=== PATIENT | female | born 1940 | race Caucasian/White ===

== ENCOUNTER 2016-09-05 16:26 | Outpatient (CLI) | payer OTHER ==
[2015-09-02 16:42] VITALS: BMI 33.4
[2016-09-05 16:57] LABS: BASOPHILS # (AUTO) 0.1 K/uL (0-0.2); EOSINOPHILS # (AUTO) 0.2 K/ul (0.0-0.7); EOSINOPHILS % (AUTO) 2.9 % (0.0-7.0); IMMATURE GRANULOCYTE % (AUTO) 0.7 % (0.0-5.0); LYMPHOCYTES # (AUTO) 1.8 K/uL (0.60-3.4); LYMPHOCYTES % (AUTO) 24.4 (10.0-50.0); MEAN CORPUSCULAR HEMOGLOBIN 32.8 pg (27.0-31.0); MEAN CORPUSCULAR HGB CONC 29.8 (31.8-35.4); MONOCYTES # (AUTO) 0.6 K/uL (0.4-2.0); MONOCYTES % (AUTO) 8.1 (0-10); NEUTROPHILS # (AUTO) 4.6 K/ul (2.0-6.9); NEUTROPHILS % (AUTO) 62.9; PLATELET COUNT 196 10^3/uL (140-440); WHITE BLOOD COUNT 7.24 K/ul (4.6-10.2)
[2016-09-05 16:59] LABS: HEMATOCRIT 19.8 % (37.0-47.0); HEMOGLOBIN 5.9 g/dl (12.0-16.0)
[2016-09-05 17:01] LABS: ANISOCYTOSIS 1+ (NOT PRESENT)
[2016-09-05 17:02] LABS: POLYCHROMASIA 1+ (NOT PRESENT)
[2016-09-05 17:28] LABS: ALBUMIN 3.2 g/dL (3.4-5.0); ALBUMIN/GLOBULIN RATIO 1.23; ANION GAP 11.9; BILIRUBIN,TOTAL 0.28 mg/dL (0.00-1.20); BUN/CREATININE RATIO 16.25; CALCIUM 9.2 mg/dL (8.2-10.2); CREATININE 0.8 mg/dL (0.60-1.30); POTASSIUM 3.9 mmol/L (3.5-5.10); TOTAL PROTEIN 5.8 g/dL (5.8-8.1)
[2016-09-05 20:38] VITALS: BMI 32.2
== END 2016-09-05 16:27 | disposition home or self-care (01) ==
LOC: LAB 16:26
PROVIDERS: ATTEND Emergency Medicine
DX: E11.9 Type 2 diabetes mellitus without complications (principal); E78.5 Hyperlipidemia, unspecified; I10 Essential (primary) hypertension
CPT/HCPCS: 36415; 80053; 80061; 83036; 84443; 85008; 85025

== ENCOUNTER 2016-09-05 18:12 | Inpatient (IN) ==
[2016-09-05 19:58] LABS: BILIRUBIN,URINE Negative (NEGATIVE); KETONES,URINE Negative (NEGATIVE); LEUKOCYTE ESTERASE ,URINE Negative (NEGATIVE); NITRITE,URINE Negative (NEGATIVE); PROTEIN,URINE Negative (NEGATIVE); URINE, BLOOD Negative (NEGATIVE)
[2016-09-05 20:03] LABS: ADD URINE MICROSCOPIC NO
[2016-09-05 20:38] VITALS: BMI 32.2
[2016-09-05] MEDS ORDERED: NON-FORMULARY MEDICATION (Gabapentin [Gabapentin] 600 MG) PO SCH (21:15)
[2016-09-05] MEDS ORDERED: VENLAFAXINE HCL 100 MG PO SCH (21:15)
[2016-09-05] MEDS ORDERED: NITROSTAT SL PRN (21:20)
[2016-09-05] MEDS ORDERED: EFFEXOR XR PO SCH (21:30)
[2016-09-05] MEDS: NEURONTIN PO SCH (21:59)
[2016-09-05] MEDS: ATIVAN PO SCH (22:00)
[2016-09-05 22:03] LABS: OCCULT BLOOD INTERNAL QC 1 INTERNAL QC VALID; OCCULT BLOOD SAMPLE 1 POSITIVE (NEGATIVE)
[2016-09-05 22:10] LABS: TROPONIN I 0.277 ng/ml (0.0000-0.4000)
[2016-09-05] MEDS ORDERED: TYLENOL PO STA (23:44)
[2016-09-06 00:05] LABS: OCCULT BLOOD INTERNAL QC 2 INTERNAL QC VALID; OCCULT BLOOD INTERNAL QC 3 INTERNAL QC VALID; OCCULT BLOOD SAMPLE 2 NO SPECIMEN RECEIVED (NEGATIVE); OCCULT BLOOD SAMPLE 3 NO SPECIMEN RECEIVED (NEGATIVE)
[2016-09-06] MEDS ORDERED: LASIX ONE ×2 (00:35→03:26)
[2016-09-06] MEDS: LASIX IVP PRN ×2 (00:36→03:45)
[2016-09-06] MEDS ORDERED: LASIX IVP PRN (04:53)
[2016-09-06] MEDS: LASIX TAB PO SCH (05:37)
[2016-09-06] MEDS: SYNTHROID PO SCH (06:37)
[2016-09-06] MEDS: CALCIUM 500 + VIT D 200 MG TABLET PO SCH (08:32)
[2016-09-06] MEDS: VENLAFAXINE HCL 100 MG PO SCH ×2 (08:32→20:07)
[2016-09-06] MEDS: CYMBALTA PO SCH ×2 (08:33→20:07)
[2016-09-06] MEDS: HYDROCHLOROTHIAZIDE PO SCH (08:33)
[2016-09-06] MEDS: OMEGA-3 FISH OIL PO SCH (08:33)
[2016-09-06] MEDS: DIOVAN PO SCH (08:33)
[2016-09-06] MEDS: PROTONIX IV IVP SCH ×2 (08:44→20:02)
[2016-09-06] MEDS ORDERED: NON-FORMULARY MEDICATION (Omega-3 Fatty Acids/Fish Oil [Fish Oil 1,000 Mg Capsule] 1 EACH) PO SCH ×22 (09:00)
[2016-09-06] MEDS ORDERED: [UNRECOGNIZED DRUG - OTHER] PO SCH (09:00)
[2016-09-06] MEDS ORDERED: HYDROCHLOROTHIAZIDE PO SCH (09:00)
[2016-09-06] MEDS ORDERED: VALSARTAN PO SCH (09:00)
[2016-09-06 09:17] LABS: HEMOGLOBIN 10.2 g/dl (12.0-16.0)
[2016-09-06 09:45] LABS: ALBUMIN 3.5 g/dL (3.4-5.0); ALBUMIN/GLOBULIN RATIO 1.3; ANION GAP 12.4; BILIRUBIN,TOTAL 0.84 mg/dL (0.00-1.20); BUN/CREATININE RATIO 12.04; CALCIUM 9.1 mg/dL (8.2-10.2); CREATININE 0.83 mg/dL (0.60-1.30); POTASSIUM 3.4 mmol/L (3.5-5.10); TOTAL PROTEIN 6.2 g/dL (5.8-8.1)
[2016-09-06 09:46] LABS: TROPONIN I 0.294 ng/ml (0.0000-0.4000)
--- NOTE | 2016-09-06 12:22 | CT ---
EXAM: CT ABDOMEN AND PELVIS HISTORY: Anemia, positive occult blood in stool TECHNIQUE: CT abdomen and pelvis without intravenous contrast. Images were reconstructed using 5 m m section thickness. Reformations were prepared. COMPARISON: 09/02/2015 FINDINGS: Diagnostic limitations exist without including contrast enhanced images. No focal hepatic or spleni c lesions identified. Gallbladder is grossly unremarkable. Significant fatty replacement of the pa ncreas. No definite adrenal mass. Subtle nonspecific bilateral perinephric fat stranding. No hydr onephrosis or renal calculus. There is a stable high attenuation 1 cm nodule of the lateral left re nal cortex possibly representing a cyst with internal proteinaceous fluid. This can be correlated w ith ultrasound if not previously performed. Moderately severe atherosclerotic disease with early fu siform architecture of the infrarenal aorta remaining sub aneurysmal at 2.8 cm. No well-defined gastric pathology. Normal appendix. There is moderate distal colon diverticulosis. Normal bowel gas pattern. No well-defined colonic mass, further workup may be needed. Uterus and ur inary bladder are within normal limits. There is no ascites. No abdominal wall hernia. Moderate facet arthropathy lumbosacral junction. Tiny bilateral pleural effusions with minimal adjacent atelectasis. No pneumoperitoneum. IMPRESSION: 1. Moderate distal colon diverticulosis. 2. Moderately severe atherosclerotic disease. 3. Stable 1 cm high attenuation left renal cortical mass possibly a cyst. 4. Tiny bilateral pleural effusions.
[2016-09-06] MEDS: NEURONTIN PO SCH (20:06)
[2016-09-06 21:01] LABS: HEMATOCRIT 30.1 % (37.0-47.0); HEMOGLOBIN 10.1 g/dl (12.0-16.0)
[2016-09-06] MEDS: ATIVAN PO SCH (21:01)
[2016-09-07 04:45] LABS: HEMATOCRIT 32.3 % (37.0-47.0); HEMOGLOBIN 10.7 g/dl (12.0-16.0)
[2016-09-07 05:06] LABS: ALBUMIN 3.5 g/dL (3.4-5.0); ALBUMIN/GLOBULIN RATIO 1.17; ANION GAP 11.7; BUN/CREATININE RATIO 16.66; CALCIUM 9.8 mg/dL (8.2-10.2); CREATININE 0.78 mg/dL (0.60-1.30); POTASSIUM 3.7 mmol/L (3.5-5.10); TOTAL PROTEIN 6.5 g/dL (5.8-8.1)
[2016-09-07] MEDS: SYNTHROID PO SCH (05:43)
[2016-09-07] MEDS: LASIX TAB PO SCH (05:43)
[2016-09-07] MEDS: VENLAFAXINE HCL 100 MG PO SCH ×2 (08:27→20:33)
[2016-09-07] MEDS: CALCIUM 500 + VIT D 200 MG TABLET PO SCH (08:27)
[2016-09-07] MEDS: OMEGA-3 FISH OIL PO SCH (08:27)
[2016-09-07] MEDS: CYMBALTA PO SCH ×2 (08:28→20:34)
[2016-09-07] MEDS: DIOVAN PO SCH (08:28)
[2016-09-07] MEDS: HYDROCHLOROTHIAZIDE PO SCH (08:28)
[2016-09-07] MEDS ORDERED: PROTONIX PO STA (08:44)
--- NOTE | 2016-09-07 11:12 | PCM.PROG ---
Attending Provider: ATTENDING PROVIDER: Dr. JERSEY MACKEY-[facility] DATE OF SERVICE: 09/07/16 SUBJECTIVE: This 75 year old WHITE/ F was hospitalized 09/05/16. The patient states she doesn't feel good this morning, feels weak and "drained". The patient hasn't been sleeping well due to the Lasix. She states her daughter left yesterday to go home and she was upset about that. Hemoglobin is stable. REVIEW OF SYSTEMS: CONSTITUTIONAL: Fatigue. No fever, no chills. ENDOCRINE: No weight loss or weight gain. HEENT: No sinus drainage, no sore throat. CVS: No angina symptoms. No CHF symptoms. No palpitations. No atypical chest pain for CAD. No shortness of breath. RESPIRATORY: No cough, no hemoptysis. GI: No melena. No abdominal pain. No nausea, no vomiting. : No hematuria. No polyuria. SKIN: No rash. No wounds. MUSCULOSKELETAL: No pain. MOBILE APPLICATION DEVELOPMENT LEAD: No blackout, no dizziness. No headache. No double vision. PSYCHIATRIC: Sad as daughter has left. Not anxious; no depression. No suicidal thoughts. No homicidal thoughts. PHYSICAL EXAMINATION: GENERAL: Lying in bed in no distress. VITAL SIGNS: Temperature 98.1 F, Pulse 62, Respiratory Rate 18, BP 130/62, Pulse Ox 95% HEENT: Normocephalic, atraumatic. Mucosa is dry, pallor positive. NECK: No JVP, no carotid bruit. No lymphadenopathy. CARDIAC: S1, S2, no S3. Systolic murmur. LUNGS: Basilar crackles. Clear to auscultation. ABDOMEN: Soft, non-tender. Bowel sounds active. No rigidity, guarding or CVA tenderness. EXTREMITIES: No clubbing, cyanosis or edema. NEUROLOGIC: Awake, alert and oriented x3. LYMPHATIC: No palpable lymph nodes SKIN: Not dry. Intact. MUSCULOSKELETAL: No joint swelling. LAB REVIEW: 09/07/16 04:41 09/07/16 04:41 09/07/16 04:41: Hgb 10.7 L, Hct 32.3 L, Sodium 141, Potassium 3.7, Chloride 101 , Carbon Dioxide 32 H, Anion Gap 11.7, BUN 13, Creatinine 0.78, Estimated GFR ( MDRD) 72.00, BUN/Creatinine Ratio 16.66, Glucose 92 D, Calcium 9.8, Total Bilirubin 1.00, AST 24, ALT 12, Alkaline Phosphatase 89, Total Protein 6.5, Albumin 3.5, Globulin 3.0, Albumin/Globulin Ratio 1.17 09/06/16 21:01: Hgb 10.1 L, Hct 30.1 L 09/06/16 09:05: Hgb 10.2 L D, Hct 31.0 L D, Sodium 142, Potassium 3.4 L, Chloride 104, Carbon Dioxide 29, Anion Gap 12.4, BUN 10, Creatinine 0.83, Estimated GFR (MDRD) 67.00, BUN/Creatinine Ratio 12.04, Glucose 147 H D, Calcium 9.1, Total Bilirubin 0.84, AST 26, ALT 13, Alkaline Phosphatase 87, Total Creatine Kinase 49, Myoglobin 44, Troponin I 0.2940, Total Protein 6.2, Albumin 3.5, Globulin 2.7, Albumin/Globulin Ratio 1.30 ASSESSMENT: 1. Severe anemia from lower GI bleed status post 3 units blood transfusion 2. Diverticulosis 3. Aortic stenosis 4. Hypertension 5. Dyslipidemia 6. Peripheral neuropathy 7. Diabetes mellitus, diet controlled 8. Coronary artery disease 9. CHF PLAN: 1. Protonix 40 mg p.o. b.i.d. change to p.o. 2. Case management will get the patient an appointment as outpatient with Gastroenterology. 3. Out of bed to chair with activity as tolerated. 4. Check Hemoglobin and Hematocrit. Plan and coordination of the patient's care discussed in the presence of Mixing Roll Operator and nurse. CONDITION: Stable SCRIBED BY: SOHAN ZAMAN Distribution Agent scribed while in presence of service performed by Dr. JERSEY MACKEY-[facility] on 09/07/16 ([id number])
--- NOTE | 2016-09-07 14:38 | PN ---
DATE OF SERVICE: 09/06/16 SUBJECTIVE: The patient was admitted from the office yesterday for hgb of 5.3. The patient received 3 units. Today tomorrow hgb is 10.2. She feels better. REVIEW OF SYSTEMS: CONSTITUTIONAL: No fever, no chills. HEENT: Normal. ENDOCRINE: No weight gain, no weight loss. CVS: No angina symptoms. No CHF symptoms. No palpitations. No atypical chest pain for CAD. No shortness of breath. No PND, no orthopnea. RESPIRATORY: No cough, no hemoptysis. GI: No nausea, no vomiting. No abdominal pain. : No hematuria. No polyuria. MUSCULOSKELETAL:. No joint swelling. PSYCHIATRIC: Not anxious. No depression. No suicidal thoughts. No homicidal thoughts. SKIN: Intact. No rash. PHYSICAL EXAMINATION: V/S: Blood pressure 101/53, respiratory rate 20, heart rate 69, temperature 98.1. HEENT: Normocephalic, atraumatic. Mucosa dry. Pallor positive. No icterus. NECK: Supple. No JVD, no carotid bruit. No lymphadenopathy. LUNGS: Clear to auscultation. No rales or rhonchi. HEART: S1, S2 normal. No S3. Systolic murmur, gallop or regurgitation. ABDOMEN: Soft, nontender. Bowel sounds active. No rigidity. No rebound or guarding. No CVA tenderness. EXTREMITIES: No clubbing, cyanosis or 1+ edema lower extremity. MUSCULOSKELETAL: No joint swelling. NEUROLOGIC: Awake, alert, oriented times three. No focal deficit. LYMPHATIC: No lymph nodes palpable. SKIN: Intact. LABS: hgb 10.2, hct 31.0, sodium 142, potassium 3.4, chloride 104, bicarb 25, BUN 10, creatinine 0.83 and glucose 147. ASSESSMENT: 1. Anemia, mostly from the lower GI bleed will get CAT scan today 2. Status post 3 units blood transfusion 3. Hypertension 4. Dyslipidemia 5. Chronic heart failure 6. Aortic stenosis 7. Arteriosclerotic vascular disease 8. Depression PLAN: 1. Protonix 40mg IV push twice a day 2. CT scan of abdomen and pelvis 3. Hgb and Hct Q 12 hours Will follow the patient in daily rounds. TIME SPENT: More than 30 minutes MTDD
[2016-09-07] MEDS: PROTONIX PO SCH (16:20)
[2016-09-07 19:07] LABS: HEMATOCRIT 33.4 % (37.0-47.0); HEMOGLOBIN 10.9 g/dl (12.0-16.0)
[2016-09-07] MEDS: NEURONTIN PO SCH (20:33)
[2016-09-07] MEDS: ATIVAN PO SCH (20:34)
[2016-09-08 04:24] LABS: HEMATOCRIT 35.5 % (37.0-47.0); HEMOGLOBIN 11.4 g/dl (12.0-16.0)
[2016-09-08 04:48] LABS: ALBUMIN 3.6 g/dL (3.4-5.0); ALBUMIN/GLOBULIN RATIO 1.16; ANION GAP 13.8; BILIRUBIN,TOTAL 0.51 mg/dL (0.00-1.20); BUN/CREATININE RATIO 19.76; CALCIUM 10.5 mg/dL (8.2-10.2); CREATININE 0.86 mg/dL (0.60-1.30); POTASSIUM 3.8 mmol/L (3.5-5.10); TOTAL PROTEIN 6.7 g/dL (5.8-8.1)
[2016-09-08] MEDS: PROTONIX PO SCH ×2 (05:30→16:54)
[2016-09-08] MEDS: SYNTHROID PO SCH (05:30)
[2016-09-08] MEDS: LASIX TAB PO SCH (05:30)
[2016-09-08] MEDS: CALCIUM 500 + VIT D 200 MG TABLET PO SCH (08:23)
[2016-09-08] MEDS: DIOVAN PO SCH (08:24)
[2016-09-08] MEDS: CYMBALTA PO SCH ×2 (08:24→20:37)
[2016-09-08] MEDS: HYDROCHLOROTHIAZIDE PO SCH (08:24)
[2016-09-08] MEDS: OMEGA-3 FISH OIL PO SCH (08:24)
[2016-09-08] MEDS: VENLAFAXINE HCL 100 MG PO SCH ×2 (08:25→20:37)
[2016-09-08] MEDS ORDERED: CITRATE OF MAGNESIA PO STA (08:40)
[2016-09-08 18:33] LABS: HEMATOCRIT 37.3 % (37.0-47.0); HEMOGLOBIN 11.9 g/dl (12.0-16.0)
[2016-09-08] MEDS: NEURONTIN PO SCH (20:36)
[2016-09-08] MEDS: ATIVAN PO SCH (20:37)
[2016-09-09 04:54] LABS: BASOPHILS # (AUTO) 0.1 K/uL (0-0.2); BASOPHILS % (AUTO) 1.5 % (0.0-3.0); EOSINOPHILS # (AUTO) 0.3 K/ul (0.0-0.7); EOSINOPHILS % (AUTO) 3.6 % (0.0-7.0); HEMATOCRIT 33.7 % (37.0-47.0); HEMOGLOBIN 10.8 g/dl (12.0-16.0); IMMATURE GRANULOCYTE % (AUTO) 0.4 % (0.0-5.0); LYMPHOCYTES # (AUTO) 1.7 K/uL (0.60-3.4); LYMPHOCYTES % (AUTO) 20.6 (10.0-50.0); MEAN CORPUSCULAR HEMOGLOBIN 31.9 pg (27.0-31.0); MEAN CORPUSCULAR VOLUME 99.4 fl (81.0-99.0); MONOCYTES # (AUTO) 0.9 K/uL (0.4-2.0); NEUTROPHILS # (AUTO) 5.3 K/ul (2.0-6.9); NEUTROPHILS % (AUTO) 62.9; PLATELET COUNT 242 10^3/uL (140-440); RED BLOOD COUNT 3.39 10^6/ul (4.20-5.40)
[2016-09-09 05:22] LABS: ALBUMIN 3.5 g/dL (3.4-5.0); ALBUMIN/GLOBULIN RATIO 1.25; BILIRUBIN,TOTAL 0.47 mg/dL (0.00-1.20); BUN/CREATININE RATIO 25.55; CALCIUM 10.2 mg/dL (8.2-10.2); CREATININE 0.9 mg/dL (0.60-1.30); TOTAL PROTEIN 6.3 g/dL (5.8-8.1)
[2016-09-09] MEDS: LASIX TAB PO SCH (05:40)
[2016-09-09] MEDS: PROTONIX PO SCH ×2 (05:41→17:03)
[2016-09-09] MEDS: SYNTHROID PO SCH (05:41)
[2016-09-09] MEDS: CALCIUM 500 + VIT D 200 MG TABLET PO SCH (09:02)
[2016-09-09] MEDS: VENLAFAXINE HCL 100 MG PO SCH ×2 (09:02→20:38)
[2016-09-09] MEDS: CYMBALTA PO SCH ×2 (09:03→20:38)
[2016-09-09] MEDS: HYDROCHLOROTHIAZIDE PO SCH (09:03)
[2016-09-09] MEDS: DIOVAN PO SCH (09:03)
[2016-09-09] MEDS: OMEGA-3 FISH OIL PO SCH (09:03)
[2016-09-09 14:08] LABS: HEMATOCRIT 33.5 % (37.0-47.0); HEMOGLOBIN 10.9 g/dl (12.0-16.0)
[2016-09-09] MEDS: NEURONTIN PO SCH (20:38)
[2016-09-09] MEDS: ATIVAN PO SCH (20:38)
[2016-09-10 04:37] LABS: BASOPHILS # (AUTO) 0.1 K/uL (0-0.2); BASOPHILS % (AUTO) 1.8 % (0.0-3.0); EOSINOPHILS # (AUTO) 0.3 K/ul (0.0-0.7); EOSINOPHILS % (AUTO) 3.8 % (0.0-7.0); HEMATOCRIT 33.7 % (37.0-47.0); HEMOGLOBIN 10.8 g/dl (12.0-16.0); IMMATURE GRANULOCYTE % (AUTO) 0.6 % (0.0-5.0); LYMPHOCYTES # (AUTO) 1.9 K/uL (0.60-3.4); LYMPHOCYTES % (AUTO) 28.8 (10.0-50.0); MEAN CORPUSCULAR HEMOGLOBIN 31.9 pg (27.0-31.0); MEAN CORPUSCULAR VOLUME 99.4 fl (81.0-99.0); MONOCYTES # (AUTO) 0.8 K/uL (0.4-2.0); MONOCYTES % (AUTO) 11.9 (0-10); NEUTROPHILS # (AUTO) 3.5 K/ul (2.0-6.9); NEUTROPHILS % (AUTO) 53.1; PLATELET COUNT 231 10^3/uL (140-440); RED BLOOD COUNT 3.39 10^6/ul (4.20-5.40); WHITE BLOOD COUNT 6.64 K/ul (4.6-10.2)
[2016-09-10 04:56] LABS: ALBUMIN 3.5 g/dL (3.4-5.0); ALBUMIN/GLOBULIN RATIO 1.21; BILIRUBIN,TOTAL 0.4 mg/dL (0.00-1.20); CALCIUM 10.5 mg/dL (8.2-10.2); CREATININE 0.88 mg/dL (0.60-1.30); TOTAL PROTEIN 6.4 g/dL (5.8-8.1)
[2016-09-10] MEDS: PROTONIX PO SCH (05:52)
[2016-09-10] MEDS: LASIX TAB PO SCH (05:53)
[2016-09-10] MEDS: SYNTHROID PO SCH (05:53)
[2016-09-10] MEDS: OMEGA-3 FISH OIL PO SCH (08:27)
[2016-09-10] MEDS: VENLAFAXINE HCL 100 MG PO SCH (08:27)
[2016-09-10] MEDS: CALCIUM 500 + VIT D 200 MG TABLET PO SCH (08:27)
[2016-09-10] MEDS: CYMBALTA PO SCH (08:28)
[2016-09-10] MEDS: DIOVAN PO SCH (08:28)
[2016-09-10] MEDS: HYDROCHLOROTHIAZIDE PO SCH (08:28)
[2016-09-10 10:17] VITALS: TEMP 98
[2016-09-10 13:55] VITALS: BP 91/44
--- NOTE | 2016-09-12 12:45 | DS ---
DATE OF SERVICE: 09/10/16 FINAL DIAGNOSIS: 1. ANEMIA WITH LOWER GI BLEED MOST LIKELY FROM THE DIVERTICULOSIS NEEDING 3 UNITS OF PACKED RED BLOOD CELLS 2. CORONARY ARTERY DISEASE 3. CONGESTIVE HEART FAILURE 4. HYPERTENSION 5. DYSLIPIDEMIA 6. MODERATE AORTIC STENOSIS 7. DEPRESSION 8. ANXIETY 9. DIABETES MELLITUS DIET CONTROLLED 10. OSTEOARTHRITIS 11. HYPOTHYROIDISM PLAN: 1. Discharge the patient home. 2. Follow up with the GI doctor as scheduled September [address] Junior. 3. Follow up with Dr. Salter September 12 at [facility]. 4. Activity as tolerated. 5. Continue home medications as listed. 6. MiraLAX over the counter one cap full daily. 7. New medications: Protonix 40 mg p.o. daily. HOME MEDICATIONS: Calcium, Benadryl, Duloxetine, Ferrous sulfate, Lasix, Neurontin, Synthroid, Lorazepam, Multivitamin, Corona 3, Protonix, Valsartan Hydrochlorothiazide, Senna, Venlafaxine, Gabapentin, Crestor. DISEASE SPECIFIC EDUCATION: Anemia and the risk of CHF exacerbation and coronary artery disease discussed and she verbalized understanding. HOSPITAL COURSE: Abbie Adams who came to the [facility] to establish care complaining of feeling weak, tired, shortness of breath. The patient's labs were done which showed the hemoglobin of 5.3. At that time, I personally called the daughter, Ellie Adams, and directed admisson to the hospital and ordered 3 units of PRB transfusion. At that time, the patient's hemoglobin came up to 10.[address] of the abdomen and pelvis showed the multiple extensive diverticulosis. At that time, the patient verbalized understanding the importance of having a colonoscopy evaluation and finally agreed for that. The patient is scheduled with Dr. Junior for that. Hemoglobin remained stable. The patient was having a lot of problems with depression. Consult was made with [facility] and she is willing to go and have a follow up with them. Hospital stay is uneventful. Time spent on the patient is more than 55 minutes today. MTDD
--- NOTE | 2016-09-15 14:38 | PN ---
DATE OF SERVICE: 09/09/16 SUBJECTIVE: The patient was feeling weak and tired, did not want to go home. She was a little bit short of breath. Today, just woke up and says she feels some better , no pain. No abdominal discomfort. No nausea or vomiting. She had a couple of bowel movements. The patient got the laxative yesterday. REVIEW OF SYSTEMS: CONSTITUTIONAL: Weakness and tiredness. No fever, no chills. HEENT: Normal. ENDOCRINE: No weight gain, no weight loss. CVS: No angina symptoms. No CHF symptoms. No palpitations. No atypical chest pain for CAD. No shortness of breath. No PND, no orthopnea. RESPIRATORY: No cough, no hemoptysis. GI: No nausea, no vomiting. No abdominal pain. : No hematuria. No polyuria. MUSCULOSKELETAL:. No joint swelling. PSYCHIATRIC: Not anxious. No depression. No suicidal thoughts. No homicidal thoughts. SKIN: Intact. No rash. PHYSICAL EXAMINATION: V/S: BP 101/62, respiratory rate 18, heart rate 73, temperature 97.2. HEENT: Normocephalic, atraumatic. Mucosa dry. Pallor positive. No icterus. NECK: Supple. No JVD, no carotid bruit. No lymphadenopathy. LUNGS: Decreased breath sounds. Clear to auscultation. No rales or rhonchi. HEART: S1, S2 normal. Systolic murmur positive. ABDOMEN: Soft, nontender. Bowel sounds active. No discomfort. No rigidity. No rebound or guarding. No CVA tenderness. EXTREMITIES: No clubbing, cyanosis or pedal edema. MUSCULOSKELETAL: No joint swelling. NEUROLOGIC: Awake, alert, oriented times three. No focal deficit. LYMPHATIC: No lymph nodes palpable. SKIN: Intact. LABS: White count 8.40, hemoglobin 10.8, hematocrit 33.7, platelet count 242. Sodium 138, potassium 4.0, chloride 96, bicarb 33, BUN 23, creatinine 0.90. ASSESSMENT: 1. LOWER GI BLEED MOSTLY DIVERTICULOSIS, STATUS POST THREE UNITS PRBC TRANSFUSION 2. CHF STABLE 3. CAD 4. HYPERTENSION 5. DIABETES, DIET CONTROLLED 6. DEPRESSION/ANXIETY 7. OSTEOARTHRITIS 8. DJD SPINE PLAN: 1. Will get one more H & H before the patient leaves by noontime. 2. The patient has GI consultation and followup as outpatient. Please watch for black tarry stools or bright red blood. 3. Iron pills [id number], three pills a day. 4. High fiber diet. 5. Activity as much as tolerated. 6. Will followup with the patient in the office within four to five days. TIME SPENT: More than 30 minutes MTDD
== END 2016-09-10 15:52 | disposition home or self-care (01) | DRG 811 ==
LOC: MEDSURG B 18:12
PROVIDERS: ADMIT Emergency Medicine; ATTEND Emergency Medicine
PROC: 30233N1 Transfusion of Nonautologous Red Blood Cells into Peripheral Vein, Percutaneous Approach (ICD-10-PCS; principal; 2016-09-05)
PROC: 30233N1 Transfusion of Nonautologous Red Blood Cells into Peripheral Vein, Percutaneous Approach (ICD-10-PCS; 2016-09-06)
PROC: 30233N1 Transfusion of Nonautologous Red Blood Cells into Peripheral Vein, Percutaneous Approach (ICD-10-PCS; 2016-09-06)
DX: D50.0 Iron deficiency anemia secondary to blood loss (chronic) (principal); K57.31 Diverticulosis of large intestine without perforation or abscess with bleeding; I25.10 Atherosclerotic heart disease of native coronary artery without angina pectoris; I50.9 Heart failure, unspecified; I10 Essential (primary) hypertension; I35.0 Nonrheumatic aortic (valve) stenosis; F41.8 Other specified anxiety disorders; E11.9 Type 2 diabetes mellitus without complications; E78.5 Hyperlipidemia, unspecified; M19.90 Unspecified osteoarthritis, unspecified site; E03.9 Hypothyroidism, unspecified; G62.9 Polyneuropathy, unspecified; Z79.899 Other long term (current) drug therapy
CPT/HCPCS: 36415; 36430; 80053; 80061; 81001; 82272; 82550; 83036; 83874; 84443; 84484; 85008; 85014; 85018; 85025; 86850; 86900; 86922; 93005; 93010

== ENCOUNTER 2016-09-15 12:01 | Outpatient (CLI) ==
[2016-09-15 13:06] LABS: BASOPHILS # (AUTO) 0.1 K/uL (0-0.2); BASOPHILS % (AUTO) 1.8 % (0.0-3.0); EOSINOPHILS # (AUTO) 0.2 K/ul (0.0-0.7); EOSINOPHILS % (AUTO) 2.6 % (0.0-7.0); HEMATOCRIT 26.7 % (37.0-47.0); HEMOGLOBIN 8.4 g/dl (12.0-16.0); IMMATURE GRANULOCYTE % (AUTO) 0.4 % (0.0-5.0); LYMPHOCYTES # (AUTO) 1.3 K/uL (0.60-3.4); LYMPHOCYTES % (AUTO) 22.8 (10.0-50.0); MEAN CORPUSCULAR HEMOGLOBIN 31.5 pg (27.0-31.0); MEAN CORPUSCULAR HGB CONC 31.5 (31.8-35.4); MONOCYTES # (AUTO) 0.5 K/uL (0.4-2.0); MONOCYTES % (AUTO) 8.8 (0-10); NEUTROPHILS # (AUTO) 3.6 K/ul (2.0-6.9); NEUTROPHILS % (AUTO) 63.6; PLATELET COUNT 203 10^3/uL (140-440); RED BLOOD COUNT 2.67 10^6/ul (4.20-5.40)
== END 2016-09-15 12:02 | disposition home or self-care (01) ==
LOC: LAB 12:01
PROVIDERS: ATTEND Emergency Medicine
DX: D50.0 Iron deficiency anemia secondary to blood loss (chronic) (principal)
CPT/HCPCS: 36415; 85025

== ENCOUNTER 2016-09-19 20:38 | Emergency (ER) ==
[2016-09-19 20:46] VITALS: BP 117/46; TEMP 98.1; BMI 32.1
--- NOTE | 2016-09-19 20:53 | ED.PDOC ---
General ED Provider: Dr. JERSEY MACKEY Chief Complaint: Weakness Stated Complaint: Patient was recently in the hospital for the lower GI bleed, had 3 units of BT. family brought her today as she is feeling weak tired, Time Seen by Physician: 20:51 Mode of Arrival: Wheelchair Information Source: Patient Primary Care Provider: JERSEY MACKEY-[facility] Nursing and Triage Documentation Reviewed and Agree: Yes Neurological Complaint Exam - Weakness Complaint/Exam Onset: Gradual Symptoms Are: Still present Timing: Constant Episodes Lasting: Hours Initial Severity: Moderate Current Severity: Moderate Character: Reports: Unable to describe Aggravating: Reports: Exertion Alleviating: Reports: None Associated Signs and Symptoms: Denies: Nausea, Vomiting, Diaphoresis, Tinnitus, Chest pain, Short of air, Palpitations, Unsteady gait, GI blood loss, Visual changes, Decreased oral intake, Change in medication, Change in diet, OTC meds, Loss of balance Related History: Similar episode Cardiac Risk Factors: Reports: None CVA Risk Factors: Reports: None Related Surgical History: Reports: None JVD Present: No Carotid Bruit Present: No Rectal Heme Positive: Yes Nystagmus Present: No Gag Reflex Present: No Meningeal Signs Positive: No Focal Weakness: Present: None Focal Sensory Loss: Present: None Gait: Abnormal [id number]: Normal Findings Romberg Test Positive: No Babinski Sign: Negative Right, Negative Left Heel to Toe Normal: No Differential Diagnoses: Hypovolemia, GI Bleed, Metabolic abnormalities Review of Systems - Review Of Systems Constitutional: Reports: Malaise, Weakness Eyes: Reports: No symptoms Ears, Nose, Mouth, Throat: Reports: No symptoms Respiratory: Reports: No symptoms Cardiac: Reports: No symptoms GI: Reports: Rectal bleeding : Reports: No symptoms Musculoskeletal: Reports: No symptoms Skin: Reports: No symptoms Neurological: Reports: No symptoms Endocrine: Reports: No symptoms Hematologic/Lymphatic: Reports: No symptoms All Other Systems: Reviewed and Negative Past Medical History - Past Medical History Previously Healthy: Yes Endocrine: Reports: Hypothyroid, Dyslipidemia Cardiovascular: Reports: CAD, Hypertension Respiratory: Reports: None Hematological: Reports: Anemia Gastrointestinal: Reports: None Genitourinary: Reports: None Neuro/Psych: Reports: None Musculoskeletal: Reports: Arthritis Cancer: Reports: None Last Menstrual Period: unknown Other Pertinent Past Medical History: htn thy ane chol depr arth cad - Surgical History General Surgical History: Reports: Orthopedic (LT SHOULDER REPLACED), Other (- ORAL SURG-). Denies: Hysterectomy (D & C-) - Family History Family History: Reports: Unknown - Social History Smoking Status: Current every day smoker, Heavy tobacco smoker Smoking Cessation Counseling Time: > 3 min - 10 min Hx Substance Use: No Alcohol Screening: None - Immunizations Tetanus Shot up to Date: No Physical Exam - Physical Exam Appearance: Ill-appearing Ill-appearing: Mild Eyes: ENRIKE, EOMI, Conjunctiva clear ENT: Ears normal, Nose normal, Oropharynx normal Respiratory: Airway patent, Breath sounds clear, Breath sounds equal, Respirations nonlabored Cardiovascular: Murmur GI/: Soft, Nontender, No masses, Bowel sounds normal, No Organomegaly Musculoskeletal: Normal strength, ROM intact, No calf tenderness, Edema Skin: Warm, Dry, Normal color Neurological: Sensation intact, Motor intact, Reflexes intact, Cranial nerves intact, Alert, Oriented Psychiatric: Affect appropriate, Mood appropriate Interpretation - Radiology Interpretation Radiology Interpretation By: Radiologist Radiology Results: Negative Exam Interpreted: CT Scan Physician Notification - Case Discussed Time of Notification: 21:56 (wound nurse ) Critical Care Note - Critical Care Note Total Time (mins): 0 Course - Course Hematology/Chemistry: 09/19/16 20:55 09/19/16 20:55 Orders, Labs, Meds: Lab Review 09/19/16 20:55 WBC 12.18 H RBC 1.87 L Hgb 6.1 L Hct 18.9 L* MCV 101.1 H MCH 32.6 H MCHC 32.3 RDW Coeff of Angelo 13.9 Plt Count 222 Immature Gran % (Auto) 1.1 Neut % (Auto) 73.6 Lymph % (Auto) 16.1 [place] % (Auto) 7.7 Eos % (Auto) 1.1 Baso % (Auto) 0.4 Immature Gran # (Auto) 0.1 Neut # 9.0 H Lymph # 2.0 [place] # 0.9 Eos # 0.1 Baso # 0.1 Sodium 138 Potassium 3.8 Chloride 106 Carbon Dioxide 25 Anion Gap 10.8 BUN 20 H Creatinine 0.79 Estimated GFR (MDRD) 71.00 BUN/Creatinine Ratio 25.31 Glucose 106 Calcium 8.6 Total Bilirubin 0.21 AST 17 ALT 7 L Alkaline Phosphatase 69 Total Creatine Kinase 29 Troponin I 0.0240 B-Natriuretic Peptide 205 H Total Protein 5.6 L Albumin 3.1 L Globulin 2.5 Albumin/Globulin Ratio 1.24 Orders Category Date Time Status EKG-(ED ONLY) Stat CARDIO 09/19/16 20:49 Completed ED IV/MEDIPORT/POWERPORT .ONCE EMERGENCY 09/19/16 21:34 Active B-TYPE NATRIURETIC PEPTIDE Stat LAB 09/19/16 20:55 Completed CBC W/ AUTO DIFF Stat LAB 09/19/16 20:55 Completed COMPREHENSIVE METABOLIC PANEL Stat LAB 09/19/16 20:55 Completed CREATINE KINASE Stat LAB 09/19/16 20:55 Completed Packed Cells [PACKED CELLS] Stat LAB 09/19/16 21:45 Received TROPONIN I Stat LAB 09/19/16 20:55 Completed TYPE AND SCREEN Stat LAB 09/19/16 21:45 Received 0.9 % Sodium Chloride [Saline Flush] MEDS 09/19/16 21:34 Ordered 1 syr IVF PRN PRN Sodium Chloride 0.9% [Sodium Chloride] 1,000 ml MEDS 09/19/16 22:00 Ordered IV 50 mls/hr CT HEAD W/O CONTRAST Stat RADS 09/19/16 20:51 Completed CXR [CHEST, 1V AP ONLY] Stat RADS 09/19/16 20:49 Completed Medications Generic Name Dose Route Start Last Admin Trade Name Freq PRN Reason Stop Dose Admin Sodium Chloride 1,000 mls @ 50 mls/hr 09/19/16 22:00 Sodium Chloride IV .Q20H MAY Sodium Chloride 1 syr 09/19/16 21:34 Saline Flush IVF PRN PRN To flush IV Vital Signs: Temp Pulse Resp BP Pulse Ox 09/19/16 20:40 98.1 F 71 20 117/46 L 96 Departure - Departure Time of Disposition: 21:56 Disposition: TSF OTHER Discharge Problem: Lower gastrointestinal bleed Anemia Qualifiers: Anemia type: iron deficiency 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) Instructions: Anemia (ED) Condition: Stable Pt referred to PMD for follow-up: Yes Allergies/Adverse Reactions: Allergies Latex, Natural Rubber Adverse Reaction (Verified 09/19/16 21:27) Home Medications: Ambulatory Orders Calcium Carbonate/Vitamin D3 [Calcium 600 + Vit D 400 Tablet] 1 each PO DAILY Furosemide [Lasix Tab] 40 mg PO QDAC 08/08/13 Levothyroxine Sodium [Synthroid] 75 mcg PO QDAC 08/08/13 Lorazepam 1 mg PO BEDTIME 08/08/13 Valsartan/Hydrochlorothiazide [Diovan Hct 160-25 mg Tablet] 1 tab PO DAILY 08/08 Duloxetine HCl 30 mg PO BID 09/02/15 Gabapentin 300 mg PO BID 09/02/15 Rosuvastatin Calcium [Crestor] 20 mg PO BEDTIME 09/02/15 Ferrous Sulfate 324 mg PO DAILY #30 tablet. 09/03/15 Pantoprazole Sodium [Protonix] 40 mg PO DAILY #30 tablet. 09/03/15 Diphenhydramine HCl [Benadryl] 25 mg PO BEDTIME 09/05/16 Gabapentin 600 mg PO BEDTIME 09/05/16 Multivitamin [Daily Value] 1 each PO DAILY 09/05/16 Elmer-3 Fatty Acids/Fish Oil [Fish Oil 1,000 mg Capsule] 1 each PO DAILY Sennosides/Docusate Sodium [Deisy-Colace Tablet] 1 each PO DAILY 09/05/16 Venlafaxine HCl 100 mg PO BID 09/06/16 Transfer Form Completed: Yes Disposition Discussed With: Patient, Family
[2016-09-19 21:00] LABS: BASOPHILS # (AUTO) 0.1 K/uL (0-0.2); BASOPHILS % (AUTO) 0.4 % (0.0-3.0); EOSINOPHILS # (AUTO) 0.1 K/ul (0.0-0.7); EOSINOPHILS % (AUTO) 1.1 % (0.0-7.0); HEMOGLOBIN 6.1 g/dl (12.0-16.0); IMMATURE GRANULOCYTE % (AUTO) 1.1 % (0.0-5.0); LYMPHOCYTES % (AUTO) 16.1 (10.0-50.0); MEAN CORPUSCULAR HEMOGLOBIN 32.6 pg (27.0-31.0); MEAN CORPUSCULAR HGB CONC 32.3 (31.8-35.4); MEAN CORPUSCULAR VOLUME 101.1 fl (81.0-99.0); MONOCYTES # (AUTO) 0.9 K/uL (0.4-2.0); MONOCYTES % (AUTO) 7.7 (0-10); NEUTROPHILS % (AUTO) 73.6; PLATELET COUNT 222 10^3/uL (140-440); RED BLOOD COUNT 1.87 10^6/ul (4.20-5.40); WHITE BLOOD COUNT 12.18 K/ul (4.6-10.2)
[2016-09-19 21:02] LABS: HEMATOCRIT 18.9 % (37.0-47.0)
[2016-09-19 21:24] LABS: ALBUMIN 3.1 g/dL (3.4-5.0); ALBUMIN/GLOBULIN RATIO 1.24; ANION GAP 10.8; BILIRUBIN,TOTAL 0.21 mg/dL (0.00-1.20); CALCIUM 8.6 mg/dL (8.2-10.2); POTASSIUM 3.8 mmol/L (3.5-5.10); TOTAL PROTEIN 5.6 g/dL (5.8-8.1)
[2016-09-19 21:25] LABS: BUN/CREATININE RATIO 25.31; CREATININE 0.79 mg/dL (0.60-1.30); TROPONIN I 0.024 ng/ml (0.0000-0.4000)
--- NOTE | 2016-09-19 21:31 | DI ---
Exam: Single x-ray of the chest. Comparison: 09/02/2015. Reason for exam: Cough. FINDINGS: No pneumothorax, pleural effusion, or focal consolidation. The cardiac silhouette is unc hanged. Atherosclerotic disease is seen within the aorta. Operative changes are seen in the left s houlder. Impression: No acute cardiopulmonary process.
--- NOTE | 2016-09-19 21:52 | CT ---
EXAM: CT head without contrast HISTORY: Weakness COMPARISON: None. TECHNIQUE: Helical axial CT of the head was performed without contrast. Coronal and sagittal reconst ructions were performed. FINDINGS: There is no acute intracranial abnormality. There is no hemorrhage, mass, midline shift, abnormal e xtra-axial fluid collection, hydrocephalus or evolving ischemia. The cuenca-white matter junction is w ell maintained. There is some minimal atrophy. Brain parenchyma, ventricles and sulci are otherwise normal. There are no acute calvarial lesions. Visualized orbits and globes are unremarkable. The mastoid a ir cells demonstrate no significant soft tissue opacification. The visualized paranasal sinuses show no air-fluid levels. IMPRESSION: 1. No acute intracranial abnormality. Specifically there is no evolving ischemia or hemorrhage. 2. Minimal atrophy.
[2016-09-19] MEDS ORDERED: SODIUM CHLORIDE 1,000 ML IV SCH (22:00)
== END 2016-09-19 22:53 | disposition short-term general hospital (02) ==
LOC: ED 20:38
DX: K92.2 Gastrointestinal hemorrhage, unspecified (principal); D50.0 Iron deficiency anemia secondary to blood loss (chronic); R53.1 Weakness; E03.9 Hypothyroidism, unspecified; E78.5 Hyperlipidemia, unspecified; I10 Essential (primary) hypertension; I25.10 Atherosclerotic heart disease of native coronary artery without angina pectoris; F17.210 Nicotine dependence, cigarettes, uncomplicated; Z79.899 Other long term (current) drug therapy
CPT/HCPCS: 36415; 80053; 82550; 83880; 84484; 85025; 86850; 86900; 86922; 93005; 93010; 96360; 99285

== ENCOUNTER 2016-09-19 22:48 | Outpatient (CLI) ==
[2016-09-19 20:46] VITALS: BMI 32.1
== END 2016-09-19 22:49 | disposition short-term general hospital (02) ==
LOC: AMBL 22:48
PROVIDERS: ATTEND Emergency Medicine
DX: R53.1 Weakness (principal); R42 Dizziness and giddiness; R03.1 Nonspecific low blood-pressure reading; D58.2 Other hemoglobinopathies; R06.9 Unspecified abnormalities of breathing; R88.8 Abnormal findings in other body fluids and substances

== ENCOUNTER 2016-09-26 11:15 | Outpatient (CLI) ==
[2016-09-26 11:42] LABS: HEMATOCRIT 23.4 % (37.0-47.0); HEMOGLOBIN 7.7 g/dl (12.0-16.0)
== END 2016-09-26 11:16 | disposition home or self-care (01) ==
LOC: NONPT 11:15
PROVIDERS: ATTEND Emergency Medicine
DX: D64.9 Anemia, unspecified (principal); K92.2 Gastrointestinal hemorrhage, unspecified
CPT/HCPCS: 85014; 85018

== ENCOUNTER 2016-09-30 09:29 | Outpatient (CLI) ==
[2016-09-30 12:52] VITALS: BMI 33.8
== END 2016-09-30 09:30 | disposition home or self-care (01) ==
LOC: AMBL 09:29
PROVIDERS: ATTEND Internal Medicine
DX: R06.9 Unspecified abnormalities of breathing (principal); R53.1 Weakness

== ENCOUNTER 2016-09-30 09:39 | Inpatient (IN) ==
[2016-09-30 10:32] LABS: BASOPHILS % (AUTO) 0.1 % (0.0-3.0); EOSINOPHILS % (AUTO) 0.3 % (0.0-7.0); IMMATURE GRANULOCYTE % (AUTO) 0.9 % (0.0-5.0); LYMPHOCYTES # (AUTO) 1.1 K/uL (0.60-3.4); LYMPHOCYTES % (AUTO) 10.2 (10.0-50.0); MEAN CORPUSCULAR HEMOGLOBIN 31.2 pg (27.0-31.0); MEAN CORPUSCULAR HGB CONC 31.6 (31.8-35.4); MEAN CORPUSCULAR VOLUME 98.6 fl (81.0-99.0); MONOCYTES # (AUTO) 0.8 K/uL (0.4-2.0); MONOCYTES % (AUTO) 7.8 (0-10); NEUTROPHILS # (AUTO) 8.6 K/ul (2.0-6.9); NEUTROPHILS % (AUTO) 80.7; PLATELET COUNT 168 10^3/uL (140-440); RED BLOOD COUNT 1.38 10^6/ul (4.20-5.40)
[2016-09-30 10:36] LABS: HEMATOCRIT 13.6 % (37.0-47.0); HEMOGLOBIN 4.3 g/dl (12.0-16.0)
[2016-09-30 10:44] LABS: OCCULT BLOOD INTERNAL QC 1 INTERNAL QC VALID; OCCULT BLOOD SAMPLE 1 POSITIVE (NEGATIVE)
--- NOTE | 2016-09-30 10:53 | CT ---
EXAM: CT chest without contrast. HISTORY: Shortness of breath. Chest pain. Cough. Fluid retention. COMPARISON: Radiograph 09/19/2016. TECHNIQUE: Multiple axial images of the chest were obtained without intravenous contrast. Images w ere reformatted in the sagittal and coronal planes. FINDINGS: Evaluation for lymphadenopathy is limited by lack of intravenous contrast. Heart is mild ly enlarged. Small amount pericardial fluid noted. Atherosclerotic calcifications are present. Mi tral and aortic valvular calcification is noted. The lungs are clear without pleural effusion or pneumothorax. There has been previous left shoulder arthroplasty. No acute osseous abnormality detected. Degener ative changes present in the spine. No acute abnormality identified in the upper abdomen. Refer to abdominal CT report for details. IMPRESSION: 1. No acute pulmonary process. 2. Cardiomegaly, atherosclerosis and small pericardial effusion.
--- NOTE | 2016-09-30 10:53 | CT ---
EXAM: CT of the abdomen pelvis without contrast History: Abdominal pain. Comparison: Chest CT 09/30 2016, CT abdomen pelvis 09/06/2016 Technique: Multiplanar CT images through the abdomen pelvis were obtained without the administratio n of IV contrast Findings: Prominent heart size. Lung bases are free of consolidation. No acute osseous abnormaliti es. No discrete gallstones identified by CT. Atherosclerotic vascular calcifications. No focal liver o r splenic lesions. Stable small hyperdense cyst within the left kidney. No renal stones and no hyd ronephrosis. Stable mild focal dilatation of the infrarenal abdominal aorta. There is pancreatic at rophy but no peripancreatic inflammation. Adrenal glands are unremarkable. No bowel obstruction. Colonic diverticulosis. Scattered colonic stool. No bladder wall thickening. Adnexal structures a ppear appropriate for patient's age. No perirectal inflammation. No free air and no ascites. Stable cystic area in the soft tissues superior to the left greater trochanter measuring 4.7 cm x 2. 7 cm. Impression: 1. No acute intra-abdominal or pelvic process. 2. Colonic diverticulosis. 3. Stable hyperdense left renal cortical cyst. 4. Stable cystic area in the soft tissues superior to the left greater trochanter could indicate bur sitis. Correlate with area of pain.
[2016-09-30 10:58] LABS: ALBUMIN 2.6 g/dL (3.4-5.0); ALBUMIN/GLOBULIN RATIO 1.24; ANION GAP 13.7; BILIRUBIN,TOTAL 0.18 mg/dL (0.00-1.20); BUN/CREATININE RATIO 29.41; CALCIUM 8.3 mg/dL (8.2-10.2); CREATININE 0.85 mg/dL (0.60-1.30); POTASSIUM 3.7 mmol/L (3.5-5.10); TOTAL PROTEIN 4.7 g/dL (5.8-8.1); TROPONIN I 0.049 ng/ml (0.0000-0.4000)
[2016-09-30 11:19] LABS: OCCULT BLOOD INTERNAL QC 2 INTERNAL QC VALID; OCCULT BLOOD INTERNAL QC 3 INTERNAL QC VALID; OCCULT BLOOD SAMPLE 2 NO SPECIMEN RECEIVED (NEGATIVE); OCCULT BLOOD SAMPLE 3 NO SPECIMEN RECEIVED (NEGATIVE)
--- NOTE | 2016-09-30 11:41 | ED.PDOC ---
General ED Provider: Dr. LAKSHMI FERRELL Chief Complaint: Weakness Stated Complaint: weakness Time Seen by Physician: 10:00 Mode of Arrival: Ambulance Information Source: Patient Exam Limitations: No limitations Primary Care Provider: JERSEY DAMONKim Nursing and Triage Documentation Reviewed and Agree: Yes Neurological Complaint Exam - Weakness Complaint/Exam Onset: Gradual Duration: chronic with dark bloody stools Symptoms Are: Still present Timing: Constant Episodes Lasting: Hours Initial Severity: Moderate Current Severity: Moderate Character: Reports: Lightheaded, Weak Aggravating: Reports: None Alleviating: Reports: None Associated Signs and Symptoms: Denies: Nausea, Vomiting, Diaphoresis, Tinnitus, Chest pain, Short of air, Palpitations, Unsteady gait, GI blood loss, Visual changes, Decreased oral intake, Change in medication, Change in diet, OTC meds, Loss of balance Related History: Similar episode Cardiac Risk Factors: Reports: Hypertension (anemia), CAD CVA Risk Factors: Reports: Hypertension Related Surgical History: Reports: None JVD Present: No Carotid Bruit Present: No Rectal Heme Positive: Yes Glascow Coma Scale (see protocol): 15 Nystagmus Present: No Gag Reflex Present: Yes Meningeal Signs Positive: No Focal Weakness: Present: None Focal Sensory Loss: Present: None Gait: Unable [id number]-Opua: Normal Findings Romberg Test Positive: No (unable to weakness ) Babinski Sign: Negative Right, Negative Left Heel to Toe Normal: No (can not test unable ) Differential Diagnoses: CAD, AL, Dysrhythmia, Hypovolemia, GI Bleed, Metabolic abnormalities Quality Indicators for Cardiac Chest Pain: EKG in 10min. Quality Indicators for AMI: EKG in 10min. Quality Indicator For Non-Traumatic Chest Pain/Syncope: EKG Performed Review of Systems - Review Of Systems Constitutional: Reports: Malaise, Weakness Eyes: Reports: No symptoms Ears, Nose, Mouth, Throat: Reports: No symptoms Respiratory: Reports: No symptoms Cardiac: Reports: No symptoms GI: Reports: Abdominal pain (black stools no blood noted ) : Reports: No symptoms Musculoskeletal: Reports: No symptoms Skin: Reports: No symptoms Neurological: Reports: No symptoms Endocrine: Reports: No symptoms Hematologic/Lymphatic: Reports: No symptoms All Other Systems: Reviewed and Negative Past Medical History - Past Medical History Previously Healthy: Yes Endocrine: Reports: Hypothyroid, Dyslipidemia Cardiovascular: Reports: CAD, Hypertension Respiratory: Reports: None Hematological: Reports: Anemia Gastrointestinal: Reports: None Genitourinary: Reports: None Neuro/Psych: Reports: None Musculoskeletal: Reports: Arthritis Cancer: Reports: None Last Menstrual Period: n/a Other Pertinent Past Medical History: htn thy ane chol depr arth cad - Surgical History General Surgical History: Reports: Orthopedic (LT SHOULDER REPLACED), Other (- ORAL SURG-). Denies: Hysterectomy (D & C-) - Family History Family History: Reports: Unknown - Social History Smoking Status: Current every day smoker, Heavy tobacco smoker Hx Substance Use: No Alcohol Screening: None Physical Exam - Physical Exam Appearance: Ill-appearing, Well-nourished Ill-appearing: Moderate Pain Distress: Moderate Eyes: ENRIKE, EOMI, Conjunctiva clear ENT: Ears normal, Nose normal, Oropharynx normal Respiratory: Airway patent, Breath sounds clear, Breath sounds equal, Respirations nonlabored Cardiovascular: RRR, Pulses normal, No rub, No murmur GI/: Soft, Nontender (rectal with mike at bedside at all times postive for tarry stools) Musculoskeletal: Normal strength, ROM intact, No edema, No calf tenderness Skin: Warm, Dry, Normal color Neurological: Sensation intact, Motor intact, Reflexes intact, Cranial nerves intact, Alert, Oriented Psychiatric: Affect appropriate, Mood appropriate Interpretation - Branch Coordinator Rate: Normal Rhythm: Sinus Ectopy: None - EKG Interpretation Rate: Normal Rhythm: Sinus Ectopy: None [place]: NL ST Segment: Normal Physician Notification - Case Discussed Physician Notified: pmd Time of Notification: 11:44 Admit To: Inpatient Critical Care Note - Critical Care Note Total Time (mins): 0 Course - Course Hematology/Chemistry: 09/30/16 10:10 09/30/16 10:10 Orders, Labs, Meds: Lab Review 09/30/16 09/30/16 10:05 10:10 WBC 10.60 H RBC 1.38 L Hgb 4.3 L* Hct 13.6 L* MCV 98.6 MCH 31.2 H MCHC 31.6 L RDW Coeff of Angelo 17.1 H Plt Count 168 Immature Gran % (Auto) 0.9 Neut % (Auto) 80.7 Lymph % (Auto) 10.2 [place] % (Auto) 7.8 Eos % (Auto) 0.3 Baso % (Auto) 0.1 Immature Gran # (Auto) 0.1 Neut # 8.6 H Lymph # 1.1 [place] # 0.8 Eos # 0.0 Baso # 0.0 PT 11.0 INR 1.07 APTT 21.0 L Sodium 139 Potassium 3.7 Chloride 103 Carbon Dioxide 26 Anion Gap 13.7 BUN 25 H Creatinine 0.85 Estimated GFR (MDRD) 65.00 BUN/Creatinine Ratio 29.41 Glucose 136 H Lactic Acid 19.2 Calcium 8.3 Total Bilirubin 0.18 AST 17 ALT 11 L Alkaline Phosphatase 75 Total Creatine Kinase 40 Troponin I 0.0490 Total Protein 4.7 L Albumin 2.6 L Globulin 2.1 Albumin/Globulin Ratio 1.24 Amylase 22 L Lipase 15 Stl Occult Blood (IFOB) Positive Stool Occult Blood #2 No specimen received Stool Occult Blood #3 No specimen received Orders Category Date Time Status EKG-(ED ONLY) Stat CARDIO 09/30/16 10:08 Completed ORDER H&H 1HR POST TRANSFUSION ONCE CARE 09/30/16 10:45 Active PRBC LEUKOREDUCED ONCE CARE 09/30/16 10:45 Active ED IV/MEDIPORT/POWERPORT .ONCE EMERGENCY 09/30/16 09:45 Active AMYLASE Stat LAB 09/30/16 10:10 Completed BLOOD CULTURE Stat LAB 09/30/16 10:10 Received CBC W/ AUTO DIFF Stat LAB 09/30/16 10:10 Completed COMPREHENSIVE METABOLIC PANEL Stat LAB 09/30/16 10:10 Completed CREATINE KINASE Stat LAB 09/30/16 10:10 Completed LACTIC ACID Stat LAB 09/30/16 10:10 Completed LIPASE Stat LAB 09/30/16 10:10 Completed OCCULT BLOOD, STOOL Stat LAB 09/30/16 10:05 Completed PACKED CELLS Routine LAB 09/30/16 11:23 Received PARTIAL THROMBOPLASTIN TIME Stat LAB 09/30/16 10:10 Completed PROCALCITONIN Stat LAB 09/30/16 10:10 Received PT WITH INR Stat LAB 09/30/16 10:10 Completed TROPONIN I Stat LAB 09/30/16 10:10 Completed TYPE AND SCREEN Routine LAB 09/30/16 11:23 Received 0.9 % Sodium Chloride [Saline Flush] MEDS 09/30/16 09:44 Active 1 syr IVF PRN PRN CT ABDOMEN/PELVIS WO CONTRAST Stat RADS 09/30/16 09:[address] CHEST W/O CONTRAST Stat RADS 09/30/16 09:45 Completed Medications Generic Name Dose Route Start Last Admin Trade Name Amandeep PRN Reason Stop Dose Admin Sodium Chloride 1 syr 09/30/16 09:44 Saline Flush IVF PRN PRN To flush IV Vital Signs: Temp Pulse Resp BP Pulse Ox 09/30/16 09:41 98.9 F 90 20 102/46 L 100 Departure - Departure Time of Disposition: 11:44 Disposition: ADMITTED INPATIENT Discharge Problem: Anemia Qualifiers: Anemia type: unspecified type Qualifier Code: (D64.9) Anemia, unspecified Instructions: Anemia (ED) Condition: Fair Pt referred to PMD for follow-up: Yes Allergies/Adverse Reactions: Allergies Latex, Natural Rubber Adverse Reaction (Verified 09/30/16 09:49) Home Medications: Ambulatory Orders Calcium Carbonate/Vitamin D3 [Calcium 600 + Vit D 400 Tablet] 1 each PO DAILY Furosemide [Lasix Tab] 20 mg PO BID 08/08/13 Levothyroxine Sodium [Synthroid] 75 mcg PO QDAC 08/08/13 Lorazepam 1 mg PO BEDTIME PRN 08/08/13 Valsartan/Hydrochlorothiazide [Diovan Hct 160-25 mg Tablet] 1 tab PO DAILY 08/08 Gabapentin 300 mg PO BID 09/02/15 Rosuvastatin Calcium [Crestor] 20 mg PO BEDTIME 09/02/15 Ferrous Sulfate 324 mg PO DAILY #30 tablet. 09/03/15 Pantoprazole Sodium [Protonix] 40 mg PO DAILY #30 tablet. 09/03/15 Gabapentin 600 mg PO BEDTIME 09/05/16 Multivitamin [Daily Value] 1 each PO DAILY 09/05/16 [place]-3 Fatty Acids/Fish Oil [Fish Oil 1,000 mg Capsule] 1 each PO DAILY Polyethylene Glycol 3350 [Miralax] 17 gm PO DAILY 09/30/16
[2016-09-30 12:02] LABS: IMMATURE RETIC FRACTION 42.2; RETICULOCYTE % 9.54 %
[2016-09-30 12:50] LABS: FERRITIN 39.13 ng/mL (4.63-204.00); FOLATE > 20.0 ng/mL (3.1-20.5); IRON 265 ug/dL (50-170); TOTAL IRON BINDING CAPACITY 290 ug/dL (240-450)
[2016-09-30 12:52] VITALS: BMI 33.8
[2016-09-30] MEDS ORDERED: TYLENOL PO STA (14:53)
[2016-09-30 15:57] LABS: BILIRUBIN,URINE Negative (NEGATIVE); KETONES,URINE Negative (NEGATIVE); LEUKOCYTE ESTERASE ,URINE Negative (NEGATIVE); NITRITE,URINE Negative (NEGATIVE); PH,URINE 6.5 (5-9); PROTEIN,URINE Negative (NEGATIVE); URINE, BLOOD Negative (NEGATIVE)
[2016-09-30] MEDS ORDERED: NEURONTIN PO ONE (17:29)
[2016-09-30] MEDS: LASIX TAB PO SCH (17:37)
[2016-09-30] MEDS: DUONEB NEB SCH (17:56)
[2016-09-30] MEDS ORDERED: LASIX TAB PO SCH (21:00)
[2016-09-30] MEDS ORDERED: NON-FORMULARY MEDICATION (Gabapentin [Gabapentin] 600 MG) PO SCH (21:00)
[2016-10-01] MEDS: DUONEB NEB SCH ×4 (00:04→18:22)
[2016-10-01] MEDS ORDERED: LASIX IVP STA (01:37)
[2016-10-01] MEDS: PROTONIX PO SCH (05:38)
[2016-10-01] MEDS: LASIX TAB PO SCH ×2 (05:38→17:56)
[2016-10-01] MEDS: SYNTHROID PO SCH (05:38)
[2016-10-01] MEDS: FERROUS SULFATE PO SCH (08:49)
[2016-10-01] MEDS ORDERED: [UNRECOGNIZED DRUG - OTHER] PO SCH (09:00)
[2016-10-01] MEDS ORDERED: DIOVAN PO SCH (09:00)
[2016-10-01] MEDS ORDERED: VALSARTAN PO SCH (09:00)
[2016-10-01] MEDS ORDERED: HYDROCHLOROTHIAZIDE PO SCH ×2 (09:00)
[2016-10-01 09:36] LABS: BASOPHILS # (AUTO) 0.1 K/uL (0-0.2); BASOPHILS % (AUTO) 0.9 % (0.0-3.0); EOSINOPHILS # (AUTO) 0.1 K/ul (0.0-0.7); EOSINOPHILS % (AUTO) 1.1 % (0.0-7.0); HEMATOCRIT 26.6 % (37.0-47.0); HEMOGLOBIN 9.2 g/dl (12.0-16.0); IMMATURE GRANULOCYTE % (AUTO) 1.3 % (0.0-5.0); LYMPHOCYTES # (AUTO) 1.7 K/uL (0.60-3.4); MEAN CORPUSCULAR HGB CONC 34.6 (31.8-35.4); MEAN CORPUSCULAR VOLUME 89.6 fl (81.0-99.0); MONOCYTES # (AUTO) 1.2 K/uL (0.4-2.0); NEUTROPHILS # (AUTO) 9.9 K/ul (2.0-6.9); NEUTROPHILS % (AUTO) 74.7; PLATELET COUNT 137 10^3/uL (140-440); RED BLOOD COUNT 2.97 10^6/ul (4.20-5.40); WHITE BLOOD COUNT 13.29 K/ul (4.6-10.2)
[2016-10-01 09:55] LABS: ALBUMIN 2.6 g/dL (3.4-5.0); ALBUMIN/GLOBULIN RATIO 1.08; BILIRUBIN,TOTAL 0.68 mg/dL (0.00-1.20); BUN/CREATININE RATIO 28.75; CALCIUM 7.4 mg/dL (8.2-10.2); CREATININE 0.8 mg/dL (0.60-1.30)
[2016-10-01] MEDS ORDERED: NEURONTIN PO ONE (17:21)
[2016-10-01] MEDS ORDERED: K-DUR PO STA (19:53)
[2016-10-01] MEDS ORDERED: POTASSIUM CHLORIDE PREMIX RUN 40 MEQ in PREMIX 100 ML WATER 2 BAG IV STA (19:53)
[2016-10-01] MEDS ORDERED: POTASSIUM CHLORIDE IV ONE (20:10)
[2016-10-01 20:20] LABS: HEMATOCRIT 28.9 % (37.0-47.0); HEMOGLOBIN 9.5 g/dl (12.0-16.0)
[2016-10-01] MEDS: NEURONTIN PO SCH (21:13)
[2016-10-02] MEDS: DUONEB NEB SCH ×5 (00:08→23:03)
[2016-10-02] MEDS: NORCO 5-325 PO PRN ×2 (02:44→10:57)
[2016-10-02 04:57] LABS: ALBUMIN 2.5 g/dL (3.4-5.0); ALBUMIN/GLOBULIN RATIO 1.04; ANION GAP 16.3; BILIRUBIN,TOTAL 0.48 mg/dL (0.00-1.20); BUN/CREATININE RATIO 26.31; CREATININE 0.76 mg/dL (0.60-1.30); POTASSIUM 3.3 mmol/L (3.5-5.10); TOTAL PROTEIN 4.9 g/dL (5.8-8.1)
[2016-10-02] MEDS: LASIX TAB PO SCH ×2 (06:02→16:49)
[2016-10-02] MEDS: SYNTHROID PO SCH (06:02)
[2016-10-02] MEDS: PROTONIX PO SCH (06:02)
[2016-10-02] MEDS ORDERED: K-DUR PO STA (06:20)
[2016-10-02] MEDS ORDERED: LASIX TAB PO STA (08:14)
[2016-10-02] MEDS: FERROUS SULFATE PO SCH (09:49)
[2016-10-02 12:18] LABS: HEMATOCRIT 27.7 % (37.0-47.0); HEMOGLOBIN 9.3 g/dl (12.0-16.0)
[2016-10-02] MEDS: NEURONTIN PO SCH (20:29)
[2016-10-02 20:58] LABS: HEMATOCRIT 28.7 % (37.0-47.0); HEMOGLOBIN 9.4 g/dl (12.0-16.0)
[2016-10-03 04:05] LABS: HEMATOCRIT 26.2 % (37.0-47.0); HEMOGLOBIN 8.7 g/dl (12.0-16.0)
[2016-10-03] MEDS: NORCO 5-325 PO PRN ×2 (04:28→21:51)
[2016-10-03] MEDS: DUONEB NEB SCH ×4 (05:07→23:21)
[2016-10-03 05:49] LABS: ALBUMIN 2.7 g/dL (3.4-5.0); ALBUMIN/GLOBULIN RATIO 1.13; ANION GAP 14.5; BILIRUBIN,TOTAL 0.7 mg/dL (0.00-1.20); BUN/CREATININE RATIO 20.77; CALCIUM 8.3 mg/dL (8.2-10.2); CREATININE 0.77 mg/dL (0.60-1.30); POTASSIUM 3.5 mmol/L (3.5-5.10); TOTAL PROTEIN 5.1 g/dL (5.8-8.1)
[2016-10-03] MEDS: LASIX TAB PO SCH ×2 (06:09→16:56)
[2016-10-03] MEDS: SYNTHROID PO SCH (06:09)
[2016-10-03] MEDS: PROTONIX PO SCH (06:09)
[2016-10-03] MEDS: FERROUS SULFATE PO SCH (08:57)
[2016-10-03 12:25] LABS: HEMATOCRIT 27.6 % (37.0-47.0); HEMOGLOBIN 9.1 g/dl (12.0-16.0)
--- NOTE | 2016-10-03 13:38 | HP ---
DATE OF SERVICE: 09/30/16 CHIEF COMPLAINT: Shortness of breath, weakness and decreased responsiveness. HISTORY OF PRESENT ILLNESS: This is a 75-year-old female who was recently admitted to [facility] with severe anemia. After that the patient was transferred to [facility] for colonoscopy and endoscopy but the patient opted not to have colonoscopy and endoscopy. The patient has been discharged home. She went home, started feeling weak and tired, worsening shortness of breath, swelling all over the body and when the daughter went and checked on her today, the patient was more lethargic. At that time, the patient was brought to the emergency room, seen by Dr. Chong in the emergency room. Hemoglobin was 4.3. PT/INR was normal. BUN 25 , creatinine 1.36. Stool for occult blood was positive. The patient was admitted to the hospital with acute blood loss anemia needing blood transfusion ; three units given with acute on chronic heart failure, weakness, tiredness. REVIEW OF SYSTEMS: CONSTITUTIONAL: Weakness, tiredness. No fever, no chills. HEENT: Normal. ENDOCRINE: No weight gain; no weight loss. CVS: No chest pain. No PND, no orthopnea. Shortness of breath. No PND, no orthopnea. RESPIRATORY: No cough, no congestion. No hemoptysis. GI: Black tarry stools. No nausea, no vomiting. No abdominal pain. : No hematuria. No polyuria. MUSCULOSKELETAL: Swollen all over. NEUROLOGIC: Dizziness. PSYCHIATRIC: Not anxious. No depression. No suicidal thoughts. No homicidal thoughts. SKIN: Intact, no open lesions. PAST MEDICAL HISTORY: 1. Coronary artery disease 2. Aortic stenosis, moderate to severe 3. Peripheral vascular disease 4. Dyslipidemia 5. Hypertension 6. Dependent edema 7. Alzheimer's dementia 8. Osteoarthritis 9. DJD spine 10. Hypothyroidism 11. Diabetes mellitus 12. Depression/anxiety PAST SURGICAL HISTORY: 1. Left shoulder replacement, 2011 2. Dilatation and curettage 3. Cataract surgery PERSONAL HISTORY: The patient does smoke. No alcohol use. No drug use. and lives with . FAMILY HISTORY: Significant for thyroid problems, diabetes and cancer MEDICATIONS: (HOME) 1. Lorazepam 2. Diovan 3. Synthroid 4. Lasix 5. Calcium 6. Crestor 7. Gabapentin 8. Ferrous Sulfate 9. Protonix 10. Fish Oil 11. Multivitamin 12. Miralax ALLERGIES: LATEX AND NATURAL RUBBER PHYSICAL EXAMINATION: V/S: BP 92/58, respiratory rate 20, heart rate 90, temperature 97.0. Sick looking lady lying in bed, pallor positive. Mucosa dry. HEENT: Atraumatic, normocephalic. No scleral icterus. NECK: Supple. No JVD, no bruit. No lymphadenopathy. No thyromegaly. HEART: S1, S2 normal. Systolic murmur. No cyanosis or clubbing. No ascites. LUNGS: Decreased with basilar crackles. No rales or rhonchi. ABDOMEN: Soft, nontender. Bowel sounds are active. No CVA tenderness. No rigidity or guarding. EXTREMITIES: 2+ edema. No cyanosis, clubbing or pedal edema. MUSCULOSKELETAL: Normal joints, no swelling. NEUROLOGIC: Normal. SKIN: Intact; no open lesions. LYMPHATIC: No lymph nodes palpable. LABS: White count 10.60, hemoglobin 4.3, hematocrit 36.6, platelet count 168. Sodium 139, potassium 3.7, chloride 103, bicarb 27, BUN 25, creatinine 0.85, glucose 136, calcium 8.3. ASSESSMENT: 1. SEVERE BLOOD LOSS ANEMIA 2. LOWER GI BLEED FROM DIVERTICULOSIS NEEDING BLOOD TRANSFUSION 3. ACUTE SHORTNESS OF BREATH SECONDARY TO BLOOD LOSS ANEMIA 4. ACUTE ON CHRONIC HEART FAILURE 5. HYPERTENSION 6. DYSLIPIDEMIA 7. DIABETES 8. DEPRESSION/ANXIETY 9. AORTIC STENOSIS 10. CHF STABLE PLAN: 1. Admit patient to the regular floor 2. CBC, CMP today and daily 3. Cardiac enzymes and troponin 4. Type and crossmatch 3 units and transfuse 3; Lasix 20 in between if the systolic blood pressure more than 110. 5. Continue home medication. 6. Accu-Cheks with coverage. 7. Protonix 40 mg. 8. Daily I & O's. 9. Will follow the patient in daily rounds. TIME SPENT: More than 17 minutes which is critical care time. MARLENA
--- NOTE | 2016-10-03 13:47 | PN ---
DATE OF SERVICE: 10/01/16 SUBJECTIVE: The patient was admitted with anemia, had a total of four blood transfusions. No more fever. The patient did have some febrile illness after initial blood transfusion but she did not have any after that. Hemoglobin is steady right now. She did have again stools with red color in the stool per nurse Leah. REVIEW OF SYSTEMS: CONSTITUTIONAL: Weakness, tiredness. No fever, no chills. HEENT: Normal. ENDOCRINE: No weight gain, no weight loss. CVS: No angina symptoms. No CHF symptoms. No palpitations. No atypical chest pain for CAD. No shortness of breath. No PND, no orthopnea. RESPIRATORY: No cough, no hemoptysis. GI: No nausea, no vomiting. No abdominal pain. : No hematuria. No polyuria. MUSCULOSKELETAL:. No joint swelling. PSYCHIATRIC: Not anxious. No depression. No suicidal thoughts. No homicidal thoughts. SKIN: Intact. No rash. PHYSICAL EXAMINATION: V/S: BP 92/58, respiratory rate 16, heart rate 90, temperature 97. HEENT: Normocephalic, atraumatic. Mucosa dry. Pallor positive. NECK: Supple. No JVD, no carotid bruit. No lymphadenopathy. LUNGS: Decreased with basilar crackles. HEART: S1, S2 normal. No S3. Systolic murmur positive. ABDOMEN: Soft, nontender. Bowel sounds active. No rigidity. No rebound or guarding. No CVA tenderness. EXTREMITIES: No clubbing or cyanosis 2+ edema. MUSCULOSKELETAL: No joint swelling. NEUROLOGIC: Awake, alert, oriented times three. No focal deficit. LYMPHATIC: No lymph nodes palpable. SKIN: Intact. LABS: White count 13.1, hemoglobin 9.2, hematocrit 26.6, platelet count 137. Sodium 139, potassium 3.0, chloride 104, bicarb 24, BUN 23, creatinine 0.80. ASSESSMENT: 1. Hypokalemia 2. Acute blood loss anemia with transfusion of 4 units 3. Acute on chronic heart failure 4. Aortic stenosis 5. Diabetes 6. Depression 7. Anxiety 8. Hypothyroidism PLAN: 1. Give 40 p.o. and 40 IV potassium 2. Will recheck H & H 3. Daily I & O 4. [place] for leg cramps 5. Will follow with the patient in daily rounds TIME SPENT: More than 30 minutes MTDD
[2016-10-03] MEDS: NEURONTIN PO SCH (20:01)
[2016-10-03 20:02] LABS: HEMATOCRIT 28.1 % (37.0-47.0); HEMOGLOBIN 9.3 g/dl (12.0-16.0)
[2016-10-04 05:20] LABS: HEMATOCRIT 26.5 % (37.0-47.0); HEMOGLOBIN 8.5 g/dl (12.0-16.0)
[2016-10-04] MEDS: DUONEB NEB SCH ×2 (05:24→11:11)
[2016-10-04 05:40] LABS: ALBUMIN 2.8 g/dL (3.4-5.0); ALBUMIN/GLOBULIN RATIO 1.17; ANION GAP 14.6; BILIRUBIN,TOTAL 0.52 mg/dL (0.00-1.20); BUN/CREATININE RATIO 23.8; CALCIUM 8.8 mg/dL (8.2-10.2); CREATININE 0.84 mg/dL (0.60-1.30); POTASSIUM 3.6 mmol/L (3.5-5.10); TOTAL PROTEIN 5.2 g/dL (5.8-8.1)
[2016-10-04] MEDS: LASIX TAB PO SCH (06:02)
[2016-10-04] MEDS: SYNTHROID PO SCH (06:02)
[2016-10-04] MEDS: PROTONIX PO SCH (06:02)
[2016-10-04] MEDS: FERROUS SULFATE PO SCH (09:00)
[2016-10-04 10:38] VITALS: BP 107/56; TEMP 98.5
[2016-10-04 12:40] LABS: HEMATOCRIT 28.8 % (37.0-47.0); HEMOGLOBIN 9.4 g/dl (12.0-16.0)
--- NOTE | 2016-10-04 13:36 | DS ---
DATE OF SERVICE: 10/04/16 FINAL DIAGNOSIS: 1. PERSISTENT WEAKNESS FROM RECENT GI BLEED 2. LOWER GI BLEED FOR DIVERTICULOSIS STATUS POST FOUR UNITS BLOOD TRANSFUSION , HEMOGLOBIN IS 8.5; TO FOLLOW WITH DR. JUNIOR 3. ACUTE ON CHRONIC HEART FAILURE 4. MODERATE TO SEVERE AORTIC STENOSIS 5. HYPERTENSION 6. DYSLIPIDEMIA 7. CORONARY ARTERY DISEASE 8. DIABETES MELLITUS 9. DEPRESSION 10. DJD SPINE 11. OSTEOARTHRITIS 12. HYPOKALEMIA IN THE HOSPITAL WHICH WAS CORRECTED 13. HISTORY OF LEFT SHOULDER REPLACEMENT 2011 DISCHARGE INSTRUCTIONS: 1. Discharge patient to the shelter, [facility]. 2. Followup appointment: Followup at Dr. Junior's office on 10/20/16 at 11 a.m. 3. PT/OT evaluate and treat. 4. Keep legs elevated when resting. 5. USP followup with myself, Dr. Salter-[facility] within 4 to 5 days. 6. Please repeat H & H every third day and report to . 7. Weekly weight - if more than 5 lbs, please inform Dr. Salter. MEDICATIONS AT DISCHARGE: 1. Calcium with Vitamin D 2. Ferrous Sulfate 324 p.o. t.i.d. 3. Lasix 20 mg p.o. b.i.d. 4. Neurontin 300 mg p.o. b.i.d. 5. Neurontin 600 mg at bedtime 6. Synthroid 75 mcg p.o. daily 7. Lorazepam 1 mg at bedtime 8. Daily Vitamins 9. Fish Oil one tablet p.o. daily 10. Protonix 40 mg p.o. daily 11. Miralax 17 gm p.o. daily 12. Crestor 20 mg p.o. bedtime 13. Valsartan/Hydrochlorothiazide one tablet p.o. daily NEW PRESCRIPTIONS: N/A DIET INSTRUCTIONS: Healthy Heart diet ACTIVITY: As much as tolerated. Can participate in shelter activities. SMOKING: N/A DISEASE SPECIFIC EDUCATION: Lower GI bleed with need for colonoscopy is discussed with the patient almost every day, verbalized understanding. She finally agreed to do this. HOSPITAL COURSE: This patient was recently admitted to [facility] for severe lower GI bleed. The patient was reluctant to have a colonoscopy and endoscopy while there and was discharged home. The patient went home, started having black tarry stools again, weakness, tiredness and lethargic. The daughter brought the patient to the emergency room and hemoglobin was 4.3. At that time, the patient is admitted to the hospital, typed and screened, crossmatched 4 units and 4 units were given. The patient did have a mild reaction from the transfusion with a temperature of 99.7 for which Tylenol was given and the patient did not have any problem. H & H was stable after the blood transfusion , 8.5, 9.3, 9.4 and today is 8.5. BUN and creatinine have been steady, did not increase. Leg edema is just 1+ and minimal. The patient is still having weakness and tiredness from the blood loss and shortness of breath and aortic stenosis. Will be needing some physical therapy and occupational therapy at the shelter. TIME SPENT: More than 60 minutes. MARLENA
== END 2016-10-04 15:20 | DRG 379 ==
LOC: ED 09:39 → MEDSURG A 11:53
PROVIDERS: ADMIT Emergency Medicine; ATTEND Emergency Medicine
PROC: 30233N1 Transfusion of Nonautologous Red Blood Cells into Peripheral Vein, Percutaneous Approach (ICD-10-PCS; principal; 2016-09-30)
PROC: 30233N1 Transfusion of Nonautologous Red Blood Cells into Peripheral Vein, Percutaneous Approach (ICD-10-PCS; 2016-09-30)
PROC: 30233N1 Transfusion of Nonautologous Red Blood Cells into Peripheral Vein, Percutaneous Approach (ICD-10-PCS; 2016-09-30)
PROC: 30233N1 Transfusion of Nonautologous Red Blood Cells into Peripheral Vein, Percutaneous Approach (ICD-10-PCS; 2016-10-01)
DX: K57.31 Diverticulosis of large intestine without perforation or abscess with bleeding (principal); D50.0 Iron deficiency anemia secondary to blood loss (chronic); R53.1 Weakness; R10.9 Unspecified abdominal pain; R60.0 Localized edema; R06.02 Shortness of breath; I50.9 Heart failure, unspecified; I35.0 Nonrheumatic aortic (valve) stenosis; I10 Essential (primary) hypertension; E78.5 Hyperlipidemia, unspecified; I25.10 Atherosclerotic heart disease of native coronary artery without angina pectoris; E11.9 Type 2 diabetes mellitus without complications; M47.9 Spondylosis, unspecified; M19.90 Unspecified osteoarthritis, unspecified site; F41.8 Other specified anxiety disorders; E87.6 Hypokalemia; R19.5 Other fecal abnormalities; T80.89XA Other complications following infusion, transfusion and therapeutic injection, initial encounter; R50.81 Fever presenting with conditions classified elsewhere; F17.200 Nicotine dependence, unspecified, uncomplicated; Z79.899 Other long term (current) drug therapy
CPT/HCPCS: 36415; 36430; 80053; 82150; 82272; 82550; 82607; 82728; 82746; 83540; 83550; 83605; 83690; 84145; 84466; 84484; 85014; 85018; 85025; 85045; 85610; 85730; 86850; 86900; 86922; 87040; 87081; 93005; 93010; 94640; 99284

== ENCOUNTER 2016-10-14 14:49 | Outpatient (CLI) ==
[2016-10-14 15:01] LABS: BASOPHILS # (AUTO) 0.1 K/uL (0-0.2); BASOPHILS % (AUTO) 1.4 % (0.0-3.0); EOSINOPHILS # (AUTO) 0.2 K/ul (0.0-0.7); EOSINOPHILS % (AUTO) 3.2 % (0.0-7.0); HEMOGLOBIN 8.9 g/dl (12.0-16.0); IMMATURE GRANULOCYTE % (AUTO) 0.3 % (0.0-5.0); LYMPHOCYTES # (AUTO) 1.2 K/uL (0.60-3.4); LYMPHOCYTES % (AUTO) 19.5 (10.0-50.0); MEAN CORPUSCULAR HEMOGLOBIN 31.1 pg (27.0-31.0); MEAN CORPUSCULAR VOLUME 94.4 fl (81.0-99.0); MONOCYTES # (AUTO) 0.5 K/uL (0.4-2.0); MONOCYTES % (AUTO) 8.3 (0-10); NEUTROPHILS % (AUTO) 67.3; PLATELET COUNT 280 10^3/uL (140-440); RED BLOOD COUNT 2.86 10^6/ul (4.20-5.40)
== END 2016-10-14 14:50 | disposition home or self-care (01) ==
LOC: NONPT 14:49
PROVIDERS: ATTEND Emergency Medicine
DX: D64.9 Anemia, unspecified (principal); I35.0 Nonrheumatic aortic (valve) stenosis; K92.2 Gastrointestinal hemorrhage, unspecified
CPT/HCPCS: 85025

== ENCOUNTER 2016-10-17 14:19 | Outpatient (CLI) ==
[2016-10-17 14:28] LABS: BASOPHILS # (AUTO) 0.1 K/uL (0-0.2); BASOPHILS % (AUTO) 0.7 % (0.0-3.0); EOSINOPHILS # (AUTO) 0.2 K/ul (0.0-0.7); EOSINOPHILS % (AUTO) 1.5 % (0.0-7.0); IMMATURE GRANULOCYTE % (AUTO) 0.7 % (0.0-5.0); LYMPHOCYTES # (AUTO) 1.2 K/uL (0.60-3.4); LYMPHOCYTES % (AUTO) 12.1 (10.0-50.0); MEAN CORPUSCULAR HEMOGLOBIN 31.9 pg (27.0-31.0); MEAN CORPUSCULAR HGB CONC 33.3 (31.8-35.4); MEAN CORPUSCULAR VOLUME 95.7 fl (81.0-99.0); MONOCYTES # (AUTO) 0.7 K/uL (0.4-2.0); MONOCYTES % (AUTO) 7.2 (0-10); NEUTROPHILS # (AUTO) 7.9 K/ul (2.0-6.9); NEUTROPHILS % (AUTO) 77.8; PLATELET COUNT 264 10^3/uL (140-440); RED BLOOD COUNT 2.82 10^6/ul (4.20-5.40); WHITE BLOOD COUNT 10.21 K/ul (4.6-10.2)
== END 2016-10-17 14:20 | disposition home or self-care (01) ==
LOC: NONPT 14:19
PROVIDERS: ATTEND Emergency Medicine
DX: K92.2 Gastrointestinal hemorrhage, unspecified (principal); D64.9 Anemia, unspecified
CPT/HCPCS: 85025

== ENCOUNTER 2016-10-20 12:16 | Outpatient (CLI) ==
[2016-10-20 12:35] LABS: BASOPHILS # (AUTO) 0.1 K/uL (0-0.2); BASOPHILS % (AUTO) 0.9 % (0.0-3.0); EOSINOPHILS # (AUTO) 0.2 K/ul (0.0-0.7); EOSINOPHILS % (AUTO) 1.9 % (0.0-7.0); HEMATOCRIT 26.5 % (37.0-47.0); HEMOGLOBIN 8.7 g/dl (12.0-16.0); IMMATURE GRANULOCYTE % (AUTO) 0.6 % (0.0-5.0); LYMPHOCYTES # (AUTO) 1.5 K/uL (0.60-3.4); LYMPHOCYTES % (AUTO) 14.8 (10.0-50.0); MEAN CORPUSCULAR HEMOGLOBIN 32.3 pg (27.0-31.0); MEAN CORPUSCULAR HGB CONC 32.8 (31.8-35.4); MEAN CORPUSCULAR VOLUME 98.5 fl (81.0-99.0); MONOCYTES % (AUTO) 9.3 (0-10); NEUTROPHILS # (AUTO) 7.4 K/ul (2.0-6.9); NEUTROPHILS % (AUTO) 72.5; PLATELET COUNT 264 10^3/uL (140-440); RED BLOOD COUNT 2.69 10^6/ul (4.20-5.40); WHITE BLOOD COUNT 10.24 K/ul (4.6-10.2)
== END 2016-10-20 12:17 | disposition home or self-care (01) ==
LOC: LAB 12:16
PROVIDERS: ATTEND Emergency Medicine
DX: D50.0 Iron deficiency anemia secondary to blood loss (chronic) (principal)
CPT/HCPCS: 36415; 85025

== ENCOUNTER 2016-10-21 11:33 | Inpatient (IN) ==
[2016-10-21] MEDS ORDERED: TYLENOL PO PRN (11:45)
[2016-10-21] MEDS ORDERED: SYNTHROID PO SCH (12:00)
[2016-10-21] MEDS ORDERED: MIRALAX PO SCH (12:00)
[2016-10-21] MEDS ORDERED: LASIX TAB PO SCH ×3 (12:00→18:00)
[2016-10-21] MEDS ORDERED: PROTONIX PO SCH (12:00)
[2016-10-21 12:47] VITALS: BMI 29.5
[2016-10-21] MEDS ORDERED: CYMBALTA PO SCH (13:00)
[2016-10-21] MEDS ORDERED: CALCIUM 500 + VIT D 200 MG TABLET PO SCH (13:00)
--- NOTE | 2016-10-21 13:57 | DI ---
EXAM: Single view of the chest. History: Short of breath Comparison: Chest radiograph 09/19/2016 Findings: Heart is mildly enlarged. Atherosclerotic vascular calcifications. No focal consolidati on. No appreciable pleural fluid and no pneumothorax. No acute osseous abnormalities. Left should er arthroplasty hardware. Impression: Mild cardiomegaly without acute disease in the chest. No change compared to prior stud y.
[2016-10-21 14:01] LABS: BILIRUBIN,URINE Negative (NEGATIVE); KETONES,URINE Negative (NEGATIVE); LEUKOCYTE ESTERASE ,URINE Trace (NEGATIVE); NITRITE,URINE Negative (NEGATIVE); PROTEIN,URINE Negative (NEGATIVE); URINE, BLOOD Negative (NEGATIVE)
[2016-10-21 14:07] LABS: ADD URINE MICROSCOPIC YES
[2016-10-21] MEDS: SODIUM CHLORIDE 1,000 ML IV SCH (15:00)
[2016-10-21] MEDS ORDERED: NEURONTIN PO SCH (15:00)
[2016-10-21 15:20] LABS: BASOPHILS # (AUTO) 0.1 K/uL (0-0.2); BASOPHILS % (AUTO) 0.9 % (0.0-3.0); EOSINOPHILS # (AUTO) 0.2 K/ul (0.0-0.7); EOSINOPHILS % (AUTO) 2.2 % (0.0-7.0); HEMATOCRIT 23.2 % (37.0-47.0); HEMOGLOBIN 7.7 g/dl (12.0-16.0); IMMATURE GRANULOCYTE % (AUTO) 0.5 % (0.0-5.0); LYMPHOCYTES # (AUTO) 1.4 K/uL (0.60-3.4); MEAN CORPUSCULAR HEMOGLOBIN 32.6 pg (27.0-31.0); MEAN CORPUSCULAR HGB CONC 33.2 (31.8-35.4); MEAN CORPUSCULAR VOLUME 98.3 fl (81.0-99.0); MONOCYTES # (AUTO) 0.7 K/uL (0.4-2.0); MONOCYTES % (AUTO) 9.1 (0-10); NEUTROPHILS # (AUTO) 5.3 K/ul (2.0-6.9); NEUTROPHILS % (AUTO) 69.3; PLATELET COUNT 206 10^3/uL (140-440); RED BLOOD COUNT 2.36 10^6/ul (4.20-5.40); WHITE BLOOD COUNT 7.71 K/ul (4.6-10.2)
[2016-10-21 15:39] LABS: ALBUMIN 3.2 g/dL (3.4-5.0); ALBUMIN/GLOBULIN RATIO 1.19; ANION GAP 12.8; BILIRUBIN,TOTAL 0.2 mg/dL (0.00-1.20); BUN/CREATININE RATIO 23.28; CALCIUM 9.3 mg/dL (8.2-10.2); CREATININE 0.73 mg/dL (0.60-1.30); POTASSIUM 3.8 mmol/L (3.5-5.10); TOTAL PROTEIN 5.9 g/dL (5.8-8.1)
[2016-10-21] MEDS: NON-FORMULARY MEDICATION (Duloxetine Hcl [Cymbalta] 60 MG) PO SCH ×22 (17:08)
[2016-10-21 18:12] LABS: TROPONIN I 0.034 ng/ml (0.0000-0.4000)
[2016-10-21] MEDS ORDERED: NON-FORMULARY MEDICATION (Gabapentin [Gabapentin] 600 MG) PO SCH (21:00)
[2016-10-21] MEDS ORDERED: CRESTOR PO SCH (21:00)
[2016-10-21] MEDS: FERROUS SULFATE PO SCH (21:45)
[2016-10-21] MEDS: NEURONTIN PO SCH (21:45)
[2016-10-21] MEDS: ATIVAN PO SCH (21:45)
[2016-10-21] MEDS: NON-FORMULARY MEDICATION (Rosuvastatin Calcium [Crestor] 20 MG) PO SCH ×22 (21:45)
[2016-10-22 02:01] LABS: BASOPHILS # (AUTO) 0.1 K/uL (0-0.2); BASOPHILS % (AUTO) 0.7 % (0.0-3.0); EOSINOPHILS # (AUTO) 0.2 K/ul (0.0-0.7); EOSINOPHILS % (AUTO) 2.5 % (0.0-7.0); HEMATOCRIT 22.6 % (37.0-47.0); HEMOGLOBIN 7.5 g/dl (12.0-16.0); IMMATURE GRANULOCYTE % (AUTO) 0.7 % (0.0-5.0); LYMPHOCYTES # (AUTO) 1.7 K/uL (0.60-3.4); LYMPHOCYTES % (AUTO) 22.8 (10.0-50.0); MEAN CORPUSCULAR HEMOGLOBIN 32.1 pg (27.0-31.0); MEAN CORPUSCULAR HGB CONC 33.2 (31.8-35.4); MEAN CORPUSCULAR VOLUME 96.6 fl (81.0-99.0); MONOCYTES # (AUTO) 0.7 K/uL (0.4-2.0); MONOCYTES % (AUTO) 8.7 (0-10); NEUTROPHILS # (AUTO) 4.9 K/ul (2.0-6.9); NEUTROPHILS % (AUTO) 64.6; PLATELET COUNT 201 10^3/uL (140-440); RED BLOOD COUNT 2.34 10^6/ul (4.20-5.40); WHITE BLOOD COUNT 7.62 K/ul (4.6-10.2)
[2016-10-22 02:23] LABS: ALBUMIN 3.2 g/dL (3.4-5.0); ALBUMIN/GLOBULIN RATIO 1.33; ANION GAP 10.8; BILIRUBIN,TOTAL 0.25 mg/dL (0.00-1.20); CALCIUM 9.2 mg/dL (8.2-10.2); CREATININE 0.68 mg/dL (0.60-1.30); POTASSIUM 3.8 mmol/L (3.5-5.10); TOTAL PROTEIN 5.6 g/dL (5.8-8.1)
[2016-10-22 02:29] LABS: TROPONIN I 0.046 ng/ml (0.0000-0.4000)
[2016-10-22] MEDS: SYNTHROID PO SCH (05:59)
[2016-10-22] MEDS: MIRALAX PO SCH (08:56)
[2016-10-22] MEDS: NEURONTIN PO SCH ×3 (08:57→20:59)
[2016-10-22] MEDS: PROTONIX PO SCH (08:58)
[2016-10-22] MEDS: MULTIVITAMIN PO SCH (08:58)
[2016-10-22] MEDS: NON-FORMULARY MEDICATION (Omega-3 Fatty Acids/Fish Oil [Fish Oil 1,000 Mg Capsule] 1 EACH) PO SCH ×22 (08:58)
[2016-10-22] MEDS ORDERED: OMEGA-3 FISH OIL PO SCH (09:00)
[2016-10-22] MEDS ORDERED: MULTIVITAMIN PO SCH (09:00)
[2016-10-22] MEDS: CALCIUM 500 + VIT D 200 MG TABLET PO SCH (09:00)
[2016-10-22] MEDS: NON-FORMULARY MEDICATION (Duloxetine Hcl [Cymbalta] 60 MG) PO SCH ×22 (09:03)
[2016-10-22] MEDS: FERROUS SULFATE PO SCH ×2 (09:03→20:59)
[2016-10-22] MEDS: ATIVAN PO SCH (20:59)
[2016-10-22] MEDS: NON-FORMULARY MEDICATION (Rosuvastatin Calcium [Crestor] 20 MG) PO SCH ×22 (21:00)
[2016-10-23] MEDS ORDERED: LASIX IVP PRN (00:28)
[2016-10-23] MEDS ORDERED: LASIX IVP ONE (03:53)
[2016-10-23] MEDS: SYNTHROID PO SCH (05:38)
[2016-10-23] MEDS ORDERED: LASIX TAB PO SCH ×2 (06:30)
[2016-10-23 08:15] LABS: BASOPHILS # (AUTO) 0.1 K/uL (0-0.2); BASOPHILS % (AUTO) 0.9 % (0.0-3.0); EOSINOPHILS # (AUTO) 0.2 K/ul (0.0-0.7); EOSINOPHILS % (AUTO) 1.6 % (0.0-7.0); HEMATOCRIT 25.5 % (37.0-47.0); HEMOGLOBIN 8.9 g/dl (12.0-16.0); IMMATURE GRANULOCYTE % (AUTO) 1.6 % (0.0-5.0); LYMPHOCYTES # (AUTO) 1.7 K/uL (0.60-3.4); LYMPHOCYTES % (AUTO) 17.9 (10.0-50.0); MEAN CORPUSCULAR HEMOGLOBIN 31.8 pg (27.0-31.0); MEAN CORPUSCULAR HGB CONC 34.9 (31.8-35.4); MEAN CORPUSCULAR VOLUME 91.1 fl (81.0-99.0); MONOCYTES # (AUTO) 0.8 K/uL (0.4-2.0); MONOCYTES % (AUTO) 8.2 (0-10); NEUTROPHILS # (AUTO) 6.7 K/ul (2.0-6.9); NEUTROPHILS % (AUTO) 69.8; PLATELET COUNT 165 10^3/uL (140-440); WHITE BLOOD COUNT 9.61 K/ul (4.6-10.2)
[2016-10-23 08:35] LABS: ALBUMIN/GLOBULIN RATIO 1.43; ANION GAP 11.4; BILIRUBIN,TOTAL 0.95 mg/dL (0.00-1.20); BUN/CREATININE RATIO 27.63; CALCIUM 8.6 mg/dL (8.2-10.2); CREATININE 0.76 mg/dL (0.60-1.30); POTASSIUM 3.4 mmol/L (3.5-5.10); TOTAL PROTEIN 5.1 g/dL (5.8-8.1)
[2016-10-23] MEDS: MIRALAX PO SCH (10:17)
[2016-10-23] MEDS: FERROUS SULFATE PO SCH ×2 (10:17→20:33)
[2016-10-23] MEDS: CALCIUM 500 + VIT D 200 MG TABLET PO SCH (10:18)
[2016-10-23] MEDS: NEURONTIN PO SCH ×3 (10:19→20:33)
[2016-10-23] MEDS: MULTIVITAMIN PO SCH ×2 (10:22→10:59)
[2016-10-23] MEDS ORDERED: ATIVAN PO PRN (10:34)
[2016-10-23] MEDS: OMEGA-3 FISH OIL PO SCH (10:56)
[2016-10-23] MEDS ORDERED: OMEGA-3 FISH OIL ONE (10:56)
[2016-10-23] MEDS: CYMBALTA PO SCH (10:57)
[2016-10-23] MEDS ORDERED: CYMBALTA ONE (10:57)
[2016-10-23] MEDS ORDERED: MULTIVITAMIN PO ONE (10:59)
[2016-10-23] MEDS ORDERED: LASIX IVP STA (13:10)
[2016-10-23 13:35] LABS: HEMATOCRIT 30.6 % (37.0-47.0); HEMOGLOBIN 10.6 g/dl (12.0-16.0)
[2016-10-23] MEDS: NON-FORMULARY MEDICATION (Duloxetine Hcl [Cymbalta] 60 MG) PO SCH ×22 (14:09)
[2016-10-23] MEDS: NON-FORMULARY MEDICATION (Omega-3 Fatty Acids/Fish Oil [Fish Oil 1,000 Mg Capsule] 1 EACH) PO SCH ×22 (14:10)
[2016-10-23] MEDS: PROTONIX PO SCH ×2 (15:47)
[2016-10-23] MEDS: SODIUM CHLORIDE 1,000 ML IV SCH (15:48)
[2016-10-23 18:12] LABS: HEMATOCRIT 29.6 % (37.0-47.0); HEMOGLOBIN 10.2 g/dl (12.0-16.0)
[2016-10-23] MEDS: CRESTOR PO SCH (20:33)
[2016-10-23] MEDS ORDERED: CRESTOR ONE (20:33)
[2016-10-23] MEDS ORDERED: NON-FORMULARY MEDICATION (Gabapentin [Neurontin] 600 MG) PO SCH ×22 (21:00)
[2016-10-24 06:10] LABS: BASOPHILS # (AUTO) 0.1 K/uL (0-0.2); BASOPHILS % (AUTO) 1.1 % (0.0-3.0); EOSINOPHILS # (AUTO) 0.2 K/ul (0.0-0.7); EOSINOPHILS % (AUTO) 2.5 % (0.0-7.0); HEMATOCRIT 27.6 % (37.0-47.0); HEMOGLOBIN 9.6 g/dl (12.0-16.0); IMMATURE GRANULOCYTE % (AUTO) 0.9 % (0.0-5.0); LYMPHOCYTES # (AUTO) 1.6 K/uL (0.60-3.4); LYMPHOCYTES % (AUTO) 20.2 (10.0-50.0); MEAN CORPUSCULAR HEMOGLOBIN 31.3 pg (27.0-31.0); MEAN CORPUSCULAR HGB CONC 34.8 (31.8-35.4); MEAN CORPUSCULAR VOLUME 89.9 fl (81.0-99.0); MONOCYTES # (AUTO) 0.7 K/uL (0.4-2.0); MONOCYTES % (AUTO) 8.9 (0-10); NEUTROPHILS # (AUTO) 5.3 K/ul (2.0-6.9); NEUTROPHILS % (AUTO) 66.4; PLATELET COUNT 180 10^3/uL (140-440); RED BLOOD COUNT 3.07 10^6/ul (4.20-5.40); WHITE BLOOD COUNT 7.94 K/ul (4.6-10.2)
[2016-10-24] MEDS: SYNTHROID PO SCH (06:15)
[2016-10-24] MEDS: PROTONIX PO SCH (06:15)
[2016-10-24] MEDS ORDERED: PROTONIX PO SCH (06:30)
[2016-10-24 06:31] LABS: ALBUMIN/GLOBULIN RATIO 1.3; ANION GAP 13.5; BILIRUBIN,TOTAL 0.57 mg/dL (0.00-1.20); CALCIUM 8.9 mg/dL (8.2-10.2); CREATININE 0.76 mg/dL (0.60-1.30); POTASSIUM 3.5 mmol/L (3.5-5.10); TOTAL PROTEIN 5.3 g/dL (5.8-8.1)
[2016-10-24] MEDS ORDERED: NON-FORMULARY MEDICATION (Multivitamin [Multi-Vitamin Daily] 1 EACH) PO SCH ×22 (09:00)
[2016-10-24] MEDS: MIRALAX PO SCH (09:09)
[2016-10-24] MEDS: CALCIUM 500 + VIT D 200 MG TABLET PO SCH (09:10)
[2016-10-24] MEDS: CYMBALTA PO SCH (09:10)
[2016-10-24] MEDS: MULTIVITAMIN PO SCH (09:11)
[2016-10-24] MEDS: FERROUS SULFATE PO SCH ×2 (09:11→20:46)
[2016-10-24] MEDS: NEURONTIN PO SCH ×3 (09:12→20:47)
[2016-10-24] MEDS: OMEGA-3 FISH OIL PO SCH (09:12)
--- NOTE | 2016-10-24 11:29 | HP ---
DATE OF SERVICE: 10/21/16 HISTORY OF PRESENT ILLNESS: This is a 76-year-old female who was seen in the clinic yesterday and the patient went home and started having bloody diarrhea. This morning when the home health care nurses went there the patient was complaining that she has been weak, tired and did not want to do any physical therapy. The daughter called me and at that time we did direct admission to hospital/observation. H & H was done which showed 7.7. It was 8.3 yesterday. REVIEW OF SYSTEMS: CONSTITUTIONAL: Weakness, tiredness. No fever, no chills. HEENT: Normal. ENDOCRINE: No weight gain; no weight loss. CVS: No chest pain. No PND, no orthopnea. Shortness of breath. No PND, no orthopnea. RESPIRATORY: No cough, no congestion. No hemoptysis. GI: No nausea, no vomiting. No abdominal pain. No melena. : No hematuria. No polyuria. MUSCULOSKELETAL: No joint swelling. PSYCHIATRIC: Not anxious. No depression. No suicidal thoughts. No homicidal thoughts. SKIN: Intact, no open lesions. PAST MEDICAL HISTORY: Coronary artery disease Aortic stenosis, moderate to severe Peripheral vascular disease Dyslipidemia Hypertension Dependent edema Alzheimer's dementia Osteoarthritis DJD spine Hypothyroidism Diabetes mellitus Depression/anxiety PAST SURGICAL HISTORY: Left shoulder replacement, 2012 Dilatation and curretage Cataract surgery PERSONAL HISTORY: The patient does smoke. No alcohol use. No drug use. and lives with . FAMILY HISTORY: Significant for thyroid problems, diabetes and cancer. MEDICATIONS: Rosuvastatin (Crestor) 20 mg p.o. bedtime [place]-3 Fatty Acids/Fish Oil one each p.o. daily Duloxetine (Cymbalta) 60 mg p.o. daily Furosemide 20 mg p.o. daily p.r.n. Gabapentin 600 mg p.o. bedtime Synthroid 75 mg p.o. q.d a.c. Lorazepam 1 mg p.o. bedtime p.r.n. Neurontin 300 mg p.o. 0900, 1500 Polyethylene Glycol 17 gm p.o. daily Multivitamin one each p.o. daily Ferrous Sulfate 324 mg p.o. b.i.d. Calcium Carbonate/Vitamin D3 one each p.o. daily Pantoprazole 40 mg p.o. q.d a.c. ALLERGIES: LATEX, NATURAL RUBBER PHYSICAL EXAMINATION: V/S: Temperature 98.1, pulse 72, BP 93/56, respiratory rate 16. Sats 97% on room air. Height 5'2"; weight 164 lbs. BMI 29.5. HEENT: Atraumatic, normocephalic. No scleral icterus. Pallor positive Mucosa dry. NECK: Supple. No JVD, no bruit. No lymphadenopathy. No thyromegaly. HEART: S1, S2 normal. Systolic murmur positive. No cyanosis or clubbing. No ascites. LUNGS: Clear to auscultation. No rales or rhonchi. ABDOMEN: Soft, nontender. Bowel sounds are active. No CVA tenderness. No rigidity or guarding. EXTREMITIES: 1+ edema. No cyanosis, clubbing. MUSCULOSKELETAL: Normal joints, no swelling. NEUROLOGIC: The patient is SKIN: Intact; no open lesions. LYMPHATIC: No lymph nodes palpable. LABS: 10/21/16 WBC 7.71, RBC 2.36, Hgb 7.7, Hct 23.2, MCV 98.3, MCH 32.6, MCHC 33.2, RDW 15.9, platelet count 206. Chemistries: Sodium 138, potassium 3.8, chloride 100, carbon dioxide 29, BUN 17, creatinine 0.73, glucose 121, calcium 9.3, AST 28, ALT 18, alkaline phosphatase 89, albumin 3.2. Chest x-ray: Mild cardiomegaly without acute disease in the chest. No change compared to prior study. ASSESSMENT: 1. ACUTE LOWER GI BLEED 2. HISTORY OF DIVERTICULOSIS 3. HISTORY OF SEVERE CRITICAL AORTIC STENOSIS 4. CHF 5. HYPERTENSION 6. DYSLIPIDEMIA 7. DEPRESSION PLAN: 1. Admit the patient for observation. 2. H & H - will continue checking hemoglobin. 3. Continue home medication Protonix and Cymbalta. 4. IV fluids at 30 mL/hr. 5. Keep legs elevated. 6. Will follow with the patient in daily rounds. [facility]
--- NOTE | 2016-10-24 12:33 | PN ---
DATE OF SERVICE: 10/22/16 SUBJECTIVE: The patient was admitted with the lower GI bleed, hgb has dropped almost one gram. No more bloody bowel movements. Still feels weak and tired. REVIEW OF SYSTEMS: CONSTITUTIONAL: No fever, no chills. HEENT: Normal. ENDOCRINE: No weight gain, no weight loss. CVS: No angina symptoms. No CHF symptoms. No palpitations. No atypical chest pain for CAD. No shortness of breath. No PND, no orthopnea. RESPIRATORY: No cough, no hemoptysis. GI: No nausea, no vomiting. No abdominal pain. : No hematuria. No polyuria. MUSCULOSKELETAL:. No joint swelling. PSYCHIATRIC: Not anxious. No depression. No suicidal thoughts. No homicidal thoughts. SKIN: Intact. No rash. PHYSICAL EXAMINATION: V/S: Blood pressure 112/48, respiratory rate 20, heart rate 82 and temperature 99. HEENT: Normocephalic, atraumatic. Mucosa dry. Pallor positive, No icterus. NECK: Supple. No JVD, no carotid bruit. No lymphadenopathy. LUNGS: Decreased and clear to auscultation. No rales or rhonchi. HEART: S1, S2 normal. No S3. Systolic murmur positive, gallop or regurgitation. ABDOMEN: Soft, nontender. Bowel sounds active. No rigidity. No rebound or guarding. No CVA tenderness. EXTREMITIES: No clubbing, cyanosis. +1 edema. MUSCULOSKELETAL: No joint swelling. NEUROLOGIC: Awake, alert, oriented times three. No focal deficit. LYMPHATIC: No lymph nodes palpable. SKIN: Intact. Dry. LABS: WBC 7.62, hgb 7.5, hct 22.5, plt count 201, sodium 139, potassium 3.8, chloride 103, bicarb 29, BUN 17, creatinine 0.68 ASSESSMENT: 1. Acute and chronic lower GI bleed, drop in hgb 2. Shortness of breath secondary to the CHF 3. Critical aortic stenosis 4. Coronary artery disease 5. Depression 6. Diabetes, diet controlled. PLAN: 1. Continue the Protonix 2. Lasix 40mg twice a day ever other day 3. Keep the legs elevated 4. Will recheck with H&H and the urine again. TIME SPENT: More than 30 minutes MTDD
--- NOTE | 2016-10-24 12:44 | PN ---
DATE OF SERVICE: 10/22/16 SUBJECTIVE: ADDENDUM: The nurse called me and informed me that repeated hgb was 6 and at that time I came back and examined the patient. The patient was complaining of more shortness of breath. She did have one episode of the bloody bowel movement otherwise no nausea or vomiting. REVIEW OF SYSTEMS: CONSTITUTIONAL: No fever, no chills. HEENT: Normal. ENDOCRINE: No weight gain, no weight loss. CVS: No angina symptoms. No CHF symptoms. No palpitations. No atypical chest pain for CAD. No shortness of breath. No PND, no orthopnea. RESPIRATORY: No cough, no hemoptysis. GI: No nausea, no vomiting. No abdominal pain. : No hematuria. No polyuria. MUSCULOSKELETAL:. No joint swelling. PSYCHIATRIC: Not anxious. No depression. No suicidal thoughts. No homicidal thoughts. SKIN: Intact. No rash. PHYSICAL EXAMINATION: VITAL SIGNS: Blood pressure 91/57, respiratory rate 16, heart rate 71 and temperature 98.1 HEENT: Normocephalic, atraumatic. Mucosa dry. Pallor positive, No icterus. NECK: Supple. No JVD, no carotid bruit. No lymphadenopathy. LUNGS: Decreased and clear to auscultation. No rales or rhonchi. HEART: S1, S2 normal. No S3. Systolic murmur positive, gallop or regurgitation. ABDOMEN: Soft, nontender. Bowel sounds active. No rigidity. No rebound or guarding. No CVA tenderness. EXTREMITIES: No clubbing, cyanosis. +1 edema. MUSCULOSKELETAL: No joint swelling. NEUROLOGIC: Awake, alert, oriented times three. No focal deficit. LYMPHATIC: No lymph nodes palpable. SKIN: Intact. Dry. LABS: Latest H&H is 6.0 ASSESSMENT: 1.Acute lower GI bleed with blood loss 2.Anemia, need blood transfusion 3.CHF, chronic and stable 4.Severe aortic stenosis 5.Coronary artery disease 6.Depression PLAN: 1.Change observation to admission 2.Will type and cross match 4 units and transfuse three units 3.20mg of Lasix in between the units blood transfusion TIME SPENT: More than 55 minutes MTDD
--- NOTE | 2016-10-24 13:38 | PN ---
DATE OF SERVICE: 10/23/16 SUBJECTIVE: After 3 units of blood transfusion, hemoglobin is 10.6. She did have one more bloody diarrhea today morning per the patient. The patient's is in the room. All questions were answered. REVIEW OF SYSTEMS: CONSTITUTIONAL: No fever, no chills. HEENT: Normal. ENDOCRINE: No weight gain, no weight loss. CVS: No angina symptoms. No CHF symptoms. No palpitations. No atypical chest pain for CAD. No shortness of breath. No PND, no orthopnea. RESPIRATORY: No cough, no hemoptysis. GI: No nausea, no vomiting. No abdominal pain. : No hematuria. No polyuria. MUSCULOSKELETAL:. No joint swelling. PSYCHIATRIC: Not anxious. No depression. No suicidal thoughts. No homicidal thoughts. SKIN: Intact. No rash. PHYSICAL EXAMINATION: V/S: BP 121/62, respiratory rate 20, heart rate 73, temperature 99.0. HEENT: Normocephalic, atraumatic. No icterus. Pallor positive. Mucosa dry. NECK: Supple. No JVD, no carotid bruit. No lymphadenopathy. LUNGS: Decreased breath sounds; clear to auscultation. No rales or rhonchi. HEART: S1, S2 normal. No S3. Systolic murmur positive. gallop or regurgitation. ABDOMEN: Soft, nontender. Bowel sounds active. No rigidity. No rebound or guarding. No CVA tenderness. EXTREMITIES: 1+ edema. No clubbing or cyanosis. MUSCULOSKELETAL: No joint swelling. NEUROLOGIC: [Awake, alert, oriented times three. No focal deficit. LYMPHATIC: No lymph nodes palpable. SKIN: Intact. LABS: Hemoglobin 10.6, hematocrit 30.6, platelet count 165, white count 9.61. Sodium 139, potassium 3.4, chloride 103, bicarb 28, BUN 21, creatinine 0.76. ASSESSMENT: 1. ACUTE BLOOD LOSS ANEMIA SECONDARY TO LOWER GI BLEED, GIVEN 3 UNITS OF PRBC TRANSFUSION. 2. SEVERE AORTIC STENOSIS. 3. CHRONIC HEART FAILURE. 4. CORONARY ARTERY DISEASE. 5. DEPRESSION. PLAN: 1. Continue H & H q.12hr. 2. Activity restricted at this time. No DVT prophylaxis in view of active GI bleed. 3. Continue the rest of the medications. 4. Will followup the patient in daily rounds. TIME SPENT: More than 30 minutes MTDD
[2016-10-24 19:50] LABS: HEMATOCRIT 29.1 % (37.0-47.0); HEMOGLOBIN 9.9 g/dl (12.0-16.0)
[2016-10-24] MEDS: CRESTOR PO SCH (20:47)
[2016-10-25] MEDS: PROTONIX PO SCH (05:43)
[2016-10-25] MEDS: SYNTHROID PO SCH (05:44)
[2016-10-25 06:09] LABS: BASOPHILS # (AUTO) 0.1 K/uL (0-0.2); BASOPHILS % (AUTO) 1.2 % (0.0-3.0); EOSINOPHILS # (AUTO) 0.2 K/ul (0.0-0.7); EOSINOPHILS % (AUTO) 2.9 % (0.0-7.0); HEMATOCRIT 27.6 % (37.0-47.0); HEMOGLOBIN 9.5 g/dl (12.0-16.0); IMMATURE GRANULOCYTE % (AUTO) 0.7 % (0.0-5.0); LYMPHOCYTES # (AUTO) 1.5 K/uL (0.60-3.4); LYMPHOCYTES % (AUTO) 19.7 (10.0-50.0); MEAN CORPUSCULAR HEMOGLOBIN 31.6 pg (27.0-31.0); MEAN CORPUSCULAR HGB CONC 34.4 (31.8-35.4); MEAN CORPUSCULAR VOLUME 91.7 fl (81.0-99.0); MONOCYTES # (AUTO) 0.8 K/uL (0.4-2.0); MONOCYTES % (AUTO) 10.8 (0-10); NEUTROPHILS # (AUTO) 4.9 K/ul (2.0-6.9); NEUTROPHILS % (AUTO) 64.7; PLATELET COUNT 158 10^3/uL (140-440); RED BLOOD COUNT 3.01 10^6/ul (4.20-5.40); WHITE BLOOD COUNT 7.58 K/ul (4.6-10.2)
[2016-10-25 06:28] LABS: ALBUMIN 2.9 g/dL (3.4-5.0); ALBUMIN/GLOBULIN RATIO 1.26; ANION GAP 10.5; BILIRUBIN,TOTAL 0.53 mg/dL (0.00-1.20); BUN/CREATININE RATIO 21.73; CALCIUM 9.1 mg/dL (8.2-10.2); CREATININE 0.69 mg/dL (0.60-1.30); POTASSIUM 3.5 mmol/L (3.5-5.10); TOTAL PROTEIN 5.2 g/dL (5.8-8.1)
[2016-10-25] MEDS ORDERED: LASIX TAB PO SCH (06:30)
[2016-10-25] MEDS ORDERED: CITRATE OF MAGNESIA PO STA (08:09)
--- NOTE | 2016-10-25 09:03 | PCM.PROG ---
Attending Provider: ATTENDING PROVIDER: [facility] DATE OF SERVICE: 10/25/16 SUBJECTIVE: This 76 year old WHITE/ F was hospitalized 10/22/16. The patient is sitting in the chair. She hasn't had a bowel movement in two days. Hemoglobin is 9.3 today. She states she is feeling better. No chest pain or shortness of breath today. REVIEW OF SYSTEMS: CONSTITUTIONAL: No fever, no chills. ENDOCRINE: No weight loss or weight gain. HEENT: No sinus drainage, no sore throat. CVS: No angina symptoms. No CHF symptoms. No palpitations. No atypical chest pain for CAD. No shortness of breath. RESPIRATORY: No cough, no hemoptysis. GI: No melena. No abdominal pain. No nausea, no vomiting. : No hematuria. No polyuria. SKIN: No rash. No wounds. MUSCULOSKELETAL: No pain. TECHNICIAN SUPPORT ASSOCIATION: No blackout, no dizziness. No headache. No double vision. PSYCHIATRIC: Not anxious; no depression. No suicidal thoughts. No homicidal thoughts. PHYSICAL EXAMINATION: GENERAL: Sitting in chair in no distress. VITAL SIGNS: Temperature 97.6 F, Pulse 60, Respiratory Rate 20, BP 96/59, Pulse Ox 95% HEENT: Normocephalic, atraumatic. Mucosa is dry, pallor positive. NECK: No JVP, no carotid bruit. No lymphadenopathy. CARDIAC: S1, S2, no S3. Systolic murmur is present. LUNGS: Decreased breath sounds. Clear to auscultation. ABDOMEN: Soft, non-tender. Bowel sounds active. No rigidity, guarding or CVA tenderness. EXTREMITIES: No clubbing, cyanosis or edema. NEUROLOGIC: Awake, alert and oriented x3. LYMPHATIC: No palpable lymph nodes SKIN: Not dry. Intact. MUSCULOSKELETAL: No joint swelling. LAB REVIEW: 10/25/16 06:07 10/25/16 06:07 10/25/16 06:07: WBC 7.58, RBC 3.01 L, Hgb 9.5 L, Hct 27.6 L, MCV 91.7, MCH 31.6 H, MCHC 34.4, RDW Coeff of Angelo 17.8 H, Plt Count 158, Immature Gran % (Auto) 0.7 , Neut % (Auto) 64.7, Lymph % (Auto) 19.7, [place] % (Auto) 10.8 H, Eos % (Auto) 2.9, Baso % (Auto) 1.2, Immature Gran # (Auto) 0.1, Neut # 4.9, Lymph # 1.5, [place] # 0.8, Eos # 0.2, Baso # 0.1, Sodium 139, Potassium 3.5, Chloride 103, Carbon Dioxide 29, Anion Gap 10.5, BUN 15, Creatinine 0.69, Estimated GFR (MDRD ) 83.00, BUN/Creatinine Ratio 21.73, Glucose 89, Calcium 9.1, Total Bilirubin 0.53, AST 20, ALT 12, Alkaline Phosphatase 64, Total Protein 5.2 L, Albumin 2.9 L, Globulin 2.3, Albumin/Globulin Ratio 1.26 10/24/16 19:48: Hgb 9.9 L, Hct 29.1 L 10/22/16 19:45: Blood Type O POSITIVE, Antibody Screen Negative, Crossmatch (AHG ) See Detail ASSESSMENT: 1. ACUTE BLOOD LOSS ANEMIA SECONDARY TO LOWER GI BLEED, GIVEN 3 UNITS OF PRBC TRANSFUSION. 2. SEVERE AORTIC STENOSIS. 3. CHRONIC HEART FAILURE. 4. CORONARY ARTERY DISEASE. 5. DEPRESSION. PLAN: 1. Magnesium Citrate 2. Continue to check H & H q.12hr 3. Out of bed to chair 4. The patient is upset about her condition because of frequent lower GI bleeds and transfusions. The patient has seen Dr. Junior, Milk And Cream Grader and was unable to do a colonoscopy due to severe aortic stenosis and coronary artery disease. Plan and coordination of the patient's care discussed in the presence of Apparatus Lineman and nurse. CONDITION: Stable SCRIBED BY: SOHAN ZAMAN, Assistant Clinical Nurse Manager scribed while in presence of service performed by [facility] on 10/25/16 ([id number])
--- NOTE | 2016-10-25 10:21 | PN ---
DATE OF SERVICE: 10/24/16 SUBJECTIVE: The patient was admitted with the lower GI bleed. Hgb dropped to 6 yesterday and the patient got the three units of blood transfusion and now hgb is 9.6 and it was 10.2 after the transfusion yesterday and dropped to 9.6. She had two bloody bowel movements yesterday. REVIEW OF SYSTEMS: CONSTITUTIONAL: No fever, no chills. HEENT: Normal. ENDOCRINE: No weight gain, no weight loss. CVS: No angina symptoms. No CHF symptoms. No palpitations. No atypical chest pain for CAD. No shortness of breath. No PND, no orthopnea. RESPIRATORY: No cough, no hemoptysis. GI: No nausea, no vomiting. No abdominal pain. : No hematuria. No polyuria. MUSCULOSKELETAL:. No joint swelling. PSYCHIATRIC: Not anxious. No depression. No suicidal thoughts. No homicidal thoughts. SKIN: Intact. No rash. PHYSICAL EXAMINATION: V/S: Blood pressure 108/64, respiratory rate 18, heart rate 64 and temperature 98.4. HEENT: Normocephalic, atraumatic. Mucosa dry. Pallor positive. No icterus. NECK: Supple. No JVD, no carotid bruit. No lymphadenopathy. LUNGS: Clear to auscultation. No rales or rhonchi. HEART: S1, S2 normal. No S3. Systolic murmur positive, gallop or regurgitation. ABDOMEN: Soft, nontender. Bowel sounds active. No rigidity. No rebound or guarding. No CVA tenderness. EXTREMITIES: No clubbing, cyanosis.1+ edema. MUSCULOSKELETAL: No joint swelling. NEUROLOGIC: Awake, alert, oriented times three. No focal deficit. LYMPHATIC: No lymph nodes palpable. SKIN: Intact and dry. LABS: WBC 7.94, hgb 9.6, hct 27.6, plt count 180, sodium 140, potassium 3.5, chloride 102, bicarb 28, BUN 19 and creatinine 0.76. ASSESSMENT: 1. Lower GI bleed mostly from the diverticulosis, status post three units blood transfusion 2. Severe anemia, hgb 6 3. Critical aortic stenosis 4. Coronary artery disease 5. Depression PLAN: 1. H&H Q 12 hours 2. Protonix 3. Out of bed to chair activity as tolerated Will follow the patient in daily rounds. TIME SPENT: More than 30 minutes MTDD
[2016-10-25] MEDS: CALCIUM 500 + VIT D 200 MG TABLET PO SCH (10:39)
[2016-10-25] MEDS: FERROUS SULFATE PO SCH ×2 (10:40→20:33)
[2016-10-25] MEDS: MIRALAX PO SCH (10:40)
[2016-10-25] MEDS: MULTIVITAMIN PO SCH (10:40)
[2016-10-25] MEDS: NEURONTIN PO SCH ×3 (10:40→20:33)
[2016-10-25] MEDS: CYMBALTA PO SCH (10:50)
[2016-10-25] MEDS: OMEGA-3 FISH OIL PO SCH (10:50)
[2016-10-25 17:59] LABS: HEMATOCRIT 30.6 % (37.0-47.0); HEMOGLOBIN 10.2 g/dl (12.0-16.0)
[2016-10-25] MEDS: CRESTOR PO SCH (20:33)
[2016-10-26] MEDS: SYNTHROID PO SCH (05:39)
[2016-10-26] MEDS: PROTONIX PO SCH (05:39)
[2016-10-26 06:20] LABS: BASOPHILS # (AUTO) 0.1 K/uL (0-0.2); BASOPHILS % (AUTO) 1.2 % (0.0-3.0); EOSINOPHILS # (AUTO) 0.2 K/ul (0.0-0.7); EOSINOPHILS % (AUTO) 3.1 % (0.0-7.0); HEMATOCRIT 27.8 % (37.0-47.0); HEMOGLOBIN 9.2 g/dl (12.0-16.0); IMMATURE GRANULOCYTE % (AUTO) 0.6 % (0.0-5.0); LYMPHOCYTES # (AUTO) 1.4 K/uL (0.60-3.4); LYMPHOCYTES % (AUTO) 20.5 (10.0-50.0); MEAN CORPUSCULAR HGB CONC 33.1 (31.8-35.4); MEAN CORPUSCULAR VOLUME 93.6 fl (81.0-99.0); MONOCYTES # (AUTO) 0.6 K/uL (0.4-2.0); MONOCYTES % (AUTO) 9.2 (0-10); NEUTROPHILS # (AUTO) 4.5 K/ul (2.0-6.9); NEUTROPHILS % (AUTO) 65.4; PLATELET COUNT 174 10^3/uL (140-440); RED BLOOD COUNT 2.97 10^6/ul (4.20-5.40); WHITE BLOOD COUNT 6.88 K/ul (4.6-10.2)
[2016-10-26 06:44] LABS: ALBUMIN/GLOBULIN RATIO 1.43; ANION GAP 11.9; BILIRUBIN,TOTAL 0.44 mg/dL (0.00-1.20); BUN/CREATININE RATIO 23.68; CREATININE 0.76 mg/dL (0.60-1.30); POTASSIUM 3.9 mmol/L (3.5-5.10); TOTAL PROTEIN 5.1 g/dL (5.8-8.1)
[2016-10-26] MEDS: NEURONTIN PO SCH ×2 (09:40→15:37)
[2016-10-26] MEDS: FERROUS SULFATE PO SCH (09:40)
[2016-10-26] MEDS: MULTIVITAMIN PO SCH (09:40)
[2016-10-26] MEDS: MIRALAX PO SCH (09:40)
[2016-10-26] MEDS: CALCIUM 500 + VIT D 200 MG TABLET PO SCH (09:40)
[2016-10-26] MEDS: OMEGA-3 FISH OIL PO SCH (09:43)
[2016-10-26] MEDS: CYMBALTA PO SCH (09:44)
[2016-10-26 17:45] VITALS: BP 109/58; TEMP 97.7
[2016-10-26 18:08] LABS: HEMATOCRIT 29.9 % (37.0-47.0)
--- NOTE | 2016-12-29 09:52 | DS ---
DATE OF SERVICE: 10/26/16 FINAL DIAGNOSIS: 1. ACUTE BLOOD LOSS ANEMIA SECONDARY TO LOWER GI BLEED, GIVEN 3 UNITS OF PRBC 2. SEVERE AORTIC STENOSIS 3. CHRONIC HEART FAILURE, STABLE 4. CAD 5. DEPRESSION 6. PERIPHERAL NEUROPATHY 7. OSTEOARTHRITIS DISCHARGE INSTRUCTIONS: 1. Discharge the patient home. 2. Continue the iron pill. 3. Outpatient labs on 10/28. 4. Resume home medication. 5. No new medications given. MEDICATIONS AT DISCHARGE: 1. Continue Protonix twice a day NEW PRESCRIPTIONS: None DIET INSTRUCTIONS: Heart Healthy ACTIVITY: Get plenty of rest. Activity as tolerated. SMOKING: N/A DISEASE SPECIFIC EDUCATION: Anemia Lower GI bleed Need for iron pills HOSPITAL COURSE: This patient came to the office. We did do outpatient blood work and she was having acute lower GI bleed. Hemoglobin was 7.7. At that time, the patient was brought to the hospital, started blood transfusion. We gave one unit. Hemoglobin was steady at 8.7, 7.7, 7.5 then dropped to 6.0 then after blood transfusion 8.9. With the given blood transfusion, the patient started feeling better went up to 10.6, 10.2, 9.6 then stayed steady. The patient is aware that she cannot have a GI evaluation. The patient was recently at [facility] and had a lengthy stay, seen by Dr. Junior and cardiothoracic surgeon. Given her risk for severe aortic stenosis and surgical risk, the patient could not have colonoscopy or endoscopy done at that time. The patient, after transfusion , was feeling better. At that time she was discharged. TIME SPENT: MORE THAN 45 MINUTES TODAY MARLENA
== END 2016-10-26 19:20 | disposition home or self-care (01) | DRG 378 ==
LOC: INTOOBSV 11:33 → MEDSURG B 11:33 → OBSVTOIN 10-22 19:39
PROVIDERS: ADMIT Emergency Medicine; ATTEND Emergency Medicine
PROC: 30233N1 Transfusion of Nonautologous Red Blood Cells into Peripheral Vein, Percutaneous Approach (ICD-10-PCS; principal; 2016-10-22)
PROC: 30233N1 Transfusion of Nonautologous Red Blood Cells into Peripheral Vein, Percutaneous Approach (ICD-10-PCS; 2016-10-23)
PROC: 30233N1 Transfusion of Nonautologous Red Blood Cells into Peripheral Vein, Percutaneous Approach (ICD-10-PCS; 2016-10-23)
DX: K57.91 Diverticulosis of intestine, part unspecified, without perforation or abscess with bleeding (principal); D62 Acute posthemorrhagic anemia; I35.0 Nonrheumatic aortic (valve) stenosis; I50.9 Heart failure, unspecified; I25.10 Atherosclerotic heart disease of native coronary artery without angina pectoris; F32.9 Major depressive disorder, single episode, unspecified; G62.9 Polyneuropathy, unspecified; M19.90 Unspecified osteoarthritis, unspecified site; E11.9 Type 2 diabetes mellitus without complications; Z79.899 Other long term (current) drug therapy
CPT/HCPCS: 36415; 36430; 80053; 81001; 82550; 84484; 85014; 85018; 85025; 86850; 86900; 86922; 87081; 93005; 93010; 99223; 99233; 99239

== ENCOUNTER 2016-10-28 13:40 | Outpatient (CLI) ==
[2016-10-28 14:03] LABS: HEMATOCRIT 28.8 % (37.0-47.0); HEMOGLOBIN 9.4 g/dl (12.0-16.0)
== END 2016-10-28 13:41 | disposition home or self-care (01) ==
LOC: LAB 13:40
PROVIDERS: ATTEND Emergency Medicine
DX: D64.9 Anemia, unspecified (principal)
CPT/HCPCS: 36415; 85014; 85018

== ENCOUNTER 2016-11-01 17:27 | Outpatient (CLI) ==
[2016-11-01 17:33] LABS: BASOPHILS # (AUTO) 0.1 K/uL (0-0.2); EOSINOPHILS # (AUTO) 0.1 K/ul (0.0-0.7); EOSINOPHILS % (AUTO) 1.9 % (0.0-7.0); HEMATOCRIT 29.4 % (37.0-47.0); HEMOGLOBIN 9.7 g/dl (12.0-16.0); IMMATURE GRANULOCYTE % (AUTO) 0.5 % (0.0-5.0); LYMPHOCYTES % (AUTO) 16.5 (10.0-50.0); MEAN CORPUSCULAR HEMOGLOBIN 32.1 pg (27.0-31.0); MEAN CORPUSCULAR VOLUME 97.4 fl (81.0-99.0); MONOCYTES # (AUTO) 0.4 K/uL (0.4-2.0); MONOCYTES % (AUTO) 6.4 (0-10); NEUTROPHILS # (AUTO) 4.6 K/ul (2.0-6.9); NEUTROPHILS % (AUTO) 73.7; PLATELET COUNT 196 10^3/uL (140-440); RED BLOOD COUNT 3.02 10^6/ul (4.20-5.40); WHITE BLOOD COUNT 6.26 K/ul (4.6-10.2)
== END 2016-11-01 17:28 | disposition home or self-care (01) ==
LOC: LAB 17:27
PROVIDERS: ATTEND Emergency Medicine
DX: D50.0 Iron deficiency anemia secondary to blood loss (chronic) (principal)
CPT/HCPCS: 36415; 85025

== ENCOUNTER 2016-11-07 22:44 | Inpatient (IN) ==
[2016-11-07 23:09] LABS: BASOPHILS % (AUTO) 0.5 % (0.0-3.0); EOSINOPHILS # (AUTO) 0.1 K/ul (0.0-0.7); EOSINOPHILS % (AUTO) 0.6 % (0.0-7.0); IMMATURE GRANULOCYTE % (AUTO) 0.5 % (0.0-5.0); LYMPHOCYTES # (AUTO) 0.7 K/uL (0.60-3.4); LYMPHOCYTES % (AUTO) 8.7 (10.0-50.0); MEAN CORPUSCULAR HEMOGLOBIN 32.8 pg (27.0-31.0); MEAN CORPUSCULAR HGB CONC 33.1 (31.8-35.4); MEAN CORPUSCULAR VOLUME 98.9 fl (81.0-99.0); MONOCYTES # (AUTO) 0.4 K/uL (0.4-2.0); MONOCYTES % (AUTO) 4.8 (0-10); NEUTROPHILS # (AUTO) 6.7 K/ul (2.0-6.9); NEUTROPHILS % (AUTO) 84.9; PLATELET COUNT 176 10^3/uL (140-440); WHITE BLOOD COUNT 7.85 K/ul (4.6-10.2)
[2016-11-07 23:10] LABS: HEMATOCRIT 17.8 % (37.0-47.0); HEMOGLOBIN 5.9 g/dl (12.0-16.0)
--- NOTE | 2016-11-07 23:12 | ED.PDOC ---
General ED Provider: Dr. ALLAN FLORES Chief Complaint: Weakness Stated Complaint: Patient is a 76 year old female who comes to the ER with complains of bright red blood per rectum. Has been going on for a while but got worse today. Family states they had to flush the toilet 3 x and now feels dizzy. Time Seen by Physician: 23:04 Mode of Arrival: Walk-In Information Source: Patient Exam Limitations: No limitations [facility] and Triage Documentation Reviewed and Agree: Yes GI Complaint Exam - GI Bleed Complaint/Exam Patient Complains of: Reports: Rectal bleeding Onset/Duration: 1 day Symptoms Are: Still present Episodes Lasting: Minutes Frequency: twice tonight Severity: Reports: Bright red blood-rectum Location of Pain: Reports: None Aggravating: Reports: Bowel movement Associated Signs and Symptoms: Denies: Back Pain, Pallor, Dizziness, Weakness, Syncope, Constipation, Nausea, Rectal pain, Bruising, Weight loss, Recent abnormal coags Recent Colonoscopy: No Recent EGD: No Abdominal Findings: Present: None Differential Diagnoses: Diverticulitis, Enterocolitis, Gastritis, Crohn's Disease Review of Systems - Review Of Systems Constitutional: Reports: Weakness, Loss of appetite Eyes: Reports: No symptoms Ears, Nose, Mouth, Throat: Reports: No symptoms Respiratory: Reports: No symptoms Cardiac: Reports: Lightheadedness GI: Reports: No symptoms : Reports: No symptoms Musculoskeletal: Reports: No symptoms Skin: Reports: No symptoms Neurological: Reports: Anxiety Endocrine: Reports: No symptoms Hematologic/Lymphatic: Reports: No symptoms All Other Systems: Reviewed and Negative Past Medical History - Past Medical History Previously Healthy: Yes Endocrine: Reports: Hypothyroid, Dyslipidemia Cardiovascular: Reports: CAD, Hypertension Respiratory: Reports: None Hematological: Reports: Anemia Gastrointestinal: Reports: None Genitourinary: Reports: None Neuro/Psych: Reports: None Musculoskeletal: Reports: Arthritis Cancer: Reports: None Last Menstrual Period: N/A Other Pertinent Past Medical History: htn thy ane chol depr arth cad - Surgical History General Surgical History: Reports: Orthopedic (LT SHOULDER REPLACED), Other (- ORAL SURG-). Denies: Hysterectomy (D & C-) - Family History Family History: Reports: Unknown - Social History Smoking Status: Former smoker, Heavy tobacco smoker Hx Substance Use: No Alcohol Screening: None Physical Exam - Physical Exam Appearance: Ill-appearing Ill-appearing: Moderate Eyes: ENRIKE, EOMI, Conjunctiva clear Neck: Supple Respiratory: Airway patent, Breath sounds clear, Breath sounds equal, Respirations nonlabored Cardiovascular: RRR, Pulses normal, No rub, No murmur GI/: Soft, Nontender, No masses, Bowel sounds normal, No Organomegaly Musculoskeletal: Normal strength, ROM intact, No edema, No calf tenderness Skin: Pale Neurological: Sensation intact, Motor intact, Alert, Oriented Psychiatric: Anxious Interpretation - EKG Interpretation Time of EKG #1: 22:57 Rate: Normal Rhythm: Sinus Ectopy: None Peel: NL ST Segment: Normal Interpretation: Normal sinus Rhythm, inferolateral ischemia Critical Care Note - Critical Care Note Total Time (mins): 45 Course - Course Hematology/Chemistry: 11/07/16 22:55 11/07/16 22:55 Orders, Labs, Meds: Lab Review 11/07/16 11/07/16 22:50 22:55 WBC 7.85 RBC 1.80 L Hgb 5.9 L* Hct 17.8 L* MCV 98.9 MCH 32.8 H MCHC 33.1 RDW Coeff of Angelo 17.1 H Plt Count 176 Immature Gran % (Auto) 0.5 Neut % (Auto) 84.9 Lymph % (Auto) 8.7 L Boyle % (Auto) 4.8 Eos % (Auto) 0.6 Baso % (Auto) 0.5 Immature Gran # (Auto) 0.0 Neut # 6.7 Lymph # 0.7 Boyle # 0.4 Eos # 0.1 Baso # 0.0 Sodium 141 Potassium 3.9 Chloride 106 Carbon Dioxide 27 Anion Gap 11.9 BUN 22 H Creatinine 0.79 Estimated GFR (MDRD) 71.00 BUN/Creatinine Ratio 27.84 Glucose 189 H Calcium 8.8 Total Bilirubin 0.34 AST 19 ALT 7 L Alkaline Phosphatase 59 Troponin I 0.0450 Total Protein 4.9 L Albumin 2.8 L Globulin 2.1 Albumin/Globulin Ratio 1.33 Blood Type O POSITIVE Antibody Screen Negative Crossmatch (AHG) See Detail Orders Category Date Time Status EKG-(ED ONLY) Stat CARDIO 11/07/16 23:03 Completed CBC W/ AUTO DIFF Stat LAB 11/07/16 22:55 Completed COMPREHENSIVE METABOLIC PANEL Stat LAB 11/07/16 22:55 Completed Packed Cells [PACKED CELLS] Stat LAB 11/07/16 22:50 Results TROPONIN I Stat LAB 11/07/16 22:55 Completed TYPE AND SCREEN Stat LAB 11/07/16 22:50 Results Medications Generic Name Dose Route Start Last Admin Trade Name Freq PRN Reason Stop Dose Admin Acetaminophen 650 mg 11/08/16 00:11 Tylenol PO Q4H PRN Fever Ferrous Sulfate 324 mg 11/08/16 09:00 Ferrous Sulfate PO BID MAY Furosemide 20 mg 11/08/16 06:30 Lasix IVP QDAC [facility] Gabapentin 300 mg 11/08/16 09:00 Neurontin PO 0900,1500 MAY Levothyroxine Sodium 75 mcg 11/08/16 06:30 Synthroid PO QDAC MAY Lorazepam 1 mg 11/08/16 00:19 Ativan PO BEDTIME PRN Anxiety Non-Formulary Medication 1 each 11/08/16 09:00 Calcium Carbonate/Vitamin D3 [Calcium 600 + Vit D 400 Tablet] PO DAILY MAY Non-Formulary Medication 60 mg 11/08/16 09:00 Duloxetine Hcl [Cymbalta] PO DAILY MAY Non-Formulary Medication 1 each 11/08/16 09:00 [place]-3 Fatty Acids/Fish Oil [Fish Oil 1,000 Mg Capsule] PO DAILY MAY Non-Formulary Medication 1 each 11/08/16 09:00 Multivitamin [Multi-Vitamin Daily] PO DAILY MAY Non-Formulary Medication 600 mg 11/08/16 21:00 Gabapentin [Neurontin] PO BEDTIME MAY Non-Formulary Medication 20 mg 11/08/16 21:00 Rosuvastatin Calcium [Crestor] PO BEDTIME [facility] Ondansetron HCl 4 mg 11/08/16 00:11 Zofran 4 Mg/2 Ml IVP Q6H PRN Nausea / Vomiting Pantoprazole Sodium 40 mg 11/08/16 06:30 Protonix PO QDAC [facility] Polyethylene Glycol 17 gm 11/08/16 09:00 Miralax PO DAILY [facility] Vital Signs: Temp Pulse Resp BP Pulse Ox 11/07/16 22:45 98 F 79 16 88/63 L 99 Departure - Departure Time of Disposition: 00:35 Disposition: ADMITTED INPATIENT Discharge Problem: Lower GI bleed Anemia Qualifiers: Anemia type: iron deficiency 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) Condition: Fair Pt referred to PMD for follow-up: Yes Allergies/Adverse Reactions: Allergies Latex, Natural Rubber Adverse Reaction (Verified 11/07/16 22:49) Home Medications: Ambulatory Orders Rosuvastatin Calcium [Crestor] 20 mg PO BEDTIME 09/02/15 [place]-3 Fatty Acids/Fish Oil [Fish Oil 1,000 mg Capsule] 1 each PO DAILY Furosemide [Lasix Tab] 1 tab EVERY OTHER DAY 10/21/16 Calcium Carbonate/Vitamin D3 [Calcium 600 + Vit D 400 Tablet] 1 each PO DAILY Ferrous Sulfate 324 mg PO BID 10/23/16 Gabapentin [Neurontin] 300 mg PO 0900,1500 10/23/16 Gabapentin [Neurontin] 600 mg PO BEDTIME 10/23/16 Levothyroxine Sodium [Synthroid] 75 mcg PO QDAC 10/23/16 Lorazepam [Ativan] 1 mg PO BEDTIME PRN 10/23/16 Multivitamin [Multi-Vitamin Daily] 1 each PO DAILY 10/23/16 Pantoprazole Sodium [Protonix] 40 mg PO QDAC 10/23/16 Polyethylene Glycol 3350 [Miralax] 17 gm PO DAILY 10/23/16 Disposition Discussed With: Patient, Family
[2016-11-07 23:35] LABS: ALBUMIN 2.8 g/dL (3.4-5.0); ALBUMIN/GLOBULIN RATIO 1.33; ANION GAP 11.9; BILIRUBIN,TOTAL 0.34 mg/dL (0.00-1.20); BUN/CREATININE RATIO 27.84; CALCIUM 8.8 mg/dL (8.2-10.2); CREATININE 0.79 mg/dL (0.60-1.30); POTASSIUM 3.9 mmol/L (3.5-5.10); TOTAL PROTEIN 4.9 g/dL (5.8-8.1); TROPONIN I 0.045 ng/ml (0.0000-0.4000)
[2016-11-08] MEDS ORDERED: TYLENOL PO PRN (00:11)
[2016-11-08] MEDS ORDERED: ZOFRAN 4 MG/2 ML IVP PRN (00:11)
[2016-11-08] MEDS ORDERED: ATIVAN PO PRN (00:19)
[2016-11-08 00:52] VITALS: BMI 29.7
[2016-11-08] MEDS: LASIX IVP PRN ×3 (03:49→10:34)
[2016-11-08] MEDS: SYNTHROID PO SCH (05:37)
[2016-11-08] MEDS: PROTONIX PO SCH (05:37)
[2016-11-08] MEDS ORDERED: LASIX IVP SCH (06:30)
[2016-11-08] MEDS ORDERED: NON-FORMULARY MEDICATION (Omega-3 Fatty Acids/Fish Oil [Fish Oil 1,000 Mg Capsule] 1 EACH) PO SCH ×22 (09:00)
[2016-11-08] MEDS ORDERED: NON-FORMULARY MEDICATION (Multivitamin [Multi-Vitamin Daily] 1 EACH) PO SCH ×22 (09:00)
[2016-11-08] MEDS ORDERED: NON-FORMULARY MEDICATION (Duloxetine Hcl [Cymbalta] 60 MG) PO SCH ×22 (09:00)
[2016-11-08] MEDS: MIRALAX PO SCH (09:56)
[2016-11-08] MEDS: MULTIVITAMIN PO SCH (09:58)
[2016-11-08] MEDS: OMEGA-3 FISH OIL PO SCH (09:58)
[2016-11-08] MEDS: CALCIUM 500 + VIT D 200 MG TABLET PO SCH (09:58)
[2016-11-08] MEDS: NEURONTIN PO SCH ×3 (09:58→21:12)
[2016-11-08] MEDS: CYMBALTA PO SCH (09:58)
[2016-11-08] MEDS: FERROUS SULFATE PO SCH ×2 (09:59→21:13)
[2016-11-08 11:47] LABS: BASOPHILS # (AUTO) 0.1 K/uL (0-0.2); BASOPHILS % (AUTO) 0.6 % (0.0-3.0); EOSINOPHILS # (AUTO) 0.1 K/ul (0.0-0.7); EOSINOPHILS % (AUTO) 1.4 % (0.0-7.0); HEMATOCRIT 28.3 % (37.0-47.0); HEMOGLOBIN 10.1 g/dl (12.0-16.0); IMMATURE GRANULOCYTE % (AUTO) 0.4 % (0.0-5.0); LYMPHOCYTES % (AUTO) 19.9 (10.0-50.0); MEAN CORPUSCULAR HEMOGLOBIN 31.5 pg (27.0-31.0); MEAN CORPUSCULAR HGB CONC 35.7 (31.8-35.4); MEAN CORPUSCULAR VOLUME 88.2 fl (81.0-99.0); MONOCYTES # (AUTO) 0.8 K/uL (0.4-2.0); MONOCYTES % (AUTO) 8.5 (0-10); NEUTROPHILS # (AUTO) 6.8 K/ul (2.0-6.9); NEUTROPHILS % (AUTO) 69.2; PLATELET COUNT 146 10^3/uL (140-440); RED BLOOD COUNT 3.21 10^6/ul (4.20-5.40); WHITE BLOOD COUNT 9.78 K/ul (4.6-10.2)
[2016-11-08 12:06] LABS: ANION GAP 14.1; BUN/CREATININE RATIO 23.8; CALCIUM 8.9 mg/dL (8.2-10.2); CREATININE 0.84 mg/dL (0.60-1.30); POTASSIUM 3.1 mmol/L (3.5-5.10)
--- NOTE | 2016-11-08 13:06 | PCM.PROG ---
Attending Provider: ATTENDING PROVIDER: [facility] DATE OF SERVICE: 11/08/16 SUBJECTIVE: This 76 year old WHITE/ F was hospitalized 11/08/16. The patient is admitted with chronic lower GI bleed from diverticulosis; not a candidate for endoscopy or colonoscopy as per Dr. Junior, Business Banking Manager, secondary to severe aortic stenosis with diffuse CAD. REVIEW OF SYSTEMS: CONSTITUTIONAL: Weakness. No fever, no chills. ENDOCRINE: No weight loss or weight gain. HEENT: No sinus drainage, no sore throat. CVS: No angina symptoms. No CHF symptoms. No palpitations. No atypical chest pain for CAD. No shortness of breath. RESPIRATORY: No cough, no hemoptysis. GI: No melena. No abdominal pain. No nausea, no vomiting. : No hematuria. No polyuria. SKIN: No rash. No wounds. MUSCULOSKELETAL: No pain. MATTRESS STRIPPER: No blackout, no dizziness. No headache. No double vision. PSYCHIATRIC: Not anxious; no depression. No suicidal thoughts. No homicidal thoughts. PHYSICAL EXAMINATION: GENERAL: Lying in bed in no distress. VITAL SIGNS: Temperature 98.6 F, Pulse 66, Respiratory Rate 20, BP 124/35, Pulse Ox 95% HEENT: Normocephalic, atraumatic. Mucosa is dry, pallor positive. NECK: No JVP, no carotid bruit. No lymphadenopathy. CARDIAC: S1, S2, no S3. Systolic murmur. LUNGS: Clear to auscultation. ABDOMEN: Soft, non-tender. Bowel sounds active. No rigidity, guarding or CVA tenderness. EXTREMITIES: 1+ edema. No clubbing or cyanosis. NEUROLOGIC: Awake, alert and oriented x3. LYMPHATIC: No palpable lymph nodes SKIN: Not dry. Intact. MUSCULOSKELETAL: No joint swelling. ASSESSMENT: 1. Severe anemia secondary to lower GI bleed 2. History of diverticulosis 3. Severe aortic stenosis 4. Coronary artery disease 5. Depression 6. Diabetes mellitus, diet controlled 7. Depression 8. Osteoarthritis PLAN: 1. The patient is receiving PRBCs 2. Lasix 20 mg IV push after transfusion 3. Regular diet Plan and coordination of the patient's care discussed in the presence of Cook Fish Eggs and nurse. CONDITION: Stable SCRIBED BY: SOHAN ZAMAN Senior Radiation Protection Technician scribed while in presence of service performed by Dr. JERSEY [facility]ON[facility] on 11/08/16 ([id number])
[2016-11-08] MEDS ORDERED: NON-FORMULARY MEDICATION (Gabapentin [Neurontin] 600 MG) PO SCH ×22 (21:00)
[2016-11-08] MEDS ORDERED: NON-FORMULARY MEDICATION (Rosuvastatin Calcium [Crestor] 20 MG) PO SCH ×22 (21:00)
[2016-11-08] MEDS: CRESTOR PO SCH (21:14)
[2016-11-09 05:15] LABS: BASOPHILS # (AUTO) 0.1 K/uL (0-0.2); BASOPHILS % (AUTO) 1.2 % (0.0-3.0); EOSINOPHILS # (AUTO) 0.2 K/ul (0.0-0.7); HEMATOCRIT 26.2 % (37.0-47.0); HEMOGLOBIN 9.2 g/dl (12.0-16.0); IMMATURE GRANULOCYTE % (AUTO) 0.5 % (0.0-5.0); LYMPHOCYTES # (AUTO) 1.9 K/uL (0.60-3.4); LYMPHOCYTES % (AUTO) 25.1 (10.0-50.0); MEAN CORPUSCULAR HEMOGLOBIN 31.4 pg (27.0-31.0); MEAN CORPUSCULAR HGB CONC 35.1 (31.8-35.4); MEAN CORPUSCULAR VOLUME 89.4 fl (81.0-99.0); MONOCYTES # (AUTO) 0.6 K/uL (0.4-2.0); MONOCYTES % (AUTO) 8.6 (0-10); NEUTROPHILS # (AUTO) 4.6 K/ul (2.0-6.9); NEUTROPHILS % (AUTO) 61.6; PLATELET COUNT 136 10^3/uL (140-440); RED BLOOD COUNT 2.93 10^6/ul (4.20-5.40)
[2016-11-09 05:41] LABS: ANION GAP 10.5; BUN/CREATININE RATIO 22.53; CALCIUM 8.8 mg/dL (8.2-10.2); CREATININE 0.71 mg/dL (0.60-1.30); POTASSIUM 3.5 mmol/L (3.5-5.10)
[2016-11-09] MEDS: SYNTHROID PO SCH (05:54)
[2016-11-09] MEDS: PROTONIX PO SCH (05:54)
[2016-11-09] MEDS: NEURONTIN PO SCH ×3 (10:11→21:01)
[2016-11-09] MEDS: FERROUS SULFATE PO SCH ×2 (10:12→21:01)
[2016-11-09] MEDS: MIRALAX PO SCH (10:12)
[2016-11-09] MEDS: CYMBALTA PO SCH (10:12)
[2016-11-09] MEDS: MULTIVITAMIN PO SCH (10:12)
[2016-11-09] MEDS: OMEGA-3 FISH OIL PO SCH (10:12)
[2016-11-09] MEDS: CALCIUM 500 + VIT D 200 MG TABLET PO SCH (10:13)
[2016-11-09] MEDS: CRESTOR PO SCH (21:01)
[2016-11-10 04:50] LABS: BASOPHILS # (AUTO) 0.1 K/uL (0-0.2); EOSINOPHILS # (AUTO) 0.3 K/ul (0.0-0.7); HEMATOCRIT 26.6 % (37.0-47.0); HEMOGLOBIN 9.1 g/dl (12.0-16.0); IMMATURE GRANULOCYTE % (AUTO) 0.6 % (0.0-5.0); LYMPHOCYTES # (AUTO) 1.7 K/uL (0.60-3.4); LYMPHOCYTES % (AUTO) 24.5 (10.0-50.0); MEAN CORPUSCULAR HEMOGLOBIN 31.5 pg (27.0-31.0); MEAN CORPUSCULAR HGB CONC 34.2 (31.8-35.4); MONOCYTES # (AUTO) 0.7 K/uL (0.4-2.0); MONOCYTES % (AUTO) 9.6 (0-10); NEUTROPHILS # (AUTO) 4.3 K/ul (2.0-6.9); NEUTROPHILS % (AUTO) 60.3; PLATELET COUNT 146 10^3/uL (140-440); RED BLOOD COUNT 2.89 10^6/ul (4.20-5.40); WHITE BLOOD COUNT 7.07 K/ul (4.6-10.2)
[2016-11-10 05:12] LABS: ANION GAP 12.9; BUN/CREATININE RATIO 16.66; CALCIUM 9.2 mg/dL (8.2-10.2); CREATININE 0.78 mg/dL (0.60-1.30); POTASSIUM 3.9 mmol/L (3.5-5.10)
[2016-11-10] MEDS: SYNTHROID PO SCH (06:15)
[2016-11-10] MEDS: PROTONIX PO SCH (06:15)
[2016-11-10] MEDS: NEURONTIN PO SCH ×3 (09:58→21:06)
[2016-11-10] MEDS: MULTIVITAMIN PO SCH (09:58)
[2016-11-10] MEDS: MIRALAX PO SCH (09:58)
[2016-11-10] MEDS: CYMBALTA PO SCH (09:58)
[2016-11-10] MEDS: OMEGA-3 FISH OIL PO SCH (09:58)
[2016-11-10] MEDS: CALCIUM 500 + VIT D 200 MG TABLET PO SCH (09:58)
[2016-11-10] MEDS: FERROUS SULFATE PO SCH ×2 (09:59→21:06)
--- NOTE | 2016-11-10 13:10 | PCM.PROG ---
Attending Provider: ATTENDING PROVIDER: [facility]: 11/10/16 SUBJECTIVE: This 76 year old WHITE/ F was hospitalized 11/08/16. The patient is sitting up in bed eating breakfast. He hasn't had any black or tarry stools. Hemoglobin is steady. No abdominal pain. No nausea or vomiting. He has mild shortness of breath on exertion. REVIEW OF SYSTEMS: CONSTITUTIONAL: No fever, no chills. ENDOCRINE: No weight loss or weight gain. HEENT: No sinus drainage, no sore throat. CVS: No angina symptoms. No CHF symptoms. No palpitations. No atypical chest pain for CAD. Mild shortness of breath on exertion. RESPIRATORY: No cough, no hemoptysis. GI: No melena. No abdominal pain. No nausea, no vomiting. : No hematuria. No polyuria. SKIN: No rash. No wounds. MUSCULOSKELETAL: No pain. CREDIT ADMINISTRATION SPECIALIST: No blackout, no dizziness. No headache. No double vision. PSYCHIATRIC: Not anxious; no depression. No suicidal thoughts. No homicidal thoughts. PHYSICAL EXAMINATION: GENERAL: Lying in bed in no distress. VITAL SIGNS: Temperature 97.1 F, Pulse 65, Respiratory Rate 18, BP 119/52, Pulse Ox 95% HEENT: Normocephalic, atraumatic. Mucosa is dry, pallor positive. NECK: No JVP, no carotid bruit. No lymphadenopathy. CARDIAC: S1, S2, no S3. Systolic murmur. LUNGS: Clear to auscultation. ABDOMEN: Soft, non-tender. Bowel sounds active. No rigidity, guarding or CVA tenderness. EXTREMITIES: 1+ edema. No clubbing or cyanosis. NEUROLOGIC: Awake, alert and oriented x3. LYMPHATIC: No palpable lymph nodes SKIN: Not dry. Intact. MUSCULOSKELETAL: No joint swelling. LAB REVIEW: 11/10/16 04:30 11/10/16 04:30 11/10/16 04:30: WBC 7.07, RBC 2.89 L, Hgb 9.1 L, Hct 26.6 L, MCV 92.0, MCH 31.5 H, MCHC 34.2, RDW Coeff of Nagelo 18.6 H, Plt Count 146, Immature Gran % (Auto) 0.6 , Neut % (Auto) 60.3, Lymph % (Auto) 24.5, [place] % (Auto) 9.6, Eos % (Auto) 4.0, Baso % (Auto) 1.0, Immature Gran # (Auto) 0.0, Neut # 4.3, Lymph # 1.7, [place] # 0.7, Eos # 0.3, Baso # 0.1, Sodium 145, Potassium 3.9, Chloride 105, Carbon Dioxide 31, Anion Gap 12.9, BUN 13, Creatinine 0.78, Estimated GFR (MDRD) 72.00 , BUN/Creatinine Ratio 16.66, Glucose 100, Calcium 9.2 ASSESSMENT: 1. Severe anemia secondary to lower GI bleed 2. History of diverticulosis 3. Severe aortic stenosis 4. Coronary artery disease 5. Depression 6. Diabetes mellitus, diet controlled 7. Depression 8. Osteoarthritis PLAN: 1. Ambulate patient 2. H&H tomorrow with possible discharge 3. patient understands she is poor caqndidate for colo andendhoscopy Plan and coordination of the patient's care discussed in the presence of Turbine Technician and nurse. CONDITION: Stable SCRIBED BY: SOHAN ZAMAN, Invoice Checker scribed while in presence of service performed by Dr. [facility] on 11/10/16 ([id number])
[2016-11-10] MEDS: CRESTOR PO SCH (21:06)
[2016-11-11 04:55] LABS: BASOPHILS # (AUTO) 0.1 K/uL (0-0.2); BASOPHILS % (AUTO) 1.4 % (0.0-3.0); EOSINOPHILS # (AUTO) 0.3 K/ul (0.0-0.7); EOSINOPHILS % (AUTO) 5.8 % (0.0-7.0); HEMOGLOBIN 9.6 g/dl (12.0-16.0); IMMATURE GRANULOCYTE % (AUTO) 0.4 % (0.0-5.0); LYMPHOCYTES # (AUTO) 1.3 K/uL (0.60-3.4); LYMPHOCYTES % (AUTO) 23.3 (10.0-50.0); MEAN CORPUSCULAR HEMOGLOBIN 31.1 pg (27.0-31.0); MEAN CORPUSCULAR HGB CONC 33.1 (31.8-35.4); MEAN CORPUSCULAR VOLUME 93.9 fl (81.0-99.0); MONOCYTES # (AUTO) 0.5 K/uL (0.4-2.0); MONOCYTES % (AUTO) 8.4 (0-10); NEUTROPHILS # (AUTO) 3.5 K/ul (2.0-6.9); NEUTROPHILS % (AUTO) 60.7; PLATELET COUNT 163 10^3/uL (140-440); RED BLOOD COUNT 3.09 10^6/ul (4.20-5.40); WHITE BLOOD COUNT 5.71 K/ul (4.6-10.2)
[2016-11-11 05:19] LABS: ANION GAP 12.9; CALCIUM 9.5 mg/dL (8.2-10.2); CREATININE 0.75 mg/dL (0.60-1.30); POTASSIUM 3.9 mmol/L (3.5-5.10)
[2016-11-11] MEDS: PROTONIX PO SCH (05:34)
[2016-11-11] MEDS: SYNTHROID PO SCH (05:34)
[2016-11-11] MEDS: CYMBALTA PO SCH (08:50)
[2016-11-11] MEDS: FERROUS SULFATE PO SCH (08:51)
[2016-11-11] MEDS: NEURONTIN PO SCH (08:51)
[2016-11-11] MEDS: CALCIUM 500 + VIT D 200 MG TABLET PO SCH (08:51)
[2016-11-11] MEDS: MULTIVITAMIN PO SCH (08:51)
[2016-11-11] MEDS: OMEGA-3 FISH OIL PO SCH (08:52)
[2016-11-11] MEDS: MIRALAX PO SCH (08:52)
[2016-11-11 09:30] VITALS: BP 112/60; TEMP 98
--- NOTE | 2016-11-11 14:22 | PN ---
DATE OF SERVICE: 11/09/16 SUBJECTIVE: The patient was admitted yesterday with the severe anemia, 5.9 and got three unites of the PRBC. No bloody bowel movements. Still complaints about the weakness and tiredness and shortness of breath with minimal exertion. REVIEW OF SYSTEMS: CONSTITUTIONAL: No fever, no chills. HEENT: Normal. ENDOCRINE: No weight gain, no weight loss. CVS: No angina symptoms. No CHF symptoms. No palpitations. No atypical chest pain for CAD. No shortness of breath. No PND, no orthopnea. RESPIRATORY: No cough, no hemoptysis. GI: No nausea, no vomiting. No abdominal pain. : No hematuria. No polyuria. MUSCULOSKELETAL:. No joint swelling. PSYCHIATRIC: Not anxious. No depression. No suicidal thoughts. No homicidal thoughts. SKIN: Intact. No rash. PHYSICAL EXAMINATION: V/S: blood pressure 98/58, respiratory rate 20, pulse 67 and temperature 97.6. HEENT: Normocephalic, atraumatic. Mucosa dry. Pallor positive. No icterus. NECK: Supple. No JVD, no carotid bruit. No lymphadenopathy. LUNGS: Clear to auscultation. No rales or rhonchi. HEART: S1, S2 normal. No S3. Systolic murmur positive, gallop or regurgitation. ABDOMEN: Soft, nontender. Bowel sounds active. No rigidity. No rebound or guarding. No CVA tenderness. EXTREMITIES: No clubbing, cyanosis. 1+ edema. MUSCULOSKELETAL: No joint swelling. NEUROLOGIC: Awake, alert, oriented times three. No focal deficit. LYMPHATIC: No lymph nodes palpable. SKIN: Intact. LABS: WBC 7.40, hgb 9.8, hct 26.2, plt count 136, sodium 142, potassium 3.5, chloride 105, Bicarb 20, BUN 16, creatinine 0.71. ASSESSMENT: 1. Severe anemia, status post blood transfusion, PRBC 3 units 2. History of lower GI Bleed 3. Severe aortic stenosis 4. Coronary artery disease 5. CHF 6. Depression 7. Diabetes, diet controlled PLAN: 1. Continue to monitor H AND H 2. IV Fluids 3. Protonix 4. Daily I&O's TIME SPENT: More than 30 minutes MTDD
--- NOTE | 2016-11-29 08:11 | DS ---
DATE OF SERVICE: 11/11/16 FINAL DIAGNOSIS: 1. SEVERE ANEMIA, STATUS POST 3 UNITS BLOOD TRANSFUSION. HEMOGLOBIN IS STEADY. 2. DIVERTICULOSIS WITH LOWER GI BLEED 3. SEVERE AORTIC STENOSIS 4. CORONARY ARTERY DISEASE 5. CONGESTIVE HEART FAILURE 6. DEPRESSION 7. DIABETES DIET CONTROLLED 8. ANXIETY 9. PERIPHERAL VASCULAR DISEASE 10. HYPOTHYROIDISM PLAN: 1. Discharge the patient home. 2. No new medications. 3. Will do the H & H in four days. 4. If she sees any black stools or tarry stools, please come to the emergency room again. MEDICATIONS AT DISCHARGE: Calcium with Vitamin D, Cymbalta, Ferrous sulfate, Lasix, Neurontin, Synthroid, Ativan, Multivitamin, [place] 3 fish oil, Pantoprazole, MiraLAX, Crestor. DIET INSTRUCTIONS: Cardiac and healthy. ACTIVITY: As much as tolerated. DISEASE SPECIFIC EDUCATION: About lower GI bleed, risk of bleeding, diverticulosis and risk of bleeding were discussed. HOSPITAL COURSE: Abbie Adams who is a 76 year old female with a history of chronic lower GI bleed. The patient's family brought the patient to the emergency room as the patient was feeling weak and tired. Hemoglobin was 5.9. At that time, the patient was admitted to the hospital and started with Type and Crossmatch and transfused 3 units. After that the hemoglobin went up to 10.1 and then steady there at 10.2, 9.1 and 9.6. It did not change much. Cardiac rosa the patient was stable. No fluid overload. She had a 1+ edema in the lower extremities, which was steady and stable. The rest of the kidney functions were normal. She was up and about walking. She did not have any complications during the hospital stay. At that time, the patient is being discharged home and the patient will be followed with us closely at the [facility]. We will be doing CBC, CMP in three to four days. TIME SPENT: MORE THAN 60 MINUTES TODAY. MARLENA
== END 2016-11-11 12:40 | disposition home or self-care (01) | DRG 379 ==
LOC: ED 22:44 → SCU 11-08 00:06
PROVIDERS: ADMIT Emergency Medicine; ATTEND Emergency Medicine
PROC: 30233N1 Transfusion of Nonautologous Red Blood Cells into Peripheral Vein, Percutaneous Approach (ICD-10-PCS; principal; 2016-11-08)
PROC: 30233N1 Transfusion of Nonautologous Red Blood Cells into Peripheral Vein, Percutaneous Approach (ICD-10-PCS; 2016-11-08)
PROC: 30233N1 Transfusion of Nonautologous Red Blood Cells into Peripheral Vein, Percutaneous Approach (ICD-10-PCS; 2016-11-08)
DX: K57.91 Diverticulosis of intestine, part unspecified, without perforation or abscess with bleeding (principal); D50.0 Iron deficiency anemia secondary to blood loss (chronic); R53.1 Weakness; R42 Dizziness and giddiness; I10 Essential (primary) hypertension; I35.0 Nonrheumatic aortic (valve) stenosis; R60.0 Localized edema; E11.9 Type 2 diabetes mellitus without complications; I25.10 Atherosclerotic heart disease of native coronary artery without angina pectoris; I50.9 Heart failure, unspecified; F41.8 Other specified anxiety disorders; I73.9 Peripheral vascular disease, unspecified; E03.9 Hypothyroidism, unspecified; R01.1 Cardiac murmur, unspecified; Z79.899 Other long term (current) drug therapy
CPT/HCPCS: 36415; 36430; 80048; 80053; 84484; 85025; 86850; 86900; 86922; 87081; 93005; 93010; 99285

== ENCOUNTER 2016-11-15 08:28 | Outpatient (CLI) | payer OTHER ==
[2016-11-15 09:07] LABS: BASOPHILS # (AUTO) 0.1 K/uL (0-0.2); BASOPHILS % (AUTO) 1.6 % (0.0-3.0); EOSINOPHILS # (AUTO) 0.2 K/ul (0.0-0.7); EOSINOPHILS % (AUTO) 4.8 % (0.0-7.0); HEMATOCRIT 26.1 % (37.0-47.0); HEMOGLOBIN 8.7 g/dl (12.0-16.0); IMMATURE GRANULOCYTE % (AUTO) 0.4 % (0.0-5.0); LYMPHOCYTES # (AUTO) 1.1 K/uL (0.60-3.4); LYMPHOCYTES % (AUTO) 22.1 (10.0-50.0); MEAN CORPUSCULAR HEMOGLOBIN 31.6 pg (27.0-31.0); MEAN CORPUSCULAR HGB CONC 33.3 (31.8-35.4); MEAN CORPUSCULAR VOLUME 94.9 fl (81.0-99.0); MONOCYTES # (AUTO) 0.5 K/uL (0.4-2.0); MONOCYTES % (AUTO) 10.7 (0-10); NEUTROPHILS % (AUTO) 60.4; PLATELET COUNT 166 10^3/uL (140-440); RED BLOOD COUNT 2.75 10^6/ul (4.20-5.40); WHITE BLOOD COUNT 5.03 K/ul (4.6-10.2)
== END 2016-11-15 08:29 | disposition home or self-care (01) ==
LOC: LAB 08:28
PROVIDERS: ATTEND Emergency Medicine
DX: D64.9 Anemia, unspecified (principal); K92.2 Gastrointestinal hemorrhage, unspecified
CPT/HCPCS: 36415; 85025

== ENCOUNTER 2016-11-23 13:57 | Outpatient (CLI) ==
[2016-11-23 14:24] LABS: HEMATOCRIT 28.4 % (37.0-47.0); HEMOGLOBIN 9.6 g/dl (12.0-16.0)
== END 2016-11-23 13:58 | disposition home or self-care (01) ==
LOC: NONPT 13:57
PROVIDERS: ATTEND Emergency Medicine
DX: D64.9 Anemia, unspecified (principal)
CPT/HCPCS: 85014; 85018

== ENCOUNTER 2016-11-28 13:19 | Outpatient (CLI) ==
[2016-11-28 13:25] LABS: HEMOGLOBIN 8.9 g/dl (12.0-16.0)
== END 2016-11-28 13:20 | disposition home or self-care (01) ==
LOC: NONPT 13:19
PROVIDERS: ATTEND Emergency Medicine
DX: D64.9 Anemia, unspecified (principal)
CPT/HCPCS: 85014; 85018

== ENCOUNTER 2016-11-30 21:25 | Inpatient (IN) ==
[2016-11-30 22:10] LABS: BASOPHILS # (AUTO) 0.1 K/uL (0-0.2); BASOPHILS % (AUTO) 1.1 % (0.0-3.0); EOSINOPHILS # (AUTO) 0.1 K/ul (0.0-0.7); EOSINOPHILS % (AUTO) 1.6 % (0.0-7.0); HEMATOCRIT 24.3 % (37.0-47.0); HEMOGLOBIN 8.1 g/dl (12.0-16.0); IMMATURE GRANULOCYTE % (AUTO) 0.3 % (0.0-5.0); LYMPHOCYTES # (AUTO) 1.5 K/uL (0.60-3.4); LYMPHOCYTES % (AUTO) 21.4 (10.0-50.0); MEAN CORPUSCULAR HGB CONC 33.3 (31.8-35.4); MONOCYTES # (AUTO) 0.6 K/uL (0.4-2.0); MONOCYTES % (AUTO) 8.4 (0-10); NEUTROPHILS # (AUTO) 4.7 K/ul (2.0-6.9); NEUTROPHILS % (AUTO) 67.2; PLATELET COUNT 187 10^3/uL (140-440); RED BLOOD COUNT 2.53 10^6/ul (4.20-5.40); WHITE BLOOD COUNT 7.04 K/ul (4.6-10.2)
[2016-11-30] MEDS ORDERED: LIDOCAINE HCL 1% SDV ONE (22:27)
--- NOTE | 2016-11-30 22:27 | ED.PDOC ---
General ED Provider: Dr. YODIT GUZMÁN-ER Chief Complaint: Non-specific Complaint Stated Complaint: theo got bleeding tonight--im not able to have scopes due to my bad heart--i was here 2 weeks ago for the same thing Time Seen by Physician: 21:25 Mode of Arrival: Walk-In Information Source: Patient, Family Exam Limitations: No limitations Primary Care Provider: [facility] Nursing and Triage Documentation Reviewed and Agree: Yes GI Complaint Exam - GI Bleed Complaint/Exam Patient Complains of: Reports: Rectal bleeding Onset/Duration: this evening Symptoms Are: Resolved Severity: Reports: Blood-streaked stool, Bright red blood-rectum Location of Pain: Reports: None Aggravating: Reports: None Alleviating: Reports: None Associated Signs and Symptoms: Reports: Pallor, Dizziness, Weakness. Denies: Back Pain, Syncope, Constipation, Nausea, Rectal pain, Bruising, Weight loss, Recent abnormal coags Related History: Reports: Similar episode Recent Colonoscopy: No Recent EGD: No Abdominal Findings: Present: None Differential Diagnoses: Diverticulitis, Ischemic Bowel Review of Systems - Review Of Systems Constitutional: Reports: Malaise, Weakness Eyes: Reports: No symptoms Ears, Nose, Mouth, Throat: Reports: No symptoms Respiratory: Reports: No symptoms Cardiac: Reports: No symptoms GI: Reports: Rectal bleeding : Reports: No symptoms Musculoskeletal: Reports: No symptoms Skin: Reports: No symptoms, Change in color Neurological: Reports: No symptoms Endocrine: Reports: No symptoms Hematologic/Lymphatic: Reports: Anemia All Other Systems: Reviewed and Negative Past Medical History - Past Medical History Previously Healthy: Yes Endocrine: Reports: Hypothyroid, Dyslipidemia Cardiovascular: Reports: CAD, Hypertension Respiratory: Reports: None Hematological: Reports: Anemia Gastrointestinal: Reports: None Genitourinary: Reports: None Neuro/Psych: Reports: None Musculoskeletal: Reports: Arthritis Cancer: Reports: None Last Menstrual Period: years Other Pertinent Past Medical History: htn thy ane chol depr arth cad - Surgical History General Surgical History: Reports: Orthopedic (LT SHOULDER REPLACED), Other (- ORAL SURG-). Denies: Hysterectomy (D & C-) - Family History Family History: Reports: Unknown - Social History Smoking Status: Former smoker Hx Substance Use: No Alcohol Screening: None Lives: With family - Immunizations Tetanus Shot up to Date: Yes Physical Exam - Physical Exam Appearance: Well-appearing, No pain distress, Well-nourished Eyes: ENRIKE ENT: Ears normal, Nose normal, Oropharynx normal Neck: Supple Respiratory: Airway patent Cardiovascular: RRR, Pulses normal, No rub, No murmur, Tachycardia GI/: Soft, Nontender, No masses, Bowel sounds normal, No Organomegaly Musculoskeletal: Normal strength, ROM intact, No edema, No calf tenderness Skin: Pale, Diaphoretic Neurological: Sensation intact, Motor intact, Reflexes intact, Cranial nerves intact, Alert, Oriented Psychiatric: Affect appropriate, Mood appropriate Physician Notification - Case Discussed Physician Notified: [email or web address] Time of Notification: 22:32 Critical Care Note - Critical Care Note Total Time (mins): 15 Course - Course Hematology/Chemistry: 11/30/16 22:00 11/30/16 22:00 Orders, Labs, Meds: Lab Review 11/30/16 11/30/16 11/30/16 22:00 22:00 22:00 WBC 7.04 RBC 2.53 L Hgb 8.1 L Hct 24.3 L MCV 96.0 MCH 32.0 H MCHC 33.3 RDW Coeff of Angelo 14.9 H Plt Count 187 Immature Gran % (Auto) 0.3 Neut % (Auto) 67.2 Lymph % (Auto) 21.4 [place] % (Auto) 8.4 Eos % (Auto) 1.6 Baso % (Auto) 1.1 Immature Gran # (Auto) 0.0 Neut # 4.7 Lymph # 1.5 [place] # 0.6 Eos # 0.1 Baso # 0.1 Sodium 141 Potassium 4.1 Chloride 107 Carbon Dioxide 25 Anion Gap 13.1 BUN 23 H Creatinine 0.77 Estimated GFR (MDRD) 73.00 BUN/Creatinine Ratio 29.87 Glucose 111 Calcium 9.3 Total Bilirubin 0.35 AST 20 ALT 11 L Alkaline Phosphatase 67 Total Protein 5.7 L Albumin 3.1 L Globulin 2.6 Albumin/Globulin Ratio 1.19 Blood Type O POSITIVE Antibody Screen Negative Crossmatch (AHG) See Detail Orders Category Date Time Status ADMIT PATIENT INPATIENT .TO SCU (MONITORED BED) ADMISSION 11/30/16 22:33 Active EKG-(ED ONLY) Stat CARDIO 11/30/16 21:40 Ordered OXYGEN Routine CARDIO 11/30/16 22:34 Ordered ACTIVITY .BR with BRP CARE 11/30/16 22:33 Active INTAKE & OUTPUT Q8HR CARE 11/30/16 22:33 Active TELEMETRY MONITORING TELE CARE 11/30/16 22:34 Active VITAL SIGNS Q4HR CARE 11/30/16 22:33 Active REGULAR DIET DIETARY 11/30/16 Breakfast Ordered Self Rising Flour Mixer [ED TRAILER STEERER APPLIED] .ONCE EMERGENCY 11/30/16 21:41 Active IV [ED IV/MEDIPORT/POWERPORT] .ONCE EMERGENCY 11/30/16 21:40 Active CBC W/ AUTO DIFF DAILY@0600 LAB 12/01/16 06:00 Ordered CBC W/ AUTO DIFF DAILY@0600 LAB 12/02/16 06:00 Ordered CBC W/ AUTO DIFF DAILY@0600 LAB 12/03/16 06:00 Ordered CBC W/ AUTO DIFF DAILY@0600 LAB 12/04/16 06:00 Ordered CBC W/ AUTO DIFF DAILY@0600 LAB 12/05/16 06:00 Ordered CBC W/ AUTO DIFF DAILY@0600 LAB 12/06/16 06:00 Ordered CBC W/ AUTO DIFF DAILY@0600 LAB 12/07/16 06:00 Ordered CBC W/ AUTO DIFF DAILY@0600 LAB 12/08/16 06:00 Ordered CBC W/ AUTO DIFF DAILY@0600 LAB 12/09/16 06:00 Ordered CBC W/ AUTO DIFF DAILY@0600 LAB 12/10/16 06:00 Ordered CBC W/ AUTO DIFF DAILY@0600 LAB 12/11/16 06:00 Ordered CBC W/ AUTO DIFF DAILY@0600 LAB 12/12/16 06:00 Ordered CBC W/ AUTO DIFF DAILY@0600 LAB 12/13/16 06:00 Ordered CBC W/ AUTO DIFF DAILY@0600 LAB 12/14/16 06:00 Ordered CBC W/ AUTO DIFF DAILY@0600 LAB 12/15/16 06:00 Ordered CBC W/ AUTO DIFF DAILY@0600 LAB 12/16/16 06:00 Ordered CBC W/ AUTO DIFF DAILY@0600 LAB 12/17/16 06:00 Ordered CBC W/ AUTO DIFF DAILY@0600 LAB 12/18/16 06:00 Ordered CBC W/ AUTO DIFF DAILY@0600 LAB 12/19/16 06:00 Ordered CBC W/ AUTO DIFF DAILY@0600 LAB 12/20/16 06:00 Ordered CBC W/ AUTO DIFF Stat LAB 11/30/16 22:00 Completed COMPREHENSIVE METABOLIC PANEL DAILY@0600 LAB 12/01/16 06:00 Ordered COMPREHENSIVE METABOLIC PANEL DAILY@0600 LAB 12/02/16 06:00 Ordered COMPREHENSIVE METABOLIC PANEL DAILY@0600 LAB 12/03/16 06:00 Ordered COMPREHENSIVE METABOLIC PANEL DAILY@0600 LAB 12/04/16 06:00 Ordered COMPREHENSIVE METABOLIC PANEL DAILY@0600 LAB 12/05/16 06:00 Ordered COMPREHENSIVE METABOLIC PANEL DAILY@0600 LAB 12/06/16 06:00 Ordered COMPREHENSIVE METABOLIC PANEL DAILY@0600 LAB 12/07/16 06:00 Ordered COMPREHENSIVE METABOLIC PANEL DAILY@0600 LAB 12/08/16 06:00 Ordered COMPREHENSIVE METABOLIC PANEL DAILY@0600 LAB 12/09/16 06:00 Ordered COMPREHENSIVE METABOLIC PANEL DAILY@0600 LAB 12/10/16 06:00 Ordered COMPREHENSIVE METABOLIC PANEL DAILY@0600 LAB 12/11/16 06:00 Ordered COMPREHENSIVE METABOLIC PANEL DAILY@0600 LAB 12/12/16 06:00 Ordered COMPREHENSIVE METABOLIC PANEL DAILY@0600 LAB 12/13/16 06:00 Ordered COMPREHENSIVE METABOLIC PANEL DAILY@0600 LAB 12/14/16 06:00 Ordered COMPREHENSIVE METABOLIC PANEL DAILY@0600 LAB 12/15/16 06:00 Ordered COMPREHENSIVE METABOLIC PANEL DAILY@0600 LAB 12/16/16 06:00 Ordered COMPREHENSIVE METABOLIC PANEL DAILY@0600 LAB 12/17/16 06:00 Ordered COMPREHENSIVE METABOLIC PANEL DAILY@0600 LAB 12/18/16 06:00 Ordered COMPREHENSIVE METABOLIC PANEL DAILY@0600 LAB 12/19/16 06:00 Ordered COMPREHENSIVE METABOLIC PANEL DAILY@0600 LAB 12/20/16 06:00 Ordered COMPREHENSIVE METABOLIC PANEL Stat LAB 11/30/16 22:00 Completed Packed Red Blood Cells [PACKED CELLS] Stat LAB 11/30/16 22:00 Results TYPE AND SCREEN Stat LAB 11/30/16 22:00 Results 0.9 % Sodium Chloride [Saline Flush] MEDS 11/30/16 21:40 Ordered 1 syr IVF PRN PRN Calcium Carbonate/Vitamin D3 [Calcium 600 + Vit D 400 MEDS 12/01/16 09:00 Ordered Tablet] 1 each PO DAILY Duloxetine HCl [Cymbalta] MEDS 12/01/16 09:00 Ordered 60 mg PO DAILY Ferrous Sulfate MEDS 12/01/16 09:00 Ordered 324 mg PO BID Furosemide [Lasix] MEDS 11/30/16 22:39 Ordered 20 mg IVP ONCE PRN Gabapentin [Neurontin] MEDS 12/01/16 09:00 Ordered 300 mg PO 0900,1500 Gabapentin [Neurontin] MEDS 12/01/16 21:00 Ordered 600 mg PO BEDTIME Levothyroxine Sodium [Synthroid] MEDS 12/01/16 06:30 Ordered 75 mcg PO QDAC Lidocaine HCl/Pf [Lidocaine HCl 1% Sdv] MEDS 11/30/16 22:27 Discontinued 5 ml .ROUTE .STK-MED ONE Lorazepam [Ativan] MEDS 11/30/16 22:35 Ordered 1 mg PO BEDTIME PRN Pantoprazole Sodium [Protonix] MEDS 12/01/16 06:30 Ordered 40 mg PO QDAC Polyethylene Glycol 3350 [Miralax] MEDS 12/01/16 09:00 Ordered 17 gm PO DAILY Sodium Chloride 0.9% [Sodium Chloride] 1,000 ml MEDS 11/30/16 23:00 Ordered IV 75 mls/hr RESUSCITATION STATUS Routine OTHERS 11/30/16 22:33 Ordered Medications Generic Name Dose Route Start Last Admin Trade Name Freq PRN Reason Stop Dose Admin Ferrous Sulfate 324 mg 12/01/16 09:00 Ferrous Sulfate PO BID MAY Furosemide 20 mg 11/30/16 22:39 Lasix IVP ONCE PRN Swelling Gabapentin 300 mg 12/01/16 09:00 Neurontin PO 0900,1500 MAY Sodium Chloride 1,000 mls @ 75 mls/hr 11/30/16 23:00 Sodium Chloride IV .[id number] MAY Levothyroxine Sodium 75 mcg 12/01/16 06:30 Synthroid PO QDAC MAY Lorazepam 1 mg 11/30/16 22:35 Ativan PO BEDTIME PRN Insomnia Non-Formulary Medication 1 each 12/01/16 09:00 Calcium Carbonate/Vitamin D3 [Calcium 600 + Vit D 400 Tablet] PO DAILY MAY Non-Formulary Medication 60 mg 12/01/16 09:00 Duloxetine Hcl [Cymbalta] PO DAILY MAY Non-Formulary Medication 600 mg 12/01/16 21:00 Gabapentin [Neurontin] PO BEDTIME MAY Pantoprazole Sodium 40 mg 12/01/16 06:30 Protonix PO QDAC MAY Polyethylene Glycol 17 gm 12/01/16 09:00 Miralax PO DAILY MAY Sodium Chloride 1 syr 11/30/16 21:40 Saline Flush IVF PRN PRN To flush IV Vital Signs: Temp Pulse Resp BP Pulse Ox 11/30/16 21:26 98.5 F 85 20 88/52 L 97 Departure - Departure Time of Disposition: 22:33 Disposition: ADMITTED INPATIENT Discharge Problem: Lower GI bleed Instructions: Gastrointestinal Bleeding (ED) Condition: Poor Pt referred to PMD for follow-up: Yes Allergies/Adverse Reactions: Allergies Latex, Natural Rubber Adverse Reaction (Verified 11/30/16 21:52) Home Medications: Ambulatory Orders Rosuvastatin Calcium [Crestor] 20 mg PO BEDTIME 09/02/15 [place]-3 Fatty Acids/Fish Oil [Fish Oil 1,000 mg Capsule] 1 each PO DAILY Furosemide [Lasix Tab] 1 tab EVERY OTHER DAY 10/21/16 Calcium Carbonate/Vitamin D3 [Calcium 600 + Vit D 400 Tablet] 1 each PO DAILY Ferrous Sulfate 324 mg PO BID 10/23/16 Gabapentin [Neurontin] 300 mg PO 0900,1500 10/23/16 Gabapentin [Neurontin] 600 mg PO BEDTIME 10/23/16 Levothyroxine Sodium [Synthroid] 75 mcg PO QDAC 10/23/16 Lorazepam [Ativan] 1 mg PO BEDTIME PRN 10/23/16 Multivitamin [Multi-Vitamin Daily] 1 each PO DAILY 10/23/16 Pantoprazole Sodium [Protonix] 40 mg PO QDAC 10/23/16 Polyethylene Glycol 3350 [Miralax] 17 gm PO DAILY 10/23/16 Disposition Discussed With: Patient, Family
[2016-11-30 22:29] LABS: ALBUMIN 3.1 g/dL (3.4-5.0); ALBUMIN/GLOBULIN RATIO 1.19; ANION GAP 13.1; BILIRUBIN,TOTAL 0.35 mg/dL (0.00-1.20); BUN/CREATININE RATIO 29.87; CALCIUM 9.3 mg/dL (8.2-10.2); CREATININE 0.77 mg/dL (0.60-1.30); POTASSIUM 4.1 mmol/L (3.5-5.10); TOTAL PROTEIN 5.7 g/dL (5.8-8.1)
[2016-11-30] MEDS ORDERED: ATIVAN PO PRN (22:35)
--- NOTE | 2016-11-30 22:40 | ED.PDOC ---
Procedures - IV/Art Line Insertion Location: rt forearm Type of Line: Peripheral IV Invasive Line/IV Catheter Gauge: 20 Number of Attempts: 1 Blood Return Positive: Yes Invasive Line/IV Flushes Without Difficulty: Yes (intradermal lidocaine 1% - .05ml) Conscious Sedation - Pre-op Assessment Weight: 164 lb Surgical History: D & C--LT SHOULDER REPLACED-ORAL SURG- - Medical History Past Medical History: Hypertension, Thyroid, Anemia, High Lipids, Depression, Arthritis, CAD Other History: diverticulitis - Physical Exam Heart Rate/Rhythm: Regular Rate
[2016-12-01 00:26] VITALS: BMI 29.0
[2016-12-01] MEDS: LASIX IVP PRN ×2 (04:26→08:56)
[2016-12-01 05:37] LABS: BASOPHILS # (AUTO) 0.1 K/uL (0-0.2); BASOPHILS % (AUTO) 1.1 % (0.0-3.0); EOSINOPHILS # (AUTO) 0.1 K/ul (0.0-0.7); EOSINOPHILS % (AUTO) 1.7 % (0.0-7.0); HEMATOCRIT 26.6 % (37.0-47.0); IMMATURE GRANULOCYTE % (AUTO) 0.4 % (0.0-5.0); LYMPHOCYTES % (AUTO) 28.3 (10.0-50.0); MEAN CORPUSCULAR HEMOGLOBIN 31.8 pg (27.0-31.0); MEAN CORPUSCULAR HGB CONC 33.8 (31.8-35.4); MONOCYTES # (AUTO) 0.6 K/uL (0.4-2.0); MONOCYTES % (AUTO) 8.7 (0-10); NEUTROPHILS # (AUTO) 4.2 K/ul (2.0-6.9); NEUTROPHILS % (AUTO) 59.8; PLATELET COUNT 166 10^3/uL (140-440); RED BLOOD COUNT 2.83 10^6/ul (4.20-5.40)
[2016-12-01] MEDS: SYNTHROID PO SCH (05:43)
[2016-12-01] MEDS: PROTONIX PO SCH (05:43)
[2016-12-01 05:54] LABS: ALBUMIN 2.9 g/dL (3.4-5.0); ALBUMIN/GLOBULIN RATIO 1.21; ANION GAP 11.7; BILIRUBIN,TOTAL 0.56 mg/dL (0.00-1.20); BUN/CREATININE RATIO 27.5; CALCIUM 9.3 mg/dL (8.2-10.2); CREATININE 0.8 mg/dL (0.60-1.30); POTASSIUM 3.7 mmol/L (3.5-5.10); TOTAL PROTEIN 5.3 g/dL (5.8-8.1)
[2016-12-01] MEDS: SODIUM CHLORIDE 1,000 ML IV SCH ×2 (08:52→21:52)
[2016-12-01] MEDS: MIRALAX PO SCH (08:59)
[2016-12-01] MEDS ORDERED: NON-FORMULARY MEDICATION (Duloxetine Hcl [Cymbalta] 60 MG) PO SCH ×22 (09:00)
[2016-12-01] MEDS: CYMBALTA PO SCH (09:02)
[2016-12-01] MEDS: FERROUS SULFATE PO SCH ×2 (09:02→20:54)
[2016-12-01] MEDS: NEURONTIN PO SCH ×2 (09:02→16:02)
[2016-12-01] MEDS: CALCIUM 500 + VIT D 200 MG TABLET PO SCH (09:03)
[2016-12-01 09:59] LABS: HEMOGLOBIN 11.3 g/dl (12.0-16.0)
[2016-12-01] MEDS ORDERED: NON-FORMULARY MEDICATION (Gabapentin [Neurontin] 600 MG) PO SCH ×22 (21:00)
[2016-12-01] MEDS ORDERED: NEURONTIN PO SCH (21:00)
[2016-12-02 05:25] LABS: BASOPHILS # (AUTO) 0.1 K/uL (0-0.2); BASOPHILS % (AUTO) 0.8 % (0.0-3.0); EOSINOPHILS # (AUTO) 0.2 K/ul (0.0-0.7); EOSINOPHILS % (AUTO) 3.7 % (0.0-7.0); HEMATOCRIT 27.2 % (37.0-47.0); HEMOGLOBIN 9.2 g/dl (12.0-16.0); IMMATURE GRANULOCYTE % (AUTO) 0.3 % (0.0-5.0); LYMPHOCYTES # (AUTO) 1.8 K/uL (0.60-3.4); LYMPHOCYTES % (AUTO) 30.7 (10.0-50.0); MEAN CORPUSCULAR HEMOGLOBIN 31.4 pg (27.0-31.0); MEAN CORPUSCULAR HGB CONC 33.8 (31.8-35.4); MEAN CORPUSCULAR VOLUME 92.8 fl (81.0-99.0); MONOCYTES # (AUTO) 0.6 K/uL (0.4-2.0); MONOCYTES % (AUTO) 9.7 (0-10); NEUTROPHILS # (AUTO) 3.3 K/ul (2.0-6.9); NEUTROPHILS % (AUTO) 54.8; PLATELET COUNT 139 10^3/uL (140-440); RED BLOOD COUNT 2.93 10^6/ul (4.20-5.40); WHITE BLOOD COUNT 5.97 K/ul (4.6-10.2)
[2016-12-02 05:43] LABS: ALBUMIN 2.8 g/dL (3.4-5.0); ALBUMIN/GLOBULIN RATIO 1.33; ANION GAP 9.6; BILIRUBIN,TOTAL 0.59 mg/dL (0.00-1.20); BUN/CREATININE RATIO 21.91; CREATININE 0.73 mg/dL (0.60-1.30); POTASSIUM 3.6 mmol/L (3.5-5.10); TOTAL PROTEIN 4.9 g/dL (5.8-8.1)
[2016-12-02] MEDS: SYNTHROID PO SCH (05:43)
[2016-12-02] MEDS: PROTONIX PO SCH (05:43)
[2016-12-02] MEDS: SODIUM CHLORIDE 1,000 ML IV SCH (05:59)
[2016-12-02] MEDS: MIRALAX PO SCH (08:57)
[2016-12-02] MEDS: CALCIUM 500 + VIT D 200 MG TABLET PO SCH (08:58)
[2016-12-02] MEDS: CYMBALTA PO SCH (08:58)
[2016-12-02] MEDS: FERROUS SULFATE PO SCH (08:59)
[2016-12-02] MEDS: NEURONTIN PO SCH (08:59)
[2016-12-02 12:20] LABS: HEMATOCRIT 29.7 % (37.0-47.0); HEMOGLOBIN 10.2 g/dl (12.0-16.0)
--- NOTE | 2016-12-02 13:34 | PCM.PROG ---
Attending Provider: ATTENDING PROVIDER: Dr. [facility] DATE OF SERVICE: 12/02/16 SUBJECTIVE: This 76 year old WHITE/ F was hospitalized 11/30/16. The patient is sitting on side of bed eating breakfast. The patient states she is feeling better and is ready to go home. Advised patient to be up and about this morning and see how she feels. REVIEW OF SYSTEMS: CONSTITUTIONAL: No fever, no chills. ENDOCRINE: No weight loss or weight gain. HEENT: No sinus drainage, no sore throat. CVS: No angina symptoms. No CHF symptoms. No palpitations. No atypical chest pain for CAD. No shortness of breath. RESPIRATORY: No cough, no hemoptysis. GI: No melena. No abdominal pain. No nausea, no vomiting. : No hematuria. No polyuria. SKIN: No rash. No wounds. MUSCULOSKELETAL: No pain. PER DIEM: No blackout, no dizziness. No headache. No double vision. PSYCHIATRIC: Not anxious; no depression. No suicidal thoughts. No homicidal thoughts. PHYSICAL EXAMINATION: GENERAL: Lying in bed in no distress. VITAL SIGNS: Temperature 98.3 F, Pulse 71, Respiratory Rate 16, BP 140/80, Pulse Ox 93% HEENT: Normocephalic, atraumatic. Mucosa is dry, pallor positive. NECK: No JVP, no carotid bruit. No lymphadenopathy. CARDIAC: S1, S2, no S3. No murmur, gallop or regurgitation. LUNGS: Clear to auscultation. ABDOMEN: Soft, non-tender. Bowel sounds active. No rigidity, guarding or CVA tenderness. EXTREMITIES: No clubbing, cyanosis or edema. NEUROLOGIC: Awake, alert and oriented x3. LYMPHATIC: No palpable lymph nodes SKIN: Not dry. Intact. MUSCULOSKELETAL: No joint swelling. LAB REVIEW: 12/02/16 05:15 12/02/16 05:15 12/02/16 05:15: Sodium 142, Potassium 3.6, Chloride 110 H, Carbon Dioxide 26, Anion Gap 9.6, BUN 16, Creatinine 0.73, Estimated GFR (MDRD) 78.00, BUN/ Creatinine Ratio 21.91, Glucose 93, Calcium 9.0, Total Bilirubin 0.59, AST 19, ALT 7 L, Alkaline Phosphatase 60, Total Protein 4.9 L, Albumin 2.8 L, Globulin 2.1, Albumin/Globulin Ratio 1.33 12/02/16 05:15: WBC 5.97, RBC 2.93 L, Hgb 9.2 L, Hct 27.2 L, MCV 92.8, MCH 31.4 H, MCHC 33.8, RDW Coeff of Angelo 16.2 H, Plt Count 139 L, Immature Gran % (Auto) 0.3, Neut % (Auto) 54.8, Lymph % (Auto) 30.7, [place] % (Auto) 9.7, Eos % (Auto) 3.7, Baso % (Auto) 0.8, Immature Gran # (Auto) 0.0, Neut # 3.3, Lymph # 1.8, [place] # 0.6, Eos # 0.2, Baso # 0.1 12/01/16 09:45: Hgb 11.3 L, Hct 33.0 L D ASSESSMENT: 1. Anemia status post two units transfusion, stable. 2. Lower GI bleed. 3. Diverticulosis. 4. Severe aortic stenosis. 5. CAD 6. Depression 7. Anxiety 8. Diabetes mellitus, diet controlled PLAN: 1. H & H by noon time 2. The patient has seen jordan worker, Dr. Junior, general intern and cardiology surgeon in view of severe aortic stenosis and CAD; the patient is a poor candidate for EGD and colonoscopy. 3. Activity as tolerated. 4. Diet discussed. 5. Discussed assisted placement with the patient and the patient states she will think about it. Plan and coordination of the patient's care discussed in the presence of Student Life Vice President and nurse. CONDITION: Stable SCRIBED BY: SOHAN ZAMAN Project Management Professor scribed while in presence of service performed by Dr. JERSEY [facility] on 12/02/16 ([id number])
--- NOTE | 2016-12-02 15:04 | HP ---
DATE OF SERVICE: 11/30/16 CHIEF COMPLAINT: Sudden bloody bowel movements, abdominal pain and cramps. HISTORY OF PRESENT ILLNESS: With the patient's history of the lower GI bleed and anemia the patient's family brought the patient to the emergency room. The patient was seen and evaluated by Dr. Burrell in the emergency room. Blood pressure in the emergency room was 88/52, gave some fluid challenge and blood work was done which showed the hgb 8.1 and hct 24.3. At that time the patient was admitted to the hospital in review of lower GI bleed, hypertension and history of GI bleed for blood transfusion and IV fluids. REVIEW OF SYSTEMS: CONSTITUTIONAL: No fever, no chills. Weakness and tiredness. HEENT: Normal. ENDOCRINE: No weight gain; no weight loss. CVS: No chest pain. No PND, no orthopnea. No shortness of breath. No PND, no orthopnea. RESPIRATORY: No cough, no congestion. No hemoptysis. GI: No nausea, no vomiting. No abdominal pain. No melena. : No hematuria. No polyuria. Rectal bleed. MUSCULOSKELETAL: No joint swelling. PSYCHIATRIC: Not anxious. No depression. No suicidal thoughts. No homicidal thoughts. SKIN: Intact, no open lesions. PAST MEDICAL HISTORY: Coronary artery disease Aortic stenosis, moderate to severe Peripheral vascular disease Dyslipidemia Hypertension Dependent edema Alzheimer's dementia Osteoarthritis DJD spine Hypothyroidism Diabetes mellitus Depression/anxiety PAST SURGICAL HISTORY: Left shoulder replacement, 2012 Dilatation and curettage Cataract surgery PERSONAL HISTORY: The patient does smoke. No alcohol use. No drug use. and lives with . FAMILY HISTORY: Significant for thyroid problems, diabetes and cancer. MEDICATIONS: Rosuvastatin (Crestor) 20 mg p.o. bedtime [place]-3 Fatty Acids/Fish Oil one each p.o. daily Duloxetine (Cymbalta) 60 mg p.o. daily Furosemide 20 mg p.o. daily p.r.n. Gabapentin 600 mg p.o. bedtime Synthroid 75 mg p.o. q.d a.c. Lorazepam 1 mg p.o. bedtime p.r.n. Neurontin 300 mg p.o. 0900, 1500 Polyethylene Glycol 17 gm p.o. daily Multivitamin one each p.o. daily Ferrous Sulfate 324 mg p.o. b.i.d. Calcium Carbonate/Vitamin D3 one each p.o. daily Pantoprazole 40 mg p.o. q.d a.c. ALLERGIES: LATEX, NATURAL RUBBER PHYSICAL EXAMINATION: V/S: Blood pressure 108/50, respiratory rate 18, heart rate 63 and temperature 97.7 with saturation 98%. HEENT: Atraumatic, normocephalic. No scleral icterus. Pallor positive. Mucosa dry. NECK: Supple. No JVD, no bruit. No lymphadenopathy. No thyromegaly. HEART: S1, S2 normal. Systolic murmur positive. No cyanosis or clubbing. No ascites. LUNGS: Decreased with basilar crackled. No rales or rhonchi. ABDOMEN: Soft, nontender. Bowel sounds are active. No CVA tenderness. No rigidity or guarding. EXTREMITIES: No cyanosis, clubbing. 1+ edema. MUSCULOSKELETAL: Normal joints, no swelling. NEUROLOGIC: The patient is awake, alert and oriented times three. SKIN: Intact; no open lesions. LYMPHATIC: No lymph nodes palpable. LABS: WBC 7.04, hgb 8.1, hct 24.3, plt count 187, sodium 141, potassium 4.1, chloride 107, bicarb 25, BUN 23, creatinine 0.77 ASSESSMENT: 1. Acute lower GI bleed in need of blood transfusion 2. History of diverticulosis 3. History of severe aortic stenosis 4. Coronary artery disease 5. Depression PLAN: 1. Type and cross match four units and transfuse two 2. Daily I&O's 3. Lasix in between the units 4. Protonix 5. Iron pills Will follow the patient in daily rounds. TIME SPENT: MORE THAN 75 minutes MTDD
[2016-12-02 15:07] VITALS: BP 106/59; TEMP 97.4
--- NOTE | 2016-12-12 12:59 | DS ---
DATE OF SERVICE: 12/02/16 FINAL DIAGNOSIS: 1. Acute anemia secondary to the lower GI bleed, given three units of the PRBC 2. Severe aortic stenosis 3. Chronic heart failure 4. Coronary artery disease 5. Depression 6. Diabetes, diet controlled. 7. Peripheral neuropathy 8. Depression 9. Anxiety 10.GERD 11.Diverticulosis DISCHARGE INSTRUCTIONS: Discharge patient home. See Dr. Salter at the [facility] next week. Resume home medications. MEDICATIONS AT DISCHARGE: Calcium Cymbalta Ferrous Sulfate Lasix Neurontin Synthroid Ativan Protonix Miralax Crestor NEW PRESCRIPTIONS: No new medication DIET INSTRUCTIONS: No seeds or nuts. ACTIVITY: Get plenty of rest. SMOKING: Former smoker DISEASE SPECIFIC EDUCATION: Lower GI bleed Fatal risk been discussed with the patient and verbalized understanding. HOSPITAL COURSE: Abbie Adams who came to the emergency room with weakness, tiredness and shortness of breath. Hgb was 7.7. The patient was admitted to the hospital and was type and cross match 4 units and put on hold. Chest x-ray was normal. Hgb dropped to 6 and she had three units of blood which was transfused with the Lasix in between. Hgb went to 8.9, 10.2 and 9.6 and then was steady. The patient did not have any bloody bowel movements during the hospital stay. The patient is weak and tired and gradually getting up and ambulating herself. Shortness of breath was getting better. No fever or chills. The patient did not have any reaction to the transfusion. As the patient was doing good the patient is being discharged home. TIME SPENT: MORE THAN 35 MINUTES MTDD
== END 2016-12-02 15:20 | disposition home or self-care (01) | DRG 811 ==
LOC: ED 21:25 → SCU 23:12
PROVIDERS: ADMIT Emergency Medicine; ATTEND Emergency Medicine
PROC: 30233N1 Transfusion of Nonautologous Red Blood Cells into Peripheral Vein, Percutaneous Approach (ICD-10-PCS; principal; 2016-12-01)
PROC: 30233N1 Transfusion of Nonautologous Red Blood Cells into Peripheral Vein, Percutaneous Approach (ICD-10-PCS; 2016-12-01)
DX: D62 Acute posthemorrhagic anemia (principal); K57.91 Diverticulosis of intestine, part unspecified, without perforation or abscess with bleeding; K92.1 Melena; K21.9 Gastro-esophageal reflux disease without esophagitis; R23.1 Pallor; R42 Dizziness and giddiness; R06.02 Shortness of breath; R53.1 Weakness; I35.0 Nonrheumatic aortic (valve) stenosis; I50.9 Heart failure, unspecified; I25.10 Atherosclerotic heart disease of native coronary artery without angina pectoris; F41.8 Other specified anxiety disorders; E11.9 Type 2 diabetes mellitus without complications; G62.9 Polyneuropathy, unspecified; Z79.899 Other long term (current) drug therapy
CPT/HCPCS: 36415; 36430; 80053; 85014; 85018; 85025; 86850; 86900; 86922; 87081; 93005; 93010; 99285

== ENCOUNTER 2016-12-06 14:42 | Outpatient (CLI) ==
[2016-12-06 15:10] LABS: BASOPHILS # (AUTO) 0.1 K/uL (0-0.2); BASOPHILS % (AUTO) 1.6 % (0.0-3.0); EOSINOPHILS # (AUTO) 0.2 K/ul (0.0-0.7); EOSINOPHILS % (AUTO) 3.4 % (0.0-7.0); HEMATOCRIT 30.3 % (37.0-47.0); HEMOGLOBIN 10.2 g/dl (12.0-16.0); IMMATURE GRANULOCYTE % (AUTO) 0.2 % (0.0-5.0); LYMPHOCYTES # (AUTO) 1.2 K/uL (0.60-3.4); LYMPHOCYTES % (AUTO) 27.8 (10.0-50.0); MEAN CORPUSCULAR HEMOGLOBIN 32.5 pg (27.0-31.0); MEAN CORPUSCULAR HGB CONC 33.7 (31.8-35.4); MEAN CORPUSCULAR VOLUME 96.5 fl (81.0-99.0); MONOCYTES # (AUTO) 0.5 K/uL (0.4-2.0); MONOCYTES % (AUTO) 12.2 (0-10); NEUTROPHILS # (AUTO) 2.4 K/ul (2.0-6.9); NEUTROPHILS % (AUTO) 54.8; PLATELET COUNT 171 10^3/uL (140-440); RED BLOOD COUNT 3.14 10^6/ul (4.20-5.40); WHITE BLOOD COUNT 4.35 K/ul (4.6-10.2)
== END 2016-12-06 14:43 | disposition home or self-care (01) ==
LOC: LAB 14:42
PROVIDERS: ATTEND Emergency Medicine
DX: D50.0 Iron deficiency anemia secondary to blood loss (chronic) (principal)
CPT/HCPCS: 36415; 85025

== ENCOUNTER 2016-12-12 13:06 | Outpatient (CLI) ==
[2016-12-12 13:15] LABS: HEMOGLOBIN 9.3 g/dl (12.0-16.0)
== END 2016-12-12 13:07 | disposition home or self-care (01) ==
LOC: NONPT 13:06
PROVIDERS: ATTEND Emergency Medicine
DX: D64.9 Anemia, unspecified (principal)
CPT/HCPCS: 85014; 85018

== ENCOUNTER 2016-12-16 14:45 | Outpatient (CLI) ==
[2016-12-16 14:55] LABS: HEMATOCRIT 28.5 % (37.0-47.0); HEMOGLOBIN 9.9 g/dl (12.0-16.0)
== END 2016-12-16 14:46 | disposition home or self-care (01) ==
LOC: NONPT 14:45
PROVIDERS: ATTEND Emergency Medicine
DX: D64.9 Anemia, unspecified (principal)
CPT/HCPCS: 85014; 85018

== ENCOUNTER 2016-12-18 22:33 | Inpatient (IN) ==
[2016-12-18 23:06] LABS: BASOPHILS # (AUTO) 0.1 K/uL (0-0.2); BASOPHILS % (AUTO) 0.8 % (0.0-3.0); EOSINOPHILS # (AUTO) 0.1 K/ul (0.0-0.7); EOSINOPHILS % (AUTO) 1.1 % (0.0-7.0); HEMATOCRIT 20.7 % (37.0-47.0); IMMATURE GRANULOCYTE % (AUTO) 0.6 % (0.0-5.0); LYMPHOCYTES # (AUTO) 1.3 K/uL (0.60-3.4); LYMPHOCYTES % (AUTO) 19.9 (10.0-50.0); MEAN CORPUSCULAR HEMOGLOBIN 32.6 pg (27.0-31.0); MEAN CORPUSCULAR HGB CONC 33.8 (31.8-35.4); MEAN CORPUSCULAR VOLUME 96.3 fl (81.0-99.0); MONOCYTES # (AUTO) 0.5 K/uL (0.4-2.0); MONOCYTES % (AUTO) 7.5 (0-10); NEUTROPHILS # (AUTO) 4.5 K/ul (2.0-6.9); NEUTROPHILS % (AUTO) 70.1; PLATELET COUNT 164 10^3/uL (140-440); RED BLOOD COUNT 2.15 10^6/ul (4.20-5.40); WHITE BLOOD COUNT 6.42 K/ul (4.6-10.2)
[2016-12-18 23:32] LABS: ALBUMIN/GLOBULIN RATIO 1.25; ANION GAP 12.8; BILIRUBIN,TOTAL 0.29 mg/dL (0.00-1.20); BUN/CREATININE RATIO 37.66; CALCIUM 9.2 mg/dL (8.2-10.2); CREATININE 0.77 mg/dL (0.60-1.30); POTASSIUM 3.8 mmol/L (3.5-5.10); TOTAL PROTEIN 5.4 g/dL (5.8-8.1); TROPONIN I 0.055 ng/ml (0.0000-0.4000)
--- NOTE | 2016-12-18 23:54 | ED.PDOC ---
General ED Provider: Dr. YODIT GUZMÁN-ER Chief Complaint: Chest Pain Stated Complaint: im bleeding Time Seen by Physician: 22:40 Mode of Arrival: Walk-In Information Source: Patient, Family Exam Limitations: No limitations [facility] and Triage Documentation Reviewed and Agree: Yes GI Complaint Exam - GI Bleed Complaint/Exam Patient Complains of: Reports: Rectal bleeding Onset/Duration: this afternoon Symptoms Are: Still present Severity: Reports: Blood-streaked stool, Bright red blood-rectum Location of Pain: Reports: None Character: Reports: Cramping Aggravating: Reports: None Alleviating: Reports: None Associated Signs and Symptoms: Reports: Pallor, Dizziness, Weakness. Denies: Back Pain, Syncope, Constipation, Nausea, Rectal pain, Bruising, Weight loss Related History: Reports: Similar episode Abdominal Findings: Present: None Differential Diagnoses: Other Review of Systems - Review Of Systems Constitutional: Reports: No symptoms Eyes: Reports: No symptoms Ears, Nose, Mouth, Throat: Reports: No symptoms Respiratory: Reports: No symptoms Cardiac: Reports: No symptoms GI: Reports: Diarrhea : Reports: No symptoms Musculoskeletal: Reports: No symptoms Skin: Reports: No symptoms Neurological: Reports: No symptoms Endocrine: Reports: No symptoms Hematologic/Lymphatic: Reports: No symptoms All Other Systems: Reviewed and Negative Past Medical History - Past Medical History Previously Healthy: Yes Endocrine: Reports: Hypothyroid, Dyslipidemia Cardiovascular: Reports: CAD, Hypertension Respiratory: Reports: None Hematological: Reports: Anemia Gastrointestinal: Reports: None Genitourinary: Reports: None Neuro/Psych: Reports: None Musculoskeletal: Reports: Arthritis Cancer: Reports: None Last Menstrual Period: YEARS AGO Other Pertinent Past Medical History: htn thy ane chol depr arth cad - Surgical History General Surgical History: Reports: Orthopedic (LT SHOULDER REPLACED), Other (- ORAL SURG-). Denies: Hysterectomy (D & C-) - Family History Family History: Reports: Unknown - Social History Smoking Status: Former smoker Hx Substance Use: No Alcohol Screening: None Lives: With family - Immunizations Tetanus Shot up to Date: Yes Physical Exam - Physical Exam Appearance: Well-appearing, No pain distress, Well-nourished Eyes: ENRIKE ENT: Ears normal, Nose normal, Oropharynx normal Neck: Supple Respiratory: Airway patent Cardiovascular: RRR, Pulses normal, No rub, No murmur GI/: Soft, Nontender, No masses, Bowel sounds normal, No Organomegaly Musculoskeletal: Normal strength, ROM intact, No edema, No calf tenderness Skin: Warm Neurological: Sensation intact, Motor intact, Reflexes intact, Cranial nerves intact, Alert, Oriented Psychiatric: Affect appropriate, Mood appropriate Physician Notification - Case Discussed Physician Notified: dr landrum Time of Notification: 23:55 Critical Care Note - Critical Care Note Total Time (mins): 30 Course - Course Hematology/Chemistry: 12/18/16 22:55 12/18/16 22:55 Orders, Labs, Meds: Lab Review 12/18/16 12/18/16 12/18/16 22:55 22:55 22:55 WBC 6.42 RBC 2.15 L Hgb 7.0 L Hct 20.7 L D MCV 96.3 MCH 32.6 H MCHC 33.8 RDW Coeff of Angelo 14.0 Plt Count 164 Immature Gran % (Auto) 0.6 Neut % (Auto) 70.1 Lymph % (Auto) 19.9 [place] % (Auto) 7.5 Eos % (Auto) 1.1 Baso % (Auto) 0.8 Immature Gran # (Auto) 0.0 Neut # 4.5 Lymph # 1.3 [place] # 0.5 Eos # 0.1 Baso # 0.1 Sodium 139 Potassium 3.8 Chloride 106 Carbon Dioxide 24 Anion Gap 12.8 BUN 29 H Creatinine 0.77 Estimated GFR (MDRD) 73.00 BUN/Creatinine Ratio 37.66 Glucose 176 H Calcium 9.2 Total Bilirubin 0.29 AST 19 ALT 9 L Alkaline Phosphatase 69 Total Creatine Kinase 40 Troponin I 0.0550 Total Protein 5.4 L Albumin 3.0 L Globulin 2.4 Albumin/Globulin Ratio 1.25 Blood Type O POSITIVE Antibody Screen Negative Orders Category Date Time Status EKG-(ED ONLY) Stat CARDIO 12/18/16 22:49 Completed IV [ED IV/MEDIPORT/POWERPORT] .ONCE EMERGENCY 12/18/16 22:49 Active CBC W/ AUTO DIFF Stat LAB 12/18/16 22:55 Completed COMPREHENSIVE METABOLIC PANEL Stat LAB 12/18/16 22:55 Completed CREATINE KINASE Stat LAB 12/18/16 22:55 Completed TROPONIN I Stat LAB 12/18/16 22:55 Completed TYPE AND SCREEN Stat LAB 12/18/16 22:55 Completed 0.9 % Sodium Chloride [Saline Flush] MEDS 12/18/16 22:49 Ordered 1 syr IVF PRN PRN Medications Generic Name Dose Route Start Last Admin Trade Name Freq PRN Reason Stop Dose Admin Sodium Chloride 1 syr 12/18/16 22:49 Saline Flush IVF PRN PRN To flush IV Vital Signs: Temp Pulse Resp BP Pulse Ox 12/18/16 22:34 98.6 F 93 H 16 111/53 L 96 Departure - Departure Time of Disposition: 23:54 Disposition: ADMITTED INPATIENT Discharge Problem: Lower GI bleed Instructions: Gastrointestinal Bleeding (ED) Condition: Good Pt referred to PMD for follow-up: Yes Allergies/Adverse Reactions: Allergies Latex, Natural Rubber Adverse Reaction (Verified 12/18/16 23:56) Home Medications: Ambulatory Orders Rosuvastatin Calcium [Crestor] 20 mg PO BEDTIME 09/02/15 [place]-3 Fatty Acids/Fish Oil [Fish Oil 1,000 mg Capsule] 1 each PO DAILY Furosemide [Lasix Tab] 1 tab PO EVERY OTHER DAY 10/21/16 Calcium Carbonate/Vitamin D3 [Calcium 600 + Vit D 400 Tablet] 1 each PO DAILY Ferrous Sulfate 324 mg PO BID 10/23/16 Levothyroxine Sodium [Synthroid] 75 mcg PO QDAC 10/23/16 Lorazepam [Ativan] 1 mg PO BEDTIME PRN 10/23/16 Multivitamin [Multi-Vitamin Daily] 1 each PO DAILY 10/23/16 Pantoprazole Sodium [Protonix] 40 mg PO QDAC 10/23/16 Polyethylene Glycol 3350 [Miralax] 17 gm PO DAILY 10/23/16 Disposition Discussed With: Patient, Family
[2016-12-18] MEDS ORDERED: LASIX IVP STA (23:55)
[2016-12-18] MEDS ORDERED: ATIVAN PO PRN (23:59)
[2016-12-19 02:48] VITALS: BMI 28.8
[2016-12-19] MEDS ORDERED: LASIX ONE (04:30)
[2016-12-19] MEDS: SYNTHROID PO SCH (05:45)
[2016-12-19] MEDS ORDERED: NON-FORMULARY MEDICATION (Duloxetine Hcl [Cymbalta] 60 MG) PO SCH ×22 (09:00)
[2016-12-19] MEDS: CALCIUM 500 + VIT D 200 MG TABLET PO SCH (09:05)
[2016-12-19] MEDS: CYMBALTA PO SCH (09:06)
[2016-12-19] MEDS: NEURONTIN PO SCH ×3 (09:06→20:15)
[2016-12-19] MEDS: FERROUS SULFATE PO SCH ×2 (09:06→20:14)
[2016-12-19] MEDS: MIRALAX PO SCH (09:07)
[2016-12-19] MEDS: SODIUM CHLORIDE 1,000 ML IV SCH ×2 (11:25→22:59)
[2016-12-19 11:48] LABS: BASOPHILS # (AUTO) 0.1 K/uL (0-0.2); BASOPHILS % (AUTO) 0.8 % (0.0-3.0); EOSINOPHILS # (AUTO) 0.2 K/ul (0.0-0.7); IMMATURE GRANULOCYTE % (AUTO) 0.5 % (0.0-5.0); LYMPHOCYTES % (AUTO) 22.1 (10.0-50.0); MEAN CORPUSCULAR HEMOGLOBIN 31.3 pg (27.0-31.0); MEAN CORPUSCULAR HGB CONC 34.8 (31.8-35.4); MONOCYTES # (AUTO) 0.9 K/uL (0.4-2.0); MONOCYTES % (AUTO) 9.9 (0-10); NEUTROPHILS # (AUTO) 5.7 K/ul (2.0-6.9); NEUTROPHILS % (AUTO) 64.7; PLATELET COUNT 156 10^3/uL (140-440); WHITE BLOOD COUNT 8.82 K/ul (4.6-10.2)
[2016-12-19 11:53] LABS: HEMATOCRIT 28.7 % (37.0-47.0); MEAN CORPUSCULAR VOLUME 89.7 fl (81.0-99.0)
[2016-12-19 12:05] LABS: ALBUMIN 3.1 g/dL (3.4-5.0); ALBUMIN/GLOBULIN RATIO 1.24; ANION GAP 11.3; BILIRUBIN,TOTAL 0.66 mg/dL (0.00-1.20); BUN/CREATININE RATIO 30.13; CALCIUM 9.7 mg/dL (8.2-10.2); CREATININE 0.73 mg/dL (0.60-1.30); POTASSIUM 3.3 mmol/L (3.5-5.10); TOTAL PROTEIN 5.6 g/dL (5.8-8.1)
[2016-12-19] MEDS: CRESTOR PO SCH (20:14)
[2016-12-19] MEDS ORDERED: NON-FORMULARY MEDICATION (Rosuvastatin Calcium [Crestor] 20 MG) PO SCH ×22 (21:00)
[2016-12-19] MEDS ORDERED: NON-FORMULARY MEDICATION (Gabapentin [Neurontin] 600 MG) PO SCH ×22 (21:00)
[2016-12-20 05:22] LABS: BASOPHILS # (AUTO) 0.1 K/uL (0-0.2); EOSINOPHILS # (AUTO) 0.2 K/ul (0.0-0.7); EOSINOPHILS % (AUTO) 3.2 % (0.0-7.0); HEMATOCRIT 26.5 % (37.0-47.0); HEMOGLOBIN 9.1 g/dl (12.0-16.0); IMMATURE GRANULOCYTE % (AUTO) 0.4 % (0.0-5.0); LYMPHOCYTES # (AUTO) 1.6 K/uL (0.60-3.4); MEAN CORPUSCULAR HEMOGLOBIN 31.1 pg (27.0-31.0); MEAN CORPUSCULAR HGB CONC 34.3 (31.8-35.4); MEAN CORPUSCULAR VOLUME 90.4 fl (81.0-99.0); MONOCYTES # (AUTO) 0.5 K/uL (0.4-2.0); MONOCYTES % (AUTO) 9.5 (0-10); NEUTROPHILS # (AUTO) 2.7 K/ul (2.0-6.9); NEUTROPHILS % (AUTO) 53.9; PLATELET COUNT 144 10^3/uL (140-440); RED BLOOD COUNT 2.93 10^6/ul (4.20-5.40); WHITE BLOOD COUNT 4.97 K/ul (4.6-10.2)
[2016-12-20] MEDS: SODIUM CHLORIDE 1,000 ML IV SCH (05:38)
[2016-12-20] MEDS: SYNTHROID PO SCH (05:38)
[2016-12-20 05:54] LABS: ALBUMIN 2.9 g/dL (3.4-5.0); ALBUMIN/GLOBULIN RATIO 1.26; ANION GAP 9.7; BILIRUBIN,TOTAL 0.52 mg/dL (0.00-1.20); BUN/CREATININE RATIO 22.85; CALCIUM 8.8 mg/dL (8.2-10.2); CREATININE 0.7 mg/dL (0.60-1.30); POTASSIUM 3.7 mmol/L (3.5-5.10); TOTAL PROTEIN 5.2 g/dL (5.8-8.1)
[2016-12-20] MEDS ORDERED: LASIX TAB PO SCH (06:30)
[2016-12-20] MEDS: CALCIUM 500 + VIT D 200 MG TABLET PO SCH (08:50)
[2016-12-20] MEDS: MIRALAX PO SCH (08:50)
[2016-12-20] MEDS: NEURONTIN PO SCH ×3 (08:51→20:30)
[2016-12-20] MEDS: CYMBALTA PO SCH (08:51)
[2016-12-20] MEDS: FERROUS SULFATE PO SCH ×2 (08:51→20:30)
[2016-12-20] MEDS: CRESTOR PO SCH (20:29)
[2016-12-21 05:43] LABS: BASOPHILS # (AUTO) 0.1 K/uL (0-0.2); EOSINOPHILS # (AUTO) 0.1 K/ul (0.0-0.7); EOSINOPHILS % (AUTO) 2.5 % (0.0-7.0); HEMATOCRIT 26.4 % (37.0-47.0); HEMOGLOBIN 8.9 g/dl (12.0-16.0); IMMATURE GRANULOCYTE % (AUTO) 0.4 % (0.0-5.0); LYMPHOCYTES # (AUTO) 1.4 K/uL (0.60-3.4); LYMPHOCYTES % (AUTO) 26.4 (10.0-50.0); MEAN CORPUSCULAR HEMOGLOBIN 31.1 pg (27.0-31.0); MEAN CORPUSCULAR HGB CONC 33.7 (31.8-35.4); MEAN CORPUSCULAR VOLUME 92.3 fl (81.0-99.0); MONOCYTES # (AUTO) 0.5 K/uL (0.4-2.0); MONOCYTES % (AUTO) 8.9 (0-10); NEUTROPHILS # (AUTO) 3.2 K/ul (2.0-6.9); NEUTROPHILS % (AUTO) 60.8; PLATELET COUNT 142 10^3/uL (140-440); RED BLOOD COUNT 2.86 10^6/ul (4.20-5.40); WHITE BLOOD COUNT 5.26 K/ul (4.6-10.2)
[2016-12-21 05:56] LABS: ALBUMIN 2.9 g/dL (3.4-5.0); ALBUMIN/GLOBULIN RATIO 1.21; ANION GAP 7.6; BILIRUBIN,TOTAL 0.46 mg/dL (0.00-1.20); BUN/CREATININE RATIO 22.53; CALCIUM 8.9 mg/dL (8.2-10.2); CREATININE 0.71 mg/dL (0.60-1.30); POTASSIUM 3.6 mmol/L (3.5-5.10); TOTAL PROTEIN 5.3 g/dL (5.8-8.1)
[2016-12-21] MEDS: SYNTHROID PO SCH (06:07)
[2016-12-21] MEDS: MIRALAX PO SCH (09:13)
[2016-12-21] MEDS: CALCIUM 500 + VIT D 200 MG TABLET PO SCH (09:13)
[2016-12-21] MEDS: NEURONTIN PO SCH (09:13)
[2016-12-21] MEDS: CYMBALTA PO SCH (09:13)
[2016-12-21] MEDS: FERROUS SULFATE PO SCH (09:13)
[2016-12-21 12:32] VITALS: BP 132/74; TEMP 98.1
[2016-12-21 12:32] LABS: HEMATOCRIT 26.3 % (37.0-47.0); HEMOGLOBIN 8.9 g/dl (12.0-16.0)
--- NOTE | 2016-12-23 14:26 | DS ---
DATE OF SERVICE: 12/21/16 FINAL DIAGNOSIS: 1. Acute lower GI bleed status post 2 blood transfusion. Hgb 8.3 2. History of coronary artery disease 3. Severe aortic stenosis 4. Hypertension 5. Dyslipidemia 6. Diabetes, diet controlled 7. Depression 8. Anxiety 9. Peripheral neuropathy 10.Alzheimer's Dementia 11.History of left shoulder replacement DISCHARGE INSTRUCTIONS: Discharge the patient home. Followup in the [facility] on December 27. Will be CBC on Monday. MEDICATIONS AT DISCHARGE: Calcium Cymbalta Ferrous Sulfate Lasix Neurontin Sodium Ativan Multivitamin [place] 3 Fatty acid Protonix Miralax Crestor NEW PRESCRIPTIONS: None DIET INSTRUCTIONS: Cardiac and Healthy Diverticular diet been discussed ACTIVITY: As much as tolerated SMOKING: Former Smoker DISEASE SPECIFIC EDUCATION: Lower GI bleed Use of iron pills been discussed and verbalized understanding. HOSPITAL COURSE: Abbie Huynh who is a 76 year old female came to the emergency room with lower GI bleed and seen by Dr. Burrell and admitted type and cross match and blood transfusion was given. Initially the hgb was 7 and by next day it was 10. The patient was positive for one bloody stool while she was in the hospital. Potassium was 3.2 which was replaced. Hgb after that was stable at 9.1, 8.9 and 8.9 and did not have any problems. Gradually the patient was up and about walking better and did not have any chest pain or shortness of breath. The patient does have severe aortic stenosis and angina symptoms which were not present at this time. As patient was doing fine and did not have any complications she is being discharged home today. TIME SPENT: MORE THAN 55 MINUTES MTDD
--- NOTE | 2016-12-23 14:31 | PN ---
DATE OF SERVICE: 12/20/16 SUBJECTIVE: The patient was admitted with the lower GI bleed and had two units of blood transfusion. Hgb is being steady now. The patient is up and about walking, still has some shortness of breath. REVIEW OF SYSTEMS: CONSTITUTIONAL: No fever, no chills. HEENT: Normal. ENDOCRINE: No weight gain, no weight loss. CVS: No angina symptoms. No CHF symptoms. No palpitations. No atypical chest pain for CAD. No shortness of breath. No PND, no orthopnea. RESPIRATORY: No cough, no hemoptysis. GI: No nausea, no vomiting. No abdominal pain. : No hematuria. No polyuria. MUSCULOSKELETAL:. No joint swelling. PSYCHIATRIC: Not anxious. No depression. No suicidal thoughts. No homicidal thoughts. SKIN: Intact. No rash. PHYSICAL EXAMINATION: V/S: blood pressure 122/64, respiratory rate 22, heart rate 73 and temperature 98.4 with saturation is 98 on the room air. HEENT: Normocephalic, atraumatic. Mucosa dry. Pallor positive. No icterus. NECK: Supple. No JVD, no carotid bruit. No lymphadenopathy. LUNGS: Decreased and clear to auscultation. No rales or rhonchi. HEART: S1, S2 normal. No S3. Systolic murmur, gallop or regurgitation. ABDOMEN: Soft, nontender. Bowel sounds active. No rigidity. No rebound or guarding. No CVA tenderness. EXTREMITIES: No clubbing, cyanosis or pedal edema. MUSCULOSKELETAL: No joint swelling. NEUROLOGIC: Awake, alert, oriented times three. No focal deficit. LYMPHATIC: No lymph nodes palpable. SKIN: Intact. LABS: WBC 4.97, hgb 9.1, hct 26.5, plt count 144, sodium 142, potassium 3.7, chloride 111, bicarb 25, BUN 16, creatinine 0.70. ASSESSMENT: 1. Lower GI bleed needing blood transfusion 2. Sever aortic stenosis 3. Angina 4. Hypertension 5. Coronary artery disease 6. Congestive heart failure 7. Dyslipidemia 8. Osteoarthritis 9. DJD spine 10.Depression 11. Peripheral neuropathy PLAN: 1. Continue the Protonix twice a day 2. Hgb and Hct 3. Out of the bed to chair activity as tolerated Will follow the patient in daily rounds. TIME SPENT: More than 35 minutes MTDD
== END 2016-12-21 15:22 | disposition home or self-care (01) | DRG 379 ==
LOC: ED 22:33 → SCU 12-19 00:05
PROVIDERS: ADMIT Emergency Medicine; ATTEND Emergency Medicine
PROC: 30233N1 Transfusion of Nonautologous Red Blood Cells into Peripheral Vein, Percutaneous Approach (ICD-10-PCS; principal; 2016-12-19)
PROC: 30233N1 Transfusion of Nonautologous Red Blood Cells into Peripheral Vein, Percutaneous Approach (ICD-10-PCS; 2016-12-19)
DX: K92.2 Gastrointestinal hemorrhage, unspecified (principal); R06.02 Shortness of breath; I35.0 Nonrheumatic aortic (valve) stenosis; I10 Essential (primary) hypertension; I25.119 Atherosclerotic heart disease of native coronary artery with unspecified angina pectoris; I50.9 Heart failure, unspecified; E78.5 Hyperlipidemia, unspecified; E11.9 Type 2 diabetes mellitus without complications; F41.8 Other specified anxiety disorders; G62.9 Polyneuropathy, unspecified; G30.9 Alzheimer's disease, unspecified; F02.80 Dementia in other diseases classified elsewhere, unspecified severity, without behavioral disturbance, psychotic disturbance, mood disturbance, and anxiety; R19.7 Diarrhea, unspecified; Z79.899 Other long term (current) drug therapy; Z87.891 Personal history of nicotine dependence
CPT/HCPCS: 36415; 36430; 80053; 82550; 84484; 85014; 85018; 85025; 86850; 86900; 86922; 87081; 93005; 93010; 99284

== ENCOUNTER 2016-12-23 16:00 | Outpatient (CLI) ==
[2016-12-23 16:21] LABS: BASOPHILS % (AUTO) 0.4 % (0.0-3.0); EOSINOPHILS # (AUTO) 0.2 K/ul (0.0-0.7); EOSINOPHILS % (AUTO) 2.1 % (0.0-7.0); HEMATOCRIT 19.3 % (37.0-47.0); HEMOGLOBIN 6.7 g/dl (12.0-16.0); IMMATURE GRANULOCYTE % (AUTO) 0.6 % (0.0-5.0); LYMPHOCYTES # (AUTO) 2.3 K/uL (0.60-3.4); LYMPHOCYTES % (AUTO) 31.5 (10.0-50.0); MEAN CORPUSCULAR HEMOGLOBIN 31.8 pg (27.0-31.0); MEAN CORPUSCULAR HGB CONC 34.7 (31.8-35.4); MEAN CORPUSCULAR VOLUME 91.5 fl (81.0-99.0); MONOCYTES # (AUTO) 0.5 K/uL (0.4-2.0); MONOCYTES % (AUTO) 7.4 (0-10); NEUTROPHILS # (AUTO) 4.2 K/ul (2.0-6.9); PLATELET COUNT 175 10^3/uL (140-440); RED BLOOD COUNT 2.11 10^6/ul (4.20-5.40)
== END 2016-12-23 16:01 | disposition home or self-care (01) ==
LOC: NONPT 16:00
PROVIDERS: ATTEND Emergency Medicine
DX: D64.9 Anemia, unspecified (principal); E11.9 Type 2 diabetes mellitus without complications
CPT/HCPCS: 85025

== ENCOUNTER 2016-12-24 15:35 | Inpatient (IN) ==
--- NOTE | 2016-12-24 16:08 | ED.PDOC ---
General ED Provider: Dr. ALLAN FLORES Chief Complaint: Weakness Stated Complaint: Patient was recently admitted for anemia transfused 2 units and discharged home. States since discharge has been getting weaker and Home health nurse checked HG and was 6.7. Also Had bloody stool this morning. Time Seen by Physician: 15:49 Mode of Arrival: Stretcher Information Source: Patient Exam Limitations: No limitations [facility] Within Last 72 Hours for Same Complaint By: In-Patient Facility (3 days ago ) Nursing and Triage Documentation Reviewed and Agree: Yes GI Complaint Exam - GI Bleed Complaint/Exam Patient Complains of: Reports: Rectal bleeding, Black stools Onset/Duration: 1 day Symptoms Are: Still present Frequency: once Severity: Reports: Black tarry stool, Bright red blood-rectum Location of Pain: Reports: None Character: Denies: Sharp, Dull, Burning, Cramping, Tearing, Colicky Alleviating: Reports: None Associated Signs and Symptoms: Denies: Back Pain, Pallor, Dizziness, Weakness, Syncope, Constipation, Nausea, Rectal pain, Bruising, Weight loss, Recent abnormal coags Related History: Reports: Similar episode GI Bleed Risk Factors: Reports: None Recent Colonoscopy: Yes Recent EGD: Yes Abdominal Findings: Present: None Differential Diagnoses: Ulcerative Colitis Review of Systems - Review Of Systems Constitutional: Reports: Weakness Ears, Nose, Mouth, Throat: Reports: No symptoms Respiratory: Reports: No symptoms Cardiac: Reports: No symptoms GI: Reports: No symptoms, Other (Blood in stool ) : Reports: No symptoms Musculoskeletal: Reports: No symptoms Skin: Reports: Change in color (pale) Neurological: Reports: Anxiety Endocrine: Reports: No symptoms Hematologic/Lymphatic: Reports: No symptoms All Other Systems: Reviewed and Negative Past Medical History - Past Medical History Previously Healthy: Yes Endocrine: Reports: Hypothyroid, Dyslipidemia Cardiovascular: Reports: CAD, Hypertension Respiratory: Reports: None Hematological: Reports: Anemia Gastrointestinal: Reports: None Genitourinary: Reports: None Neuro/Psych: Reports: None Musculoskeletal: Reports: Arthritis Cancer: Reports: None Last Menstrual Period: menopause Other Pertinent Past Medical History: htn thy ane chol depr arth cad - Surgical History General Surgical History: Reports: Orthopedic (LT SHOULDER REPLACED), Other (- ORAL SURG-). Denies: Hysterectomy (D & C-) - Family History Family History: Reports: Unknown - Social History Smoking Status: Former smoker Hx Substance Use: No Alcohol Screening: None Physical Exam - Physical Exam Appearance: Ill-appearing, Well-nourished, Obese Eyes: Conjunctiva pale ENT: Ears normal, Nose normal, Oropharynx normal Neck: Supple Respiratory: Airway patent Cardiovascular: RRR, Murmur GI/: Soft Musculoskeletal: Normal strength, ROM intact, No edema, No calf tenderness Skin: Warm, Dry, Normal color Neurological: Sensation intact, Alert, Oriented Psychiatric: Anxious Physician Notification - Case Discussed Physician Notified: Dr Salter Time of Notification: 17:00 (Admit to ICU ) Critical Care Note - Critical Care Note Total Time (mins): 35 Course - Course Hematology/Chemistry: 12/24/16 16:10 12/24/16 16:10 Orders, Labs, Meds: Lab Review 12/24/16 12/24/16 12/24/16 16:10 16:10 16:10 WBC 7.75 RBC 1.34 L Hgb 4.3 L* Hct 12.8 L* D MCV 95.5 MCH 32.1 H MCHC 33.6 RDW Coeff of Angelo 17.6 H Plt Count 123 L Immature Gran % (Auto) 0.9 Neut % (Auto) 76.4 Lymph % (Auto) 14.5 [place] % (Auto) 7.1 Eos % (Auto) 1.0 Baso % (Auto) 0.1 Immature Gran # (Auto) 0.1 Neut # 5.9 Lymph # 1.1 [place] # 0.6 Eos # 0.1 Baso # 0.0 Puncture Site O2 Saturation ABG pH ABG pCO2 ABG pO2 ABG HCO3 ABG Total CO2 ABG Base Excess O2 Delivery Device Oxygen Liter Flow FiO2 % Sodium 139 Potassium 3.3 L Chloride 108 H Carbon Dioxide 25 Anion Gap 9.3 BUN 25 H Creatinine 0.67 Estimated GFR (MDRD) 86.00 BUN/Creatinine Ratio 37.31 Glucose 154 H Calcium 8.0 L Total Bilirubin 0.30 AST 26 ALT 7 L Alkaline Phosphatase 52 L Total Protein 4.2 L Albumin 2.4 L Globulin 1.8 Albumin/Globulin Ratio 1.33 Blood Type O POSITIVE Antibody Screen Negative 12/24/16 16:18 WBC RBC Hgb Hct MCV MCH MCHC RDW Coeff of Angelo Plt Count Immature Gran % (Auto) Neut % (Auto) Lymph % (Auto) [place] % (Auto) Eos % (Auto) Baso % (Auto) Immature Gran # (Auto) Neut # Lymph # [place] # Eos # Baso # Puncture Site Lb O2 Saturation 99.0 ABG pH 7.480 H ABG pCO2 35.3 ABG pO2 134.0 H ABG HCO3 26.3 H ABG Total CO2 27 ABG Base Excess 3 H O2 Delivery Device Nc Oxygen Liter Flow 2.00 FiO2 % 28.0 Sodium Potassium Chloride Carbon Dioxide Anion Gap BUN Creatinine Estimated GFR (MDRD) BUN/Creatinine Ratio Glucose Calcium Total Bilirubin AST ALT Alkaline Phosphatase Total Protein Albumin Globulin Albumin/Globulin Ratio Blood Type Antibody Screen Orders Category Date Time Status ABG DRAW REQUEST Stat CARDIO 12/24/16 16:19 Completed ABG Stat LAB 12/24/16 16:18 Completed CBC W/ AUTO DIFF Stat LAB 12/24/16 16:10 Completed COMPREHENSIVE METABOLIC PANEL Stat LAB 12/24/16 16:10 Completed TYPE AND SCREEN Stat LAB 12/24/16 16:10 Completed Medications Generic Name Dose Route Start Last Admin Trade Name Mehranq PRN Reason Stop Dose Admin Ferrous Sulfate 324 mg 12/24/16 21:00 Ferrous Sulfate PO BID MAY Furosemide 20 mg 12/24/16 17:30 Lasix IVP Q4H MAY Gabapentin 300 mg 12/25/16 09:00 Neurontin PO 0900,1500 MAY Levothyroxine Sodium 75 mcg 12/25/16 06:30 Synthroid PO QDAC MAY Non-Formulary Medication 60 mg 12/25/16 09:00 Duloxetine Hcl [Cymbalta] PO DAILY MAY Non-Formulary Medication 600 mg 12/24/16 21:00 Gabapentin [Neurontin] PO BEDTIME MAY Non-Formulary Medication 1 each 12/25/16 09:00 Multivitamin [Multi-Vitamin Daily] PO DAILY MAY Non-Formulary Medication 1 each 12/25/16 09:00 [place]-3 Fatty Acids/Fish Oil [Fish Oil 1,000 Mg Capsule] PO DAILY MAY Non-Formulary Medication 1 each 12/25/16 09:00 Calcium Carbonate/Vitamin D3 [Calcium 600 + Vit D 400 Tablet] PO DAILY MAY Non-Formulary Medication 20 mg 12/24/16 21:00 Rosuvastatin Calcium [Crestor] PO BEDTIME MAY Ondansetron HCl 4 mg 12/24/16 17:12 Zofran 4 Mg/2 Ml IVP Q6H PRN Nausea / Vomiting Polyethylene Glycol 17 gm 12/25/16 09:00 Miralax PO DAILY [facility] Vital Signs: Temp Pulse Resp BP Pulse Ox 12/24/16 15:36 97.5 F L 86 16 95/46 L 96 Departure - Departure Time of Disposition: 17:22 Disposition: ADMITTED INPATIENT Discharge Problem: Lower GI bleed Anemia Qualifiers: Anemia type: iron deficiency Iron deficiency anemia type: chronic blood loss Qualified Code(s): D50.0 - Iron deficiency anemia secondary to blood loss ( chronic) Condition: Fair Pt referred to PMD for follow-up: No Allergies/Adverse Reactions: Allergies Latex, Natural Rubber Adverse Reaction (Verified 12/24/16 15:46) Home Medications: Ambulatory Orders Rosuvastatin Calcium [Crestor] 20 mg PO BEDTIME 09/02/15 [employer] [place]-3 Fatty Acids/Fish Oil [Fish Oil 1,000 mg Capsule] 1 each PO DAILY Furosemide [Lasix Tab] 1 tab PO EVERY OTHER DAY 10/21/16 Calcium Carbonate/Vitamin D3 [Calcium 600 + Vit D 400 Tablet] 1 each PO DAILY Ferrous Sulfate 324 mg PO BID 10/23/16 Levothyroxine Sodium [Synthroid] 75 mcg PO QDAC 10/23/16 Lorazepam [Ativan] 1 mg PO BEDTIME PRN 10/23/16 Multivitamin [Multi-Vitamin Daily] 1 each PO DAILY 10/23/16 Pantoprazole Sodium [Protonix] 40 mg PO QDAC 10/23/16 Polyethylene Glycol 3350 [Miralax] 17 gm PO DAILY 10/23/16
[2016-12-24 16:22] LABS: BASOPHILS % (AUTO) 0.1 % (0.0-3.0); EOSINOPHILS # (AUTO) 0.1 K/ul (0.0-0.7); IMMATURE GRANULOCYTE % (AUTO) 0.9 % (0.0-5.0); LYMPHOCYTES # (AUTO) 1.1 K/uL (0.60-3.4); LYMPHOCYTES % (AUTO) 14.5 (10.0-50.0); MEAN CORPUSCULAR HEMOGLOBIN 32.1 pg (27.0-31.0); MEAN CORPUSCULAR HGB CONC 33.6 (31.8-35.4); MEAN CORPUSCULAR VOLUME 95.5 fl (81.0-99.0); MONOCYTES # (AUTO) 0.6 K/uL (0.4-2.0); MONOCYTES % (AUTO) 7.1 (0-10); NEUTROPHILS # (AUTO) 5.9 K/ul (2.0-6.9); NEUTROPHILS % (AUTO) 76.4; PLATELET COUNT 123 10^3/uL (140-440); RED BLOOD COUNT 1.34 10^6/ul (4.20-5.40); WHITE BLOOD COUNT 7.75 K/ul (4.6-10.2)
[2016-12-24 16:33] LABS: ABG BASE EXCESS 3 (-2.0-2.0); ABG HCO3 26.3 (22.0-26.0); ABG PCO2 35.3 mmHg (35-45); ABG TCO2 27 (22.0-28.0)
[2016-12-24 16:40] LABS: ALBUMIN 2.4 g/dL (3.4-5.0); ALBUMIN/GLOBULIN RATIO 1.33; ANION GAP 9.3; BILIRUBIN,TOTAL 0.3 mg/dL (0.00-1.20); BUN/CREATININE RATIO 37.31; CREATININE 0.67 mg/dL (0.60-1.30); POTASSIUM 3.3 mmol/L (3.5-5.10); TOTAL PROTEIN 4.2 g/dL (5.8-8.1)
[2016-12-24 16:50] LABS: HEMATOCRIT 12.8 % (37.0-47.0); HEMOGLOBIN 4.3 g/dl (12.0-16.0)
[2016-12-24] MEDS ORDERED: ZOFRAN 4 MG/2 ML IVP PRN (17:12)
[2016-12-24] MEDS ORDERED: PROTONIX IV IVP SCH (17:30)
[2016-12-24] MEDS ORDERED: LASIX IVP SCH (17:30)
[2016-12-24] MEDS: FERROUS SULFATE PO SCH (20:22)
[2016-12-24] MEDS: CRESTOR PO SCH (20:29)
[2016-12-24] MEDS: NEURONTIN PO SCH (20:29)
[2016-12-24] MEDS: LASIX IVP PRN (20:50)
[2016-12-24] MEDS ORDERED: NON-FORMULARY MEDICATION (Rosuvastatin Calcium [Crestor] 20 MG) PO SCH ×22 (21:00)
[2016-12-24] MEDS ORDERED: NON-FORMULARY MEDICATION (Gabapentin [Neurontin] 600 MG) PO SCH ×22 (21:00)
[2016-12-25] MEDS: LASIX IVP PRN ×3 (01:22→08:25)
[2016-12-25] MEDS: SYNTHROID PO SCH (05:33)
[2016-12-25] MEDS: MIRALAX PO SCH ×2 (08:24→08:26)
[2016-12-25] MEDS: CYMBALTA PO SCH (08:24)
[2016-12-25] MEDS: OMEGA-3 FISH OIL PO SCH (08:24)
[2016-12-25] MEDS: MULTIVITAMIN PO SCH (08:25)
[2016-12-25] MEDS: FERROUS SULFATE PO SCH ×2 (08:25→20:21)
[2016-12-25] MEDS: NEURONTIN PO SCH ×3 (08:25→20:21)
[2016-12-25] MEDS: CALCIUM 500 + VIT D 200 MG TABLET PO SCH (08:25)
[2016-12-25] MEDS ORDERED: NON-FORMULARY MEDICATION (Multivitamin [Multi-Vitamin Daily] 1 EACH) PO SCH ×22 (09:00)
[2016-12-25] MEDS ORDERED: NON-FORMULARY MEDICATION (Omega-3 Fatty Acids/Fish Oil [Fish Oil 1,000 Mg Capsule] 1 EACH) PO SCH ×22 (09:00)
[2016-12-25] MEDS ORDERED: NON-FORMULARY MEDICATION (Duloxetine Hcl [Cymbalta] 60 MG) PO SCH ×22 (09:00)
[2016-12-25 10:01] LABS: BASOPHILS # (AUTO) 0.1 K/uL (0-0.2); BASOPHILS % (AUTO) 0.7 % (0.0-3.0); EOSINOPHILS # (AUTO) 0.2 K/ul (0.0-0.7); EOSINOPHILS % (AUTO) 1.4 % (0.0-7.0); HEMOGLOBIN 10.3 g/dl (12.0-16.0); IMMATURE GRANULOCYTE % (AUTO) 0.9 % (0.0-5.0); LYMPHOCYTES # (AUTO) 1.8 K/uL (0.60-3.4); LYMPHOCYTES % (AUTO) 16.1 (10.0-50.0); MEAN CORPUSCULAR HEMOGLOBIN 29.9 pg (27.0-31.0); MEAN CORPUSCULAR HGB CONC 35.5 (31.8-35.4); MEAN CORPUSCULAR VOLUME 84.1 fl (81.0-99.0); MONOCYTES % (AUTO) 9.5 (0-10); NEUTROPHILS # (AUTO) 7.8 K/ul (2.0-6.9); NEUTROPHILS % (AUTO) 71.4; PLATELET COUNT 125 10^3/uL (140-440); RED BLOOD COUNT 3.45 10^6/ul (4.20-5.40); WHITE BLOOD COUNT 10.87 K/ul (4.6-10.2)
[2016-12-25 10:18] LABS: BUN/CREATININE RATIO 28.37; CALCIUM 8.3 mg/dL (8.2-10.2); CREATININE 0.74 mg/dL (0.60-1.30)
[2016-12-25] MEDS: K-DUR PO SCH (15:23)
[2016-12-25] MEDS: PROTONIX IV IVP SCH (20:20)
[2016-12-25] MEDS: CRESTOR PO SCH (20:21)
[2016-12-25] MEDS ORDERED: PROTONIX IV IVP SCH (21:00)
[2016-12-26 05:07] LABS: BASOPHILS % (AUTO) 0.6 % (0.0-3.0); EOSINOPHILS # (AUTO) 0.3 K/ul (0.0-0.7); EOSINOPHILS % (AUTO) 3.5 % (0.0-7.0); HEMATOCRIT 26.4 % (37.0-47.0); IMMATURE GRANULOCYTE % (AUTO) 0.4 % (0.0-5.0); LYMPHOCYTES # (AUTO) 1.4 K/uL (0.60-3.4); LYMPHOCYTES % (AUTO) 19.1 (10.0-50.0); MEAN CORPUSCULAR HEMOGLOBIN 29.1 pg (27.0-31.0); MEAN CORPUSCULAR HGB CONC 34.1 (31.8-35.4); MEAN CORPUSCULAR VOLUME 85.4 fl (81.0-99.0); MONOCYTES # (AUTO) 0.7 K/uL (0.4-2.0); NEUTROPHILS # (AUTO) 4.8 K/ul (2.0-6.9); NEUTROPHILS % (AUTO) 66.4; PLATELET COUNT 111 10^3/uL (140-440); RED BLOOD COUNT 3.09 10^6/ul (4.20-5.40); WHITE BLOOD COUNT 7.18 K/ul (4.6-10.2)
[2016-12-26 05:22] LABS: ANION GAP 9.3; BUN/CREATININE RATIO 22.07; CALCIUM 8.5 mg/dL (8.2-10.2); CREATININE 0.77 mg/dL (0.60-1.30); POTASSIUM 3.3 mmol/L (3.5-5.10)
[2016-12-26] MEDS: SYNTHROID PO SCH (06:30)
[2016-12-26] MEDS ORDERED: K-DUR PO STA (08:26)
[2016-12-26] MEDS: MIRALAX PO SCH (10:22)
[2016-12-26] MEDS: CALCIUM 500 + VIT D 200 MG TABLET PO SCH (10:22)
[2016-12-26] MEDS: FERROUS SULFATE PO SCH ×2 (10:25→20:44)
[2016-12-26] MEDS: CYMBALTA PO SCH (10:25)
[2016-12-26] MEDS: K-DUR PO SCH (10:27)
[2016-12-26] MEDS: MULTIVITAMIN PO SCH (10:27)
[2016-12-26] MEDS: OMEGA-3 FISH OIL PO SCH (10:28)
[2016-12-26] MEDS: NEURONTIN PO SCH ×3 (10:28→20:44)
[2016-12-26] MEDS: PROTONIX IV IVP SCH ×2 (10:57→20:43)
--- NOTE | 2016-12-26 14:40 | HP ---
DATE OF SERVICE: 12/24/16 CHIEF COMPLAINT: Passing blood and feeling weakness and chest tightness. HISTORY OF PRESENT ILLNESS: This is a 76 year old female with a history of severe lower GI bleed came to the emergency room when she had blood work day before outside the hgb was 6.7 and continued to have the bloody bowel movements and had two today morning on the day of admission. Came with the family as the patient was having the chest tightness, shortness of breath and inability to walk. The patient was seen by Dr. Hope in the emergency room. Blood pressure was 95/46. Blood work showed the hgb as 4.3 and at that time the patient was typed and screened and crossed matched and admitted to the hospital for the transfusion. REVIEW OF SYSTEMS: CONSTITUTIONAL: No fever, no chills. Weakness and Tiredness. HEENT: Normal. ENDOCRINE: No weight gain; no weight loss. CVS: Chest pain. No PND, no orthopnea. Shortness of breath. No PND, no orthopnea. RESPIRATORY: No cough, no congestion. No hemoptysis. GI: No nausea, no vomiting. No abdominal pain. No melena. Lower GI bleed. : No hematuria. No polyuria. MUSCULOSKELETAL: No joint swelling. PSYCHIATRIC: Not anxious. No depression. No suicidal thoughts. No homicidal thoughts. SKIN: Intact, no open lesions. PAST MEDICAL HISTORY: Coronary artery disease Dyslipidemia Severe aortic stenosis Dependant edema COPD Diabetes, diet controlled Osteoarthritis Depression Anxiety Left shoulder replacement PAST SURGICAL HISTORY: Left shoulder replacement PERSONAL HISTORY: The patient is and lives with the . Does not smoke or drink. Family History is significant for the diabetes, Thyroid disease. MEDICATIONS: Protonix Crestor Fish oil Cymbalta Synthroid Ativan Miralax Multivitamin Ferrous Sulfate Calcium Protonix Neurontin ALLERGIES: Latex Natural rubber PHYSICAL EXAMINATION: V/S: Blood pressure 95/46, respiratory rate 16, heart rate 86, temperature 97.5 with saturation 96 on the room air. HEENT: Atraumatic, normocephalic. No scleral icterus. Pallor positive. Mucosa dry. NECK: Supple. No JVD, no bruit. No lymphadenopathy. No thyromegaly. HEART: S1, S2 normal. Systolic murmur positive. No cyanosis or clubbing. No ascites. LUNGS: Basilar crackles. No rales or rhonchi. ABDOMEN: Soft, nontender. Bowel sounds are active. No CVA tenderness. No rigidity or guarding. EXTREMITIES: No cyanosis, clubbing. 1+ edema in both lower extremities. MUSCULOSKELETAL: Normal joints, no swelling. NEUROLOGIC: Normal. SKIN: Intact; no open lesions. LYMPHATIC: No lymph nodes palpable. LABS: Sodium 139, potassium 3.3, chloride 108, bicarb 25, BUN 25, creatinine 0.67, glucose 154, WBC 7.75, hgb 4.3, hct 12.8, MCV 95.5, plt count 123 ASSESSMENT: 1. Severe anemia, needing blood transfusion 2. Lower GI bleed most likely diverticulosis 3. History of Aortic stenosis 4. Coronary artery disease 5. Depression 6. Diabetes, diet controlled. PLAN: 1. Admit patient to SCU 2. CBC and CMP now 3. CBC and CMP daily 4. Type and cross match four units and transfuse four units 5. Continue the home medication s 6. Lasix after blood transfusions. TIME SPENT: MORE THAN 75 minutes MTDD
--- NOTE | 2016-12-26 15:12 | PN ---
DATE OF SERVICE: 12/25/16 SUBJECTIVE: The patient was admitted with the severe anemia. The patient got four units of blood transfusion. Hgb 10.3 and says that she feels a lot better but she is still weak and tired and gets short of breath with minimal exertion. No more bloody bowel movements since admission. REVIEW OF SYSTEMS: CONSTITUTIONAL: No fever, no chills. HEENT: Normal. ENDOCRINE: No weight gain, no weight loss. CVS: No angina symptoms. No CHF symptoms. No palpitations. No atypical chest pain for CAD. No shortness of breath. No PND, no orthopnea. RESPIRATORY: No cough, no hemoptysis. GI: No nausea, no vomiting. No abdominal pain. : No hematuria. No polyuria. MUSCULOSKELETAL:. No joint swelling. PSYCHIATRIC: Not anxious. No depression. No suicidal thoughts. No homicidal thoughts. SKIN: Intact. No rash. PHYSICAL EXAMINATION: V/S: blood pressure 113/50, respiratory rate 16, heart rate 77, temperature 98.3 and saturation 99 on 2 liters. HEENT: Normocephalic, atraumatic. Mucosa dry. Pallor positive. No icterus. NECK: Supple. No JVD, no carotid bruit. No lymphadenopathy. LUNGS: Decreased and basilar crackles. No rales or rhonchi. HEART: S1, S2 normal. No S3. Systolic murmur, gallop or regurgitation. ABDOMEN: Soft, nontender. Bowel sounds active. No rigidity. No rebound or guarding. No CVA tenderness. EXTREMITIES: No clubbing, cyanosis or pedal edema. MUSCULOSKELETAL: No joint swelling. NEUROLOGIC: Awake, alert. No focal deficit. LYMPHATIC: No lymph nodes palpable. SKIN: Intact. LABS: WBC 10.87, hgb 10.3, hct 29.0, plt count 125, sodium 138, potassium 3.0, chloride 102, bicarb 28, BUN 21, creatinine 0.74 ASSESSMENT: 1. Severe Anemia status post blood transfusion with four units; hgb right now is 10.3 2. Hypokalemia 3. History of lower GI bleed with inflammation and diverticulosis 4. Severe aortic stenosis 5. Coronary artery disease 6. Depression 7. Peripheral neuropathy 8. Diabetes, diet controlled PLAN: 1. Replace potassium with 40meq potassium 2. Keep monitoring H&H 3. Protonix 40mg IV twice a day Will follow the patient in daily rounds. TIME SPENT: More than 35 minutes MTDD
[2016-12-26] MEDS: CRESTOR PO SCH (20:44)
[2016-12-27 05:04] LABS: BASOPHILS % (AUTO) 0.5 % (0.0-3.0); EOSINOPHILS # (AUTO) 0.2 K/ul (0.0-0.7); EOSINOPHILS % (AUTO) 4.1 % (0.0-7.0); HEMATOCRIT 25.9 % (37.0-47.0); HEMOGLOBIN 8.6 g/dl (12.0-16.0); IMMATURE GRANULOCYTE % (AUTO) 0.7 % (0.0-5.0); LYMPHOCYTES # (AUTO) 1.2 K/uL (0.60-3.4); MEAN CORPUSCULAR HEMOGLOBIN 29.3 pg (27.0-31.0); MEAN CORPUSCULAR HGB CONC 33.2 (31.8-35.4); MEAN CORPUSCULAR VOLUME 88.1 fl (81.0-99.0); MONOCYTES # (AUTO) 0.6 K/uL (0.4-2.0); MONOCYTES % (AUTO) 9.9 (0-10); NEUTROPHILS # (AUTO) 3.6 K/ul (2.0-6.9); NEUTROPHILS % (AUTO) 63.8; PLATELET COUNT 122 10^3/uL (140-440); RED BLOOD COUNT 2.94 10^6/ul (4.20-5.40); WHITE BLOOD COUNT 5.58 K/ul (4.6-10.2)
[2016-12-27 05:39] LABS: ANION GAP 9.3; BUN/CREATININE RATIO 21.91; CALCIUM 8.9 mg/dL (8.2-10.2); CREATININE 0.73 mg/dL (0.60-1.30); POTASSIUM 4.3 mmol/L (3.5-5.10)
[2016-12-27] MEDS: SYNTHROID PO SCH (06:13)
[2016-12-27] MEDS: K-DUR PO SCH (08:23)
[2016-12-27] MEDS: PROTONIX IV IVP SCH ×2 (08:27→21:10)
[2016-12-27] MEDS: OMEGA-3 FISH OIL PO SCH (09:27)
[2016-12-27] MEDS: CALCIUM 500 + VIT D 200 MG TABLET PO SCH (09:27)
[2016-12-27] MEDS: FERROUS SULFATE PO SCH ×2 (09:29→21:09)
[2016-12-27] MEDS: MULTIVITAMIN PO SCH (09:29)
[2016-12-27] MEDS: NEURONTIN PO SCH ×3 (09:30→21:10)
[2016-12-27] MEDS: MIRALAX PO SCH (09:30)
[2016-12-27] MEDS: CYMBALTA PO SCH (09:35)
[2016-12-27 20:17] LABS: HEMATOCRIT 28.1 % (37.0-47.0); HEMOGLOBIN 9.2 g/dl (12.0-16.0)
[2016-12-27] MEDS: CRESTOR PO SCH (21:09)
[2016-12-28 05:33] LABS: BASOPHILS # (AUTO) 0.1 K/uL (0-0.2); BASOPHILS % (AUTO) 1.1 % (0.0-3.0); EOSINOPHILS # (AUTO) 0.2 K/ul (0.0-0.7); EOSINOPHILS % (AUTO) 4.3 % (0.0-7.0); HEMATOCRIT 25.6 % (37.0-47.0); HEMOGLOBIN 8.4 g/dl (12.0-16.0); IMMATURE GRANULOCYTE % (AUTO) 1.1 % (0.0-5.0); LYMPHOCYTES % (AUTO) 22.5 (10.0-50.0); MEAN CORPUSCULAR HEMOGLOBIN 29.6 pg (27.0-31.0); MEAN CORPUSCULAR HGB CONC 32.8 (31.8-35.4); MEAN CORPUSCULAR VOLUME 90.1 fl (81.0-99.0); MONOCYTES # (AUTO) 0.5 K/uL (0.4-2.0); MONOCYTES % (AUTO) 11.7 (0-10); NEUTROPHILS # (AUTO) 2.8 K/ul (2.0-6.9); NEUTROPHILS % (AUTO) 59.3; PLATELET COUNT 127 10^3/uL (140-440); RED BLOOD COUNT 2.84 10^6/ul (4.20-5.40); WHITE BLOOD COUNT 4.63 K/ul (4.6-10.2)
[2016-12-28] MEDS: SYNTHROID PO SCH (05:33)
[2016-12-28 05:42] LABS: ANION GAP 10.1; BUN/CREATININE RATIO 20.83; CALCIUM 9.2 mg/dL (8.2-10.2); CREATININE 0.72 mg/dL (0.60-1.30); POTASSIUM 4.1 mmol/L (3.5-5.10)
[2016-12-28] MEDS: MULTIVITAMIN PO SCH (08:48)
[2016-12-28] MEDS: NEURONTIN PO SCH ×3 (08:49→20:08)
[2016-12-28] MEDS: K-DUR PO SCH (08:49)
[2016-12-28] MEDS: OMEGA-3 FISH OIL PO SCH (08:49)
[2016-12-28] MEDS: CALCIUM 500 + VIT D 200 MG TABLET PO SCH (08:49)
[2016-12-28] MEDS: CYMBALTA PO SCH (08:49)
[2016-12-28] MEDS: MIRALAX PO SCH (08:49)
[2016-12-28] MEDS: FERROUS SULFATE PO SCH ×2 (08:49→20:07)
[2016-12-28] MEDS: PROTONIX PO SCH (08:50)
--- NOTE | 2016-12-28 09:43 | PN ---
DATE OF SERVICE: 12/26/16 SUBJECTIVE: The patient was admitted with the lower GI Bleed and 4 units of blood transfusion. Hgb went up to 10.3 and today is 9.0. The patient still had two bowel movements with the blood tinge to it. REVIEW OF SYSTEMS: CONSTITUTIONAL: No fever, no chills. HEENT: Normal. ENDOCRINE: No weight gain, no weight loss. CVS: No angina symptoms. No CHF symptoms. No palpitations. No atypical chest pain for CAD. No shortness of breath. No PND, no orthopnea. RESPIRATORY: No cough, no hemoptysis. GI: No nausea, no vomiting. No abdominal pain. : No hematuria. No polyuria. MUSCULOSKELETAL:. No joint swelling. PSYCHIATRIC: Not anxious. No depression. No suicidal thoughts. No homicidal thoughts. SKIN: Intact. No rash. PHYSICAL EXAMINATION: V/S: Blood pressure 136/49, respiratory rate 18, heart rate 72, temperature 98.3 with saturation is 97 on the room air. HEENT: Normocephalic, atraumatic. Mucosa dry. Pallor positive. No icterus. NECK: Supple. No JVD, no carotid bruit. No lymphadenopathy. LUNGS: Decreased and clear to auscultation. No rales or rhonchi. HEART: S1, S2 normal. No S3. Systolic murmur positive, gallop or regurgitation. ABDOMEN: Soft, nontender. Bowel sounds active. No rigidity. No rebound or guarding. No CVA tenderness. EXTREMITIES: No clubbing, cyanosis or pedal edema. MUSCULOSKELETAL: No joint swelling. NEUROLOGIC: Awake, alert, oriented times three. No focal deficit. LYMPHATIC: No lymph nodes palpable. SKIN: Intact. LABS: WBC 7.18, hgb 9.0, hct 26.4, plt count 111, sodium 140, potassium 3.3, chloride 107, bicarb 26, BUN 17, creatinine 0.77. ASSESSMENT: 1. Lower GI bleed, needing 4 units blood transfusion 2. Severe anemia needing blood transfusion 3. Hypokalemia 4. Severe aortic stenosis 5. Coronary artery disease 6. Depression 7. Peripheral Neuropathy PLAN: 1. Continue to monitor the H&H 2. Protonix 40mg PO twice a day 3. Out of bed to chair activity as tolerated TIME SPENT: More than 35 minutes MTDD
--- NOTE | 2016-12-28 10:01 | PN ---
DATE OF SERVICE: 12/27/16 SUBJECTIVE: The patient was admitted with severe anemia and got the 4 unit blood transfusion. Hgb is gradually dropping. Today the hgb is 8.6. REVIEW OF SYSTEMS: CONSTITUTIONAL: No fever, no chills. Still weak and tired but able to go to the bathroom by herself. HEENT: Normal. ENDOCRINE: No weight gain, no weight loss. CVS: No angina symptoms. No CHF symptoms. No palpitations. No atypical chest pain for CAD. Shortness of breath. No PND, no orthopnea. RESPIRATORY: No cough, no hemoptysis. GI: No nausea, no vomiting. No abdominal pain. One episode of the bloody black blood from rectum and she is constipated. : No hematuria. No polyuria. MUSCULOSKELETAL:. No joint swelling. PSYCHIATRIC: Not anxious. No depression. No suicidal thoughts. No homicidal thoughts. SKIN: Intact. No rash. PHYSICAL EXAMINATION: V/S: Blood pressure 111/52, respiratory rate 18, heart rate 70, temperature 97.9 with saturation 97%. HEENT: Normocephalic, atraumatic. Mucosa dry. Pallor positive. No icterus. NECK: Supple. No JVD, no carotid bruit. No lymphadenopathy. LUNGS: Decreased anterior and clear to auscultation. No rales or rhonchi. HEART: S1, S2 normal. No S3. Systolic murmur positive, gallop or regurgitation. ABDOMEN: Soft, nontender. Bowel sounds active. No rigidity. No rebound or guarding. No CVA tenderness. EXTREMITIES: No clubbing, cyanosis or pedal edema. MUSCULOSKELETAL: No joint swelling. NEUROLOGIC: Awake, alert, oriented times three. No focal deficit. LYMPHATIC: No lymph nodes palpable. SKIN: Intact. Dry LABS: WBC 5.58, hgb 8.6, hct 25.9, plt count 122, sodium 140, potassium 4.3, chloride 109, bicarb 26, BUN 16, creatinine 0.73. ASSESSMENT: 1. Severe anemia and needing blood transfusion, hgb is 8.3 gradually dropping continuing to have lower gi bleed 2. Severe aortic stenosis 3. Coronary artery disease 4. Hypertension 5. Dyslipidemia 6. Depression 7. Peripheral neuropathy PLAN: 1. Protonix 40mg PO twice a day 2. Will recheck the H&H by noon time 3. Out of bed to chair 4. Start the Miralax 5. Is a poor prognosis in review of severe diverticulosis and AV malformation and inability to have a coloscopy secondary the severe heart problem which the patient verbalized understanding and complications. She understands. TIME SPENT: More than 35 minutes MTDD
[2016-12-28 12:17] LABS: HEMATOCRIT 26.8 % (37.0-47.0); HEMOGLOBIN 8.7 g/dl (12.0-16.0)
[2016-12-28] MEDS: CRESTOR PO SCH (20:08)
[2016-12-29 04:56] LABS: BASOPHILS # (AUTO) 0.1 K/uL (0-0.2); BASOPHILS % (AUTO) 1.2 % (0.0-3.0); EOSINOPHILS # (AUTO) 0.2 K/ul (0.0-0.7); EOSINOPHILS % (AUTO) 4.6 % (0.0-7.0); HEMATOCRIT 26.6 % (37.0-47.0); HEMOGLOBIN 8.6 g/dl (12.0-16.0); IMMATURE GRANULOCYTE % (AUTO) 0.4 % (0.0-5.0); LYMPHOCYTES # (AUTO) 1.1 K/uL (0.60-3.4); LYMPHOCYTES % (AUTO) 22.4 (10.0-50.0); MEAN CORPUSCULAR HEMOGLOBIN 29.5 pg (27.0-31.0); MEAN CORPUSCULAR HGB CONC 32.3 (31.8-35.4); MEAN CORPUSCULAR VOLUME 91.1 fl (81.0-99.0); MONOCYTES # (AUTO) 0.6 K/uL (0.4-2.0); MONOCYTES % (AUTO) 11.4 (0-10); NEUTROPHILS # (AUTO) 2.9 K/ul (2.0-6.9); PLATELET COUNT 141 10^3/uL (140-440); RED BLOOD COUNT 2.92 10^6/ul (4.20-5.40); WHITE BLOOD COUNT 4.83 K/ul (4.6-10.2)
[2016-12-29 05:17] LABS: ANION GAP 10.2; BUN/CREATININE RATIO 16.43; CALCIUM 9.4 mg/dL (8.2-10.2); CREATININE 0.73 mg/dL (0.60-1.30); POTASSIUM 4.2 mmol/L (3.5-5.10)
[2016-12-29] MEDS: PROTONIX PO SCH (06:15)
[2016-12-29] MEDS: SYNTHROID PO SCH (06:16)
[2016-12-29] MEDS: OMEGA-3 FISH OIL PO SCH (09:12)
[2016-12-29] MEDS: CYMBALTA PO SCH (09:12)
[2016-12-29] MEDS: K-DUR PO SCH (09:12)
[2016-12-29] MEDS: MIRALAX PO SCH (09:13)
[2016-12-29] MEDS: MULTIVITAMIN PO SCH (09:13)
[2016-12-29] MEDS: CALCIUM 500 + VIT D 200 MG TABLET PO SCH (09:13)
[2016-12-29] MEDS: NEURONTIN PO SCH (09:13)
[2016-12-29] MEDS: FERROUS SULFATE PO SCH (09:13)
[2016-12-29 10:02] VITALS: BP 100/49; TEMP 98.5
--- NOTE | 2016-12-29 10:23 | PN ---
DATE OF SERVICE: 12/28/16 SUBJECTIVE: The patient is admitted with lower GI bleed, 4.7 hemoglobin and had 4 unit blood transfusion. Hemoglobin went up to 9 and now is going down to 8.4, still have two more episodes of bloody bowel movement. No fever, no chills. No PND, no orthopnea. REVIEW OF SYSTEMS: CONSTITUTIONAL: No fever, no chills. HEENT: Normal. ENDOCRINE: No weight gain, no weight loss. CVS: No angina symptoms. No CHF symptoms. No palpitations. No atypical chest pain for CAD. No shortness of breath. No PND, no orthopnea. RESPIRATORY: No cough, no hemoptysis. GI: No nausea, no vomiting. No abdominal pain. : No hematuria. No polyuria. MUSCULOSKELETAL:. No joint swelling. PSYCHIATRIC: Not anxious. No depression. No suicidal thoughts. No homicidal thoughts. SKIN: Intact. No rash. PHYSICAL EXAMINATION: V/S: BP 106/50, respiratory rate 20, heart rate 97, saturation 97 on room air. HEENT: Normocephalic, atraumatic. Mucosa dry. NECK: Supple. No JVD, no carotid bruit. No lymphadenopathy. LUNGS: Decreased breath sounds, clear to auscultation. No rales or rhonchi. HEART: S1, S2 normal. Systolic murmur positive. ABDOMEN: Soft, nontender. Bowel sounds active. No rigidity. No rebound or guarding. No CVA tenderness. EXTREMITIES: No clubbing, cyanosis or pedal edema. MUSCULOSKELETAL: No joint swelling. NEUROLOGIC: Awake, alert, oriented times three. No focal deficit. LYMPHATIC: No lymph nodes palpable. SKIN: Intact and dry. LABS: White count 4.63, hemoglobin 8.4, hematocrit 25.6, platelet count 127. Sodium 140, potassium 4.1, chloride 108, bicarb 27, BUN 15, creatinine 0.72. ASSESSMENT: 1. SEVERE LOWER GI BLEED NEEDING BLOOD TRANSFUSION, 4 UNITS 2. MODERATE TO SEVERE AORTIC STENOSIS 3. CORONARY ARTERY DISEASE 4. DIABETES MELLITUS, DIET CONTROLLED 5. DEPRESSION 6. PERIPHERAL NEUROPATHY PLAN: 1. Continue to monitor H & H 2. Out of bed to chair 3. Activity as tolerated The patient's case was discussed with the patient's daughter. Possibilty of endocopy at [facility]. The patient's family wanted a second opinion with GI. Discussed the same with Salmon Gillnet Vessel Operator, Natali Chisholm. TIME SPENT: More than 35 minutes today. MARLENA
--- NOTE | 2017-01-16 15:49 | DS ---
DATE OF SERVICE: 12/29/16 FINAL DIAGNOSIS: 1. Lower GI bleed needing the 4 units blood transfusion 2. Status post severe anemia secondary to the lower GI bleed 3. Severe aortic stenosis 4. Coronary artery disease 5. Depression 6. Anxiety 7. Osteoarthritis 8. Peripheral neuropathy DISCHARGE INSTRUCTIONS: Discharge the patient home. Iron pill twice a day . Continue the rest of the home medication no medications have been changed. MEDICATIONS AT DISCHARGE: Calcium with Vitamin D3 Cymbalta Ferrous sulfate Lasix Neurontin Synthroid Ativan Miralax Crestor NEW PRESCRIPTIONS: None DIET INSTRUCTIONS: Cardiac and Healthy ACTIVITY: As much as tolerated SMOKING: Former smoker DISEASE SPECIFIC EDUCATION: Lower GI bleed Need of Iron pills been discussed and verbalized understanding. HOSPITAL COURSE: Abbie Rodasantoine who was brought to the emergency room by the [facility] Care Nurse because patient was feeling weakness, tiredness, shortness of breath and chest tightness. The patient was evaluated in the emergency room hgb was 4.3 and that time the patient is admitted to the hospital. Type and cross matched and transfused four units. Hgb went up to 10.3 gradually dropped to 8.6. The patient is candidate where they can not do the endoscopy or colonoscopy given her severe coronary artery disease or aortic stenosis and verbalized understanding of the problem. Gradually the patient was feeling better and did not have any bowel movements for 24 hours which included blood. Hgb was steady. At that time the patient is being discharged home. TIME SPENT: MORE THAN 45-50 MINUTES MTDD
== END 2016-12-29 10:05 | disposition home or self-care (01) | DRG 378 ==
LOC: ED 15:35 → SCU 16:58
PROVIDERS: ADMIT Emergency Medicine; ATTEND Emergency Medicine
PROC: 30233N1 Transfusion of Nonautologous Red Blood Cells into Peripheral Vein, Percutaneous Approach (ICD-10-PCS; principal; 2016-12-24)
PROC: 30233N1 Transfusion of Nonautologous Red Blood Cells into Peripheral Vein, Percutaneous Approach (ICD-10-PCS; 2016-12-24)
PROC: 30233N1 Transfusion of Nonautologous Red Blood Cells into Peripheral Vein, Percutaneous Approach (ICD-10-PCS; 2016-12-25)
PROC: 30233N1 Transfusion of Nonautologous Red Blood Cells into Peripheral Vein, Percutaneous Approach (ICD-10-PCS; 2016-12-25)
DX: K92.1 Melena (principal); D62 Acute posthemorrhagic anemia; K57.31 Diverticulosis of large intestine without perforation or abscess with bleeding; E87.6 Hypokalemia; R07.89 Other chest pain; R06.02 Shortness of breath; E11.9 Type 2 diabetes mellitus without complications; I35.0 Nonrheumatic aortic (valve) stenosis; I25.10 Atherosclerotic heart disease of native coronary artery without angina pectoris; F41.8 Other specified anxiety disorders; M19.90 Unspecified osteoarthritis, unspecified site; G62.9 Polyneuropathy, unspecified; Z79.899 Other long term (current) drug therapy
CPT/HCPCS: 36415; 36430; 80048; 80053; 82803; 85014; 85018; 85025; 86850; 86900; 86922; 87081; 96360; 99284

== ENCOUNTER 2016-12-30 15:31 | Outpatient (CLI) ==
[2016-12-30 16:00] LABS: BASOPHILS # (AUTO) 0.1 K/uL (0-0.2); BASOPHILS % (AUTO) 1.4 % (0.0-3.0); EOSINOPHILS # (AUTO) 0.2 K/ul (0.0-0.7); EOSINOPHILS % (AUTO) 5.3 % (0.0-7.0); HEMATOCRIT 27.1 % (37.0-47.0); HEMOGLOBIN 8.7 g/dl (12.0-16.0); IMMATURE GRANULOCYTE % (AUTO) 0.2 % (0.0-5.0); LYMPHOCYTES # (AUTO) 0.9 K/uL (0.60-3.4); LYMPHOCYTES % (AUTO) 21.4 (10.0-50.0); MEAN CORPUSCULAR HEMOGLOBIN 29.7 pg (27.0-31.0); MEAN CORPUSCULAR HGB CONC 32.1 (31.8-35.4); MEAN CORPUSCULAR VOLUME 92.5 fl (81.0-99.0); MONOCYTES # (AUTO) 0.4 K/uL (0.4-2.0); MONOCYTES % (AUTO) 8.1 (0-10); NEUTROPHILS # (AUTO) 2.7 K/ul (2.0-6.9); NEUTROPHILS % (AUTO) 63.6; PLATELET COUNT 170 10^3/uL (140-440); RED BLOOD COUNT 2.93 10^6/ul (4.20-5.40)
== END 2016-12-30 15:32 | disposition home or self-care (01) ==
LOC: LAB 15:31
PROVIDERS: ATTEND Emergency Medicine
DX: D50.0 Iron deficiency anemia secondary to blood loss (chronic) (principal)
CPT/HCPCS: 36415; 85025

== ENCOUNTER 2017-01-02 13:14 | Outpatient (CLI) ==
[2017-01-02 13:25] LABS: BASOPHILS # (AUTO) 0.1 K/uL (0-0.2); BASOPHILS % (AUTO) 0.9 % (0.0-3.0); EOSINOPHILS # (AUTO) 0.3 K/ul (0.0-0.7); EOSINOPHILS % (AUTO) 4.7 % (0.0-7.0); HEMATOCRIT 24.8 % (37.0-47.0); HEMOGLOBIN 7.8 g/dl (12.0-16.0); IMMATURE GRANULOCYTE % (AUTO) 0.4 % (0.0-5.0); LYMPHOCYTES # (AUTO) 1.3 K/uL (0.60-3.4); MEAN CORPUSCULAR HGB CONC 31.5 (31.8-35.4); MEAN CORPUSCULAR VOLUME 95.4 fl (81.0-99.0); MONOCYTES # (AUTO) 0.6 K/uL (0.4-2.0); MONOCYTES % (AUTO) 11.2 (0-10); NEUTROPHILS # (AUTO) 3.2 K/ul (2.0-6.9); NEUTROPHILS % (AUTO) 58.8; PLATELET COUNT 209 10^3/uL (140-440); WHITE BLOOD COUNT 5.37 K/ul (4.6-10.2)
== END 2017-01-02 13:15 | disposition home or self-care (01) ==
LOC: LAB 13:14
PROVIDERS: ATTEND Emergency Medicine
DX: D50.0 Iron deficiency anemia secondary to blood loss (chronic) (principal)
CPT/HCPCS: 36415; 85025

== ENCOUNTER → 2017-01-04 | Outpatient (POV) ==
[~2017-01-04] MED LIST: K-DUR ONE
== END ==
LOC: OUTPT 00:01
PROVIDERS: ATTEND Otolaryngology
DX: H91.90 Unspecified hearing loss, unspecified ear (principal)

== ENCOUNTER 2017-01-06 12:36 | Outpatient (CLI) ==
[2017-01-06 12:40] LABS: BASOPHILS % (AUTO) 0.5 % (0.0-3.0); EOSINOPHILS # (AUTO) 0.2 K/ul (0.0-0.7); EOSINOPHILS % (AUTO) 3.6 % (0.0-7.0); HEMATOCRIT 21.9 % (37.0-47.0); HEMOGLOBIN 7.1 g/dl (12.0-16.0); IMMATURE GRANULOCYTE % (AUTO) 0.5 % (0.0-5.0); LYMPHOCYTES # (AUTO) 1.2 K/uL (0.60-3.4); LYMPHOCYTES % (AUTO) 21.2 (10.0-50.0); MEAN CORPUSCULAR HEMOGLOBIN 32.1 pg (27.0-31.0); MEAN CORPUSCULAR HGB CONC 32.4 (31.8-35.4); MEAN CORPUSCULAR VOLUME 99.1 fl (81.0-99.0); MONOCYTES # (AUTO) 0.5 K/uL (0.4-2.0); MONOCYTES % (AUTO) 8.5 (0-10); NEUTROPHILS # (AUTO) 3.8 K/ul (2.0-6.9); NEUTROPHILS % (AUTO) 65.7; PLATELET COUNT 223 10^3/uL (140-440); RED BLOOD COUNT 2.21 10^6/ul (4.20-5.40); WHITE BLOOD COUNT 5.85 K/ul (4.6-10.2)
== END 2017-01-06 12:37 | disposition home or self-care (01) ==
LOC: LAB 12:36
PROVIDERS: ATTEND Emergency Medicine
DX: D50.0 Iron deficiency anemia secondary to blood loss (chronic) (principal)
CPT/HCPCS: 36415; 85025

== ENCOUNTER 2017-01-07 00:18 | Inpatient (IN) ==
--- NOTE | 2017-01-07 00:32 | ED.PDOC ---
General ED Provider: Dr. YODIT GUZMÁN-ER Chief Complaint: GI Bleed Stated Complaint: im bleeding again and feel like i am going to pass out Time Seen by Physician: 00:20 Mode of Arrival: Ambulance Information Source: Patient, Family Exam Limitations: No limitations Primary Care Provider: [facility] Nursing and Triage Documentation Reviewed and Agree: Yes GI Complaint Exam - GI Bleed Complaint/Exam Patient Complains of: Reports: Rectal bleeding Onset/Duration: several hours Symptoms Are: Still present Severity: Reports: Bright red blood-rectum Location of Pain: Reports: Diffuse Aggravating: Reports: None Alleviating: Reports: None Associated Signs and Symptoms: Reports: Pallor, Dizziness, Weakness, Syncope, Nausea. Denies: Back Pain, Constipation, Rectal pain, Bruising, Weight loss, Recent abnormal coags Related History: Reports: Similar episode Recent Colonoscopy: No Recent EGD: No Abdominal Findings: Present: None Differential Diagnoses: Other Review of Systems - Review Of Systems Constitutional: Reports: No symptoms Eyes: Reports: No symptoms Ears, Nose, Mouth, Throat: Reports: No symptoms Respiratory: Reports: No symptoms Cardiac: Reports: No symptoms GI: Reports: Nausea, Poor appetite, Rectal bleeding, Vomiting : Reports: No symptoms Musculoskeletal: Reports: No symptoms Skin: Reports: No symptoms Neurological: Reports: Cognitive dysfunction Endocrine: Reports: No symptoms Hematologic/Lymphatic: Reports: No symptoms All Other Systems: Reviewed and Negative Past Medical History - Past Medical History Previously Healthy: Yes Endocrine: Reports: Hypothyroid, Dyslipidemia Cardiovascular: Reports: CAD, Hypertension Respiratory: Reports: None Hematological: Reports: Anemia Gastrointestinal: Reports: None Genitourinary: Reports: None Neuro/Psych: Reports: None Musculoskeletal: Reports: Arthritis Cancer: Reports: None Last Menstrual Period: post menopausal Other Pertinent Past Medical History: htn thy ane chol depr arth cad - Surgical History General Surgical History: Reports: Orthopedic (LT SHOULDER REPLACED), Other (- ORAL SURG-). Denies: Hysterectomy (D & C-) - Family History Family History: Reports: Unknown - Social History Smoking Status: Former smoker Hx Substance Use: No Alcohol Screening: None Lives: With family - Immunizations Tetanus Shot up to Date: Yes Physical Exam - Physical Exam Appearance: Well-appearing, No pain distress, Well-nourished Ill-appearing: Mild Eyes: ENRIEK, EOMI, Conjunctiva clear, Conjunctiva pale ENT: Ears normal, Nose normal, Oropharynx normal Neck: Supple Respiratory: Airway patent Cardiovascular: RRR, Pulses normal, No rub, No murmur GI/: Soft Musculoskeletal: Normal strength Skin: Warm, Dry, Pale Neurological: Sensation intact, Motor intact, Reflexes intact, Cranial nerves intact, Alert, Oriented Psychiatric: Affect appropriate, Mood appropriate, Anxious Re-Evaluation - Re-Evaluation Time of Re-Evaluation: 02:33 Status: Improved Vital Signs Stable: Yes Pain Level: 1 Appearance: NAD Lungs: Clear Skin: Warm and Dry Neuro: Alert and Oriented X3 CV: RRR Physician Notification - Case Discussed Physician Notified: dr doe Critical Care Note - Critical Care Note Total Time (mins): 0 Course - Course Hematology/Chemistry: 01/07/17 00:53 01/07/17 00:53 Orders, Labs, Meds: Lab Review 01/07/17 01/07/17 01/07/17 00:53 00:53 00:53 WBC 9.42 RBC 1.58 L Hgb 5.1 L* Hct 15.6 L* D MCV 98.7 MCH 32.3 H MCHC 32.7 RDW Coeff of Angelo 20.5 H Plt Count 198 Immature Gran % (Auto) 1.0 Neut % (Auto) 77.4 Lymph % (Auto) 11.4 [place] % (Auto) 9.3 Eos % (Auto) 0.7 Baso % (Auto) 0.2 Immature Gran # (Auto) 0.1 Neut # 7.3 H Lymph # 1.1 [place] # 0.9 Eos # 0.1 Baso # 0.0 Sodium 138 Potassium 3.4 L Chloride 104 Carbon Dioxide 26 Anion Gap 11.4 BUN 26 H Creatinine 1.02 Estimated GFR (MDRD) 53.00 BUN/Creatinine Ratio 25.49 Glucose 191 H Calcium 8.4 Total Bilirubin 0.29 AST 18 ALT 7 L Alkaline Phosphatase 70 Total Protein 4.5 L Albumin 2.4 L Globulin 2.1 Albumin/Globulin Ratio 1.14 Blood Type O POSITIVE Antibody Screen Negative Crossmatch (AHG) See Detail Orders Category Date Time Status EKG-(ED ONLY) Stat CARDIO 01/07/17 00:42 Ordered IV ACCESS ONCE CARE 01/07/17 00:25 Active ORDER H&H 1HR POST TRANSFUSION ONCE CARE 01/07/17 01:01 Active PRBC LEUKOREDUCED ONCE CARE 01/07/17 01:01 Active Plumbing Service Technician [ED SUBWAY TRAIN OPERATOR APPLIED] .ONCE EMERGENCY 01/07/17 00:25 Active CBC W/ AUTO DIFF Stat LAB 01/07/17 00:53 Completed COMPREHENSIVE METABOLIC PANEL Stat LAB 01/07/17 00:53 Completed CREATINE KINASE Stat LAB 01/07/17 00:53 Received PACKED CELLS Routine LAB 01/07/17 00:53 Results TROPONIN I Stat LAB 01/07/17 00:53 Received TYPE AND SCREEN Stat LAB 01/07/17 00:53 Results Morphine Sulfate [Morphine 2 mg/ml Syringe] MEDS 01/07/17 01:03 Discontinued 2 mg IVP ONCE STA Medications Discontinued Medications Generic Name Dose Route Start Last Admin Trade Name Freq PRN Reason Stop Dose Admin Morphine Sulfate 2 mg 01/07/17 01:03 01/07/17 01:19 Morphine 2 Mg/Ml Syringe IVP 01/07/17 01:04 2 mg ONCE STA Administration Vital Signs: Temp Pulse Resp BP Pulse Ox 01/07/17 00:19 96.9 F L 90 18 93/37 L 97 Departure - Departure Time of Disposition: 02:35 Disposition: ADMITTED INPATIENT Discharge Problem: Gastrointestinal hemorrhage, Angina pectoris Instructions: Rectal Bleeding (ED) Condition: Poor Pt referred to PMD for follow-up: Yes Allergies/Adverse Reactions: Allergies Latex, Natural Rubber Adverse Reaction (Verified 12/24/16 15:46) Home Medications: Ambulatory Orders Rosuvastatin Calcium [Crestor] 20 mg PO BEDTIME 09/02/15 [place]-3 Fatty Acids/Fish Oil [Fish Oil 1,000 mg Capsule] 1 each PO DAILY Furosemide [Lasix Tab] 1 tab PO EVERY OTHER DAY 10/21/16 Calcium Carbonate/Vitamin D3 [Calcium 600 + Vit D 400 Tablet] 1 each PO DAILY Ferrous Sulfate 324 mg PO BID 10/23/16 Levothyroxine Sodium [Synthroid] 75 mcg PO QDAC 10/23/16 Lorazepam [Ativan] 1 mg PO BEDTIME PRN 10/23/16 Multivitamin [Multi-Vitamin Daily] 1 each PO DAILY 10/23/16 Pantoprazole Sodium [Protonix] 40 mg PO QDAC 10/23/16 Polyethylene Glycol 3350 [Miralax] 17 gm PO DAILY 10/23/16 Mometasone Furoate [Elocon] 45 gm TP DAILY #1 tb 01/04/17 Transfer Form Completed: No Disposition Discussed With: Patient, Family
[2017-01-07 01:08] LABS: BASOPHILS % (AUTO) 0.2 % (0.0-3.0); EOSINOPHILS # (AUTO) 0.1 K/ul (0.0-0.7); EOSINOPHILS % (AUTO) 0.7 % (0.0-7.0); LYMPHOCYTES # (AUTO) 1.1 K/uL (0.60-3.4); LYMPHOCYTES % (AUTO) 11.4 (10.0-50.0); MEAN CORPUSCULAR HEMOGLOBIN 32.3 pg (27.0-31.0); MEAN CORPUSCULAR HGB CONC 32.7 (31.8-35.4); MEAN CORPUSCULAR VOLUME 98.7 fl (81.0-99.0); MONOCYTES # (AUTO) 0.9 K/uL (0.4-2.0); MONOCYTES % (AUTO) 9.3 (0-10); NEUTROPHILS # (AUTO) 7.3 K/ul (2.0-6.9); NEUTROPHILS % (AUTO) 77.4; PLATELET COUNT 198 10^3/uL (140-440); RED BLOOD COUNT 1.58 10^6/ul (4.20-5.40); WHITE BLOOD COUNT 9.42 K/ul (4.6-10.2)
[2017-01-07] MEDS: MORPHINE 2 MG/ML SYRINGE IVP STA ×2 (01:08→01:19)
[2017-01-07 01:11] LABS: HEMOGLOBIN 5.1 g/dl (12.0-16.0)
[2017-01-07 01:12] LABS: HEMATOCRIT 15.6 % (37.0-47.0)
[2017-01-07 01:26] LABS: ALBUMIN 2.4 g/dL (3.4-5.0); ALBUMIN/GLOBULIN RATIO 1.14; ANION GAP 11.4; BILIRUBIN,TOTAL 0.29 mg/dL (0.00-1.20); BUN/CREATININE RATIO 25.49; CALCIUM 8.4 mg/dL (8.2-10.2); CREATININE 1.02 mg/dL (0.60-1.30); POTASSIUM 3.4 mmol/L (3.5-5.10); TOTAL PROTEIN 4.5 g/dL (5.8-8.1)
[2017-01-07] MEDS ORDERED: ATIVAN PO PRN (02:41)
[2017-01-07] MEDS ORDERED: ZOFRAN 4 MG/2 ML IVP PRN (02:42)
[2017-01-07] MEDS ORDERED: MORPHINE 2 MG/ML SYRINGE IVP PRN (02:43)
[2017-01-07 02:54] LABS: TROPONIN I 0.057 ng/ml (0.0000-0.4000)
[2017-01-07 03:48] VITALS: BMI 30.5
[2017-01-07] MEDS: SODIUM CHLORIDE 1,000 ML IV SCH ×2 (03:49→12:02)
[2017-01-07] MEDS: PROTONIX PO SCH (05:49)
[2017-01-07] MEDS: SYNTHROID PO SCH (05:50)
[2017-01-07] MEDS ORDERED: NON-FORMULARY MEDICATION (Duloxetine Hcl [Cymbalta] 60 MG) PO SCH ×22 (09:00)
[2017-01-07] MEDS: MIRALAX PO SCH (09:35)
[2017-01-07] MEDS: CALCIUM 500 + VIT D 200 MG TABLET PO SCH (09:36)
[2017-01-07] MEDS: CYMBALTA PO SCH (09:37)
[2017-01-07] MEDS: FERROUS SULFATE PO SCH ×2 (09:37→20:18)
[2017-01-07] MEDS: NEURONTIN PO SCH ×3 (09:38→20:18)
[2017-01-07] MEDS: ELOCON TP SCH (09:38)
[2017-01-07] MEDS: LASIX TAB PO SCH (09:38)
[2017-01-07 10:30] LABS: BASOPHILS # (AUTO) 0.1 K/uL (0-0.2); BASOPHILS % (AUTO) 0.7 % (0.0-3.0); EOSINOPHILS # (AUTO) 0.1 K/ul (0.0-0.7); EOSINOPHILS % (AUTO) 1.3 % (0.0-7.0); HEMOGLOBIN 7.8 g/dl (12.0-16.0); LYMPHOCYTES # (AUTO) 1.7 K/uL (0.60-3.4); LYMPHOCYTES % (AUTO) 16.6 (10.0-50.0); MEAN CORPUSCULAR HGB CONC 33.6 (31.8-35.4); MEAN CORPUSCULAR VOLUME 92.1 fl (81.0-99.0); MONOCYTES % (AUTO) 10.1 (0-10); NEUTROPHILS # (AUTO) 7.2 K/ul (2.0-6.9); NEUTROPHILS % (AUTO) 70.3; PLATELET COUNT 162 10^3/uL (140-440); RED BLOOD COUNT 2.52 10^6/ul (4.20-5.40); WHITE BLOOD COUNT 10.21 K/ul (4.6-10.2)
[2017-01-07 10:31] LABS: HEMATOCRIT 23.2 % (37.0-47.0)
[2017-01-07 10:55] LABS: ALBUMIN 2.4 g/dL (3.4-5.0); ALBUMIN/GLOBULIN RATIO 1.14; ANION GAP 10.4; BILIRUBIN,TOTAL 0.72 mg/dL (0.00-1.20); BUN/CREATININE RATIO 28.75; CALCIUM 8.4 mg/dL (8.2-10.2); CREATININE 0.8 mg/dL (0.60-1.30); POTASSIUM 3.4 mmol/L (3.5-5.10); TOTAL PROTEIN 4.5 g/dL (5.8-8.1); TROPONIN I 0.145 ng/ml (0.0000-0.4000)
[2017-01-07] MEDS ORDERED: K-DUR PO STA (11:37)
[2017-01-07 17:20] LABS: TROPONIN I 0.171 ng/ml (0.0000-0.4000)
[2017-01-07] MEDS: CRESTOR PO SCH (20:18)
[2017-01-07] MEDS ORDERED: NON-FORMULARY MEDICATION (Rosuvastatin Calcium [Crestor] 20 MG) PO SCH ×22 (21:00)
[2017-01-07] MEDS ORDERED: NON-FORMULARY MEDICATION (Gabapentin [Neurontin] 600 MG) PO SCH ×22 (21:00)
[2017-01-08] MEDS: SODIUM CHLORIDE 1,000 ML IV SCH ×2 (00:57→15:03)
[2017-01-08 05:36] LABS: BASOPHILS % (AUTO) 0.6 % (0.0-3.0); EOSINOPHILS # (AUTO) 0.2 K/ul (0.0-0.7); EOSINOPHILS % (AUTO) 3.3 % (0.0-7.0); HEMATOCRIT 22.1 % (37.0-47.0); HEMOGLOBIN 7.2 g/dl (12.0-16.0); IMMATURE GRANULOCYTE % (AUTO) 0.9 % (0.0-5.0); LYMPHOCYTES # (AUTO) 1.6 K/uL (0.60-3.4); LYMPHOCYTES % (AUTO) 24.3 (10.0-50.0); MEAN CORPUSCULAR HGB CONC 32.6 (31.8-35.4); MEAN CORPUSCULAR VOLUME 95.3 fl (81.0-99.0); MONOCYTES # (AUTO) 0.6 K/uL (0.4-2.0); MONOCYTES % (AUTO) 8.6 (0-10); NEUTROPHILS # (AUTO) 4.1 K/ul (2.0-6.9); NEUTROPHILS % (AUTO) 62.3; PLATELET COUNT 137 10^3/uL (140-440); RED BLOOD COUNT 2.32 10^6/ul (4.20-5.40); WHITE BLOOD COUNT 6.59 K/ul (4.6-10.2)
[2017-01-08] MEDS: PROTONIX PO SCH (05:38)
[2017-01-08] MEDS: SYNTHROID PO SCH (05:39)
[2017-01-08 05:49] LABS: ALBUMIN 2.4 g/dL (3.4-5.0); ALBUMIN/GLOBULIN RATIO 1.09; ANION GAP 11.1; BILIRUBIN,TOTAL 0.36 mg/dL (0.00-1.20); BUN/CREATININE RATIO 26.47; CALCIUM 8.2 mg/dL (8.2-10.2); CREATININE 0.68 mg/dL (0.60-1.30); POTASSIUM 4.1 mmol/L (3.5-5.10); TOTAL PROTEIN 4.6 g/dL (5.8-8.1)
[2017-01-08] MEDS: CYMBALTA PO SCH (09:57)
[2017-01-08] MEDS: NEURONTIN PO SCH ×3 (09:57→21:00)
[2017-01-08] MEDS: FERROUS SULFATE PO SCH ×2 (09:58→21:00)
[2017-01-08] MEDS: CALCIUM 500 + VIT D 200 MG TABLET PO SCH (09:58)
[2017-01-08] MEDS: MIRALAX PO SCH (09:58)
[2017-01-08] MEDS: ELOCON TP SCH (09:58)
[2017-01-08] MEDS: CRESTOR PO SCH (21:00)
[2017-01-09 00:15] LABS: HEMATOCRIT 28.4 % (37.0-47.0); HEMOGLOBIN 9.4 g/dl (12.0-16.0)
[2017-01-09] MEDS: PROTONIX PO SCH (05:30)
[2017-01-09] MEDS: LASIX TAB PO SCH (05:30)
[2017-01-09] MEDS: SYNTHROID PO SCH (05:30)
[2017-01-09 05:42] LABS: BASOPHILS # (AUTO) 0.1 K/uL (0-0.2); BASOPHILS % (AUTO) 0.7 % (0.0-3.0); EOSINOPHILS # (AUTO) 0.3 K/ul (0.0-0.7); EOSINOPHILS % (AUTO) 4.6 % (0.0-7.0); HEMATOCRIT 28.3 % (37.0-47.0); HEMOGLOBIN 9.5 g/dl (12.0-16.0); LYMPHOCYTES # (AUTO) 1.4 K/uL (0.60-3.4); LYMPHOCYTES % (AUTO) 19.7 (10.0-50.0); MEAN CORPUSCULAR HEMOGLOBIN 30.5 pg (27.0-31.0); MEAN CORPUSCULAR HGB CONC 33.6 (31.8-35.4); MONOCYTES # (AUTO) 0.6 K/uL (0.4-2.0); MONOCYTES % (AUTO) 8.3 (0-10); NEUTROPHILS # (AUTO) 4.7 K/ul (2.0-6.9); NEUTROPHILS % (AUTO) 65.7; PLATELET COUNT 131 10^3/uL (140-440); RED BLOOD COUNT 3.11 10^6/ul (4.20-5.40); WHITE BLOOD COUNT 7.12 K/ul (4.6-10.2)
[2017-01-09 06:02] LABS: ALBUMIN 2.6 g/dL (3.4-5.0); ALBUMIN/GLOBULIN RATIO 1.13; ANION GAP 10.8; BILIRUBIN,TOTAL 0.66 mg/dL (0.00-1.20); BUN/CREATININE RATIO 20.83; CALCIUM 8.8 mg/dL (8.2-10.2); CREATININE 0.72 mg/dL (0.60-1.30); POTASSIUM 3.8 mmol/L (3.5-5.10); TOTAL PROTEIN 4.9 g/dL (5.8-8.1)
[2017-01-09] MEDS: MIRALAX PO SCH (08:33)
[2017-01-09] MEDS: NEURONTIN PO SCH (08:33)
[2017-01-09] MEDS: FERROUS SULFATE PO SCH (08:33)
[2017-01-09] MEDS: CALCIUM 500 + VIT D 200 MG TABLET PO SCH (08:33)
[2017-01-09] MEDS: CYMBALTA PO SCH (08:33)
[2017-01-09] MEDS: ELOCON TP SCH (08:34)
[2017-01-09] MEDS: SODIUM CHLORIDE 1,000 ML IV SCH ×2 (08:38→09:06)
--- NOTE | 2017-01-09 11:56 | HP ---
DATE OF SERVICE: 01/07/17 CHIEF COMPLAINT/HISTORY OF PRESENT ILLNESS: The patient was brought by the family for having chest pain, tightness, shortness of breath and lethargic. She has history of chronic lower GI bleed. The patient's blood work showed the hgb of 7.7 on Monday but early in the morning when the family brought the patient for the chest tightness and the angina symptoms the hgb was 5.1 and at that time the patient was admitted to the hospital for blood transfusion and IV fluids. REVIEW OF SYSTEMS: CONSTITUTIONAL: No fever, no chills. weakness and tiredness. HEENT: Normal. ENDOCRINE: No weight gain; no weight loss. CVS: Chest pain. No PND, no orthopnea. Shortness of breath. No PND, no orthopnea. RESPIRATORY: No cough, no congestion. No hemoptysis. GI: No nausea, no vomiting. No abdominal pain. No melena. : No hematuria. No polyuria. MUSCULOSKELETAL: No joint swelling. PSYCHIATRIC: Not anxious. No depression. No suicidal thoughts. No homicidal thoughts. SKIN: Intact, no open lesions. PAST MEDICAL HISTORY: Hypertension Dyslipidemia Severe aortic stenosis Coronary artery disease LVH Alzheimer's Dementia Peripheral neuropathy COPD Depression Anxiety Diabetes, diet controlled PAST SURGICAL HISTORY: Left shoulder replacement PERSONAL HISTORY: The patient is and lives with the family. Family history is significant for diabetes, thyroid problems and heart problems. MEDICATIONS: Crestor [place] 3 Cymbalta Lasix Synthroid Ativan Miralax Multivitamin Ferrous Sulfate Calcium Protonix Neurontin Neurontin Elocon ALLERGIES: Latex Natural rubber PHYSICAL EXAMINATION: V/S: Blood pressure 105/50, respiratory rate 20, heart rate 74, temperature 98.7 with saturation 99 on 2 liters. HEENT: Atraumatic, normocephalic. No scleral icterus. Pallor positive. Mucosa dry NECK: Supple. No JVD, no bruit. No lymphadenopathy. No thyromegaly. HEART: S1, S2 normal. Systolic murmur positive. No cyanosis or clubbing. No ascites. LUNGS: Decreased and clear to auscultation. No rales or rhonchi. ABDOMEN: Soft, nontender. Bowel sounds are active. No CVA tenderness. No rigidity or guarding. EXTREMITIES: No cyanosis, clubbing and 1+ edema. MUSCULOSKELETAL: Normal joints, no swelling. NEUROLOGIC: The patient is awake and alert. SKIN: Intact; no open lesions. LYMPHATIC: No lymph nodes palpable. LABS: Sodium 138, potassium 3.4, chloride 106, bicarb 26, BUN 23, creatinine 0.80, [id number]; initial hgb was 5.1 after two units of blood transfusion 7.8 now, WBC 10.21, hgb 7.8, hct 23.2, plt count 162. ASSESSMENT: 1. Severe anemia, symptomatic 2. Angina 3. Severe Aortic stenosis 4. Depression 5. Anxiety 6. Chronic lower GI bleed PLAN: 1. Admit patient to the SCU 2. Type and cross match two units and transfuse 2 units 3. Protonix 4. IV fluids 5. Continue home medication TIME SPENT: MORE THAN 70 minutes MTDD
[2017-01-09 12:17] LABS: HEMATOCRIT 28.7 % (37.0-47.0); HEMOGLOBIN 9.6 g/dl (12.0-16.0)
--- NOTE | 2017-01-09 13:13 | PN ---
DATE OF SERVICE: 01/08/17 SUBJECTIVE: Hgb is still 7.2 after two units of blood transfusion. The patient is still up and about and still has some shortness of breath. No chest pain. REVIEW OF SYSTEMS: CONSTITUTIONAL: No fever, no chills. HEENT: Normal. ENDOCRINE: No weight gain, no weight loss. CVS: No angina symptoms. No CHF symptoms. No palpitations. No atypical chest pain for CAD. No shortness of breath. No PND, no orthopnea. RESPIRATORY: No cough, no hemoptysis. GI: No nausea, no vomiting. No abdominal pain. : No hematuria. No polyuria. MUSCULOSKELETAL:. No joint swelling. PSYCHIATRIC: Not anxious. No depression. No suicidal thoughts. No homicidal thoughts. SKIN: Intact. No rash. PHYSICAL EXAMINATION: V/S: Blood pressure 109/42, respiratory rate 18, heart rate 64, temperature 97.5 with saturation 96%. HEENT: Normocephalic, atraumatic. Mucosa dry. Pallor positive. No icterus. NECK: Supple. No JVD, no carotid bruit. No lymphadenopathy. LUNGS: Decreased and basilar crackles. No rales or rhonchi. HEART: S1, S2 normal. No S3. Systolic murmur positive, gallop or regurgitation. ABDOMEN: Soft, nontender. Bowel sounds active. No rigidity. No rebound or guarding. No CVA tenderness. EXTREMITIES: No clubbing, cyanosis or pedal edema. MUSCULOSKELETAL: No joint swelling. NEUROLOGIC: Awake, alert, oriented times three. No focal deficit. LYMPHATIC: No lymph nodes palpable. SKIN: Intact. LABS: WBC 6.59, hgb 7.2, hct 22.1, plt count 137, sodium 142, potassium 4.1, chloride 113, bicarb 22, BUN 18, creatinine 0.68, glucose 95%. ASSESSMENT: 1. Anemia needing blood transfusion. 2. Diabetes 3. Hypertension 4. Angina 5. Severe aortic stenosis 6. Coronary artery disease 7. Depression PLAN: 1. Continue two more units of blood transfusion 2. Out of bed to chair activity as tolerated TIME SPENT: More than 35 minutes MTDD
[2017-01-09 14:43] VITALS: BP 110/61; TEMP 98.6
--- NOTE | 2017-02-24 10:17 | DS ---
DATE OF SERVICE: 01/09/17 FINAL DIAGNOSIS: 1. Acute lower GI bleed and needing blood transfusions 2. Symptomatic anemia 3. Severe aortic stenosis 4. Coronary artery disease 5. Depression 6. Diabetes, diet controlled 7. Peripheral neuropathy 8. Left shoulder replacement 9. Osteoarthritis 10.Anxiety DISCHARGE INSTRUCTIONS: Discharge the patient home. Recheck the H&H within three days. Continue all home medications. MEDICATIONS AT DISCHARGE: Calcium with Vitamin D Cymbalta Ferrous Sulfate Lasix Neurontin Synthroid Ativan Multivitamin [place]-3 Protonix Miralax Crestor NEW PRESCRIPTIONS: None DIET INSTRUCTIONS: Cardiac and Healthy ACTIVITY: As much as tolerated SMOKING: Former Smoker DISEASE SPECIFIC EDUCATION: Chronic lower GI bleed Acute on chronic anemia needing blood transfusion and transfusion reaction been discussed with the patient multiple times. HOSPITAL COURSE: Abbie Huynh who is a 76 year old female with a history of the chronic and recurrent lower GI bleed came to the emergency room with acute on chronic lower GI bleed. Hgb was 5.1 and the previous day on Monday hgb was check which was 7.1. The patient had 3-4 bowel movements which are all bloody and tinted blood, bright blood to dull blood. The patient was seen by Dr. Burrell in the emergency room with 5.1 hgb. Type and screened 4 units and started on blood transfusion. Hgb went up to 7.8, 9.4 and 9.5 stayed steady and bowel movements were stopped and did not have any bloody bowel movements or black tarry stool. At that time the patient being discharged to home. TIME SPENT: MORE THAN 60 MINUTES MTDD
== END 2017-01-09 14:54 | disposition home or self-care (01) | DRG 379 ==
LOC: ED 00:18 → SCU 02:59
PROVIDERS: ADMIT Emergency Medicine; ATTEND Emergency Medicine
PROC: 30233N1 Transfusion of Nonautologous Red Blood Cells into Peripheral Vein, Percutaneous Approach (ICD-10-PCS; principal; 2017-01-07)
PROC: 30233N1 Transfusion of Nonautologous Red Blood Cells into Peripheral Vein, Percutaneous Approach (ICD-10-PCS; 2017-01-07)
PROC: 30233N1 Transfusion of Nonautologous Red Blood Cells into Peripheral Vein, Percutaneous Approach (ICD-10-PCS; 2017-01-08)
PROC: 30233N1 Transfusion of Nonautologous Red Blood Cells into Peripheral Vein, Percutaneous Approach (ICD-10-PCS; 2017-01-08)
DX: K92.2 Gastrointestinal hemorrhage, unspecified (principal); D50.0 Iron deficiency anemia secondary to blood loss (chronic); K92.1 Melena; R06.02 Shortness of breath; I25.119 Atherosclerotic heart disease of native coronary artery with unspecified angina pectoris; I35.0 Nonrheumatic aortic (valve) stenosis; E11.9 Type 2 diabetes mellitus without complications; F41.8 Other specified anxiety disorders; G62.9 Polyneuropathy, unspecified; M19.90 Unspecified osteoarthritis, unspecified site; R53.83 Other fatigue; R53.1 Weakness; R61 Generalized hyperhidrosis; Z96.612 Presence of left artificial shoulder joint; Z79.899 Other long term (current) drug therapy
CPT/HCPCS: 36415; 36430; 80053; 82550; 84484; 85014; 85018; 85025; 86850; 86900; 86922; 87081; 93005; 93010; 96361; 96365; 96375; 99223; 99233; 99239; 99284

== ENCOUNTER 2017-01-12 11:25 | Outpatient (CLI) ==
[2017-01-12 11:46] LABS: BASOPHILS # (AUTO) 0.1 K/uL (0-0.2); BASOPHILS % (AUTO) 1.5 % (0.0-3.0); EOSINOPHILS # (AUTO) 0.3 K/ul (0.0-0.7); EOSINOPHILS % (AUTO) 4.5 % (0.0-7.0); HEMATOCRIT 29.1 % (37.0-47.0); HEMOGLOBIN 9.5 g/dl (12.0-16.0); IMMATURE GRANULOCYTE % (AUTO) 0.5 % (0.0-5.0); LYMPHOCYTES % (AUTO) 17.7 (10.0-50.0); MEAN CORPUSCULAR HEMOGLOBIN 30.9 pg (27.0-31.0); MEAN CORPUSCULAR HGB CONC 32.6 (31.8-35.4); MEAN CORPUSCULAR VOLUME 94.8 fl (81.0-99.0); MONOCYTES # (AUTO) 0.6 K/uL (0.4-2.0); MONOCYTES % (AUTO) 10.8 (0-10); NEUTROPHILS # (AUTO) 3.8 K/ul (2.0-6.9); PLATELET COUNT 151 10^3/uL (140-440); RED BLOOD COUNT 3.07 10^6/ul (4.20-5.40); WHITE BLOOD COUNT 5.82 K/ul (4.6-10.2)
== END 2017-01-12 11:26 | disposition home or self-care (01) ==
LOC: LAB 11:25
PROVIDERS: ATTEND Emergency Medicine
DX: D50.0 Iron deficiency anemia secondary to blood loss (chronic) (principal)
CPT/HCPCS: 36415; 85025

== ENCOUNTER 2017-01-16 14:44 | Inpatient (IN) ==
[2017-01-16 15:27] LABS: BASOPHILS % (AUTO) 0.2 % (0.0-3.0); EOSINOPHILS # (AUTO) 0.2 K/ul (0.0-0.7); EOSINOPHILS % (AUTO) 2.1 % (0.0-7.0); IMMATURE GRANULOCYTE % (AUTO) 0.9 % (0.0-5.0); LYMPHOCYTES # (AUTO) 1.7 K/uL (0.60-3.4); LYMPHOCYTES % (AUTO) 18.4 (10.0-50.0); MEAN CORPUSCULAR HEMOGLOBIN 31.6 pg (27.0-31.0); MEAN CORPUSCULAR HGB CONC 31.1 (31.8-35.4); MEAN CORPUSCULAR VOLUME 101.7 fl (81.0-99.0); MONOCYTES # (AUTO) 0.8 K/uL (0.4-2.0); MONOCYTES % (AUTO) 8.2 (0-10); NEUTROPHILS # (AUTO) 6.4 K/ul (2.0-6.9); NEUTROPHILS % (AUTO) 70.2; PLATELET COUNT 175 10^3/uL (140-440); RED BLOOD COUNT 1.77 10^6/ul (4.20-5.40); WHITE BLOOD COUNT 9.14 K/ul (4.6-10.2)
[2017-01-16 15:29] LABS: HEMOGLOBIN 5.6 g/dl (12.0-16.0)
--- NOTE | 2017-01-16 15:43 | CT ---
EXAM: CT Abdomen without contrast. CT Pelvis without contrast. HISTORY: Generalized abdominal pain. Bloody stool. COMPARISON: 09/30/2016. TECHNIQUE: Multiple axial images of the abdomen and pelvis were obtained without intravenous contras t. Images were reformatted in the coronal plane. FINDINGS: Please note that evaluation of the abdominal and pelvic structures is limited due to lack of intravenous contrast. Small left pleural effusion noted. Small pericardial effusion also noted. Degenerative changes noted in the spine. The liver, gallbladder, pancreas, spleen, and adrenal glands demonstrate normal contour. Exophytic h igh density left renal lesion on axial image 35 is stable, likely a hemorrhagic cyst. Duodenal diverticulum noted. The bowel is normal in course and caliber without evidence for obstruct ion or inflammatory process. Colonic diverticulosis is present. The appendix is normal. Fat-contai kvng umbilical hernia noted. Uterus demonstrates normal contour. Urinary bladder is unremarkable. Phleboliths in the pelvis. Atherosclerotic calcifications are present with fusiform dilatation of th e infrarenal abdominal aorta to a maximum diameter 3 x 2.9 cm. Focal fluid density in the left glute al musculature on axial image 62 is stable, possibly related to left greater trochanteric bursitis. IMPRESSION: 1. No acute abnormality within the abdomen or pelvis. 2. Diverticulosis. 3. Atherosclerosis with 3 x 2.9 cm infrarenal abdominal aortic aneurysm. 4. Small left pleural effusion and small pericardial effusion.
[2017-01-16 15:54] LABS: ALBUMIN 2.4 g/dL (3.4-5.0); ALBUMIN/GLOBULIN RATIO 1.14; ANION GAP 10.8; BILIRUBIN,TOTAL 0.28 mg/dL (0.00-1.20); BUN/CREATININE RATIO 31.16; CALCIUM 8.6 mg/dL (8.2-10.2); CREATININE 0.77 mg/dL (0.60-1.30); POTASSIUM 3.8 mmol/L (3.5-5.10); TOTAL PROTEIN 4.5 g/dL (5.8-8.1); TROPONIN I 0.025 ng/ml (0.0000-0.4000)
[2017-01-16 16:11] LABS: PARTIAL THROMBOPLASTIN TIME < 21.0 SEC (23.9-40.0); PROTHROMBIN TIME 9.8 SEC (9.3-11.0)
--- NOTE | 2017-01-16 16:32 | ED.PDOC ---
General ED Provider: Dr. LAKSHMI FERRELL Chief Complaint: Weakness Stated Complaint: weakness Time Seen by Physician: 15:00 Mode of Arrival: Wheelchair Information Source: Patient Exam Limitations: No limitations Primary Care Provider: JERSEY DAMONKim Nursing and Triage Documentation Reviewed and Agree: Yes (generalized weakness , history of anemia) Neurological Complaint Exam - Weakness Complaint/Exam Onset: Gradual Duration: chronic Symptoms Are: Still present Timing: Constant Episodes Lasting: Weeks Initial Severity: Severe Current Severity: Severe Character: Reports: Lightheaded, Weak, Dizzy Aggravating: Reports: Headache Alleviating: Reports: None Associated Signs and Symptoms: Reports: Unsteady gait, Decreased oral intake. Denies: Nausea, Vomiting, Diaphoresis, Tinnitus, Chest pain, Short of air, Palpitations, GI blood loss, Visual changes, Change in medication, Change in diet, OTC meds, Loss of balance Related History: Similar episode Cardiac Risk Factors: Reports: Hypertension, Elevated lipids, CAD CVA Risk Factors: Reports: Hypertension Related Surgical History: Reports: None JVD Present: No Carotid Bruit Present: No Glascow Coma Scale (see protocol): 15 Nystagmus Present: No Gag Reflex Present: Yes Meningeal Signs Positive: No Focal Weakness: Present: None Focal Sensory Loss: Present: None Gait: Unable [id number]: Normal Findings Babinski Sign: Negative Right, Negative Left Differential Diagnoses: Hypovolemia, GI Bleed, Metabolic abnormalities Quality Indicators for Cardiac Chest Pain: EKG in 10min. Quality Indicators for AMI: EKG in 10min. Quality Indicator For Non-Traumatic Chest Pain/Syncope: EKG Performed Review of Systems - Review Of Systems Constitutional: Reports: Malaise, Weakness Eyes: Reports: No symptoms Ears, Nose, Mouth, Throat: Reports: No symptoms Respiratory: Reports: Cough Cardiac: Reports: Lightheadedness GI: Reports: No symptoms : Reports: No symptoms Musculoskeletal: Reports: No symptoms Skin: Reports: No symptoms Neurological: Reports: No symptoms Endocrine: Reports: No symptoms Hematologic/Lymphatic: Reports: No symptoms All Other Systems: Reviewed and Negative Past Medical History - Past Medical History Previously Healthy: Yes Endocrine: Reports: Hypothyroid, Dyslipidemia Cardiovascular: Reports: CAD, Hypertension Respiratory: Reports: None Hematological: Reports: Anemia Gastrointestinal: Reports: None Genitourinary: Reports: None Neuro/Psych: Reports: None Musculoskeletal: Reports: Arthritis Cancer: Reports: None Last Menstrual Period: none Other Pertinent Past Medical History: htn thy ane chol depr arth cad - Surgical History General Surgical History: Reports: Orthopedic (LT SHOULDER REPLACED), Other (- ORAL SURG-). Denies: Hysterectomy (D & C-) - Family History Family History: Reports: Unknown - Social History Smoking Status: Former smoker Hx Substance Use: No Alcohol Screening: None Physical Exam - Physical Exam Appearance: Ill-appearing Ill-appearing: Moderate Pain Distress: Moderate Eyes: ENRIKE, EOMI, Conjunctiva clear ENT: Dry mucosa Respiratory: Airway patent, Breath sounds clear, Breath sounds equal, Respirations nonlabored Cardiovascular: RRR, Pulses normal, No rub, No murmur GI/: Soft, Nontender, No masses, Bowel sounds normal, No Organomegaly Musculoskeletal: Normal strength, ROM intact, No edema, No calf tenderness Skin: Warm, Dry, Normal color Neurological: Sensation intact, Motor intact, Reflexes intact, Cranial nerves intact, Alert, Oriented Psychiatric: Affect appropriate, Mood appropriate Interpretation - Recoating Machine Operator Rate: Normal Rhythm: Sinus Ectopy: None - EKG Interpretation Rate: Normal Rhythm: Sinus Ectopy: None [place]: NL ST Segment: Normal (lvh starin pattern) Physician Notification - Case Discussed Physician Notified: pmd Time of Notification: 16:33 (admitt transfuse ) Critical Care Note - Critical Care Note Total Time (mins): 0 Course - Course Hematology/Chemistry: 01/16/17 15:10 01/16/17 15:10 Orders, Labs, Meds: Lab Review 01/16/17 01/16/17 01/16/17 15:10 15:10 15:10 WBC 9.14 RBC 1.77 L Hgb 5.6 L* Hct 18.0 L MCV 101.7 H D MCH 31.6 H MCHC 31.1 L RDW Coeff of Angelo 19.8 H Plt Count 175 Immature Gran % (Auto) 0.9 Neut % (Auto) 70.2 Lymph % (Auto) 18.4 [place] % (Auto) 8.2 Eos % (Auto) 2.1 Baso % (Auto) 0.2 Immature Gran # (Auto) 0.1 Neut # 6.4 Lymph # 1.7 [place] # 0.8 Eos # 0.2 Baso # 0.0 PT 9.8 INR 0.96 APTT < 21.0 L Sodium 139 Potassium 3.8 Chloride 107 Carbon Dioxide 25 Anion Gap 10.8 BUN 24 H Creatinine 0.77 Estimated GFR (MDRD) 73.00 BUN/Creatinine Ratio 31.16 Glucose 130 H Lactic Acid Calcium 8.6 Total Bilirubin 0.28 AST 20 ALT 7 L Alkaline Phosphatase 73 Total Creatine Kinase 29 Troponin I 0.0250 Total Protein 4.5 L Albumin 2.4 L Globulin 2.1 Albumin/Globulin Ratio 1.14 Procalcitonin 01/16/17 01/16/17 15:10 15:25 WBC RBC Hgb Hct MCV MCH MCHC RDW Coeff of Angelo Plt Count Immature Gran % (Auto) Neut % (Auto) Lymph % (Auto) [place] % (Auto) Eos % (Auto) Baso % (Auto) Immature Gran # (Auto) Neut # Lymph # Childress # Eos # Baso # PT INR APTT Sodium Potassium Chloride Carbon Dioxide Anion Gap BUN Creatinine Estimated GFR (MDRD) BUN/Creatinine Ratio Glucose Lactic Acid 9.1 Calcium Total Bilirubin AST ALT Alkaline Phosphatase Total Creatine Kinase Troponin I Total Protein Albumin Globulin Albumin/Globulin Ratio Procalcitonin 0.08 Orders Category Date Time Status EKG-(ED ONLY) Stat CARDIO 01/16/17 15:12 Completed BLOOD CULTURE (ED ONLY) Stat LAB 01/16/17 15:25 Received CBC W/ AUTO DIFF Stat LAB 01/16/17 15:10 Completed COMPREHENSIVE METABOLIC PANEL Stat LAB 01/16/17 15:10 Completed CREATINE KINASE Stat LAB 01/16/17 15:10 Completed LACTIC ACID Stat LAB 01/16/17 15:25 Completed PARTIAL THROMBOPLASTIN TIME Stat LAB 01/16/17 15:10 Completed PROCALCITONIN Stat LAB 01/16/17 15:10 Completed PT WITH INR Stat LAB 01/16/17 15:10 Completed TROPONIN I Stat LAB 01/16/17 15:[address] ABDOMEN/PELVIS WO CONTRAST Stat RADS 01/16/17 15:12 Completed Vital Signs: Temp Pulse Resp BP Pulse Ox 01/16/17 14:45 98.3 F 84 18 76/53 L 96 Departure - Departure Time of Disposition: 16:33 Disposition: ADMITTED INPATIENT Discharge Problem: Gastrointestinal hemorrhage Anemia Qualifiers: Anemia type: unspecified type Qualified Code(s): D64.9 - Anemia, unspecified Instructions: Anemia (ED) Condition: Fair Pt referred to PMD for follow-up: Yes Additional Instructions: Please call your Family Physician as soon as possible to schedule a follow-up appointment. Allergies/Adverse Reactions: Allergies Latex, Natural Rubber Adverse Reaction (Verified 01/16/17 14:51) Home Medications: Ambulatory Orders Rosuvastatin Calcium [Crestor] 20 mg PO BEDTIME 09/02/15 [place]-3 Fatty Acids/Fish Oil [Fish Oil 1,000 mg Capsule] 1 each PO DAILY Furosemide [Lasix Tab] 1 tab PO EVERY OTHER DAY 10/21/16 Calcium Carbonate/Vitamin D3 [Calcium 600 + Vit D 400 Tablet] 1 each PO DAILY Ferrous Sulfate 324 mg PO BID 10/23/16 Levothyroxine Sodium [Synthroid] 75 mcg PO QDAC 10/23/16 Lorazepam [Ativan] 1 mg PO BEDTIME PRN 10/23/16 Multivitamin [Multi-Vitamin Daily] 1 each PO DAILY 10/23/16 Pantoprazole Sodium [Protonix] 40 mg PO QDAC 10/23/16 Polyethylene Glycol 3350 [Miralax] 17 gm PO DAILY 10/23/16 Mometasone Furoate [Elocon] 45 gm TP DAILY #1 tb 01/04/17
[2017-01-16] MEDS ORDERED: ATIVAN PO PRN (16:37)
[2017-01-16] MEDS ORDERED: ZOFRAN 4 MG/2 ML IVP STA ×2 (16:39→19:16)
[2017-01-16 18:21] VITALS: BMI 30.9
[2017-01-16] MEDS: SODIUM CHLORIDE 1,000 ML IV SCH (18:27)
[2017-01-16] MEDS: CRESTOR PO SCH (20:46)
[2017-01-16] MEDS: FERROUS SULFATE PO SCH (20:46)
[2017-01-16] MEDS: NEURONTIN PO SCH (20:46)
[2017-01-16] MEDS ORDERED: ZOFRAN 4 MG/2 ML IVP PRN (20:51)
[2017-01-16] MEDS ORDERED: NON-FORMULARY MEDICATION (Gabapentin [Neurontin] 600 MG) PO SCH ×22 (21:00)
[2017-01-16] MEDS ORDERED: NON-FORMULARY MEDICATION (Rosuvastatin Calcium [Crestor] 20 MG) PO SCH ×22 (21:00)
[2017-01-16 23:22] LABS: TROPONIN I 0.032 ng/ml (0.0000-0.4000)
[2017-01-17 03:12] LABS: HEMATOCRIT 20.3 % (37.0-47.0); HEMOGLOBIN 6.8 g/dl (12.0-16.0)
[2017-01-17 03:37] LABS: ALBUMIN/GLOBULIN RATIO 1.18; ANION GAP 8.1; BILIRUBIN,TOTAL 0.59 mg/dL (0.00-1.20); BUN/CREATININE RATIO 30.26; CALCIUM 8.1 mg/dL (8.2-10.2); CREATININE 0.76 mg/dL (0.60-1.30); POTASSIUM 4.1 mmol/L (3.5-5.10); TOTAL PROTEIN 3.7 g/dL (5.8-8.1)
[2017-01-17 03:38] LABS: TROPONIN I 0.032 ng/ml (0.0000-0.4000)
[2017-01-17] MEDS: SYNTHROID PO SCH (05:34)
[2017-01-17] MEDS: PROTONIX PO SCH (05:34)
[2017-01-17 06:37] LABS: BASOPHILS # (AUTO) 0.1 K/uL (0-0.2); BASOPHILS % (AUTO) 0.5 % (0.0-3.0); EOSINOPHILS # (AUTO) 0.2 K/ul (0.0-0.7); EOSINOPHILS % (AUTO) 1.5 % (0.0-7.0); HEMATOCRIT 19.4 % (37.0-47.0); HEMOGLOBIN 6.5 g/dl (12.0-16.0); IMMATURE GRANULOCYTE % (AUTO) 1.2 % (0.0-5.0); LYMPHOCYTES # (AUTO) 1.5 K/uL (0.60-3.4); LYMPHOCYTES % (AUTO) 15.6 (10.0-50.0); MEAN CORPUSCULAR HEMOGLOBIN 30.2 pg (27.0-31.0); MEAN CORPUSCULAR HGB CONC 33.5 (31.8-35.4); MEAN CORPUSCULAR VOLUME 90.2 fl (81.0-99.0); MONOCYTES # (AUTO) 0.9 K/uL (0.4-2.0); MONOCYTES % (AUTO) 9.1 (0-10); NEUTROPHILS % (AUTO) 72.1; PLATELET COUNT 127 10^3/uL (140-440); RED BLOOD COUNT 2.15 10^6/ul (4.20-5.40); WHITE BLOOD COUNT 9.69 K/ul (4.6-10.2)
[2017-01-17] MEDS: SODIUM CHLORIDE 1,000 ML IV SCH ×2 (07:24→18:57)
[2017-01-17] MEDS: NEURONTIN PO SCH ×3 (09:21→20:23)
[2017-01-17] MEDS: FERROUS SULFATE PO SCH ×2 (09:21→20:23)
[2017-01-17] MEDS: MIRALAX PO SCH (09:21)
[2017-01-17 18:01] LABS: HEMATOCRIT 24.5 % (37.0-47.0); HEMOGLOBIN 8.4 g/dl (12.0-16.0)
[2017-01-17] MEDS: CRESTOR PO SCH (20:22)
[2017-01-18] MEDS: SODIUM CHLORIDE 1,000 ML IV SCH (03:13)
[2017-01-18 04:45] LABS: BASOPHILS # (AUTO) 0.1 K/uL (0-0.2); BASOPHILS % (AUTO) 0.7 % (0.0-3.0); EOSINOPHILS # (AUTO) 0.3 K/ul (0.0-0.7); EOSINOPHILS % (AUTO) 3.8 % (0.0-7.0); HEMATOCRIT 23.5 % (37.0-47.0); HEMOGLOBIN 7.8 g/dl (12.0-16.0); IMMATURE GRANULOCYTE % (AUTO) 2.6 % (0.0-5.0); LYMPHOCYTES # (AUTO) 1.5 K/uL (0.60-3.4); LYMPHOCYTES % (AUTO) 16.9 (10.0-50.0); MEAN CORPUSCULAR HEMOGLOBIN 29.8 pg (27.0-31.0); MEAN CORPUSCULAR HGB CONC 33.2 (31.8-35.4); MEAN CORPUSCULAR VOLUME 89.7 fl (81.0-99.0); MONOCYTES # (AUTO) 0.8 K/uL (0.4-2.0); MONOCYTES % (AUTO) 9.3 (0-10); NEUTROPHILS # (AUTO) 5.7 K/ul (2.0-6.9); NEUTROPHILS % (AUTO) 66.7; PLATELET COUNT 107 10^3/uL (140-440); RED BLOOD COUNT 2.62 10^6/ul (4.20-5.40); WHITE BLOOD COUNT 8.59 K/ul (4.6-10.2)
[2017-01-18 05:04] LABS: ALBUMIN 2.2 g/dL (3.4-5.0); ALBUMIN/GLOBULIN RATIO 1.29; ANION GAP 8.8; BILIRUBIN,TOTAL 0.55 mg/dL (0.00-1.20); BUN/CREATININE RATIO 25.35; CREATININE 0.71 mg/dL (0.60-1.30); POTASSIUM 3.8 mmol/L (3.5-5.10); TOTAL PROTEIN 3.9 g/dL (5.8-8.1)
[2017-01-18] MEDS: PROTONIX PO SCH (06:11)
[2017-01-18] MEDS: SYNTHROID PO SCH (06:11)
[2017-01-18] MEDS: LASIX TAB PO SCH (06:11)
[2017-01-18] MEDS: NEURONTIN PO SCH ×3 (08:34→20:35)
[2017-01-18] MEDS: FERROUS SULFATE PO SCH ×2 (08:35→20:35)
[2017-01-18] MEDS: MIRALAX PO SCH (08:35)
[2017-01-18 19:20] LABS: HEMATOCRIT 34.2 % (37.0-47.0)
[2017-01-18] MEDS: CRESTOR PO SCH (20:35)
[2017-01-19 04:50] LABS: BASOPHILS # (AUTO) 0.1 K/uL (0-0.2); EOSINOPHILS # (AUTO) 0.3 K/ul (0.0-0.7); EOSINOPHILS % (AUTO) 4.7 % (0.0-7.0); HEMATOCRIT 29.6 % (37.0-47.0); IMMATURE GRANULOCYTE % (AUTO) 1.2 % (0.0-5.0); LYMPHOCYTES # (AUTO) 1.1 K/uL (0.60-3.4); LYMPHOCYTES % (AUTO) 16.7 (10.0-50.0); MEAN CORPUSCULAR HEMOGLOBIN 30.6 pg (27.0-31.0); MEAN CORPUSCULAR HGB CONC 33.8 (31.8-35.4); MEAN CORPUSCULAR VOLUME 90.5 fl (81.0-99.0); MONOCYTES # (AUTO) 0.7 K/uL (0.4-2.0); MONOCYTES % (AUTO) 10.1 (0-10); NEUTROPHILS # (AUTO) 4.5 K/ul (2.0-6.9); NEUTROPHILS % (AUTO) 66.3; PLATELET COUNT 107 10^3/uL (140-440); RED BLOOD COUNT 3.27 10^6/ul (4.20-5.40); WHITE BLOOD COUNT 6.84 K/ul (4.6-10.2)
[2017-01-19 05:06] LABS: ALBUMIN 2.3 g/dL (3.4-5.0); ALBUMIN/GLOBULIN RATIO 1.1; ANION GAP 6.6; BILIRUBIN,TOTAL 0.56 mg/dL (0.00-1.20); BUN/CREATININE RATIO 20.89; CALCIUM 8.5 mg/dL (8.2-10.2); CREATININE 0.67 mg/dL (0.60-1.30); POTASSIUM 3.6 mmol/L (3.5-5.10); TOTAL PROTEIN 4.4 g/dL (5.8-8.1)
[2017-01-19] MEDS: PROTONIX PO SCH (05:56)
[2017-01-19] MEDS: SYNTHROID PO SCH (05:56)
[2017-01-19] MEDS: FERROUS SULFATE PO SCH ×2 (08:33→20:49)
[2017-01-19] MEDS: NEURONTIN PO SCH ×3 (08:34→20:49)
[2017-01-19] MEDS: MIRALAX PO SCH (08:34)
[2017-01-19 12:10] LABS: HEMATOCRIT 29.4 % (37.0-47.0); HEMOGLOBIN 10.2 g/dl (12.0-16.0)
[2017-01-19] MEDS: SODIUM CHLORIDE 1,000 ML IV SCH (13:35)
--- NOTE | 2017-01-19 14:16 | HP ---
DATE OF SERVICE: 01/16/17 HISTORY OF PRESENT ILLNESS: This is a 76-year-old female who has a history of chronic lower GI bleeding. The last hemoglobin checked as an outpatient was 9.1 on Monday. She went home. Since Monday morning she started having diarrhea then Monday the diarrhea became bloody diarrhea. The patient elected to come but patient was pale, feeling bad, short of breath. Overnight she became worse so the patient's family brought the patient to the emergency room today for the shortness of breath, chest tightness, continued bloody bowel movements. Evaluated by the ER physician and hemoglobin was 5.6. At that time, the patient was admitted to the hospital for blood transfusion and lower GI bleed. REVIEW OF SYSTEMS: CONSTITUTIONAL: Weakness, tiredness. No fever, no chills. HEENT: Normal. ENDOCRINE: No weight gain; no weight loss. CVS: No chest pain. No PND, no orthopnea. Chest tightness. Shortness of breath. No PND, no orthopnea. RESPIRATORY: No cough, no congestion. No hemoptysis. GI: No nausea, no vomiting. No abdominal pain. Active lower GI bleed. : No hematuria. No polyuria. MUSCULOSKELETAL: No joint swelling. PSYCHIATRIC: Not anxious. No depression. No suicidal thoughts. No homicidal thoughts. SKIN: Intact, no open lesions. PAST MEDICAL HISTORY: Coronary artery disease Dyslipidemia Severe aortic stenosis Dependent edema COPD Diabetes, diet controlled Osteoarthritis Depression Anxiety Left shoulder replacement PAST SURGICAL HISTORY: Left shoulder replacement PERSONAL HISTORY: The patient is , resides with her . She does not smoke or drink. FAMILY HISTORY: Family history is significant for diabetes and thyroid disease. MEDICATIONS: (HOME) Crestor 20 mg p.o. bedtime [place]-3 Fatty Acids/Fish Oil (Fish Oil 1,000 mg capsule) one each p.o. daily Duloxetine (Cymbalta) 60 mg p.o. daily Furosemide (Lasix Tab) one tab p.o. daily Synthroid 75 mcg p.o. q.d a.c. Ativan 1 mg p.o. bedtime p.r.n. Miralax 17 gm p.o. daily Multivitamin one each p.o. daily Ferrous Sulfate 324 mg p.o. b.i.d. Calcium Carbonate/Vitamin D3 one each p.o. daily Pantoprazole (Protonix) 40 mg p.o. q.d a.c. Gabapentin 300 mg p.o. 0900, 1500 Gabapentin 600 mg p.o. bedtime Elocon 45 mg TP daily ALLERGIES: LATEX, NATURAL RUBBER PHYSICAL EXAMINATION: V/S: BP 110/70, respiratory rate 14, heart rate 79, temperature 97.3, saturation 98 on 2L. HEENT: Atraumatic, normocephalic. No scleral icterus. Pallor positive. Mucosa dry. No icterus. NECK: Supple. No JVD, no bruit. No lymphadenopathy. No thyromegaly. HEART: S1, S2 normal.Systolic murmur positive. No cyanosis or clubbing. No ascites. LUNGS: Clear to auscultation. No rales or rhonchi. ABDOMEN: Soft, nontender. Bowel sounds are active. No CVA tenderness. No rigidity or guarding. EXTREMITIES: No cyanosis, clubbing or pedal edema. MUSCULOSKELETAL: Normal joints, no swelling. NEUROLOGIC: The patient is awake, alert, oriented times three. SKIN: Intact and dry. LYMPHATIC: No lymph nodes palpable. LABS: White count 9.14, hemoglobin 5.6, hematocrit 18, platelet count 175. PT/INR 0.96. Sodium 139, potassium 3.8, chloride 107, bicarb 25, BUN 24, creatinine 0.77. Glucose 130. ASSESSMENT: 1. ACUTE LOWER GI BLEED 2. SEVERE ANEMIA NEEDING BLOOD TRANSFUSION 3. HISTORY OF HYPERTENSION 4. SEVERE AORTIC STENOSIS 5. CORONARY ARTERY DISEASE 6. PERIPHERAL NEUROPATHY 7. OSTEOARTHRITIS 8. DEPRESSION PLAN: 1. Admit patient to the regular floor 2. CBC, CMP today and daily 3. Cardiac enzymes and troponin 4. Type and crossmatch 4 units, transfuse 2 units 5. Lasix in between the units 6. Continue the rest of the home medications TIME SPENT: More than 75 minutes today MTDD
--- NOTE | 2017-01-19 14:24 | PN ---
DATE OF SERVICE: 01/17/17 SUBJECTIVE: Admitted with severe anemia. Transfused 2 units. Hemoglobin went up to 6.8, still having lower GI bleed with back tarry stools. REVIEW OF SYSTEMS: CONSTITUTIONAL: No fever, no chills. HEENT: Normal. ENDOCRINE: No weight gain, no weight loss. CVS: No angina symptoms. No CHF symptoms. No palpitations. No atypical chest pain for CAD. No shortness of breath. No PND, no orthopnea. RESPIRATORY: No cough, no hemoptysis. GI: No nausea, no vomiting. No abdominal pain. : No hematuria. No polyuria. MUSCULOSKELETAL:. No joint swelling. PSYCHIATRIC: Not anxious. No depression. No suicidal thoughts. No homicidal thoughts. SKIN: Intact. No rash. PHYSICAL EXAMINATION: V/S: BP 90/50, respiratory rate 14, heart rate 80, temperature 99. GENERAL: Sick-looking lady laying in bed. HEENT: Normocephalic, atraumatic. Mucosa dry, pallor positive. NECK: Supple. No JVD, no carotid bruit. No lymphadenopathy. LUNGS: Decreased with basilar crackles. No rales or rhonchi. HEART: S1, S2 normal. No S3. Systolic murmur. ABDOMEN: Soft, nontender. Bowel sounds active. No rigidity. No rebound or guarding. No CVA tenderness. EXTREMITIES: No clubbing, cyanosis or pedal edema. MUSCULOSKELETAL: No joint swelling. NEUROLOGIC: Awake, alert, oriented times three. No focal deficit. LYMPHATIC: No lymph nodes palpable. SKIN: Intact. LABS: Hemoglobin 6.8, 6.5, white count 6.6, 9.69, platelet count 127. Sodium 138, potassium 4.1, chloride 108, bicarb 26, BUN 23, creatinine 0.76. Glucose 147. ASSESSMENT: 1. SEVERE ANEMIA NEEDING BLOOD TRANSFUSION 2. CONTINUED LOWER GI BLEED 3. ANXIETY 4. DEPRESSION 5. PERIPHERAL NEUROPATHY 6. DIABETES, DIET CONTROLLED 7. SEVERE AORTIC STENOSIS WITH CORONARY ARTERY DISEASE PLAN: 1. Type and crossmatch 2 units and 2 more unit transfusion 2. Protonix 3. IV fluids 4. Poor prognosis has been discussed with the family TIME SPENT: More than 35 minutes MTDD
--- NOTE | 2017-01-19 16:24 | RS.PTINEVL ---
Subjective - Patient information Date of Evaluation: 01/19/17 Date of Arrival on Unit: 01/16/17 Admitted From:: Home Diagnosis: GI bleed, hemoglobin 5.6 Usual Living Arrangement: With Spouse Home Environment: House, Stairs (few), Rail Medical History: COPD, Diabetes, Arthritis Medical History Comments:: severe aortic stenosis, CAD, depression and anxiety LATEX ALLERGY?: No Surgical History: Shoulder Replacement Subjective Information/ Patient Comments:: pt states she feels much stronger today, after receiving 6 units of blood yesterday - Level of function Prior to this admission, the patient could do the following:: Independent Selfcare, Independent ADL's Current Level of Function: Partially Dependent Current Equipment Used at Home: walker, but uses 's bsc, bath chair, raised toliet seat as needed Interventions - Objective Patient Orientation: Person, Place, Time, Situation Current Interventions: IV's, Telemetry Range of Motion - ROM Right Upper Extremity AROM: WFL's Left Upper Extremity AROM: Moderate limitation (L shld flex limited due to previous shld replacement) Right Lower Extremity AROM: WFL's Left Lower Extremity AROM: WFL's Muscle Strength - Muscle Strength Right Upper Extremity Strength: Mild Weakness (R UE grossly 4-/5,) Left Upper Extremity Strength: Mild Weakness (L shld flex 2/5, elbow flex/ext 4- /5) Right Lower Extremity Strength: Mild Weakness (hip flex 3+/5, knee flex/ext 4-/5 , ankle Df/PF 4-/5) Left Lower Extremity Strength: Mild Weakness (hip flex 3+/5, knee flex/ext 4-/5 , ankle Df/PF 4-/5) Sensation - Sensation Right Upper Extremity Sensation: Intact/Normal Left Upper Extremity Sensation: Intact/Normal Right Lower Extremity Sensation: Intact/Normal Left Lower Extremity Sensation: Intact/Normal Balance - Sitting Balance and Reactions Static Sitting Balance: Good Dynamic Sitting Balance: Fair Sitting Equilibrium Reactions: Delayed Left, Delayed Right Sitting Protective Reactions: Delayed Left, Delayed Right - Standing Balance and Reactions Static Standing Balance: Fair Dynamic Standing Balance: Poor Standing Equilibrium Reactions: Delayed Left, Delayed Right Standing Protective Reactions: Delayed Left, Delayed Right - Comments Balance Assessment Comments: TUG 44 secs Functional Mobility - Bed Mobility Rolling R/L: CGA Supine to Sit: CGA Sit to Supine: CGA - Transfers Sit to Stand: CGA Stand to Sit: CGA - Safety Awareness Safety Awareness: Good Ambulation - Ambulation Assistive Device Used: Rolling Walker Orthotic/Prosthetic Device: No Distance: 125ft Assistance needed with Ambulation: CGA Quality of Ambulation: pt required 1 seated rest period Gait Deviations: Forward posture, Short stride Ambulation Comments: pt amb with rollator rwx and did c/o SOA after amb. Factors Affecting Ambulation: Decreased Balance, Weakness, Decreased Safety, Limited Endurance Treatment time - Time with patient Total treatment time: 32 Patient Education - Education Patient Education: Home Safety, Activity Modification, Education of Plan of Care Teaching Recipient: Patient Teaching Methods: Discussion, Demonstration (pt instructed on PLB as well as deep breathing) Assessment - Assessment Problem List:: Decreased level of function, Requires training/education, Decreased safety/Risk of falls, Weakness, Pain limits previous level of function Rehab Potential: Good Further Therapy Indicated?: Yes Short Term Goals GOAL #1: pt transfer sup to/from sit to/from stand independently Goal to be met by: 01/21/17 GOAL #2: pt amb with rwx 150ft with CGA with no LOB and no seated rest period. Goal to be met by: 01/21/17 Detention Goals GOAL #1: pt demonstrate improved BLE strength 4- to 4/5 independent with HEP Goal to be met by: 01/24/17 GOAL #2: pt transfer sup to/from sit to/from stand independently Goal to be met by: 01/24/17 GOAL #3: pt amb functional distances with rwx with SBA with no LOB Goal to be met by: 01/24/17 Plan Plan of Care: Therapeutic EX, Therapeutic Activity, Self-Care/Home Management Other:: gait training Frequency of Treatment: 1-2 X day, as tolerated Duration of Treatment: 5 days Anticipated Discharge Destination: Home Has the Physician been added for Co-signature?: Yes
[2017-01-19] MEDS: CRESTOR PO SCH (20:49)
[2017-01-20 05:35] LABS: BASOPHILS # (AUTO) 0.1 K/uL (0-0.2); BASOPHILS % (AUTO) 0.9 % (0.0-3.0); EOSINOPHILS # (AUTO) 0.3 K/ul (0.0-0.7); EOSINOPHILS % (AUTO) 4.2 % (0.0-7.0); HEMATOCRIT 30.4 % (37.0-47.0); HEMOGLOBIN 10.1 g/dl (12.0-16.0); IMMATURE GRANULOCYTE % (AUTO) 0.6 % (0.0-5.0); LYMPHOCYTES % (AUTO) 14.5 (10.0-50.0); MEAN CORPUSCULAR HEMOGLOBIN 30.2 pg (27.0-31.0); MEAN CORPUSCULAR HGB CONC 33.2 (31.8-35.4); MONOCYTES # (AUTO) 0.7 K/uL (0.4-2.0); MONOCYTES % (AUTO) 9.4 (0-10); NEUTROPHILS # (AUTO) 4.9 K/ul (2.0-6.9); NEUTROPHILS % (AUTO) 70.4; PLATELET COUNT 121 10^3/uL (140-440); RED BLOOD COUNT 3.34 10^6/ul (4.20-5.40)
[2017-01-20] MEDS: SYNTHROID PO SCH (05:39)
[2017-01-20] MEDS: LASIX TAB PO SCH (05:39)
[2017-01-20] MEDS: PROTONIX PO SCH (05:39)
[2017-01-20 05:56] LABS: ALBUMIN 2.4 g/dL (3.4-5.0); ANION GAP 7.7; BILIRUBIN,TOTAL 0.62 mg/dL (0.00-1.20); BUN/CREATININE RATIO 18.18; CALCIUM 8.7 mg/dL (8.2-10.2); CREATININE 0.66 mg/dL (0.60-1.30); POTASSIUM 3.7 mmol/L (3.5-5.10); TOTAL PROTEIN 4.8 g/dL (5.8-8.1)
[2017-01-20] MEDS: NEURONTIN PO SCH (08:20)
[2017-01-20] MEDS: FERROUS SULFATE PO SCH (08:20)
[2017-01-20] MEDS: MIRALAX PO SCH (08:23)
[2017-01-20 10:10] VITALS: BP 128/64; TEMP 98.7
--- NOTE | 2017-01-20 11:04 | PN ---
DATE OF SERVICE: 01/18/17 SUBJECTIVE: The patient was admitted with the lower GI bleed. She has had four units of blood transfusion. Hgb went up to 6.5 then 8.4 then 7.8 todya morning. She is feeling a lot better. Still having the red jelly stools. REVIEW OF SYSTEMS: CONSTITUTIONAL: No fever, no chills. HEENT: Normal. ENDOCRINE: No weight gain, no weight loss. CVS: No angina symptoms. No CHF symptoms. No palpitations. No atypical chest pain for CAD. No shortness of breath. No PND, no orthopnea. RESPIRATORY: No cough, no hemoptysis. GI: No nausea, no vomiting. No abdominal pain. : No hematuria. No polyuria. MUSCULOSKELETAL:. No joint swelling. PSYCHIATRIC: Not anxious. No depression. No suicidal thoughts. No homicidal thoughts. SKIN: Intact. No rash. PHYSICAL EXAMINATION: V/S: Blood pressure 120/60, respiratory rate 20, heart rate 78, temperature 98.4 with saturation 96% on the room air. HEENT: Normocephalic, atraumatic. Mucosa dry. Pallor positive. No icterus. NECK: Supple. No JVD, no carotid bruit. No lymphadenopathy. LUNGS: Decreased and clear to auscultation. No rales or rhonchi. HEART: S1, S2 normal. No S3. Systolic murmur, gallop or regurgitation. ABDOMEN: Soft, nontender. Bowel sounds active. No rigidity. No rebound or guarding. No CVA tenderness. EXTREMITIES: No clubbing, cyanosis. 1+ edema. MUSCULOSKELETAL: No joint swelling. NEUROLOGIC: Awake, alert, oriented times three. No focal deficit. LYMPHATIC: No lymph nodes palpable. SKIN: Intact. LABS: WBC 8.59, hgb 7.8, hct 23.5, plt count 107, sodium 142, potassium 3.8, chloride 112, bicarb 25, BUN 18, creatinine 0.71, glucose 105 ASSESSMENT: 1. Acute lower GI bleed, needing so far 4 units of blood transfusion 2. Continued lower GI bleed 3. History of depression 4. Peripheral neuropathy 5. Diabetes, diet controlled 6. Severe aortic stenosis 7. Coronary artery disease PLAN: 1. Type and cross match 4 units and transfuse 2 units 2. Guarded prognosis been discussed with the family and the patient TIME SPENT: More than 35 minutes MTDD
[2017-01-20 12:13] LABS: HEMATOCRIT 34.2 % (37.0-47.0); HEMOGLOBIN 11.6 g/dl (12.0-16.0)
--- NOTE | 2017-02-24 10:26 | PN ---
DATE OF SERVICE: 01/19/17 SUBJECTIVE: The patient was admitted with hgb of 5.6 got three units and hgb went up to 8.4 and then dropped to the 7.8. Still having the active blood bowel movements. REVIEW OF SYSTEMS: CONSTITUTIONAL: No fever, no chills. HEENT: Normal. ENDOCRINE: No weight gain, no weight loss. CVS: No angina symptoms. No CHF symptoms. No palpitations. No atypical chest pain for CAD. No shortness of breath. No PND, no orthopnea. RESPIRATORY: No cough, no hemoptysis. GI: No nausea, no vomiting. No abdominal pain. : No hematuria. No polyuria. MUSCULOSKELETAL:. No joint swelling. PSYCHIATRIC: Not anxious. No depression. No suicidal thoughts. No homicidal thoughts. SKIN: Intact. No rash. PHYSICAL EXAMINATION: V/S: Blood pressure 128/68, respiratory rate 18, heart rate 62 and temperature 98.7 with saturation 96%HEENT: Normocephalic, atraumatic. Mucosa dry. Pallor positive. No icterus. NECK: Supple. No JVD, no carotid bruit. No lymphadenopathy. LUNGS: Decreased and clear to auscultation. No rales or rhonchi. HEART: S1, S2 normal. No S3. Systolic murmur positive, gallop or regurgitation. ABDOMEN: Soft, discomfort. Bowel sounds active. No rigidity. No rebound or guarding. No CVA tenderness. EXTREMITIES: No clubbing, cyanosis.1+ edema. MUSCULOSKELETAL: No joint swelling. NEUROLOGIC: Awake, alert, oriented times three. No focal deficit. LYMPHATIC: No lymph nodes palpable. SKIN: Intact. LABS: WBC 8.59, hgb 10.0 after 6 units of the blood transfusion the patient had last bowel movement two days ago, hct 29.6, plt count 107, sodium 142, potassium 3.6 , chloride 112, bicarb 27, BUN 14, creatinine 0.67 ASSESSMENT: 1. Acute lower GI bleed needing almost 6 units of the blood transfusion 2. Diverticulosis 3. Severe aortic Stenosis 4. Coronary artery disease 5. Hypothyroidism 6. Depression 7. Diabetes, Diet controlled 8. Peripheral neuropathy PLAN: 1. Continue to monitor H&H 2. Continue the Protonix and IV fluids 3. Out of bed to chair activity as tolerated 4. Poor prognosis been discussed with the family and the patient and verbalized understanding. TIME SPENT: More than 35 minutes MTDD
--- NOTE | 2017-02-24 10:35 | DS ---
DATE OF SERVICE: 01/20/17 FINAL DIAGNOSIS: 1. Acute blood loss anemia from the acute lower GI bleed from the diverticulosis needs 6 units blood transfusion 2. Severe aortic stenosis 3. Coronary artery disease 4. Depression 5. Anxiety 6. Peripheral neuropathy 7. Osteoarthritis 8. Diabetes, diet controlled DISCHARGE INSTRUCTIONS: Discharge the patient home. Will follow H&H within four days. Continue the Protonix. Continue home medications. Avoid the seeds and nuts. Diverticular diet been discussed. MEDICATIONS AT DISCHARGE: Calcium with Vitamin D Cymbalta Ferrous Sulfate Lasix Neurontin Synthroid Ativan Multivitamins [place] 3 Protonix Miralax Crestor Mometasone NEW PRESCRIPTIONS: None DIET INSTRUCTIONS: Cardiac and Healthy ACTIVITY: As much as tolerated SMOKING: Former smoker DISEASE SPECIFIC EDUCATION: Lower GI bleed need for the continuous blood transfusion been discussed. Coronary artery disease needing EGD and colonoscopy been discussed. HOSPITAL COURSE: Abbie Adams 76 year old female who has been having the acute on chronic lower GI bleeds needing blood transfusion because of the patient's severe aortic stenosis and coronary artery disease she is not been able to do the endoscopy and colonoscopy. The patient been evaluated in May with Cardiothoracic surgeon and the GI doctor, Dr. Junior both agreed and came to the conclusion that she could not be undergoing for the endoscopy or colonoscopy. Ever since the patient been having these recurrent episode of the lower GI bleeds where patient needing blood transfusion this time she came with acute lower GI bleed with the bright red blood, hgb was 5.6. Typed and screened 6 units. Hgb came up to 7.8 and at that time three more units was given as the patient was continuously having the lower GI bleed and feeling weak, tired and chest tightness. The repeat hgb came to 11 and 10.0, 10.2 and 10.1. At that time the patient was up and about walking and being discharged home. TIME SPENT: MORE THAN 60 MINUTES MTDD
== END 2017-01-20 14:20 | disposition home or self-care (01) | DRG 379 ==
LOC: ED 14:44 → MEDSURG B 16:53
PROVIDERS: ADMIT Emergency Medicine; ATTEND Emergency Medicine
PROC: 30233N1 Transfusion of Nonautologous Red Blood Cells into Peripheral Vein, Percutaneous Approach (ICD-10-PCS; principal; 2017-01-16)
PROC: 30233N1 Transfusion of Nonautologous Red Blood Cells into Peripheral Vein, Percutaneous Approach (ICD-10-PCS; 2017-01-16)
PROC: 30233N1 Transfusion of Nonautologous Red Blood Cells into Peripheral Vein, Percutaneous Approach (ICD-10-PCS; 2017-01-17)
PROC: 30233N1 Transfusion of Nonautologous Red Blood Cells into Peripheral Vein, Percutaneous Approach (ICD-10-PCS; 2017-01-17)
PROC: 30233N1 Transfusion of Nonautologous Red Blood Cells into Peripheral Vein, Percutaneous Approach (ICD-10-PCS; 2017-01-18)
PROC: 30233N1 Transfusion of Nonautologous Red Blood Cells into Peripheral Vein, Percutaneous Approach (ICD-10-PCS; 2017-01-18)
DX: K57.31 Diverticulosis of large intestine without perforation or abscess with bleeding (principal); D50.0 Iron deficiency anemia secondary to blood loss (chronic); I35.0 Nonrheumatic aortic (valve) stenosis; I25.10 Atherosclerotic heart disease of native coronary artery without angina pectoris; E11.9 Type 2 diabetes mellitus without complications; F41.8 Other specified anxiety disorders; G62.9 Polyneuropathy, unspecified; M19.90 Unspecified osteoarthritis, unspecified site; E03.9 Hypothyroidism, unspecified; R53.1 Weakness; Z79.899 Other long term (current) drug therapy
CPT/HCPCS: 36415; 36430; 80053; 82550; 83605; 84145; 84484; 85014; 85018; 85025; 85610; 85730; 86850; 86900; 86922; 87040; 87081; 93005; 93010; 97802; 99223; 99233; 99239; 99284

== ENCOUNTER 2017-01-30 12:30 | Outpatient (CLI) ==
[2017-01-30 12:37] LABS: BASOPHILS # (AUTO) 0.1 K/uL (0-0.2); BASOPHILS % (AUTO) 1.5 % (0.0-3.0); EOSINOPHILS # (AUTO) 0.2 K/ul (0.0-0.7); EOSINOPHILS % (AUTO) 4.6 % (0.0-7.0); HEMATOCRIT 34.5 % (37.0-47.0); HEMOGLOBIN 11.3 g/dl (12.0-16.0); IMMATURE GRANULOCYTE % (AUTO) 0.4 % (0.0-5.0); LYMPHOCYTES % (AUTO) 18.8 (10.0-50.0); MEAN CORPUSCULAR HEMOGLOBIN 31.3 pg (27.0-31.0); MEAN CORPUSCULAR HGB CONC 32.8 (31.8-35.4); MEAN CORPUSCULAR VOLUME 95.6 fl (81.0-99.0); MONOCYTES # (AUTO) 0.5 K/uL (0.4-2.0); MONOCYTES % (AUTO) 9.3 (0-10); NEUTROPHILS # (AUTO) 3.4 K/ul (2.0-6.9); NEUTROPHILS % (AUTO) 65.4; PLATELET COUNT 230 10^3/uL (140-440); RED BLOOD COUNT 3.61 10^6/ul (4.20-5.40); WHITE BLOOD COUNT 5.26 K/ul (4.6-10.2)
== END 2017-01-30 12:31 | disposition home or self-care (01) ==
LOC: LAB 12:30
PROVIDERS: ATTEND Emergency Medicine
DX: D50.0 Iron deficiency anemia secondary to blood loss (chronic) (principal)
CPT/HCPCS: 36415; 85025

== ENCOUNTER 2017-02-03 15:42 | Outpatient (CLI) | END 2017-02-03 15:43 | disposition home or self-care (01) | LOC: OUTPT 15:42 | PROVIDERS: ATTEND Emergency Medicine | DX: D50.0 Iron deficiency anemia secondary to blood loss (chronic) (principal) ==

== ENCOUNTER 2017-02-07 13:26 | Outpatient (CLI) ==
[2017-02-07 13:34] LABS: BASOPHILS # (AUTO) 0.1 K/uL (0-0.2); BASOPHILS % (AUTO) 1.5 % (0.0-3.0); EOSINOPHILS # (AUTO) 0.3 K/ul (0.0-0.7); EOSINOPHILS % (AUTO) 4.2 % (0.0-7.0); HEMOGLOBIN 11.1 g/dl (12.0-16.0); IMMATURE GRANULOCYTE % (AUTO) 0.3 % (0.0-5.0); LYMPHOCYTES # (AUTO) 1.1 K/uL (0.60-3.4); LYMPHOCYTES % (AUTO) 18.2 (10.0-50.0); MEAN CORPUSCULAR HEMOGLOBIN 31.8 pg (27.0-31.0); MEAN CORPUSCULAR HGB CONC 33.6 (31.8-35.4); MEAN CORPUSCULAR VOLUME 94.6 fl (81.0-99.0); MONOCYTES # (AUTO) 0.6 K/uL (0.4-2.0); NEUTROPHILS # (AUTO) 4.1 K/ul (2.0-6.9); NEUTROPHILS % (AUTO) 65.8; PLATELET COUNT 196 10^3/uL (140-440); RED BLOOD COUNT 3.49 10^6/ul (4.20-5.40); WHITE BLOOD COUNT 6.17 K/ul (4.6-10.2)
== END 2017-02-07 13:27 | disposition home or self-care (01) ==
LOC: LAB 13:26
PROVIDERS: ATTEND Emergency Medicine
DX: D50.0 Iron deficiency anemia secondary to blood loss (chronic) (principal)
CPT/HCPCS: 36415; 85025

== ENCOUNTER 2017-02-10 10:09 | Outpatient (CLI) ==
[2017-02-10 10:42] LABS: BASOPHILS # (AUTO) 0.1 K/uL (0-0.2); BASOPHILS % (AUTO) 1.1 % (0.0-3.0); EOSINOPHILS # (AUTO) 0.2 K/ul (0.0-0.7); EOSINOPHILS % (AUTO) 3.8 % (0.0-7.0); HEMATOCRIT 28.8 % (37.0-47.0); HEMOGLOBIN 9.7 g/dl (12.0-16.0); IMMATURE GRANULOCYTE % (AUTO) 0.4 % (0.0-5.0); LYMPHOCYTES # (AUTO) 1.2 K/uL (0.60-3.4); LYMPHOCYTES % (AUTO) 22.1 (10.0-50.0); MEAN CORPUSCULAR HEMOGLOBIN 31.7 pg (27.0-31.0); MEAN CORPUSCULAR HGB CONC 33.7 (31.8-35.4); MEAN CORPUSCULAR VOLUME 94.1 fl (81.0-99.0); MONOCYTES # (AUTO) 0.6 K/uL (0.4-2.0); MONOCYTES % (AUTO) 11.3 (0-10); NEUTROPHILS # (AUTO) 3.4 K/ul (2.0-6.9); NEUTROPHILS % (AUTO) 61.3; PLATELET COUNT 169 10^3/uL (140-440); RED BLOOD COUNT 3.06 10^6/ul (4.20-5.40); WHITE BLOOD COUNT 5.47 K/ul (4.6-10.2)
== END 2017-02-10 10:10 | disposition home or self-care (01) ==
LOC: LAB 10:09
PROVIDERS: ATTEND Emergency Medicine
DX: D64.9 Anemia, unspecified (principal)
CPT/HCPCS: 36415; 85025

== ENCOUNTER 2017-02-13 14:00 | Outpatient (CLI) ==
[2017-02-13 14:10] LABS: BASOPHILS # (AUTO) 0.1 K/uL (0-0.2); BASOPHILS % (AUTO) 1.1 % (0.0-3.0); EOSINOPHILS # (AUTO) 0.2 K/ul (0.0-0.7); EOSINOPHILS % (AUTO) 3.8 % (0.0-7.0); HEMATOCRIT 29.6 % (37.0-47.0); IMMATURE GRANULOCYTE % (AUTO) 0.4 % (0.0-5.0); LYMPHOCYTES % (AUTO) 17.9 (10.0-50.0); MEAN CORPUSCULAR HEMOGLOBIN 32.7 pg (27.0-31.0); MEAN CORPUSCULAR HGB CONC 33.8 (31.8-35.4); MEAN CORPUSCULAR VOLUME 96.7 fl (81.0-99.0); MONOCYTES # (AUTO) 0.6 K/uL (0.4-2.0); NEUTROPHILS # (AUTO) 3.7 K/ul (2.0-6.9); NEUTROPHILS % (AUTO) 66.8; PLATELET COUNT 167 10^3/uL (140-440); RED BLOOD COUNT 3.06 10^6/ul (4.20-5.40); WHITE BLOOD COUNT 5.48 K/ul (4.6-10.2)
== END 2017-02-13 14:01 | disposition home or self-care (01) ==
LOC: LAB 14:00
PROVIDERS: ATTEND Emergency Medicine
DX: D50.0 Iron deficiency anemia secondary to blood loss (chronic) (principal)
CPT/HCPCS: 36415; 85025

== ENCOUNTER 2017-02-17 14:14 | Outpatient (CLI) ==
[2017-02-17 14:22] LABS: BASOPHILS # (AUTO) 0.1 K/uL (0-0.2); BASOPHILS % (AUTO) 1.2 % (0.0-3.0); EOSINOPHILS # (AUTO) 0.2 K/ul (0.0-0.7); EOSINOPHILS % (AUTO) 4.2 % (0.0-7.0); HEMATOCRIT 31.3 % (37.0-47.0); HEMOGLOBIN 10.5 g/dl (12.0-16.0); IMMATURE GRANULOCYTE % (AUTO) 0.4 % (0.0-5.0); LYMPHOCYTES # (AUTO) 0.8 K/uL (0.60-3.4); LYMPHOCYTES % (AUTO) 15.3 (10.0-50.0); MEAN CORPUSCULAR HEMOGLOBIN 32.8 pg (27.0-31.0); MEAN CORPUSCULAR HGB CONC 33.5 (31.8-35.4); MEAN CORPUSCULAR VOLUME 97.8 fl (81.0-99.0); MONOCYTES # (AUTO) 0.5 K/uL (0.4-2.0); MONOCYTES % (AUTO) 9.3 (0-10); NEUTROPHILS # (AUTO) 3.5 K/ul (2.0-6.9); NEUTROPHILS % (AUTO) 69.6; PLATELET COUNT 175 10^3/uL (140-440); WHITE BLOOD COUNT 4.97 K/ul (4.6-10.2)
== END 2017-02-17 14:15 | disposition home or self-care (01) ==
LOC: LAB 14:14
PROVIDERS: ATTEND Emergency Medicine
DX: D50.0 Iron deficiency anemia secondary to blood loss (chronic) (principal)
CPT/HCPCS: 36415; 85025

== ENCOUNTER 2017-02-20 02:19 | Inpatient (IN) ==
[2017-02-20] MEDS ORDERED: PROTONIX IV IVP STA (03:07)
[2017-02-20] MEDS ORDERED: SODIUM CHLORIDE 500 ML IV STA (03:07)
--- NOTE | 2017-02-20 03:11 | ED.PDOC ---
General ED Provider: Dr. ALLAN FLORES Chief Complaint: GI Bleed Stated Complaint: Pateint is a 76 year old female who has a history of GI bleed who comes to the ER with noted blood in stool after a brief episode of abdominal cramping. Denies any abdominal pain now. Has a brief episode of chest pain but went away. Time Seen by Physician: 03:09 Mode of Arrival: Wheelchair Information Source: Patient Exam Limitations: No limitations [facility] and Triage Documentation Reviewed and Agree: Yes GI Complaint Exam - GI Bleed Complaint/Exam Patient Complains of: Reports: Rectal bleeding, Black stools Onset/Duration: 1 day Symptoms Are: Still present Severity: Reports: Blood-streaked stool, Black tarry stool Location of Pain: Reports: Diffuse (initially had pain but went away. ) Character: Reports: Cramping Aggravating: Reports: Bowel movement Alleviating: Reports: None Associated Signs and Symptoms: Reports: Dizziness, Weakness. Denies: Syncope, Constipation Related History: Reports: Similar episode GI Bleed Risk Factors: Denies: ETOH abuse, Liver Disease, Esophageal varices, Rectal Fissure, Coumadin use, Pradaxa use, Plavix use, NSAID use, Aspirin use Recent Colonoscopy: No Recent EGD: No Related Surgical History: Reports: None Abdominal Findings: Present: None Differential Diagnoses: Diverticulitis, Enterocolitis, Gastritis, PUD Review of Systems - Review Of Systems Constitutional: Reports: Weakness Eyes: Reports: No symptoms Ears, Nose, Mouth, Throat: Reports: No symptoms Respiratory: Reports: No symptoms GI: Reports: Nausea, Rectal bleeding. Denies: Vomiting : Reports: No symptoms Musculoskeletal: Reports: No symptoms Skin: Reports: No symptoms Neurological: Reports: No symptoms All Other Systems: Reviewed and Negative Past Medical History - Past Medical History Previously Healthy: Yes Endocrine: Reports: Hypothyroid, Dyslipidemia Cardiovascular: Reports: CAD, Hypertension, Other (Aortic stenosis) Respiratory: Reports: None Hematological: Reports: Anemia Gastrointestinal: Reports: GI Bleed, Diverticulitis Genitourinary: Reports: None Neuro/Psych: Reports: None Musculoskeletal: Reports: Arthritis Cancer: Reports: None Last Menstrual Period: UNKNOWN Other Pertinent Past Medical History: htn thy ane chol depr arth cad - Surgical History General Surgical History: Reports: Orthopedic (LT SHOULDER REPLACED), Other (- ORAL SURG-). Denies: Hysterectomy (D & C-) - Family History Family History: Reports: Unknown - Social History Smoking Status: Former smoker Hx Substance Use: No Alcohol Screening: None - Immunizations Tetanus Shot up to Date: No Physical Exam - Physical Exam Appearance: Ill-appearing Ill-appearing: Mild Eyes: Conjunctiva pale Neck: Supple Respiratory: Airway patent, Breath sounds clear, Breath sounds equal, Respirations nonlabored Cardiovascular: RRR, Pulses normal, No rub, Murmur (harsh grade / hollow systolic ) GI/: Soft, Nontender, No masses, Bowel sounds normal, No Organomegaly Musculoskeletal: Normal strength, ROM intact, No edema, No calf tenderness Skin: Warm, Dry, Normal color Neurological: Sensation intact, Alert, Oriented Psychiatric: Anxious Interpretation - EKG Interpretation Rate: Normal Rhythm: Sinus Ectopy: None [place]: NL ST Segment: Other (T wave abnormality inferor and anterior leads) Interpretation: Inferior lateral ischemia. EKG Comparison: No significant changes (to one done on 01/19/2017) Critical Care Note - Critical Care Note Total Time (mins): 35 Course - Course Hematology/Chemistry: 02/20/17 03:21 02/20/17 03:21 Orders, Labs, Meds: Lab Review 02/20/17 02/20/17 02/20/17 03:21 03:21 03:21 WBC 8.91 RBC 2.14 L Hgb 7.1 L D Hct 20.9 L D MCV 97.7 MCH 33.2 H MCHC 34.0 RDW Coeff of Angelo 16.5 H Plt Count 158 Immature Gran % (Auto) 0.7 Neut % (Auto) 78.6 Lymph % (Auto) 11.8 Centre % (Auto) 6.8 Eos % (Auto) 1.5 Baso % (Auto) 0.6 Immature Gran # (Auto) 0.1 Neut # 7.0 H Lymph # 1.1 Centre # 0.6 Eos # 0.1 Baso # 0.1 PT 9.9 INR 0.97 Sodium 139 Potassium 4.1 Chloride 106 Carbon Dioxide 23 Anion Gap 14.1 BUN 29 H Creatinine 0.80 Estimated GFR (MDRD) 70.00 BUN/Creatinine Ratio 36.25 Glucose 145 H Calcium 9.1 Total Bilirubin 0.33 AST 25 ALT < 6 L Alkaline Phosphatase 71 Total Creatine Kinase Troponin I Total Protein 5.4 L Albumin 2.7 L Globulin 2.7 Albumin/Globulin Ratio 1.00 Blood Type Antibody Screen Crossmatch (AHG) 02/20/17 02/20/17 03:21 03:21 WBC RBC Hgb Hct MCV MCH MCHC RDW Coeff of Angelo Plt Count Immature Gran % (Auto) Neut % (Auto) Lymph % (Auto) Centre % (Auto) Eos % (Auto) Baso % (Auto) Immature Gran # (Auto) Neut # Lymph # Centre # Eos # Baso # PT INR Sodium Potassium Chloride Carbon Dioxide Anion Gap BUN Creatinine Estimated GFR (MDRD) BUN/Creatinine Ratio Glucose Calcium Total Bilirubin AST ALT Alkaline Phosphatase Total Creatine Kinase 65 Troponin I 0.7550 H* Total Protein Albumin Globulin Albumin/Globulin Ratio Blood Type O POSITIVE Antibody Screen Negative Crossmatch (AH) See Detail Orders Category Date Time Status ADMIT PATIENT INPATIENT .TO SCU (MONITORED BED) ADMISSION 02/20/17 04:02 Active EKG-(ED ONLY) Stat CARDIO 02/20/17 03:58 Completed EKG-(IP & OP ONLY) Routine CARDIO 02/21/17 06:00 Ordered OXYGEN Routine CARDIO 02/20/17 04:02 Active ACTIVITY .Early Mobilization for VTE Prevention CARE 02/20/17 04:05 Active INTAKE & OUTPUT Q8HR CARE 02/20/17 04:02 Active TELEMETRY MONITORING TELE CARE 02/20/17 04:05 Active VITAL SIGNS Q4HR CARE 02/20/17 04:05 Active VTE PREVENTION .SCD On AM/Off PM CARE 02/20/17 04:02 Active REGULAR DIET DIETARY 02/20/17 Breakfast Ordered ED IV/MEDIPORT/POWERPORT .ONCE EMERGENCY 02/20/17 03:07 Active BASIC METABOLIC PANEL DAILY@0600 LAB 02/21/17 06:00 Ordered CBC W/ AUTO DIFF DAILY@0600 LAB 02/21/17 06:00 Ordered CBC W/ AUTO DIFF Stat LAB 02/20/17 03:21 Completed CK [CREATINE KINASE] Stat LAB 02/20/17 03:21 Completed COMPREHENSIVE METABOLIC PANEL Stat LAB 02/20/17 03:21 Completed CREATINE KINASE Q8H LAB 02/20/17 10:15 Ordered CREATINE KINASE Q8H LAB 02/20/17 18:15 Ordered OCCULT BLOOD, STOOL Stat LAB 02/20/17 03:08 Uncollected PACKED CELLS Stat LAB 02/20/17 03:21 Results PT WITH INR Stat LAB 02/20/17 03:21 Completed TROPONIN I Q8H LAB 02/20/17 10:15 Ordered TROPONIN I Q8H LAB 02/20/17 18:15 Ordered TROPONIN I Stat LAB 02/20/17 03:21 Completed TYPE AND SCREEN Stat LAB 02/20/17 03:21 Results 0.9 % Sodium Chloride [Saline Flush] MEDS 02/20/17 03:07 Ordered 1 syr IVF PRN PRN Acetaminophen [Tylenol] MEDS 02/20/17 04:02 Ordered 650 mg PO Q4H PRN Furosemide [Lasix] MEDS 02/20/17 04:02 Ordered 20 mg IVP Q3H PRN Ondansetron HCl/Pf [Zofran 4 mg/2 ml] MEDS 02/20/17 04:02 Ordered 4 mg IVP Q6H PRN Pantoprazole Sodium [Protonix IV] MEDS 02/20/17 03:07 Discontinued 80 mg IVP ONCE STA Sodium Chloride 0.9% [Sodium Chloride] 500 ml MEDS 02/20/17 03:07 Discontinued IV BOLUS RESUSCITATION STATUS Routine OTHERS 02/20/17 04:02 Ordered Medications Generic Name Dose Route Start Last Admin Trade Name Freq PRN Reason Stop Dose Admin Acetaminophen 650 mg 02/20/17 04:02 Tylenol PO Q4H PRN fever Ferrous Sulfate 324 mg 02/20/17 09:00 Ferrous Sulfate PO BID MAY Furosemide 20 mg 02/20/17 04:02 Lasix IVP Q3H PRN give after each unit of blood Furosemide 20 mg 02/20/17 09:00 Lasix Tab PO DAILY MAY Gabapentin 300 mg 02/20/17 09:00 Neurontin PO 0900,1500 MAY Levothyroxine Sodium 75 mcg 02/20/17 06:30 Synthroid PO QDAC MAY Lorazepam 1 mg 02/20/17 04:12 Ativan PO BEDTIME PRN anxiety Mometasone Furoate applic 02/20/17 04:12 Elocon TP DAILY PRN Rash Multivitamins tab 02/20/17 09:00 Multivitamin Tablet PO DAILY MAY Non-Formulary Medication 1 each 02/20/17 09:00 Calcium Carbonate/Vitamin D3 [Calcium 600 + Vit D 400 Tablet] PO DAILY MAY Non-Formulary Medication 60 mg 02/20/17 09:00 Duloxetine Hcl [Cymbalta] PO DAILY MAY Non-Formulary Medication 600 mg 02/20/17 21:00 Gabapentin [Neurontin] PO BEDTIME MAY Non-Formulary Medication 1 each 02/20/17 09:00 [place]-3 Fatty Acids/Fish Oil [Fish Oil 1,000 Mg Capsule] PO BID MAY Non-Formulary Medication 20 mg 02/20/17 21:00 Rosuvastatin Calcium [Crestor] PO BEDTIME MAY Ondansetron HCl 4 mg 02/20/17 04:02 Zofran 4 Mg/2 Ml IVP Q6H PRN Nausea / Vomiting Pantoprazole Sodium 40 mg 02/20/17 09:00 Protonix Iv IVP Q12HR MAY Polyethylene Glycol 17 gm 02/20/17 04:12 Miralax PO DAILY PRN Constipation Sodium Chloride 1 syr 02/20/17 03:07 02/20/17 03:34 Saline Flush IVF 1 syr PRN PRN Administration To flush IV Discontinued Medications Generic Name Dose Route Start Last Admin Trade Name Freq PRN Reason Stop Dose Admin Sodium Chloride 500 mls @ 500 mls/hr 02/20/17 03:07 02/20/17 03:28 Sodium Chloride IV 02/20/17 04:06 500 mls/hr BOLUS STA Administration Pantoprazole Sodium 80 mg 02/20/17 03:07 02/20/17 03:31 Protonix Iv IVP 02/20/17 03:08 80 mg ONCE STA Administration Vital Signs: Temp Pulse Resp BP Pulse Ox 02/20/17 02:20 97.4 F L 76 20 101/43 L 96 Departure - Departure Time of Disposition: 04:45 Disposition: ADMITTED INPATIENT Discharge Problem: Lower GI bleed, Non-ST elevated myocardial infarction (non-STEMI) Anemia Qualifiers: Anemia type: iron deficiency Iron deficiency anemia type: chronic blood loss Qualified Code(s): D50.0 - Iron deficiency anemia secondary to blood loss ( chronic) Condition: Stable Pt referred to PMD for follow-up: No Allergies/Adverse Reactions: Allergies Latex, Natural Rubber Adverse Reaction (Verified 02/20/17 02:30) Home Medications: Ambulatory Orders Rosuvastatin Calcium [Crestor] 20 mg PO BEDTIME 09/02/15 [place]-3 Fatty Acids/Fish Oil [Fish Oil 1,000 mg Capsule] 1 each PO BID 09/05/16 Furosemide [Lasix Tab] 1 tab PO DAILY 10/21/16 Calcium Carbonate/Vitamin D3 [Calcium 600 + Vit D 400 Tablet] 1 each PO DAILY Ferrous Sulfate 324 mg PO BID 10/23/16 Levothyroxine Sodium [Synthroid] 75 mcg PO QDAC 10/23/16 Lorazepam [Ativan] 1 mg PO BEDTIME PRN 10/23/16 Multivitamin [Multi-Vitamin Daily] 1 each PO DAILY 10/23/16 Pantoprazole Sodium [Protonix] 40 mg PO QDAC 10/23/16 Polyethylene Glycol 3350 [Miralax] 17 gm PO DAILY PRN 10/23/16 Mometasone Furoate [Elocon] 45 gm TP DAILY PRN #1 tb 01/04/17 Disposition Discussed With: Patient, Family
[2017-02-20 03:35] LABS: BASOPHILS # (AUTO) 0.1 K/uL (0-0.2); BASOPHILS % (AUTO) 0.6 % (0.0-3.0); EOSINOPHILS # (AUTO) 0.1 K/ul (0.0-0.7); EOSINOPHILS % (AUTO) 1.5 % (0.0-7.0); HEMATOCRIT 20.9 % (37.0-47.0); HEMOGLOBIN 7.1 g/dl (12.0-16.0); IMMATURE GRANULOCYTE % (AUTO) 0.7 % (0.0-5.0); LYMPHOCYTES # (AUTO) 1.1 K/uL (0.60-3.4); LYMPHOCYTES % (AUTO) 11.8 (10.0-50.0); MEAN CORPUSCULAR HEMOGLOBIN 33.2 pg (27.0-31.0); MEAN CORPUSCULAR VOLUME 97.7 fl (81.0-99.0); MONOCYTES # (AUTO) 0.6 K/uL (0.4-2.0); MONOCYTES % (AUTO) 6.8 (0-10); NEUTROPHILS % (AUTO) 78.6; PLATELET COUNT 158 10^3/uL (140-440); RED BLOOD COUNT 2.14 10^6/ul (4.20-5.40); WHITE BLOOD COUNT 8.91 K/ul (4.6-10.2)
[2017-02-20 03:47] LABS: PROTHROMBIN TIME 9.9 SEC (9.3-11.0)
[2017-02-20 03:54] LABS: ALANINE AMINOTRANSFERASE < 6 U/L (12-78); ALBUMIN 2.7 g/dL (3.4-5.0); ALKALINE PHOSPHATASE 71 U/L (53-141); ANION GAP 14.1; ASPARTATE AMINO TRANSFERASE 25 U/L (15-37); BILIRUBIN,TOTAL 0.33 mg/dL (0.00-1.20); BLOOD UREA NITROGEN 29 mg/dL (7-18); BUN/CREATININE RATIO 36.25; CALCIUM 9.1 mg/dL (8.2-10.2); CARBON DIOXIDE 23 mmol/L (23-31); CHLORIDE 106 mmol/L (98-107); GLUCOSE 145 mg/dL (82-115); POTASSIUM 4.1 mmol/L (3.5-5.10); SODIUM 139 mmol/L (136-145); TOTAL PROTEIN 5.4 g/dL (5.8-8.1)
[2017-02-20] MEDS ORDERED: ZOFRAN 4 MG/2 ML IVP PRN (04:02)
[2017-02-20] MEDS ORDERED: TYLENOL PO PRN (04:02)
[2017-02-20] MEDS ORDERED: ELOCON TP PRN (04:12)
[2017-02-20 04:46] LABS: TROPONIN I 0.755 ng/ml (0.0000-0.4000)
[2017-02-20 05:37] VITALS: BMI 30.1
[2017-02-20] MEDS ORDERED: NON-FORMULARY MEDICATION (Duloxetine Hcl [Cymbalta] 60 MG) PO SCH ×22 (09:00)
[2017-02-20] MEDS ORDERED: NON-FORMULARY MEDICATION (Omega-3 Fatty Acids/Fish Oil [Fish Oil 1,000 Mg Capsule] 1 EACH) PO SCH ×22 (09:00)
[2017-02-20] MEDS: PROTONIX IV IVP SCH ×2 (09:52→21:02)
[2017-02-20] MEDS: CYMBALTA PO SCH (09:55)
[2017-02-20] MEDS: NEURONTIN PO SCH ×3 (09:55→21:03)
[2017-02-20] MEDS: LASIX TAB PO SCH (09:55)
[2017-02-20] MEDS: MULTIVITAMIN TABLET PO SCH (09:55)
[2017-02-20] MEDS: OMEGA-3 FISH OIL PO SCH ×2 (09:56→21:02)
[2017-02-20] MEDS: FERROUS SULFATE PO SCH ×2 (09:56→21:03)
[2017-02-20] MEDS: CALCIUM 500 + VIT D 200 MG TABLET PO SCH (09:56)
[2017-02-20] MEDS: SYNTHROID PO SCH (10:34)
[2017-02-20 11:38] LABS: TROPONIN I 0.628 ng/ml (0.0000-0.4000)
[2017-02-20 19:01] LABS: HEMATOCRIT 22.2 % (37.0-47.0); HEMOGLOBIN 7.6 g/dl (12.0-16.0)
[2017-02-20 19:41] LABS: TROPONIN I 0.579 ng/ml (0.0000-0.4000)
[2017-02-20] MEDS ORDERED: NON-FORMULARY MEDICATION (Rosuvastatin Calcium [Crestor] 20 MG) PO SCH ×22 (21:00)
[2017-02-20] MEDS ORDERED: NON-FORMULARY MEDICATION (Gabapentin [Neurontin] 600 MG) PO SCH ×22 (21:00)
[2017-02-20] MEDS: CRESTOR PO SCH (21:03)
[2017-02-20] MEDS: ATIVAN PO PRN (23:28)
[2017-02-21 01:22] LABS: OCCULT BLOOD INTERNAL QC 1 INTERNAL QC VALID; OCCULT BLOOD SAMPLE 1 POSITIVE (NEGATIVE)
[2017-02-21 05:18] LABS: BASOPHILS % (AUTO) 0.3 % (0.0-3.0); EOSINOPHILS # (AUTO) 0.2 K/ul (0.0-0.7); EOSINOPHILS % (AUTO) 1.8 % (0.0-7.0); HEMATOCRIT 18.8 % (37.0-47.0); HEMOGLOBIN 6.4 g/dl (12.0-16.0); IMMATURE GRANULOCYTE % (AUTO) 1.1 % (0.0-5.0); LYMPHOCYTES # (AUTO) 1.9 K/uL (0.60-3.4); LYMPHOCYTES % (AUTO) 18.6 (10.0-50.0); MEAN CORPUSCULAR HEMOGLOBIN 30.8 pg (27.0-31.0); MEAN CORPUSCULAR VOLUME 90.4 fl (81.0-99.0); MONOCYTES # (AUTO) 0.8 K/uL (0.4-2.0); MONOCYTES % (AUTO) 7.9 (0-10); NEUTROPHILS # (AUTO) 7.3 K/ul (2.0-6.9); NEUTROPHILS % (AUTO) 70.3; PLATELET COUNT 108 10^3/uL (140-440); RED BLOOD COUNT 2.08 10^6/ul (4.20-5.40); WHITE BLOOD COUNT 10.41 K/ul (4.6-10.2)
[2017-02-21 05:38] LABS: ANION GAP 9.1; BUN/CREATININE RATIO 31.16; CALCIUM 8.4 mg/dL (8.2-10.2); CREATININE 0.77 mg/dL (0.60-1.30); POTASSIUM 4.1 mmol/L (3.5-5.10)
[2017-02-21] MEDS: LASIX TAB PO SCH (05:41)
[2017-02-21] MEDS: SYNTHROID PO SCH (05:41)
[2017-02-21] MEDS ORDERED: LASIX IVP STA ×3 (08:51→17:26)
[2017-02-21] MEDS: OMEGA-3 FISH OIL PO SCH ×2 (09:02→20:52)
[2017-02-21] MEDS: CALCIUM 500 + VIT D 200 MG TABLET PO SCH (09:02)
[2017-02-21] MEDS: MULTIVITAMIN TABLET PO SCH (09:02)
[2017-02-21] MEDS: FERROUS SULFATE PO SCH ×2 (09:02→20:51)
[2017-02-21] MEDS: CYMBALTA PO SCH (09:02)
[2017-02-21] MEDS: NEURONTIN PO SCH ×3 (09:02→20:51)
[2017-02-21] MEDS: PROTONIX IV IVP SCH ×2 (09:03→20:52)
--- NOTE | 2017-02-21 14:21 | HP ---
DATE OF SERVICE: 02/20/17 CHIEF COMPLAINT: Lower GI bleed HISTORY OF PRESENT ILLNESS: This is a 76-year-old female with history of chronic lower GI bleed, been steady for almost 6 weeks, started having bloody bowel movements early in the morning, started feeling weak with tightness and shortness of breath, sweating. She came to the emergency room and was seen by Dr. Knox in the emergency room. Hemoglobin was 7.1. D. dimer negative. Troponin was 0.7. At that time the patient was admitted to the hospital for acute on chronic lower GI bleed needing blood transfusion and IV fluids. REVIEW OF SYSTEMS: CONSTITUTIONAL: Weakness, tiredness. No fever, no chills. HEENT: Normal. ENDOCRINE: No weight gain; no weight loss. CVS: Positive for sweating and shortness of breath. No chest pain. No PND, no orthopnea. No PND, no orthopnea. RESPIRATORY: No cough, no congestion. No hemoptysis. GI: Positive for lower GI bleed, bright red bloody bowel movements. No nausea, no vomiting. No abdominal pain. : No hematuria. No polyuria. MUSCULOSKELETAL: No joint swelling. PSYCHIATRIC: Not anxious. No depression. No suicidal thoughts. No homicidal thoughts. SKIN: Intact, no open lesions. PAST MEDICAL HISTORY: Hypertension Dyslipidemia Diabetes, diet controlled Depression Peripheral neuropathy Osteoarthritis Systolic murmur from aortic stenosis Dependent edema COPD PAST SURGICAL HISTORY: Left shoulder replacement PERSONAL HISTORY: , use to smoke but quit. She lives with her . FAMILY HISTORY: Significant for diabetes, thyroid and heart problems. MEDICATIONS: (HOME) Crestor Fish Oil Cymbalta Lasix Synthroid Ativan Miralax Multivitamin Ferrous Sulfate Calcium Protonix Neurontin ALLERGIES: LATEX, NATURAL RUBBER PHYSICAL EXAMINATION: V/S: BP 94/64, respiratory rate 22, heart rate 77, temperature 99.0, saturation 99 on 2L. GENERAL: Sick looking lady lying in bed not in any distress. HEENT: Atraumatic, normocephalic. No scleral icterus. Pallor positive. Mucosa dry. NECK: Supple. No JVD, no bruit. No lymphadenopathy. No thyromegaly. HEART: S1, S2 normal. Systolic murmur positive. No cyanosis or clubbing. No ascites. LUNGS: Decreased breath sounds. Clear to auscultation. No rales or rhonchi. ABDOMEN: Soft, nontender. Bowel sounds are active. No CVA tenderness. No rigidity or guarding. EXTREMITIES: No cyanosis, clubbing or pedal edema. MUSCULOSKELETAL: Normal joints, no swelling. NEUROLOGIC: The patient is awake, alert and oriented. SKIN: Intact; no open lesions. LYMPHATIC: No lymph nodes palpable. LABS: White count 8.91, hemoglobin 7.1, hematocrit 20.9, platelet count 158. Sodium 139, potassium 4.1, chloride 106, bicarb 23, BUN 29, creatinine 0.80, glucose 145. First set of cardiac enzymes 0.71. ASSESSMENT: 1. ACUTE ON CHRONIC LOWER GI BLEED 2. HISTORY OF DIVERTICULOSIS WITH AV MALFORMATION 3. LOWER GI BLEED 4. CORONARY ARTERY DISEASE 5. SEVERE AORTIC STENOSIS 6. ANGINA 7. CHF 8. DIABETES, DIET CONTROLLED 9. HYPERTENSION 10. DYSLIPIDEMIA 11. DEPRESSION PLAN: 1. Admit patient to the regular floor 2. CBC, CMP today and daily 3. Type and crossmatch 2 units and transfuse 2 units 4. IV fluids 5. Daily I & O 6. Continue home medication TIME SPENT: MORE THAN 75 minutes MTDD
[2017-02-21] MEDS: CRESTOR PO SCH (20:51)
[2017-02-21] MEDS: ATIVAN PO PRN (20:58)
[2017-02-21 22:02] LABS: HEMATOCRIT 30.4 % (37.0-47.0); HEMOGLOBIN 10.5 g/dl (12.0-16.0)
[2017-02-22 00:55] LABS: OCCULT BLOOD INTERNAL QC 2 INTERNAL QC VALID; OCCULT BLOOD INTERNAL QC 3 INTERNAL QC VALID; OCCULT BLOOD SAMPLE 2 NO SPECIMEN RECEIVED (NEGATIVE); OCCULT BLOOD SAMPLE 3 NO SPECIMEN RECEIVED (NEGATIVE)
[2017-02-22] MEDS: SYNTHROID PO SCH (05:32)
[2017-02-22] MEDS: LASIX TAB PO SCH (05:32)
[2017-02-22 07:42] LABS: BASOPHILS # (AUTO) 0.1 K/uL (0-0.2); BASOPHILS % (AUTO) 1.1 % (0.0-3.0); EOSINOPHILS # (AUTO) 0.4 K/ul (0.0-0.7); EOSINOPHILS % (AUTO) 4.8 % (0.0-7.0); HEMATOCRIT 30.6 % (37.0-47.0); HEMOGLOBIN 10.4 g/dl (12.0-16.0); IMMATURE GRANULOCYTE % (AUTO) 1.4 % (0.0-5.0); LYMPHOCYTES # (AUTO) 1.5 K/uL (0.60-3.4); LYMPHOCYTES % (AUTO) 15.9 (10.0-50.0); MEAN CORPUSCULAR HEMOGLOBIN 29.2 pg (27.0-31.0); MONOCYTES # (AUTO) 0.8 K/uL (0.4-2.0); MONOCYTES % (AUTO) 8.9 (0-10); NEUTROPHILS # (AUTO) 6.3 K/ul (2.0-6.9); NEUTROPHILS % (AUTO) 67.9; PLATELET COUNT 113 10^3/uL (140-440); RED BLOOD COUNT 3.56 10^6/ul (4.20-5.40); WHITE BLOOD COUNT 9.26 K/ul (4.6-10.2)
[2017-02-22 07:59] LABS: ALBUMIN/GLOBULIN RATIO 1.15; ANION GAP 11.8; BILIRUBIN,TOTAL 0.85 mg/dL (0.00-1.20); BUN/CREATININE RATIO 19.75; CREATININE 0.81 mg/dL (0.60-1.30); POTASSIUM 2.8 mmol/L (3.5-5.10); TOTAL PROTEIN 5.6 g/dL (5.8-8.1)
[2017-02-22] MEDS: MULTIVITAMIN TABLET PO SCH (08:52)
[2017-02-22] MEDS: CALCIUM 500 + VIT D 200 MG TABLET PO SCH (08:52)
[2017-02-22] MEDS: FERROUS SULFATE PO SCH ×2 (08:52→21:13)
[2017-02-22] MEDS: CYMBALTA PO SCH (08:52)
[2017-02-22] MEDS: NEURONTIN PO SCH ×3 (08:52→21:13)
[2017-02-22] MEDS: OMEGA-3 FISH OIL PO SCH ×2 (08:52→21:13)
[2017-02-22] MEDS: PROTONIX IV IVP SCH ×2 (08:53→21:13)
[2017-02-22] MEDS ORDERED: K-DUR PO STA (11:41)
--- NOTE | 2017-02-22 13:39 | DI ---
EXAM: Single view of the chest. History: Short of breath Comparison: Chest radiograph 10/21/2016 Findings: Heart is mildly enlarged. Atherosclerotic vascular calcifications. No focal consolidatio n. No appreciable pleural fluid and no pneumothorax. Mitral valve calcifications and aortic valve c alcifications. Left shoulder arthroplasty. No acute osseous abnormalities. Impression: Mild cardiomegaly without acute disease in the chest. Valvular calcifications of the he art
[2017-02-22] MEDS ORDERED: K-DUR PO ONE ×2 (14:00→18:00)
[2017-02-22 14:15] LABS: HEMATOCRIT 27.8 % (37.0-47.0); HEMOGLOBIN 9.5 g/dl (12.0-16.0)
[2017-02-22] MEDS: DUONEB NEB SCH (18:05)
[2017-02-22] MEDS: CRESTOR PO SCH ×3 (21:13→21:22)
[2017-02-22 22:24] LABS: HEMOGLOBIN 8.8 g/dl (12.0-16.0)
[2017-02-22] MEDS: ATIVAN PO PRN (22:42)
[2017-02-23] MEDS: DUONEB NEB SCH ×2 (05:02→17:52)
[2017-02-23 05:26] LABS: HEMATOCRIT 27.4 % (37.0-47.0)
[2017-02-23] MEDS: LASIX TAB PO SCH (05:32)
[2017-02-23] MEDS: SYNTHROID PO SCH (05:32)
[2017-02-23 05:43] LABS: ANION GAP 11.7; BUN/CREATININE RATIO 20.77; CALCIUM 9.2 mg/dL (8.2-10.2); CREATININE 0.77 mg/dL (0.60-1.30); POTASSIUM 4.7 mmol/L (3.5-5.10)
[2017-02-23] MEDS: NEURONTIN PO SCH ×3 (08:12→21:05)
[2017-02-23] MEDS: OMEGA-3 FISH OIL PO SCH ×2 (08:12→21:05)
[2017-02-23] MEDS: MULTIVITAMIN TABLET PO SCH (08:12)
[2017-02-23] MEDS: FERROUS SULFATE PO SCH ×2 (08:12→21:05)
[2017-02-23] MEDS: CYMBALTA PO SCH (08:12)
[2017-02-23] MEDS: CALCIUM 500 + VIT D 200 MG TABLET PO SCH (08:12)
[2017-02-23] MEDS: MIRALAX PO PRN (08:13)
[2017-02-23] MEDS: PROTONIX IV IVP SCH (08:14)
[2017-02-23] MEDS: PROTONIX PO SCH ×2 (09:01→16:18)
[2017-02-23 14:05] LABS: HEMATOCRIT 28.6 % (37.0-47.0); HEMOGLOBIN 9.6 g/dl (12.0-16.0)
[2017-02-23] MEDS: CRESTOR PO SCH (21:05)
[2017-02-23] MEDS: ATIVAN PO SCH (21:05)
[2017-02-23 23:08] LABS: HEMATOCRIT 26.1 % (37.0-47.0); HEMOGLOBIN 8.5 g/dl (12.0-16.0)
[2017-02-24] MEDS: DUONEB NEB SCH ×2 (05:08→17:00)
[2017-02-24 05:31] LABS: HEMATOCRIT 26.6 % (37.0-47.0); HEMOGLOBIN 8.7 g/dl (12.0-16.0)
[2017-02-24] MEDS: LASIX TAB PO SCH (05:36)
[2017-02-24] MEDS: PROTONIX PO SCH ×2 (05:36→17:35)
[2017-02-24] MEDS: SYNTHROID PO SCH (05:36)
[2017-02-24] MEDS: CALCIUM 500 + VIT D 200 MG TABLET PO SCH (08:53)
[2017-02-24] MEDS: OMEGA-3 FISH OIL PO SCH ×2 (08:53→22:06)
[2017-02-24] MEDS: FERROUS SULFATE PO SCH ×2 (08:54→22:06)
[2017-02-24] MEDS: MULTIVITAMIN TABLET PO SCH (08:54)
[2017-02-24] MEDS: NEURONTIN PO SCH ×3 (08:54→22:06)
[2017-02-24] MEDS: CYMBALTA PO SCH (08:54)
[2017-02-24] MEDS ORDERED: CHLORASEPTIC SPRAY MM PRN (09:12)
[2017-02-24] MEDS: MIRALAX PO PRN (09:57)
[2017-02-24] MEDS: PREDNISONE PO SCH ×2 (13:17→17:35)
[2017-02-24 17:03] LABS: HEMATOCRIT 28.8 % (37.0-47.0); HEMOGLOBIN 9.4 g/dl (12.0-16.0)
[2017-02-24] MEDS: ATIVAN PO SCH (22:06)
[2017-02-24] MEDS: CRESTOR PO SCH (22:06)
[2017-02-25 05:13] LABS: HEMATOCRIT 23.9 % (37.0-47.0); HEMOGLOBIN 7.9 g/dl (12.0-16.0)
[2017-02-25 05:25] LABS: ALBUMIN 2.6 g/dL (3.4-5.0); ALBUMIN/GLOBULIN RATIO 1.18; ANION GAP 10.2; BILIRUBIN,TOTAL 0.44 mg/dL (0.00-1.20); CALCIUM 8.9 mg/dL (8.2-10.2); CREATININE 0.7 mg/dL (0.60-1.30); POTASSIUM 4.2 mmol/L (3.5-5.10); TOTAL PROTEIN 4.8 g/dL (5.8-8.1)
[2017-02-25] MEDS: DUONEB NEB SCH ×2 (05:25→18:00)
[2017-02-25] MEDS: LASIX TAB PO SCH (06:24)
[2017-02-25] MEDS: PROTONIX PO SCH ×2 (06:24→17:47)
[2017-02-25] MEDS: SYNTHROID PO SCH (06:24)
[2017-02-25] MEDS: NEURONTIN PO SCH ×3 (08:43→20:00)
[2017-02-25] MEDS: MULTIVITAMIN TABLET PO SCH (08:43)
[2017-02-25] MEDS: CYMBALTA PO SCH (08:43)
[2017-02-25] MEDS: CALCIUM 500 + VIT D 200 MG TABLET PO SCH (08:43)
[2017-02-25] MEDS: PREDNISONE PO SCH ×2 (08:43→17:47)
[2017-02-25] MEDS: FERROUS SULFATE PO SCH ×2 (08:43→20:02)
[2017-02-25] MEDS: OMEGA-3 FISH OIL PO SCH ×2 (08:43→20:01)
[2017-02-25 16:29] LABS: HEMATOCRIT 21.9 % (37.0-47.0)
[2017-02-25] MEDS: CRESTOR PO SCH (20:01)
[2017-02-25] MEDS: ATIVAN PO SCH (20:01)
[2017-02-25] MEDS: LASIX IVP PRN (22:29)
[2017-02-26] MEDS: LASIX IVP PRN ×2 (02:00→21:30)
[2017-02-26 03:46] LABS: HEMATOCRIT 28.1 % (37.0-47.0); HEMOGLOBIN 9.5 g/dl (12.0-16.0)
[2017-02-26] MEDS: DUONEB NEB SCH ×2 (05:05→17:04)
[2017-02-26] MEDS: LASIX TAB PO SCH (06:31)
[2017-02-26] MEDS: SYNTHROID PO SCH (06:31)
[2017-02-26] MEDS: PROTONIX PO SCH ×2 (06:31→16:38)
[2017-02-26] MEDS: OMEGA-3 FISH OIL PO SCH ×2 (08:07→20:58)
[2017-02-26] MEDS: NEURONTIN PO SCH ×3 (08:08→20:58)
[2017-02-26] MEDS: CALCIUM 500 + VIT D 200 MG TABLET PO SCH (08:08)
[2017-02-26] MEDS: MULTIVITAMIN TABLET PO SCH (08:08)
[2017-02-26] MEDS: CYMBALTA PO SCH (08:08)
[2017-02-26] MEDS: FERROUS SULFATE PO SCH ×2 (08:08→20:58)
[2017-02-26] MEDS: PREDNISONE PO SCH ×2 (08:08→16:38)
[2017-02-26 16:09] LABS: HEMATOCRIT 22.1 % (37.0-47.0); HEMOGLOBIN 7.5 g/dl (12.0-16.0)
[2017-02-26] MEDS: ATIVAN PO SCH (20:58)
[2017-02-26] MEDS: CRESTOR PO SCH (20:58)
[2017-02-27] MEDS: LASIX IVP PRN (01:23)
[2017-02-27 02:19] LABS: HEMATOCRIT 29.8 % (37.0-47.0); HEMOGLOBIN 10.2 g/dl (12.0-16.0)
[2017-02-27] MEDS: DUONEB NEB SCH ×2 (05:12→17:52)
[2017-02-27] MEDS: SYNTHROID PO SCH (05:40)
[2017-02-27] MEDS: LASIX TAB PO SCH (05:40)
[2017-02-27] MEDS: PROTONIX PO SCH ×2 (05:40→16:31)
[2017-02-27] MEDS: PREDNISONE PO SCH ×2 (08:29→16:31)
[2017-02-27] MEDS: OMEGA-3 FISH OIL PO SCH ×2 (08:29→20:58)
[2017-02-27] MEDS: FERROUS SULFATE PO SCH ×2 (08:30→20:58)
[2017-02-27] MEDS: MULTIVITAMIN TABLET PO SCH (08:30)
[2017-02-27] MEDS: CYMBALTA PO SCH (08:30)
[2017-02-27] MEDS: NEURONTIN PO SCH ×3 (08:30→20:58)
[2017-02-27] MEDS: CALCIUM 500 + VIT D 200 MG TABLET PO SCH (08:30)
--- NOTE | 2017-02-27 09:33 | PN ---
DATE OF SERVICE: 02/24/17 SUBJECTIVE: The patient was admitted with severe lower GI bleed and needing the blood transfusion. Troponin was high and the BNP was high. Still has some shortness of breath. Had two bowel movements which was bloody. Hgb dropped again to 8.5 and 8.7 from 9.0 yesterday. REVIEW OF SYSTEMS: CONSTITUTIONAL: No fever, no chills. HEENT: Normal. ENDOCRINE: No weight gain, no weight loss. CVS: No angina symptoms. No CHF symptoms. No palpitations. No atypical chest pain for CAD. No shortness of breath. No PND, no orthopnea. RESPIRATORY: No cough, no hemoptysis. GI: No nausea, no vomiting. No abdominal pain. : No hematuria. No polyuria. MUSCULOSKELETAL:. No joint swelling. PSYCHIATRIC: Not anxious. No depression. No suicidal thoughts. No homicidal thoughts. SKIN: Intact. No rash. PHYSICAL EXAMINATION: V/S: Blood pressure is 105/49, respiratory rate 18, heart rate 71, temperature 98.7 with saturation 97% on 2 liters. HEENT: Normocephalic, atraumatic. Mucosa dry. Pallor positive. NECK: Supple. No JVD, no carotid bruit. No lymphadenopathy. LUNGS: Decreased and basilar crackles. Clear to auscultation. No rales or rhonchi. HEART: S1, S2 normal. No S3. Systolic murmur positive, gallop or regurgitation. ABDOMEN: Soft, nontender. Bowel sounds active. No rigidity. No rebound or guarding. No CVA tenderness. EXTREMITIES: No clubbing, cyanosis. 1+ edema. MUSCULOSKELETAL: No joint swelling. NEUROLOGIC: Awake, alert, oriented times three. No focal deficit. LYMPHATIC: No lymph nodes palpable. SKIN: Intact. LABS: Hgb 8.7, hct 26.6, sodium 143, potassium 4.7, chloride 105, bicarb 31, BUN 16, creatinine 0.77 ASSESSMENT: 1. Acute on chronic lower GI bleed needing total of 5 units blood transfusion still having active lower GI bleed with bloody to black colored stools 2. Stable Angina 3. Elevated Troponin 4. Acute on chronic heart failure, BNP was 314 5. Severe aortic stenosis 6. Depression 7. Anxiety PLAN: 1. Continue to monitor the H&H 2. Miralax Laxative 3. Protonix 4. Daily I&O's TIME SPENT: More than 35 minutes MTDD
--- NOTE | 2017-02-27 11:42 | PN ---
DATE OF SERVICE: 02/21/17 SUBJECTIVE: The patient was admitted with the lower GI bleed. The patient had 4 units PRBC yesterday and the patient's hgb is 6.4. The patient is still having the bloody diarrhea and bowel movements. Feeling weak, tired and shortness of breath, chest tightness and has swelling in the upper extremities. The patient daughter' s is in the room along with with. REVIEW OF SYSTEMS: CONSTITUTIONAL: No fever, no chills. HEENT: Normal. ENDOCRINE: No weight gain, no weight loss. CVS: No angina symptoms. No CHF symptoms. No palpitations. No atypical chest pain for CAD. No shortness of breath. No PND, no orthopnea. RESPIRATORY: No cough, no hemoptysis. GI: No nausea, no vomiting. No abdominal pain. : No hematuria. No polyuria. MUSCULOSKELETAL:. No joint swelling. PSYCHIATRIC: Not anxious. No depression. No suicidal thoughts. No homicidal thoughts. SKIN: Intact. No rash. PHYSICAL EXAMINATION: V/S: Blood pressure 127/63, respiratory rate 20, heart rate 89, temperature 98.3 with saturation 98%. HEENT: Normocephalic, atraumatic. Mucosa dry. Pallor positive. No icterus. NECK: Supple. No JVD, no carotid bruit. No lymphadenopathy. LUNGS: Bilateral entry is decreased and Clear to auscultation. No rales or rhonchi. HEART: S1, S2 normal. No S3. Systolic murmur, gallop or regurgitation. ABDOMEN: Soft, nontender. Bowel sounds active. No rigidity. No rebound or guarding. No CVA tenderness. EXTREMITIES: No clubbing, cyanosis. 1+ edema. MUSCULOSKELETAL: No joint swelling. NEUROLOGIC: Awake, alert, oriented times three. No focal deficit. LYMPHATIC: No lymph nodes palpable. SKIN: Intact. LABS: Hgb 6.4, WBC 10.41, hct 18.8, plt count 108, sodium 138, potassium 4.1, chloride 107, bicarb 26, BUN 24, creatinine 0.77. Positive Troponin, 0.25, 0.62. 0.75. ASSESSMENT: 1. Acute lower GI bleed needing multiple blood transfusion 2. Diverticular bleeding 3. Angina 4. Positive Troponin 5. Acute on chronic heart failure 6. Depression 7. Anxiety 8. Diabetes, diet controlled PLAN: 1. Type and cross match three units and transfuse 3 2. Lasix 20mg IV push in between the blood transfusion 3. Guarded prognosis been discussed with the patient's daughter and verbalized understanding. TIME SPENT: More than 30 minutes MTDD
--- NOTE | 2017-02-27 12:45 | PN ---
DATE OF SERVICE: 02/23/17 SUBJECTIVE: The patient was admitted with acute lower GI bleed. She did not have bowel movement for 2 days. No diarrhea and no bloody bowel movement. Still had some shortness of breath with minimal exertion. REVIEW OF SYSTEMS: CONSTITUTIONAL: No fever, no chills. HEENT: Normal. ENDOCRINE: No weight gain, no weight loss. CVS: No angina symptoms. No CHF symptoms. No palpitations. No atypical chest pain for CAD. No shortness of breath. No PND, no orthopnea. RESPIRATORY: No cough, no hemoptysis. GI: No nausea, no vomiting. No abdominal pain. : No hematuria. No polyuria. MUSCULOSKELETAL:. No joint swelling. PSYCHIATRIC: Not anxious. No depression. No suicidal thoughts. No homicidal thoughts. SKIN: Intact. No rash. PHYSICAL EXAMINATION: V/S: Blood pressure 104/50, respiratory rate 24, heart rate 113, temperature 97.5 with saturation 91% on room air. HEENT: Normocephalic, atraumatic. Mucosa dry. Pallor positive. No icterus. NECK: Supple. No JVD, no carotid bruit. No lymphadenopathy. LUNGS: Decreased and clear to auscultation. No rales or rhonchi. HEART: S1, S2 normal. No S3. Systolic murmur, gallop or regurgitation. ABDOMEN: Soft, nontender. Bowel sounds active. No rigidity. No rebound or guarding. No CVA tenderness. EXTREMITIES: No clubbing, cyanosis. 1+ edema. MUSCULOSKELETAL: No joint swelling. NEUROLOGIC: Awake, alert, oriented times three. No focal deficit. LYMPHATIC: No lymph nodes palpable. SKIN: Intact. LABS: Hgb 9.0, hct 30.6, plt count 113, sodium 142, potassium 4.7, chloride 105, bicarb 21, BUN 16, creatinine 0.77 and BNP 314. ASSESSMENT: 1. Elevated Troponin 2. Stable Angina 3. Acute on chronic heart failure 4. Severe lower GI bleed needing four units of blood transfusion 5. Diverticulosis 6. Aortic stenosis 7. Coronary artery disease 8. Depression 9. Anxiety 10.Peripheral neuropathy PLAN: 1. Will give Miralax for the bowel movements 2. Recheck the Troponin levels 3. Daily I&Os 4. H&H every Q 8 hours TIME SPENT: More than 35 minutes MTDD
--- NOTE | 2017-02-27 14:49 | PN ---
DATE OF SERVICE: 02/25/17 SUBJECTIVE: The patient was admitted with lower GI bleed. Still having some bloody bowel movements. Hgb dropped to 7.9 from 9.4. Having some blood in the stool. REVIEW OF SYSTEMS: CONSTITUTIONAL: No fever, no chills. Weakness is present. HEENT: Normal. ENDOCRINE: No weight gain, no weight loss. CVS: No angina symptoms. No CHF symptoms. No palpitations. No atypical chest pain for CAD. Shortness of breath. No PND, no orthopnea. RESPIRATORY: No cough, no hemoptysis. GI: No nausea, no vomiting. No abdominal pain. : No hematuria. No polyuria. MUSCULOSKELETAL:. No joint swelling. PSYCHIATRIC: Not anxious. No depression. No suicidal thoughts. No homicidal thoughts. SKIN: Intact. No rash. PHYSICAL EXAMINATION: V/S: Blood pressure 128/59, respiratory rate 20, heart rate 77, temperature 98.4 and saturation is 100% on room air. HEENT: Normocephalic, atraumatic. Mucosa dry. Pallor positive. No icterus. NECK: Supple. No JVD, no carotid bruit. No lymphadenopathy. LUNGS: Decreased Clear to auscultation. No rales or rhonchi. HEART: S1, S2 normal. No S3. Systolic murmur, gallop or regurgitation. ABDOMEN: Soft, nontender. Bowel sounds active. No rigidity. No rebound or guarding. No CVA tenderness. EXTREMITIES: No clubbing, cyanosis or pedal edema. MUSCULOSKELETAL: No joint swelling. NEUROLOGIC: Awake, alert, oriented times three. No focal deficit. LYMPHATIC: No lymph nodes palpable. SKIN: Intact. LABS: Hgb 7.9. hct 23.9, sodium 140, potassium 4.2, chloride 108, bicarb 31, BUN 21, creatinine 0.70 and glucose 130 ASSESSMENT: 1. Acute on chronic lower GI bleed need blood transfusion, continued blood in the stools 2. Severe aortic stenosis 3. Coronary artery disease 4. Diabetes, diet controlled 5. Hypertension 6. Dyslipidemia 7. Peripheral neuropathy PLAN: 1. Continue to monitor the H&H, if the hgb drops below 7 will transfuse two more units 2. Miralax everyday 3. IV fluids .TIME SPENT: More than 35 minutes MTDD
--- NOTE | 2017-02-27 14:55 | PN ---
DATE OF SERVICE: 02/26/17 SUBJECTIVE: The patient was admitted with acute lower GI bleed. The patient's hgb dropped from 7 yesterday even and patient had two more units of the blood transfusion. Hgb is 9.5 today morning. Still having the bloody bowel movements. The patient is feeling tired and no energy. REVIEW OF SYSTEMS: CONSTITUTIONAL: No fever, no chills. HEENT: Normal. ENDOCRINE: No weight gain, no weight loss. CVS: No angina symptoms. No CHF symptoms. No palpitations. No atypical chest pain for CAD. Shortness of breath with minimal exertion. No PND, no orthopnea. RESPIRATORY: No cough, no hemoptysis. GI: No nausea, no vomiting. No abdominal pain. : No hematuria. No polyuria. MUSCULOSKELETAL:. No joint swelling. PSYCHIATRIC: Not anxious. No depression. No suicidal thoughts. No homicidal thoughts. SKIN: Intact. No rash. PHYSICAL EXAMINATION: V/S: Blood pressure 122/69, respiratory rate 20, heart rate 91, temperature 99.9 with saturation 98% on two liters. HEENT: Normocephalic, atraumatic. Mucosa dry. Pallor positive. No icterus. NECK: Supple. No JVD, no carotid bruit. No lymphadenopathy. LUNGS: Basilar crackles are present. No rales or rhonchi. HEART: S1, S2 normal. No S3. Systolic murmur, gallop or regurgitation. ABDOMEN: Soft, nontender. Bowel sounds active. No rigidity. No rebound or guarding. No CVA tenderness. EXTREMITIES: No clubbing, cyanosis or pedal edema. MUSCULOSKELETAL: No joint swelling. NEUROLOGIC: Awake, alert, oriented times three. No focal deficit. LYMPHATIC: No lymph nodes palpable. SKIN: Intact. LABS: Hgb 9.5, hct 28.1, sodium 140, potassium 4.2, chloride 103, bicarb 31, BUN 21, creatinine 0.70, glucose 130. ASSESSMENT: 1. Acute lower GI bleed needing blood transfusion, continued blood in the stool right now 2. Severe Aortic stenosis 3. Coronary artery disease 4. Acute on chronic heart failure 5. Diabetes, diet controlled 6. Hypertension 7. Dyslipidemia PLAN: 1. Continue IV fluids, breathing treatment 2. Daily I&O's 3. Guarded prognosis been discussed and verbalized understanding. TIME SPENT: More than 30 minutes MTDD
[2017-02-27 16:04] LABS: HEMATOCRIT 29.3 % (37.0-47.0); HEMOGLOBIN 10.1 g/dl (12.0-16.0)
[2017-02-27] MEDS: CRESTOR PO SCH (20:58)
[2017-02-27] MEDS: ATIVAN PO SCH (20:58)
[2017-02-28] MEDS: DUONEB NEB SCH ×2 (05:25→17:00)
[2017-02-28] MEDS: LASIX TAB PO SCH (05:35)
[2017-02-28] MEDS: PROTONIX PO SCH ×2 (05:35→17:30)
[2017-02-28] MEDS: SYNTHROID PO SCH (05:36)
[2017-02-28 05:37] LABS: HEMATOCRIT 27.7 % (37.0-47.0); HEMOGLOBIN 9.3 g/dl (12.0-16.0)
[2017-02-28] MEDS: PREDNISONE PO SCH (09:02)
[2017-02-28] MEDS: OMEGA-3 FISH OIL PO SCH (09:02)
[2017-02-28] MEDS: NEURONTIN PO SCH ×2 (09:02→15:23)
[2017-02-28] MEDS: CALCIUM 500 + VIT D 200 MG TABLET PO SCH (09:02)
[2017-02-28] MEDS: FERROUS SULFATE PO SCH (09:02)
[2017-02-28] MEDS: MULTIVITAMIN TABLET PO SCH (09:02)
[2017-02-28] MEDS: CYMBALTA PO SCH (09:03)
[2017-02-28] MEDS: MIRALAX PO PRN (09:09)
[2017-02-28 16:21] LABS: HEMATOCRIT 28.1 % (37.0-47.0); HEMOGLOBIN 9.4 g/dl (12.0-16.0)
[2017-02-28 16:22] VITALS: BP 116/58; TEMP 98.8
--- NOTE | 2017-03-01 13:14 | PN ---
DATE OF SERVICE: 02/27/17 SUBJECTIVE: The patient was admitted with the severe lower GI bleed and needing blood transfusion. So far the patient has had 9 blood transfusion. The patient received two units yesterday and two units again with 7.5 hgb. Hgb today is 10.2 and 10.1. REVIEW OF SYSTEMS: CONSTITUTIONAL: No fever, no chills. HEENT: Normal. ENDOCRINE: No weight gain, no weight loss. CVS: No angina symptoms. No CHF symptoms. No palpitations. No atypical chest pain for CAD. No shortness of breath. No PND, no orthopnea. RESPIRATORY: No cough, no hemoptysis. GI: No nausea, no vomiting. No abdominal pain. : No hematuria. No polyuria. MUSCULOSKELETAL:. No joint swelling. PSYCHIATRIC: Not anxious. No depression. No suicidal thoughts. No homicidal thoughts. SKIN: Intact. No rash. PHYSICAL EXAMINATION: V/S: blood pressure 99/59, respiratory rate 23, heart rate 70, temperature 98.1 with saturation 99%. HEENT: Normocephalic, atraumatic. Mucosa dry. Pallor positive. No icterus. NECK: Supple. No JVD, no carotid bruit. No lymphadenopathy. LUNGS: Decreased and clear to auscultation. No rales or rhonchi. HEART: S1, S2 normal. No S3. Systolic murmur, gallop or regurgitation. ABDOMEN: Soft, nontender. Bowel sounds active. No rigidity. No rebound or guarding. No CVA tenderness. EXTREMITIES: No clubbing, cyanosis or pedal edema. MUSCULOSKELETAL: No joint swelling. NEUROLOGIC: Awake, alert, oriented times three. No focal deficit. LYMPHATIC: No lymph nodes palpable. SKIN: Intact. LABS: HGb 10.2, hct 29.3, sodium 140, potassium 4.2, chloride 103, bicarb 31, BUN 21, creatinine 0.70. ASSESSMENT: 1. Acute on chronic lower GI bleed needing almost 9 units of PRBC 2. Acute on chronic heart failure 3. Angina, stable 4. Depression 5. Anxiety 6. Peripheral neuropathy 7. Diabetes, diet controlled PLAN: 1. Keep monitoring the H&H 2. Out of bed to chair activity as tolerated 3. Protonix POOR PROGNOSIS BEEN DISCUSSED. TIME SPENT: More than 35 minutes MTDD
--- NOTE | 2017-03-01 13:34 | DS ---
DATE OF SERVICE: 02/28/17 FINAL DIAGNOSIS: 1. Lower GI bleed needing 9 units of PRBC 2. Acute on chronic heart failure 3. CAD with stable Angina 4. Elevated Troponin 5. Severe aortic stenosis 6. Depression 7. Anxiety 8. Diverticulosis 9. Diabetes, Diet controlled 10.Anxiety 11.Peripheral neuropathy DISCHARGE INSTRUCTIONS: Discharge the patient home. Continue home medications. Will recheck the H&H on Monday. Followup in the office on Monday. MEDICATIONS AT DISCHARGE: Calcium carbonate Cymbalta Ferrous sulfate Lasix Neurontin Synthroid Ativan Mometasone Multivitamin [place] 3 Protonix Crestor NEW PRESCRIPTIONS: None DIET INSTRUCTIONS: Cardiac and Healthy ACTIVITY: Gradually resume as tolerated Elevate legs when sitting and when in bed. SMOKING: Former smoker DISEASE SPECIFIC EDUCATION: Rectal bleed needing blood transfusion Frequent blood transfusion and antibody development been discussed with the patient and family and verbalized understanding. HOSPITAL COURSE: Fran Adamsice who came to the emergency room with severe lower GI bleed, hgb was 7.1 and 7.6 then dropped to 6.4. Type and cross matched and blood transfusions were started on the patient. The patient continued to have lower GI bleed. Active blood has been going on. Troponin were high 0.7 and 0.62, 0.57 , 0.460. BNP was elevated to 314. Lasix was given in between the blood transfusion. The patient did have some shortness of breath and hypokalemia which was treated. With the breathing treatment and steroids she started feeling better. Hgb been steady at 10.5, 10.4 and 9.5. Up and about walking did not have any problems. At that time the patient being discharged home. TIME SPENT: MORE THAN 65 MINUTES MTDD
== END 2017-02-28 18:23 | disposition home or self-care (01) | DRG 377 ==
LOC: ED 02:19 → SCU 04:04
PROVIDERS: ADMIT Emergency Medicine; ATTEND Emergency Medicine
PROC: 30233N1 Transfusion of Nonautologous Red Blood Cells into Peripheral Vein, Percutaneous Approach (ICD-10-PCS; principal; 2017-02-20)
PROC: 30233N1 Transfusion of Nonautologous Red Blood Cells into Peripheral Vein, Percutaneous Approach (ICD-10-PCS; 2017-02-20)
PROC: 30233N1 Transfusion of Nonautologous Red Blood Cells into Peripheral Vein, Percutaneous Approach (ICD-10-PCS; 2017-02-21)
PROC: 30233N1 Transfusion of Nonautologous Red Blood Cells into Peripheral Vein, Percutaneous Approach (ICD-10-PCS; 2017-02-21)
PROC: 30233N1 Transfusion of Nonautologous Red Blood Cells into Peripheral Vein, Percutaneous Approach (ICD-10-PCS; 2017-02-21)
PROC: 30233N1 Transfusion of Nonautologous Red Blood Cells into Peripheral Vein, Percutaneous Approach (ICD-10-PCS; 2017-02-25)
PROC: 30233N1 Transfusion of Nonautologous Red Blood Cells into Peripheral Vein, Percutaneous Approach (ICD-10-PCS; 2017-02-25)
PROC: 30233N1 Transfusion of Nonautologous Red Blood Cells into Peripheral Vein, Percutaneous Approach (ICD-10-PCS; 2017-02-26)
PROC: 30233N1 Transfusion of Nonautologous Red Blood Cells into Peripheral Vein, Percutaneous Approach (ICD-10-PCS; 2017-02-26)
DX: K57.91 Diverticulosis of intestine, part unspecified, without perforation or abscess with bleeding (principal); I21.A1 Myocardial infarction type 2; I50.9 Heart failure, unspecified; I25.118 Atherosclerotic heart disease of native coronary artery with other forms of angina pectoris; I35.0 Nonrheumatic aortic (valve) stenosis; R79.89 Other specified abnormal findings of blood chemistry; F41.8 Other specified anxiety disorders; E11.9 Type 2 diabetes mellitus without complications; G62.9 Polyneuropathy, unspecified; R06.02 Shortness of breath; E87.6 Hypokalemia; R19.7 Diarrhea, unspecified; R42 Dizziness and giddiness; R53.1 Weakness; Z79.899 Other long term (current) drug therapy
CPT/HCPCS: 36415; 36430; 80048; 80053; 82272; 82550; 83880; 84484; 85014; 85018; 85025; 85610; 86850; 86900; 86922; 93005; 93010; 94640; 96361; 96374; 99284

== ENCOUNTER 2017-03-03 09:03 | Outpatient (CLI) ==
[2017-03-03 09:18] LABS: BASOPHILS # (AUTO) 0.1 K/uL (0-0.2); BASOPHILS % (AUTO) 1.1 % (0.0-3.0); EOSINOPHILS # (AUTO) 0.3 K/ul (0.0-0.7); EOSINOPHILS % (AUTO) 5.3 % (0.0-7.0); HEMATOCRIT 30.2 % (37.0-47.0); IMMATURE GRANULOCYTE % (AUTO) 0.9 % (0.0-5.0); LYMPHOCYTES # (AUTO) 0.6 K/uL (0.60-3.4); MEAN CORPUSCULAR HEMOGLOBIN 30.9 pg (27.0-31.0); MEAN CORPUSCULAR HGB CONC 33.1 (31.8-35.4); MEAN CORPUSCULAR VOLUME 93.2 fl (81.0-99.0); MONOCYTES # (AUTO) 0.6 K/uL (0.4-2.0); MONOCYTES % (AUTO) 9.9 (0-10); NEUTROPHILS % (AUTO) 71.8; PLATELET COUNT 180 10^3/uL (140-440); RED BLOOD COUNT 3.24 10^6/ul (4.20-5.40); WHITE BLOOD COUNT 5.63 K/ul (4.6-10.2)
== END 2017-03-03 09:04 | disposition home or self-care (01) ==
LOC: LAB 09:03
PROVIDERS: ATTEND Emergency Medicine
DX: D50.0 Iron deficiency anemia secondary to blood loss (chronic) (principal)
CPT/HCPCS: 36415; 85025

== ENCOUNTER 2017-03-06 14:49 | Outpatient (CLI) ==
[2017-03-06 14:59] LABS: HEMATOCRIT 29.7 % (37.0-47.0); HEMOGLOBIN 9.8 g/dl (12.0-16.0); MEAN CORPUSCULAR HEMOGLOBIN 30.7 pg (27.0-31.0); MEAN CORPUSCULAR VOLUME 93.1 fl (81.0-99.0); RED BLOOD COUNT 3.19 10^6/ul (4.20-5.40); WHITE BLOOD COUNT 4.97 K/ul (4.6-10.2)
== END 2017-03-06 14:50 | disposition home or self-care (01) ==
LOC: LAB 14:49
PROVIDERS: ATTEND Emergency Medicine
DX: D50.0 Iron deficiency anemia secondary to blood loss (chronic) (principal)
CPT/HCPCS: 36415; 85027

== ENCOUNTER 2017-03-10 12:40 | Outpatient (CLI) ==
[2017-03-10 12:49] LABS: BASOPHILS # (AUTO) 0.1 K/uL (0-0.2); BASOPHILS % (AUTO) 1.2 % (0.0-3.0); EOSINOPHILS # (AUTO) 0.2 K/ul (0.0-0.7); EOSINOPHILS % (AUTO) 4.3 % (0.0-7.0); HEMATOCRIT 26.5 % (37.0-47.0); HEMOGLOBIN 8.7 g/dl (12.0-16.0); IMMATURE GRANULOCYTE % (AUTO) 0.6 % (0.0-5.0); LYMPHOCYTES # (AUTO) 0.8 K/uL (0.60-3.4); LYMPHOCYTES % (AUTO) 16.3 (10.0-50.0); MEAN CORPUSCULAR HEMOGLOBIN 31.5 pg (27.0-31.0); MEAN CORPUSCULAR HGB CONC 32.8 (31.8-35.4); MONOCYTES # (AUTO) 0.5 K/uL (0.4-2.0); MONOCYTES % (AUTO) 10.2 (0-10); NEUTROPHILS # (AUTO) 3.3 K/ul (2.0-6.9); NEUTROPHILS % (AUTO) 67.4; PLATELET COUNT 185 10^3/uL (140-440); RED BLOOD COUNT 2.76 10^6/ul (4.20-5.40); WHITE BLOOD COUNT 4.92 K/ul (4.6-10.2)
== END 2017-03-10 12:41 | disposition home or self-care (01) ==
LOC: LAB 12:40
PROVIDERS: ATTEND Emergency Medicine
DX: D50.0 Iron deficiency anemia secondary to blood loss (chronic) (principal)
CPT/HCPCS: 36415; 85025

== ENCOUNTER 2017-03-13 08:44 | Outpatient (CLI) | payer OTHER ==
[2017-03-13 09:52] LABS: BASOPHILS # (AUTO) 0.1 K/uL (0-0.2); BASOPHILS % (AUTO) 1.3 % (0.0-3.0); EOSINOPHILS # (AUTO) 0.2 K/ul (0.0-0.7); HEMATOCRIT 28.8 % (37.0-47.0); HEMOGLOBIN 9.3 g/dl (12.0-16.0); IMMATURE GRANULOCYTE % (AUTO) 0.5 % (0.0-5.0); LYMPHOCYTES # (AUTO) 0.8 K/uL (0.60-3.4); LYMPHOCYTES % (AUTO) 14.4 (10.0-50.0); MEAN CORPUSCULAR HEMOGLOBIN 31.7 pg (27.0-31.0); MEAN CORPUSCULAR HGB CONC 32.3 (31.8-35.4); MEAN CORPUSCULAR VOLUME 98.3 fl (81.0-99.0); MONOCYTES # (AUTO) 0.5 K/uL (0.4-2.0); MONOCYTES % (AUTO) 8.5 (0-10); NEUTROPHILS % (AUTO) 71.3; PLATELET COUNT 179 10^3/uL (140-440); RED BLOOD COUNT 2.93 10^6/ul (4.20-5.40); WHITE BLOOD COUNT 5.56 K/ul (4.6-10.2)
== END 2017-03-13 08:45 | disposition home or self-care (01) ==
LOC: LAB 08:44
PROVIDERS: ATTEND Emergency Medicine
DX: D50.0 Iron deficiency anemia secondary to blood loss (chronic) (principal)
CPT/HCPCS: 36415; 85025

== ENCOUNTER 2017-03-17 13:16 | Outpatient (CLI) | END 2017-03-17 13:17 | disposition home or self-care (01) | LOC: LAB 13:16 | PROVIDERS: ATTEND Emergency Medicine | DX: D50.0 Iron deficiency anemia secondary to blood loss (chronic) (principal) | CPT/HCPCS: 36415; 85025 ==

== ENCOUNTER 2017-03-19 00:47 | Inpatient (IN) ==
[2017-03-19] MEDS ORDERED: SODIUM CHLORIDE 500 ML IV STA (01:11)
--- NOTE | 2017-03-19 01:12 | ED.PDOC ---
General ED Provider: Dr. JERSEY MACKEY Chief Complaint: GI Bleed Stated Complaint: Started having Bright red colored, rectal bleeding, shortness of breath. Time Seen by Physician: 01:10 Mode of Arrival: Wheelchair Information Source: Patient, Family Primary Care Provider: JERSEY MACKEY-[facility] Nursing and Triage Documentation Reviewed and Agree: Yes Reviewed sepsis parameters & appropriate labs ordered?: No System Inflammatory Response Syndrome: Not Applicable Sepsis Protocol: For patient's 13 years and over: Temp is 96.8 and below OR 101 and greater Pulse >90 BPM Resp >20/minute Acutely Altered Mental Status Are patient's symptoms suggestive of a new infection, such as: -Pneumonia -Skin, Soft Tissue -Endocarditis -UTI -Bone, Joint Infection -Implantable Device -Acute Abdominal Infection -Wound Infection -Meningitis -Blood Stream Catheter Infection -Unknown GI Complaint Exam - GI Bleed Complaint/Exam Patient Complains of: Reports: Rectal bleeding Symptoms Are: Still present Episodes Lasting: Hours Severity: Reports: Bright red blood-rectum Location of Pain: Reports: None Associated Signs and Symptoms: Reports: Dizziness, Weakness. Denies: Back Pain , Pallor, Syncope, Constipation, Nausea, Rectal pain, Bruising, Weight loss, Recent abnormal coags Related History: Reports: Similar episode GI Bleed Risk Factors: Reports: None Recent Colonoscopy: No Recent EGD: No Related Surgical History: Reports: None Abdominal Findings: Absent: Pulsatile mass, Abdominal distention Differential Diagnoses: Other (rectal bleed.) Review of Systems - Review Of Systems Constitutional: Reports: Malaise, Weakness Eyes: Reports: No symptoms Ears, Nose, Mouth, Throat: Reports: No symptoms Respiratory: Reports: No symptoms Cardiac: Reports: No symptoms GI: Reports: Rectal bleeding : Reports: No symptoms Musculoskeletal: Reports: No symptoms Skin: Reports: No symptoms Neurological: Reports: No symptoms Endocrine: Reports: No symptoms Hematologic/Lymphatic: Reports: No symptoms All Other Systems: Reviewed and Negative Past Medical History - Past Medical History Previously Healthy: Yes Endocrine: Reports: Hypothyroid, Dyslipidemia Cardiovascular: Reports: CAD, Hypertension, Other (Aortic stenosis) Respiratory: Reports: None Hematological: Reports: Anemia Gastrointestinal: Reports: GI Bleed, Diverticulitis Genitourinary: Reports: None Neuro/Psych: Reports: None Musculoskeletal: Reports: Arthritis Cancer: Reports: None Last Menstrual Period: UNKNOWN Other Pertinent Past Medical History: htn thy ane chol depr arth cad - Surgical History General Surgical History: Reports: Orthopedic (LT SHOULDER REPLACED), Other (- ORAL SURG-). Denies: Hysterectomy (D & C-) - Family History Family History: Reports: Unknown - Social History Smoking Status: Former smoker Hx Substance Use: No Alcohol Screening: None - Immunizations Tetanus Shot up to Date: No Physical Exam - Physical Exam Appearance: Ill-appearing, Obese Ill-appearing: Moderate Eyes: ENRIKE, EOMI, Conjunctiva clear ENT: Ears normal, Nose normal, Oropharynx normal Respiratory: Airway patent, Breath sounds clear, Breath sounds equal, Respirations nonlabored Cardiovascular: Murmur GI/: Soft, Nontender, No masses, Bowel sounds normal, No Organomegaly Musculoskeletal: Normal strength, ROM intact, No edema, No calf tenderness Skin: Warm, Dry, Normal color Neurological: Sensation intact, Motor intact, Reflexes intact, Cranial nerves intact, Alert, Oriented Psychiatric: Affect appropriate, Mood appropriate Critical Care Note - Critical Care Note Total Time (mins): 20 Course - Course Hematology/Chemistry: 03/19/17 01:20 Orders, Labs, Meds: Lab Review 03/19/17 01:20 WBC 7.67 RBC 2.35 L Hgb 7.8 L Hct 23.0 L MCV 97.9 MCH 33.2 H MCHC 33.9 RDW Coeff of Angelo 17.6 H Plt Count 169 Immature Gran % (Auto) 0.8 Neut % (Auto) 73.6 Lymph % (Auto) 13.4 [place] % (Auto) 8.5 Eos % (Auto) 2.7 Baso % (Auto) 1.0 Immature Gran # (Auto) 0.1 Neut # 5.6 Lymph # 1.0 Band[place] # 0.7 Eos # 0.2 Baso # 0.1 Orders Category Date Time Status ED IV/MEDIPORT/POWERPORT .ONCE EMERGENCY 03/19/17 01:11 Active BNP [B-TYPE NATRIURETIC PEPTIDE] Stat LAB 03/19/17 01:20 Received CBC W/ AUTO DIFF Stat LAB 03/19/17 01:20 Completed COMPREHENSIVE METABOLIC PANEL Stat LAB 03/19/17 01:20 Received CREATINE KINASE Stat LAB 03/19/17 01:20 Received TROPONIN I Stat LAB 03/19/17 01:20 Received 0.9 % Sodium Chloride [Saline Flush] MEDS 03/19/17 01:11 Ordered 1 syr IVF PRN PRN Sodium Chloride 0.9% [Sodium Chloride] 1,000 ml MEDS 03/19/17 01:18 Active IV 100 mls/hr CXR [CHEST, 1V AP ONLY] Stat RADS 03/19/17 01:09 Ordered Medications Generic Name Dose Route Start Last Admin Trade Name Amandeep PRN Reason Stop Dose Admin Sodium Chloride 1,000 mls @ 100 mls/hr 03/19/17 01:18 Sodium Chloride IV 03/19/17 11:17 .Q10H STA Sodium Chloride 1 syr 03/19/17 01:11 Saline Flush IVF PRN PRN To flush IV Vital Signs: Temp Pulse Resp BP Pulse Ox 03/19/17 00:48 98.8 F 92 H 22 88/40 L 95 Departure - Departure Time of Disposition: 01:13 Disposition: ADMITTED INPATIENT Discharge Problem: Lower GI bleed Anemia Qualifiers: Anemia type: iron deficiency Iron deficiency anemia type: chronic blood loss Qualified Code(s): D50.0 - Iron deficiency anemia secondary to blood loss ( chronic) Instructions: Rectal Bleeding (ED) Condition: Stable Pt referred to PMD for follow-up: Yes Allergies/Adverse Reactions: Allergies Latex, Natural Rubber Adverse Reaction (Verified 03/19/17 00:58) Home Medications: Ambulatory Orders Rosuvastatin Calcium [Crestor] 20 mg PO BEDTIME 09/02/15 [place]-3 Fatty Acids/Fish Oil [Fish Oil 1,000 mg Capsule] 1 each PO BID 09/05/16 Furosemide [Lasix Tab] 1 tab PO DIRECTED 10/21/16 Calcium Carbonate/Vitamin D3 [Calcium 600 + Vit D 400 Tablet] 1 each PO DAILY Ferrous Sulfate 324 mg PO BID 10/23/16 Levothyroxine Sodium [Synthroid] 75 mcg PO QDAC 10/23/16 Lorazepam [Ativan] 1 mg PO BEDTIME PRN 10/23/16 Multivitamin [Multi-Vitamin Daily] 1 each PO DAILY 10/23/16 Pantoprazole Sodium [Protonix] 40 mg PO QDAC 10/23/16 Polyethylene Glycol 3350 [Miralax] 17 gm PO EVERY OTHER DAY 10/23/16 Disposition Discussed With: Patient, Family
[2017-03-19] MEDS ORDERED: SODIUM CHLORIDE 1,000 ML IV STA (01:18)
[2017-03-19] MEDS ORDERED: TYLENOL PO PRN (01:54)
[2017-03-19] MEDS ORDERED: ATIVAN PO PRN (01:56)
[2017-03-19] MEDS ORDERED: LASIX TAB PO SCH (02:00)
[2017-03-19 03:29] VITALS: BMI 28.7
--- NOTE | 2017-03-19 05:51 | DI ---
EXAM: AP single view of the chest. HISTORY: Shortness of breath. FINDINGS: There is a left total shoulder arthroplasty. The cardiac silhouette is enlarged. The pulm onary vasculature is within normal limits. The costophrenic angles are clear. There is minimal left basilar atelectasis and/or pneumonia. Impression: Minimal left basilar atelectasis and/or pneumonia. Cardiomegaly.
[2017-03-19] MEDS: PROTONIX PO SCH (06:24)
[2017-03-19] MEDS: SYNTHROID PO SCH (06:24)
[2017-03-19] MEDS ORDERED: NON-FORMULARY MEDICATION (Duloxetine Hcl [Cymbalta] 60 MG) PO SCH (09:00)
[2017-03-19] MEDS ORDERED: NON-FORMULARY MEDICATION (Omega-3 Fatty Acids/Fish Oil [Fish Oil 1,000 Mg Capsule] 1 EACH) PO SCH (09:00)
[2017-03-19] MEDS: MIRALAX PO SCH (09:08)
[2017-03-19] MEDS: CYMBALTA PO SCH (09:09)
[2017-03-19] MEDS: MULTIVITAMIN TABLET PO SCH (09:09)
[2017-03-19] MEDS: OMEGA-3 FISH OIL PO SCH ×2 (09:09→20:49)
[2017-03-19] MEDS: NEURONTIN PO SCH ×3 (09:09→20:49)
[2017-03-19] MEDS: FERROUS SULFATE PO SCH ×2 (09:09→20:49)
[2017-03-19] MEDS: CALCIUM 500 + VIT D 200 MG TABLET PO SCH (09:10)
[2017-03-19] MEDS: SODIUM CHLORIDE 1,000 ML IV SCH ×3 (09:11→19:24)
[2017-03-19] MEDS ORDERED: LASIX IVP STA (17:53)
[2017-03-19] MEDS: CRESTOR PO SCH (20:50)
[2017-03-19] MEDS ORDERED: NON-FORMULARY MEDICATION (Rosuvastatin Calcium [Crestor] 20 MG) PO SCH (21:00)
[2017-03-19] MEDS ORDERED: NON-FORMULARY MEDICATION (Gabapentin [Neurontin] 600 MG) PO SCH (21:00)
[2017-03-20] MEDS: LASIX TAB PO SCH (06:07)
[2017-03-20] MEDS: SYNTHROID PO SCH (06:07)
[2017-03-20] MEDS: PROTONIX PO SCH (06:07)
[2017-03-20] MEDS: MULTIVITAMIN TABLET PO SCH (08:37)
[2017-03-20] MEDS: OMEGA-3 FISH OIL PO SCH ×2 (08:37→20:21)
[2017-03-20] MEDS: CYMBALTA PO SCH (08:37)
[2017-03-20] MEDS: CALCIUM 500 + VIT D 200 MG TABLET PO SCH (08:37)
[2017-03-20] MEDS: FERROUS SULFATE PO SCH ×2 (08:38→20:21)
[2017-03-20] MEDS: NEURONTIN PO SCH ×3 (08:38→20:21)
[2017-03-20] MEDS: CRESTOR PO SCH (20:21)
[2017-03-21] MEDS: LASIX TAB PO SCH (05:30)
[2017-03-21] MEDS: PROTONIX PO SCH (05:30)
[2017-03-21] MEDS: SYNTHROID PO SCH (05:30)
[2017-03-21] MEDS: SODIUM CHLORIDE 1,000 ML IV SCH (08:27)
[2017-03-21] MEDS: MULTIVITAMIN TABLET PO SCH (08:31)
[2017-03-21] MEDS: NEURONTIN PO SCH ×3 (08:31→21:14)
[2017-03-21] MEDS: CALCIUM 500 + VIT D 200 MG TABLET PO SCH (08:31)
[2017-03-21] MEDS: CYMBALTA PO SCH (08:31)
[2017-03-21] MEDS: OMEGA-3 FISH OIL PO SCH ×2 (08:31→21:13)
[2017-03-21] MEDS: MIRALAX PO SCH (08:31)
[2017-03-21] MEDS: FERROUS SULFATE PO SCH ×2 (08:31→21:12)
[2017-03-21] MEDS: CRESTOR PO SCH (21:12)
[2017-03-22] MEDS: SODIUM CHLORIDE 1,000 ML IV SCH (01:26)
[2017-03-22] MEDS: SYNTHROID PO SCH (05:55)
[2017-03-22] MEDS: PROTONIX PO SCH (05:55)
[2017-03-22] MEDS: LASIX TAB PO SCH (05:56)
[2017-03-22] MEDS: CALCIUM 500 + VIT D 200 MG TABLET PO SCH (08:49)
[2017-03-22] MEDS: NEURONTIN PO SCH (08:50)
[2017-03-22] MEDS: CYMBALTA PO SCH (08:50)
[2017-03-22] MEDS: FERROUS SULFATE PO SCH (08:50)
[2017-03-22] MEDS: MULTIVITAMIN TABLET PO SCH (08:50)
[2017-03-22] MEDS: OMEGA-3 FISH OIL PO SCH (08:50)
[2017-03-22 10:07] VITALS: BP 116/56; TEMP 98.2
--- NOTE | 2017-03-22 11:24 | PN ---
DATE OF SERVICE: 03/19/17 SUBJECTIVE: The patient is admitted with lower GI bleed. Hemoglobin was 7.8. The patient did not have any bowel movements overnight. The patient is getting the blood transfusion right now. REVIEW OF SYSTEMS: CONSTITUTIONAL: No fever, no chills. HEENT: Normal. ENDOCRINE: No weight gain, no weight loss. CVS: No angina symptoms. No CHF symptoms. No palpitations. No atypical chest pain for CAD. No shortness of breath. No PND, no orthopnea. RESPIRATORY: No cough, no hemoptysis. GI: No nausea, no vomiting. No abdominal pain. : No hematuria. No polyuria. MUSCULOSKELETAL:. No joint swelling. PSYCHIATRIC: Not anxious. No depression. No suicidal thoughts. No homicidal thoughts. SKIN: Intact. No rash. PHYSICAL EXAMINATION: V/S: BP 97/62, respiratory rate 16, heart rate 75, temperature 99.1. HEENT: Normocephalic, atraumatic. Mucosa dry. NECK: Supple. No JVD, no carotid bruit. No lymphadenopathy. LUNGS: Bilateral entry is decreased and clear to auscultation. No rales or rhonchi. HEART: S1, S2 normal. No S3. Systolic murmur positive. ABDOMEN: Soft, nontender. Bowel sounds active. No rigidity. No rebound or guarding. No CVA tenderness. EXTREMITIES: No clubbing, cyanosis or pedal edema. MUSCULOSKELETAL: No joint swelling. NEUROLOGIC: Awake, alert, oriented times three. No focal deficit. LYMPHATIC: No lymph nodes palpable. SKIN: Intact. LABS: Sodium 140, potassium 3.6, chloride 107, bicarb 26, BUN 23, creatinine 0.81. BNP 200, white count 7.67, hemoglobin 7.8, hematocrit 23.0, platelet count 169. ASSESSMENT: 1. ACUTE LOWER GI BLEED, NEEDING BLOOD TRANSFUSION 2. HISTORY OF CAD 3. SEVERE AORTIC STENOSIS 4. DEPRESSION 5. PERIPHERAL NEUROPATHY 6. OSTEOARTHRITIS PLAN: 1. Type and crossmatch 4 units and transfuse 2 units. 2. H & H after the blood transfusion. TIME SPENT: More than 35 minutes MTDD
--- NOTE | 2017-03-22 15:44 | PN ---
DATE OF SERVICE: 03/20/17 SUBJECTIVE: The patient had three bloody bowel movements yesterday. Hemoglobin is steady, 9.4 which was 9.9 after two units of blood transfusion. Complaints of weakness and tiredness today. No more bowel movements today. REVIEW OF SYSTEMS: CONSTITUTIONAL: Weakness and tiredness. No fever, no chills. HEENT: Normal. ENDOCRINE: No weight gain, no weight loss. CVS: No angina symptoms. No CHF symptoms. No palpitations. No atypical chest pain for CAD. No shortness of breath. No PND, no orthopnea. RESPIRATORY: No cough, no hemoptysis. GI: No nausea, no vomiting. No abdominal pain. : No hematuria. No polyuria. MUSCULOSKELETAL: No joint swelling. PSYCHIATRIC: Not anxious. No depression. No suicidal thoughts. No homicidal thoughts. SKIN: Intact. No rash. PHYSICAL EXAMINATION: V/S: BP 100/45, respiratory rate 20, heart rate 77, temperature 97.9, saturation 96. HEENT: Normocephalic, atraumatic. Mucosa dry, pallor positive. No icterus. NECK: Supple. No JVD, no carotid bruit. No lymphadenopathy. LUNGS: Clear to auscultation. No rales or rhonchi. HEART: S1, S2 normal. No S3. Systolic murmur positive. ABDOMEN: Soft, nontender. Bowel sounds active. No rigidity. No rebound or guarding. No CVA tenderness. EXTREMITIES: No clubbing, cyanosis or pedal edema. MUSCULOSKELETAL: No joint swelling. NEUROLOGIC: Awake, alert, oriented times three. No focal deficit. LYMPHATIC: No lymph nodes palpable. SKIN: Intact. LABS: White count 6.45, hemoglobin 9.4, hematocrit 27.8, platelet count 145. Sodium 140, potassium 3.6, chloride 107, bicarb 26, BUN 23, creatinine 0.81. ASSESSMENT: 1. ACUTE LOWER GI BLEED NEEDING BLOOD TRANSFUSION 2. CAD 3. SEVERE AORTIC STENOSIS 4. DEPRESSION 5. PERIPHERAL NEUROPATHY PLAN: 1. Continue to monitor H&H 2. Continue home medications 3. Out of bed to chair 4. Activity as tolerated TIME SPENT: More than 35 minutes MTDD
--- NOTE | 2017-04-03 10:14 | DS ---
DATE OF SERVICE: 03/22/17 FINAL DIAGNOSIS: 1. ACUTE LOWER GI BLEED NEEDING 2 UNITS OF BLOOD TRANSFUSION 2. HISTORY OF CHRONIC LOWER GI BLEED 3. DIVERTICULOSIS 4. SEVERE AORTIC STENOSIS 5. CORONARY ARTERY DISEASE 6. ANGINA, STABLE 7. CHF 8. DEPRESSION 9. ANXIETY 10. OSTEOARTHRITIS 11. PERIPHERAL NEUROPATHY DISCHARGE INSTRUCTIONS: Discharge the patient home. Followup appointment with Dr. Salter at [facility] on 03/24/17 at 1:30 p.m. MEDICATIONS AT DISCHARGE: Calcium Cymbalta Lasix Ferrous Sulfate Neurontin Synthroid Ativan [place]-3 Protonix Miralax NEW PRESCRIPTIONS: Keflex 500 mg one twice a day, start tonight Prednisone 10 mg one p.o. twice a day with meals (steroid) start at supper DIET INSTRUCTIONS: Cardiac and healthy ACTIVITY: As much as tolerated SMOKING: Former smoker DISEASE SPECIFIC EDUCATION: Needing further colonoscopy and endoscopy; need for further evaluation has been discussed with the patient on multiple occasions. The patient keeps refusing this. HOSPITAL COURSE: This is a 76-year-old female came to the emergency room with shortness of breath , lower GI bleed. The patient was found to have hemoglobin of 7.2. The patient was actively having lower GI bleed at time of admission. The patient was admitted to the hospital. Hemoglobin was 7.2. Typed and screened and 2 units of PRBCs were given. Lasix given in between the 2 units. With the given blood transfusion, the patient started feeling better. Hemoglobin went up to 10.1, then 8.9 then 10.7. Bloody bowel movements stopped. At that time, the patient was discharged home. TIME SPENT: MORE THAN 65 MINUTES MTDD
== END 2017-03-22 14:20 | disposition home or self-care (01) | DRG 379 ==
LOC: ED 00:47 → MEDSURG A 02:15
PROVIDERS: ADMIT Emergency Medicine; ATTEND Emergency Medicine
PROC: 30233N1 Transfusion of Nonautologous Red Blood Cells into Peripheral Vein, Percutaneous Approach (ICD-10-PCS; principal; 2017-03-19)
PROC: 30233N1 Transfusion of Nonautologous Red Blood Cells into Peripheral Vein, Percutaneous Approach (ICD-10-PCS; 2017-03-19)
DX: K57.31 Diverticulosis of large intestine without perforation or abscess with bleeding (principal); D50.0 Iron deficiency anemia secondary to blood loss (chronic); R06.02 Shortness of breath; I35.0 Nonrheumatic aortic (valve) stenosis; I25.118 Atherosclerotic heart disease of native coronary artery with other forms of angina pectoris; F41.8 Other specified anxiety disorders; M19.90 Unspecified osteoarthritis, unspecified site; G62.9 Polyneuropathy, unspecified; R42 Dizziness and giddiness; R53.1 Weakness; Z79.899 Other long term (current) drug therapy
CPT/HCPCS: 36415; 36430; 80053; 82550; 83880; 84484; 85014; 85018; 85025; 86850; 86900; 86922; 87081; 93005; 93010; 96360; 99284

== ENCOUNTER 2017-03-23 17:01 | Emergency (ER) ==
[2017-03-23 17:02] VITALS: BMI 28.7
[2017-03-23 17:11] VITALS: BP 111/55; TEMP 98.4
--- NOTE | 2017-03-23 18:25 | ED.PDOC ---
General ED Provider: Dr. YODIT ESPINOZA Chief Complaint: Chest Pain Stated Complaint: States has chronic chest pain withn known history of coronary artery disease plus aortic valvular disease. States refuses to have surgery. In additon known hx chronic rectal bleeding and has required multiple transfusions of PRBC since September 2016 Mode of Arrival: Wheelchair Information Source: Patient, Family [facility] Sepsis Protocol: For patient's 13 years and over: Temp is 96.8 and below OR 101 and greater Pulse >90 BPM Resp >20/minute Acutely Altered Mental Status Are patient's symptoms suggestive of a new infection, such as: -Pneumonia -Skin, Soft Tissue -Endocarditis -UTI -Bone, Joint Infection -Implantable Device -Acute Abdominal Infection -Wound Infection -Meningitis -Blood Stream Catheter Infection -Unknown Past Medical History - Past Medical History Previously Healthy: Yes Endocrine: Reports: Hypothyroid, Dyslipidemia Cardiovascular: Reports: CAD, Hypertension, Other (Aortic stenosis) Respiratory: Reports: None Hematological: Reports: Anemia Gastrointestinal: Reports: GI Bleed, Diverticulitis Genitourinary: Reports: None Neuro/Psych: Reports: None Musculoskeletal: Reports: Arthritis Cancer: Reports: None Last Menstrual Period: menopause Other Pertinent Past Medical History: htn thy ane chol depr arth cad - Surgical History General Surgical History: Reports: Orthopedic (LT SHOULDER REPLACED), Other (- ORAL SURG-). Denies: Hysterectomy (D & C-) - Family History Family History: Reports: Unknown - Social History Smoking Status: Former smoker Hx Substance Use: No Alcohol Screening: None Course - Course Orders, Labs, Meds: Orders Category Date Time Status CBC W/ AUTO DIFF Stat LAB 03/23/17 18:24 Ordered CMP [COMPREHENSIVE METABOLIC PANEL] Stat LAB 03/23/17 18:24 Ordered Vital Signs: Temp Pulse Resp BP Pulse Ox 03/23/17 17:02 98.4 F 79 16 111/55 L 93 L Departure - Departure Allergies/Adverse Reactions: Allergies Latex, Natural Rubber Adverse Reaction (Verified 03/23/17 17:13) Home Medications: Ambulatory Orders Rosuvastatin Calcium [Crestor] 20 mg PO BEDTIME 09/02/15 [place]-3 Fatty Acids/Fish Oil [Fish Oil 1,000 mg Capsule] 1 each PO BID 09/05/16 Furosemide [Lasix Tab] 1 tab PO DAILY 10/21/16 Calcium Carbonate/Vitamin D3 [Calcium 600 + Vit D 400 Tablet] 1 each PO DAILY Ferrous Sulfate 324 mg PO BID 10/23/16 Levothyroxine Sodium [Synthroid] 75 mcg PO QDAC 10/23/16 Lorazepam [Ativan] 1 mg PO BEDTIME PRN 10/23/16 Multivitamin [Multi-Vitamin Daily] 1 each PO DAILY 10/23/16 Pantoprazole Sodium [Protonix] 40 mg PO QDAC 10/23/16 Polyethylene Glycol 3350 [Miralax] 17 gm PO EVERY OTHER DAY 10/23/16 Cephalexin [Keflex] 500 mg PO Q12HR #14 capsule 03/22/17 Prednisone 10 mg PO BIDWM #10 tablet 03/22/17
--- NOTE | 2017-03-23 18:36 | ED.PDOC ---
General ED Provider: Dr. YODIT ESPINOZA Chief Complaint: Chest Pain Stated Complaint: States has chronic chest pain withn known history of coronary artery disease plus aortic valvular disease. States refuses to have surgery. In additon known hx chronic rectal bleeding and has required multiple transfusions of PRBC since September 2016 Time Seen by Physician: 18:15 Mode of Arrival: Wheelchair Information Source: Patient, Family [facility] Nursing and Triage Documentation Reviewed and Agree: Yes Reviewed sepsis parameters & appropriate labs ordered?: Yes System Inflammatory Response Syndrome: Not Applicable Sepsis Protocol: For patient's 13 years and over: Temp is 96.8 and below OR 101 and greater Pulse >90 BPM Resp >20/minute Acutely Altered Mental Status Are patient's symptoms suggestive of a new infection, such as: -Pneumonia -Skin, Soft Tissue -Endocarditis -UTI -Bone, Joint Infection -Implantable Device -Acute Abdominal Infection -Wound Infection -Meningitis -Blood Stream Catheter Infection -Unknown System Inflammatory Response Syndrome: Not Applicable Cardiovascular Complaint Exam - Chest Pain Complaint/Exam Symptoms Are: Still present Timing: Intermittent Initial Severity: Mild Current Severity: Mild Location: Reports: Discrete, Midsternal, Left anterior Pain Radiates: Reports: None Character: Reports: Dull, Aching Aggravating: Reports: Exertion Alleviating: Reports: Rest, Oxygen Associated Signs and Symptoms: Denies: Diaphoresis, Nausea, Vomiting, Palpitations, Abdominal pain, Dizziness Related History: Reports: Similar episode Related Surgical History: Reports: Cardiac Cath History of Healthcare-Acquired Pneumonia: Reports: No AMI/ACS Risk Factors: Reports: Family history, Hypertension Review of Systems - Review Of Systems Constitutional: Reports: No symptoms Eyes: Reports: No symptoms Ears, Nose, Mouth, Throat: Reports: No symptoms Respiratory: Reports: No symptoms Cardiac: Reports: Chest pain GI: Reports: Rectal bleeding : Reports: No symptoms Musculoskeletal: Reports: No symptoms Skin: Reports: No symptoms Neurological: Reports: No symptoms Endocrine: Reports: No symptoms Hematologic/Lymphatic: Reports: Anemia All Other Systems: Reviewed and Negative Past Medical History - Past Medical History Previously Healthy: Yes Endocrine: Reports: Hypothyroid, Dyslipidemia Cardiovascular: Reports: CAD, Hypertension, Other (Aortic stenosis) Respiratory: Reports: None Hematological: Reports: Anemia Gastrointestinal: Reports: GI Bleed, Diverticulitis Genitourinary: Reports: None Neuro/Psych: Reports: None Musculoskeletal: Reports: Arthritis Cancer: Reports: None Last Menstrual Period: menopause Other Pertinent Past Medical History: htn thy ane chol depr arth cad - Surgical History General Surgical History: Reports: Orthopedic (LT SHOULDER REPLACED), Other (- ORAL SURG-). Denies: Hysterectomy (D & C-) - Family History Family History: Reports: Unknown - Social History Smoking Status: Former smoker Hx Substance Use: No Alcohol Screening: None Physical Exam - Physical Exam Appearance: Ill-appearing Ill-appearing: None Pain Distress: None Eyes: ENRIKE, EOMI, Conjunctiva clear, Conjunctiva pale ENT: Ears normal, Nose normal, Oropharynx normal Respiratory: Airway patent, Breath sounds clear, Breath sounds equal, Breath sounds diminished Cardiovascular: RRR, Pulses normal, Murmur (Gr 3/6) GI/: Soft, Nontender, No masses Musculoskeletal: Normal strength, ROM intact Skin: Warm, Dry, Normal color, Pale Neurological: Sensation intact, Motor intact, Alert, Oriented Psychiatric: Affect appropriate, Mood appropriate Critical Care Note - Critical Care Note Total Time (mins): 0 Course - Course Hematology/Chemistry: 03/23/17 18:40 03/23/17 18:40 Orders, Labs, Meds: Lab Review 03/23/17 03/23/17 18:40 18:40 WBC 7.58 RBC 2.90 L Hgb 9.3 L Hct 27.9 L MCV 96.2 MCH 32.1 H MCHC 33.3 RDW Coeff of Angelo 17.6 H Plt Count 150 Immature Gran % (Auto) 0.7 Neut % (Auto) 76.6 Lymph % (Auto) 14.0 [place] % (Auto) 7.7 Eos % (Auto) 0.3 Baso % (Auto) 0.7 Immature Gran # (Auto) 0.1 Neut # 5.8 Lymph # 1.1 [place] # 0.6 Eos # 0.0 Baso # 0.1 Sodium 141 Potassium 4.3 Chloride 107 Carbon Dioxide 28 Anion Gap 10.3 BUN 15 Creatinine 0.70 Estimated GFR (MDRD) 82.00 BUN/Creatinine Ratio 21.42 Glucose 111 Calcium 9.6 Total Bilirubin 0.4 AST 27 ALT 10 L Alkaline Phosphatase 81 Troponin I 0.0440 Total Protein 5.9 Albumin 3.2 L Globulin 2.7 Albumin/Globulin Ratio 1.19 Orders Category Date Time Status EKG-(ED ONLY) Stat CARDIO 03/23/17 18:30 Completed CBC W/ AUTO DIFF Stat LAB 03/23/17 18:40 Completed CMP [COMPREHENSIVE METABOLIC PANEL] Stat LAB 03/23/17 18:40 Completed TROPONIN I Stat LAB 03/23/17 18:40 Completed Vital Signs: Temp Pulse Resp BP Pulse Ox 03/23/17 17:02 98.4 F 79 16 111/55 L 93 L ERICK Risk Score ERICK Risk Score: Risk Score Odds of by 30D 0 0.1 (0.1-0.2) 1 0.3 (0.2-0.3) 2 0.4 (0.3-0.5) 3 0.7 (0.6-0.9) 4 1.2 (1.0-1.5) 5 2.2 (1.9-2.6) 6 3.0 (2.5-3.6) 7 4.8 (3.8-6.1) Departure - Departure Time of Disposition: 19:45 Disposition: HOME SELF-CARE Discharge Problem: Anemia Qualifiers: Iron deficiency anemia type: chronic blood loss Instructions: Anemia (ED) Condition: Good Pt referred to PMD for follow-up: Yes Allergies/Adverse Reactions: Allergies Latex, Natural Rubber Adverse Reaction (Verified 03/23/17 17:13) Home Medications: Ambulatory Orders Rosuvastatin Calcium [Crestor] 20 mg PO BEDTIME 09/02/15 [place]-3 Fatty Acids/Fish Oil [Fish Oil 1,000 mg Capsule] 1 each PO BID 09/05/16 Furosemide [Lasix Tab] 1 tab PO DAILY 10/21/16 Calcium Carbonate/Vitamin D3 [Calcium 600 + Vit D 400 Tablet] 1 each PO DAILY Ferrous Sulfate 324 mg PO BID 10/23/16 Levothyroxine Sodium [Synthroid] 75 mcg PO QDAC 10/23/16 Lorazepam [Ativan] 1 mg PO BEDTIME PRN 10/23/16 Multivitamin [Multi-Vitamin Daily] 1 each PO DAILY 10/23/16 Pantoprazole Sodium [Protonix] 40 mg PO QDAC 10/23/16 Polyethylene Glycol 3350 [Miralax] 17 gm PO EVERY OTHER DAY 10/23/16 Cephalexin [Keflex] 500 mg PO Q12HR #14 capsule 03/22/17 Prednisone 10 mg PO BIDWM #10 tablet 03/22/17
== END 2017-03-23 20:10 | disposition home or self-care (01) ==
LOC: ED 17:01
DX: D50.0 Iron deficiency anemia secondary to blood loss (chronic) (principal); R07.9 Chest pain, unspecified; I25.10 Atherosclerotic heart disease of native coronary artery without angina pectoris; I35.9 Nonrheumatic aortic valve disorder, unspecified; I10 Essential (primary) hypertension; E78.5 Hyperlipidemia, unspecified; E03.9 Hypothyroidism, unspecified; Z87.19 Personal history of other diseases of the digestive system; Z79.899 Other long term (current) drug therapy
CPT/HCPCS: 36415; 80053; 84484; 85025; 93005; 93010; 99283

== ENCOUNTER 2017-03-27 13:13 | Outpatient (CLI) | END 2017-03-27 13:14 | disposition home or self-care (01) | LOC: LAB 13:13 | PROVIDERS: ATTEND Emergency Medicine | DX: D50.0 Iron deficiency anemia secondary to blood loss (chronic) (principal) | CPT/HCPCS: 36415; 85025 ==

== ENCOUNTER 2017-04-07 14:18 | Outpatient (CLI) | payer OTHER | END 2017-04-07 14:19 | disposition home or self-care (01) | LOC: LAB 14:18 | PROVIDERS: ATTEND Emergency Medicine | DX: D50.0 Iron deficiency anemia secondary to blood loss (chronic) (principal) | CPT/HCPCS: 36415; 85025 ==

== ENCOUNTER 2017-04-10 12:47 | Outpatient (CLI) | END 2017-04-10 12:48 | disposition home or self-care (01) | LOC: LAB 12:47 | PROVIDERS: ATTEND Emergency Medicine | DX: D50.0 Iron deficiency anemia secondary to blood loss (chronic) (principal) | CPT/HCPCS: 36415; 85025 ==

== ENCOUNTER 2017-04-18 13:47 | Outpatient (CLI) | END 2017-04-18 13:48 | disposition home or self-care (01) | LOC: LAB 13:47 | PROVIDERS: ATTEND Emergency Medicine | DX: D50.9 Iron deficiency anemia, unspecified (principal); K92.2 Gastrointestinal hemorrhage, unspecified | CPT/HCPCS: 36415; 85025 ==

== ENCOUNTER 2017-04-24 15:22 | Outpatient (CLI) | END 2017-04-24 15:23 | disposition home or self-care (01) | LOC: LAB 15:22 | PROVIDERS: ATTEND Emergency Medicine | DX: D50.9 Iron deficiency anemia, unspecified (principal); K92.2 Gastrointestinal hemorrhage, unspecified | CPT/HCPCS: 36415; 85025 ==

== ENCOUNTER 2017-05-05 09:18 | Emergency (ER) ==
[2017-05-05 09:26] VITALS: BP 95/43; TEMP 97.8; BMI 32.1
--- NOTE | 2017-05-05 10:04 | DI ---
EXAM: Chest one view, frontal view only. HISTORY: Chest pain. COMPARISON: 03/19/2017. FINDINGS: Heart is enlarged. Atherosclerotic calcifications are present. Mild vascular congestion is present. No consolidation, pleural effusion or pneumothorax identified. Left shoulder arthroplas ty changes present. IMPRESSION: Mild vascular congestion.
--- NOTE | 2017-05-05 10:20 | ED.PDOC ---
General ED Provider: Dr. LAKSHMI FERRELL Chief Complaint: Chest Pain Stated Complaint: chest pain Time Seen by Physician: 09:20 (seen with resp dept staff, robbin and and entire staff at all times ) Mode of Arrival: Walk-In Information Source: Patient Exam Limitations: No limitations [facility] Nursing and Triage Documentation Reviewed and Agree: Yes Reviewed sepsis parameters & appropriate labs ordered?: Yes System Inflammatory Response Syndrome: Not Applicable Sepsis Protocol: For patient's 13 years and over: Temp is 96.8 and below OR 101 and greater Pulse >90 BPM Resp >20/minute Acutely Altered Mental Status Are patient's symptoms suggestive of a new infection, such as: -Pneumonia -Skin, Soft Tissue -Endocarditis -UTI -Bone, Joint Infection -Implantable Device -Acute Abdominal Infection -Wound Infection -Meningitis -Blood Stream Catheter Infection -Unknown System Inflammatory Response Syndrome: Not Applicable Cardiovascular Complaint Exam - Chest Pain Complaint/Exam Onset: Gradual Duration: this morning prior to arrival Symptoms Are: Still present Length of Chest Pain Episodes: 0 Initial Severity: Mild Current Severity: Mild Location: Reports: Discrete Pain Radiates: Reports: None Character: Reports: Dull, Aching Aggravating: Reports: None Alleviating: Reports: None Associated Signs and Symptoms: Reports: Nausea, Cough, Short of air. Denies: Diaphoresis, Vomiting, Fever, Palpitations, Hemoptysis, Back pain, Abdominal pain, Dizziness, Calf pain, Calf swelling Related History: Reports: Similar episode Related Surgical History: Reports: None History of Healthcare-Acquired Pneumonia: Reports: No AMI/ACS Risk Factors: Reports: Obesity, Hypertension (anemia), Dyslipidemia TAD Risk Factors: Reports: Hypertension Pulmonary Embolism Risk Factors: Reports: None Prior Care for this Complaint: No Recent Stress Test: No Recent Echo/LV Function: No JVD Present: No Subcutaneous Emphysema Present: No Diminshed Breath Sounds: No Reproducible Chest Wall Pain: No Bilateral Pulses Present: No Unequal Pulses Noted: No If Risk Factors for AMI/ACS Consider: EKG, Cardiac Enzymes Differential Diagnoses: ACS, Stable Angina, Lower Resp. Infection, Other (LAD OBSTRUCTION([place] IN AVR AND V1)) Quality Indicators For Acute NC or Cardiac Chest Pain: EKG in 10min. Quality Indicator For Non-Traumatic Chest Pain/Syncope: EKG Performed Review of Systems - Review Of Systems Constitutional: Reports: Malaise, Weakness Eyes: Reports: No symptoms Ears, Nose, Mouth, Throat: Reports: No symptoms Respiratory: Reports: No symptoms Cardiac: Reports: Chest pain GI: Reports: No symptoms : Reports: No symptoms Musculoskeletal: Reports: No symptoms Skin: Reports: No symptoms Neurological: Reports: No symptoms Endocrine: Reports: No symptoms Hematologic/Lymphatic: Reports: No symptoms All Other Systems: Reviewed and Negative Past Medical History - Past Medical History Previously Healthy: Yes Endocrine: Reports: Hypothyroid, Dyslipidemia Cardiovascular: Reports: CAD, Hypertension, Other (Aortic stenosis) Respiratory: Reports: None Hematological: Reports: Anemia Gastrointestinal: Reports: GI Bleed, Diverticulitis Genitourinary: Reports: None Neuro/Psych: Reports: None Musculoskeletal: Reports: Arthritis Cancer: Reports: None Last Menstrual Period: N/A Other Pertinent Past Medical History: htn thy ane chol depr arth cad - Surgical History General Surgical History: Reports: Orthopedic (LT SHOULDER REPLACED), Other (- ORAL SURG-). Denies: Hysterectomy (D & C-) - Family History Family History: Reports: Unknown - Social History Smoking Status: Former smoker Hx Substance Use: No Alcohol Screening: None - Immunizations Tetanus Shot up to Date: Yes Physical Exam - Physical Exam Appearance: Ill-appearing Ill-appearing: Mild Pain Distress: Mild Eyes: ENRIKE, EOMI, Conjunctiva clear ENT: Ears normal, Nose normal, Oropharynx normal Respiratory: Rhonchi Cardiovascular: RRR, Pulses normal, No rub, No murmur GI/: Soft, Nontender, No masses, Bowel sounds normal, No Organomegaly Musculoskeletal: Normal strength, ROM intact, No edema, No calf tenderness Skin: Warm, Dry, Normal color Neurological: Sensation intact, Motor intact, Reflexes intact, Cranial nerves intact, Alert, Oriented Psychiatric: Affect appropriate, Mood appropriate Interpretation - Radiology Interpretation Radiology Interpretation By: Radiologist Radiology Results: No acute changes Physician Notification - Case Discussed Physician Notified: alayna Time of Notification: 10:45 (transfer to [facility] ED) Critical Care Note - Critical Care Note Total Time (mins): 0 Course - Course Hematology/Chemistry: 05/05/17 09:30 05/05/17 09:30 Orders, Labs, Meds: Lab Review 05/05/17 05/05/17 05/05/17 09:30 09:30 09:30 WBC 6.32 RBC 1.86 L Hgb 6.4 L Hct 19.3 L MCV 103.8 H MCH 34.4 H MCHC 33.2 RDW Coeff of Angelo 13.9 Plt Count 140 Immature Gran % (Auto) 1.6 Neut % (Auto) 70.6 Lymph % (Auto) 15.0 [place] % (Auto) 9.0 Eos % (Auto) 3.3 Baso % (Auto) 0.5 Immature Gran # (Auto) 0.1 Neut # 4.5 Lymph # 1.0 [place] # 0.6 Eos # 0.2 Baso # 0.0 PT 9.6 INR 0.94 APTT 21.5 L Sodium 142 Potassium 3.6 Chloride 105 Carbon Dioxide 29 Anion Gap 11.6 BUN 19 H Creatinine 0.77 Estimated GFR (MDRD) 73.00 BUN/Creatinine Ratio 24.67 Glucose 140 H Calcium 9.0 Total Bilirubin 0.3 AST 21 ALT 8 L Alkaline Phosphatase 80 Total Creatine Kinase Troponin I Total Protein 5.4 L Albumin 3.0 L Globulin 2.4 Albumin/Globulin Ratio 1.25 Stl Occult Blood (IFOB) Stool Occult Blood #2 Stool Occult Blood #3 05/05/17 05/05/17 09:55 10:15 WBC RBC Hgb Hct MCV MCH MCHC RDW Coeff of Angelo Plt Count Immature Gran % (Auto) Neut % (Auto) Lymph % (Auto) [place] % (Auto) Eos % (Auto) Baso % (Auto) Immature Gran # (Auto) Neut # Lymph # [place] # Eos # Baso # PT INR APTT Sodium Potassium Chloride Carbon Dioxide Anion Gap BUN Creatinine Estimated GFR (MDRD) BUN/Creatinine Ratio Glucose Calcium Total Bilirubin AST ALT Alkaline Phosphatase Total Creatine Kinase 35 Troponin I 0.2710 Total Protein Albumin Globulin Albumin/Globulin Ratio Stl Occult Blood (IFOB) Negative Stool Occult Blood #2 No specimen received Stool Occult Blood #3 No specimen received Orders Category Date Time Status EKG-(ED ONLY) Stat CARDIO 05/05/17 09:23 Completed EKG-(ED ONLY) Stat CARDIO 05/05/17 10:10 Ordered ED IV/MEDIPORT/POWERPORT .ONCE EMERGENCY 05/05/17 09:23 Active CBC W/ AUTO DIFF Stat LAB 05/05/17 09:30 Completed COMPREHENSIVE METABOLIC PANEL Stat LAB 05/05/17 09:30 Completed CREATINE KINASE Stat LAB 05/05/17 09:55 Received OCCULT BLOOD, STOOL Stat LAB 05/05/17 10:16 Uncollected PARTIAL THROMBOPLASTIN TIME Stat LAB 05/05/17 09:30 Completed PT WITH INR Stat LAB 05/05/17 09:30 Completed Packed Cells [PACKED CELLS] Stat LAB 05/05/17 10:00 Ordered TROPONIN I Stat LAB 05/05/17 09:55 Received TYPE AND SCREEN Stat LAB 05/05/17 10:00 Ordered 0.9 % Sodium Chloride [Saline Flush] MEDS 05/05/17 09:23 Active 1 syr IVF PRN PRN CHEST, 1V AP ONLY Stat RADS 05/05/17 09:23 Completed Medications Generic Name Dose Route Start Last Admin Trade Name Freq PRN Reason Stop Dose Admin Sodium Chloride 1 syr 05/05/17 09:23 Saline Flush IVF PRN PRN To flush IV Vital Signs: Temp Pulse Resp BP Pulse Ox 05/05/17 09:19 97.8 F 84 22 95/43 L 96 ERICK Risk Score ERICK Risk Score: Risk Score Odds of by 30D 0 0.1 (0.1-0.2) 1 0.3 (0.2-0.3) 2 0.4 (0.3-0.5) 3 0.7 (0.6-0.9) 4 1.2 (1.0-1.5) 5 2.2 (1.9-2.6) 6 3.0 (2.5-3.6) 7 4.8 (3.8-6.1) Departure - Departure Time of Disposition: 11:30 Disposition: TSF SHORT-TRM HOSP Discharge Problem: Chest pain Instructions: Angina (ED), Chest Pain (ED) Condition: Good Pt referred to PMD for follow-up: Yes IPMP verified?: No Additional Instructions: Please call your Family Physician as soon as possible to schedule a follow-up appointment. Allergies/Adverse Reactions: Allergies Latex, Natural Rubber Adverse Reaction (Verified 03/23/17 17:13) Home Medications: Ambulatory Orders Rosuvastatin Calcium [Crestor] 20 mg PO BEDTIME 09/02/15 [place]-3 Fatty Acids/Fish Oil [Fish Oil 1,000 mg Capsule] 1 each PO BID 09/05/16 Furosemide [Lasix Tab] 1 tab PO DAILY PRN 10/21/16 Calcium Carbonate/Vitamin D3 [Calcium 600 + Vit D 400 Tablet] 1 each PO DAILY Levothyroxine Sodium [Synthroid] 75 mcg PO QDAC 10/23/16 Multivitamin [Multi-Vitamin Daily] 1 each PO DAILY 10/23/16 Polyethylene Glycol 3350 [Miralax] 17 gm PO EVERY OTHER DAY 10/23/16
== END 2017-05-05 11:30 | disposition short-term general hospital (02) ==
LOC: ED 09:18
DX: R07.9 Chest pain, unspecified (principal); R06.02 Shortness of breath; E66.9 Obesity, unspecified; I10 Essential (primary) hypertension; D64.9 Anemia, unspecified; E78.5 Hyperlipidemia, unspecified; R53.1 Weakness; E03.9 Hypothyroidism, unspecified; I25.10 Atherosclerotic heart disease of native coronary artery without angina pectoris; Z87.19 Personal history of other diseases of the digestive system; M19.90 Unspecified osteoarthritis, unspecified site; Z79.899 Other long term (current) drug therapy; Z99.81 Dependence on supplemental oxygen; R14.3 Flatulence
CPT/HCPCS: 36415; 80053; 82272; 82550; 84484; 85025; 85610; 85730; 86850; 86900; 93005; 93010; 99285

== ENCOUNTER 2017-05-15 13:05 | Outpatient (CLI) | payer OTHER | END 2017-05-15 13:06 | disposition short-term general hospital (02) | LOC: AMBL 13:05 | PROVIDERS: ATTEND Emergency Medicine | DX: R07.9 Chest pain, unspecified (principal); K92.1 Melena; R42 Dizziness and giddiness; R06.02 Shortness of breath; I49.3 Ventricular premature depolarization ==